=== PATIENT | male | born 1955 | race Two or more races ===

== ENCOUNTER 2020-10-24 18:27 | Inpatient (IN) | payer OTHER ==
[~2020-10-24] VITALS: Ht 162.6 cm; Wt 68.0 kg
--- NOTE | 2020-10-24 18:30 | Emergency Room Report ---
History of Present Illness General Source: Patient, EMS Present Illness HPI 64-year-old male with past medical history of diabetes, hypertension, "heart condition" BIBA c/o shortness of breath. Patient is a poor historian, however states that he was at "a hospital on [place]" 3 weeks ago where "they did an operation on my chest". He endorses shortness of breath, dyspnea on exertion, wheezing, dry cough, nausea, and itchy rash to his entire body. He states that he has been scratching them relentlessly. He denies fever, phlegm, diarrhea, dysuria, melena, hematochezia, hematuria, flank or back pain. He states when he was tested at the outside hospital 3 weeks ago he was negative for Covid Admits to orthopnea and dyspnea on exertion The patient's symptoms were gradual onset, severity was moderate, duration since 3 weeks. Quality: Progressive shortness of breath Past medical history: Cardiac history (CAD??), Hypertension, diabetes Past surgical history: Possible left chest pacemaker Smoking: Denies Alcohol use: Denies Drug use: Denies Review of systems: CONST: No fevers or chills, No night sweats PULMONARY: ++dry cough, ++shortness of breath CARDIAC: No chest pain, No palpitations GI: No vomiting, No diarrhea , No melena_or_BRBPR : No dysuria, No hematuria, No discharge NEURO: No new_focal_weakness_or_numbness, No confusion, No vision changes ++ generalized weakness 14 point Review of Systems is otherwise negative except per HPI Physical Exam: GENERAL: Awake_alert_ nontoxic, no acute distress Spo2 90% on 2L NC, abnormal EYES: Extraocular muscles are intact. Conjunctivae clear. Lids without swelling ENT: External nose and ear normal_in_appearance. Oropharynx clear. Head_atraumatic, Dry_oral_mucosa NECK: ++ JVD. No meningismus. No thyromegaly. Supple. Trachea midline RESP: Tachypneic. Coarse breath sounds bilaterally. Inspiratory and expiratory wheezing. Symmetric rise. No stridor. CARDIAC: Left chest incision is clean, dry, intact. Possible pacemaker underneath the skin. Regular rate and regular rhytm. No_significant pedal edema. ABDOMEN: Soft. Nondistended. Nontender_No_rebound_or_guarding. No palpable pulsatile mass MSK: Normal muscle tone, without rigidity. Extremities without asymmetric deformity or swelling. SKIN: Linear burrows to the anterior and posterior thigh and tib-fib intertriginous zone, and hands NEUROLOGIC: Alert, oriented x3. Motor_and_sensation_grossly_intact. No truncal ataxia. Gait_normal Psych: Normal mood and affect, normal judgment and insight - COORDINATION OF CARE Case was discussed with: Patient Any labs and imaging that were ordered were interpreted as part of the medical decision making: Medical Decision Making/Plan: Differential includes CHF, pulmonary edema, COPD, pulmonary embolism, pneumonia, pleural effusions, pneumothorax, among others. Patient appears dyspneic on initial evaluation. He is neurologically intact with no focal deficits. Exam is notable for JVD and coarse breath sounds bilaterally, likely cardiac wheezing. He is incidentally also found to have evidence of scabies infection. Contact precautions were ordered. ABG confirms hypoxemia. Labs show BNP 3346, negative troponin x1. Also shows incidental findings of acute kidney injury (Cr 1.8 with no previous for comparison), and normocytic anemia. No indication for blood transfusion at this time. EKG is normal sinus rhythm without any obvious signs of ischemia. CXR shows RLL effusion vs Pneumonia. ED intervention included broad-spectrum antibiotics, azithromycin for atypical coverage, Decadron, and then medications for congestive heart failure exacerbation. Symptoms are not likely to be due to pulmonary embolism, the patient has no significant PE risk factors and has a more likely alternate cause of their symptoms, given their chest xray findings, lung exam and presentation so workup was deferred and not pursued. The patient appears to be in decompensated CHF in exacerbation and not a suitable candidate for outpatient treatment so will be admitted for inpatient diuresis and further evaluation and treatment. I spoke with Dr. Aguillon, and reviewed the patients presentation, workup, results, and treatment. They will admit the patient for further care and evaluation, and assume care of the patient at this time. Allergies: Coded Allergies: No Known Allergies (Unverified , 10/24/20) Physical Exam Sp02 EP Interpretation: reviewed, abnormal Medical Decision Making Diagnostic Impression: Primary Impression: Shortness of breath Additional Impressions: Hypoxia Pneumonia Cough VIJAY (acute kidney injury) Normocytic anemia CAD (coronary artery disease) Pacemaker Scabies EKG Diagnostic Results Troponin ordered: Yes When was troponin ordered?: Oct 24, 2020 CHARLIE Curtis 12-lead EKG (interpreted by me) Time: 184 Indication: Rhythm analysis Tracing visualized and Interpreted by me. Rhythm: Normal sinus rhythm Rate: 78 bpm QTc: 424 Morphology: No_significant_ST_elevations_or_depressions, No STEMI Impression: Normal_sinus_rhythm_without_significant_abnormality Rhythm Strip Diag. Results Rhythm Strip Time: 19:01 EP Interpretation: yes Rate: 76 Rhythm: NSR, no PVC's, no ectopy Chest X-Ray Diagnostic Results Chest X-Ray Diagnostic Results : CHARLIE Curtis Chest X-Ray: Views: [ 1 ] view(s) Indication: Shortness of breath Findings: Normal heart size. Mediastinum normal. No infiltrate. Impression: [ ] The X-ray(s) were independently viewed and interpreted contemporaneously Electronically signed by Dana hunter DO Disposition: ADMITTED INPATIENT Admit Decision Time: 18:44 Condition: Stable Dana Vazquez D.O. Oct 24, 2020 18:30
[2020-10-24] MEDS ORDERED: DiphenhydrAMINE 50mg/ml Inj IVP ONE (18:45)
[2020-10-24] MEDS ORDERED: dexAMETHasone 10mg/ml Inj IV ONE (18:45)
[2020-10-24] MEDS ORDERED: cefTRIAXone 1 GM in NS 55 ML IVPB ONE (18:45)
[2020-10-24] MEDS ORDERED: Azithromycin 250mg tab ORAL ONE (18:45)
[2020-10-24 19:03] LABS: BASOPHILS % (AUTO) 0.6 % (0.0-2.0); EOSINOPHILS % (AUTO) 6.6 % (0.0-3.0); HEMATOCRIT 27.4 % (42.0-52.0); HEMOGLOBIN 8.4 G/DL (14.2-18.0); LYMPHOCYTES % (AUTO) 16.1 % (20.0-45.0); MEAN CORPUSCULAR VOLUME 85 FL (80-99); MONOCYTES % (AUTO) 9.1 % (1.0-10.0); NEUTROPHILS % (AUTO) 67.5 % (45.0-75.0); PLATELET COUNT 359 K/UL (150-450); RED BLOOD COUNT 3.23 M/UL (4.70-6.10); RED CELL DISTRIBUTION WIDTH 14.2 % (11.6-14.8); WHITE BLOOD COUNT 8.4 K/UL (4.8-10.8)
--- NOTE | 2020-10-24 19:04 | NUR ---
Patient presented to ER with c/o shortness of breath x 3 weeks. He d/c's from another ER 3 weeks ago. When EMS arrived at his home, his O2 was 90%. They gave him O2 @ 2L which increased O2 to 95%. He has a hx of HTN and pacemaker placement. NKA. His medication is unknown as his medications were found in a weekly pill box. Patient cannot remember the names of his medications. Afebrile. NSR on 12 lead. 18 LFA. Current Dx: CHF exacerbation, scabies, JVD+
--- NOTE | 2020-10-24 19:10 | NUR ---
ED Nurse Note: Received patient in bed, supine. SOB O2 at 2L via nasal cannula, O2 sat 95%, pt is AOX3, forgetful, moslty frisian speaking. Denies chest pain.
[2020-10-24 19:18] LABS: ANION GAP 7 mmol/L (5-15); BLOOD UREA NITROGEN 44 mg/dL (7-18); CALCIUM 8.7 MG/DL (8.5-10.1); CARBON DIOXIDE 28 MMOL/L (21-32); CHLORIDE 107 MMOL/L (98-107); CREATININE 1.8 MG/DL (0.55-1.30); SODIUM 142 MMOL/L (136-145)
--- NOTE | 2020-10-24 19:18 | Diagnostic Imaging Report ---
EXAM: XR Chest, 1 View CLINICAL HISTORY: COUGH TECHNIQUE: Frontal view of the chest. COMPARISON: No relevant prior studies available. FINDINGS: Lungs: Low lung volumes with bronchovascular crowding. Retrocardiac atelectasis without or with consolidation. Left midlung/base subsegmental atelectasis. Pleural space: Right small-moderate pleural effusion with passive atelectasis. No pneumothorax. Heart: Cardiomegaly. Mediastinum: Unremarkable. Bones/joints: No acute abnormality Tubes, lines and devices: Left chest pacer. IMPRESSION: 1. Low lung volumes with bronchovascular crowding. 2. Right small-moderate pleural effusion with passive atelectasis without or with consolidation. 3. Retrocardiac atelectasis without or with consolidation. 4. Cardiomegaly. 5. Left chest pacer. 6. Left midlung/base subsegmental atelectasis. 7. If there is continued concern, consider cross-sectional imaging.
[2020-10-24 19:35] LABS: ALANINE AMINOTRANSFERASE 37 U/L (12-78); ALBUMIN 2.3 G/DL (3.4-5.0); ALBUMIN/GLOBULIN RATIO 0.5 (1.0-2.7); ALKALINE PHOSPHATASE 195 U/L (46-116); ASPARTATE AMINO TRANSFERASE 28 U/L (15-37); BILIRUBIN,TOTAL 0.2 MG/DL (0.2-1.0); CREATINE KINASE 163 U/L (26-308); FERRITIN 36 NG/ML (8-388); LACTATE DEHYDROGENASE 259 U/L (81-234)
[2020-10-24] MEDS ORDERED: Enalaprilat 2.5mg/2ml Inj IV ONE (20:15)
[2020-10-24] MEDS: Nitroglycerin Patch 0.1mg/hr TDERMAL SCH (20:46)
[2020-10-24 21:34] LABS: APPEARANCE,URINE CLEAR; BILIRUBIN, URINE NEGATIVE (NEGATIVE); COLOR,URINE PALE YELLOW; GLUCOSE, URINE (UA) NEGATIVE (NEGATIVE); KETONES,URINE NEGATIVE (NEGATIVE); LEUKOCYTE ESTERASE ,URINE NEGATIVE (NEGATIVE); NITRITE,URINE NEGATIVE (NEGATIVE); PH,URINE 5 (4.5-8.0); PROTEIN,URINE 3+ (NEGATIVE); UROBILINOGEN,URINE NORMAL MG/DL (0.0-1.0)
[2020-10-24 21:50] VITALS: BP 160/83
[2020-10-25] VITALS (11 sets, daily range): BP systolic 118–168; BP diastolic 74–95
[2020-10-25] MEDS ORDERED: Acetaminophen 500mg (ES) tab ORAL PRN
--- NOTE | 2020-10-25 01:00 | NUR ---
Resting in bed with eyes close. 144/74, 90 O2 Sat 95% on 2 L nc. Respiration even unlabored.
--- NOTE | 2020-10-25 02:00 | NUR ---
Patient is resting in bed, no acute distress. Urinary output 400 mls, voids well. 157/79, 99, O2 Sat 96% NC at 2 L.
--- NOTE | 2020-10-25 03:00 | NUR ---
Patient is awake, AOX3, pleasant, forgetul. Denies any pain or discomfort. SOB at rest, HOB. 153/90, HR 89, 95 % on 2L NC.
--- NOTE | 2020-10-25 07:30 | NUR ---
taking over pt care. pt on continuous cardiac/O2 monitor. pt VSS. will continue to monitor. pt resting in bed. pt calm, cooperative.
--- NOTE | 2020-10-25 11:25 | NUR ---
NURSE NOTES: Received report from KURT Ball via telephone. Awaiting patient arrival to [facility]. Addendum: 10/25/20 at 1228 by Conrado Santoyo RN Wrong time stamp.
--- NOTE | 2020-10-25 12:23 | NUR ---
called report to KURT Juarez
--- NOTE | 2020-10-25 12:25 | NUR ---
NURSE NOTES: Received report from KURT Ball via telephone. Awaiting patient arrival to tele floor
--- NOTE | 2020-10-25 13:41 | NUR ---
NURSE NOTES: Patient brought up to the floor into room 217-2, alert and orientedx4, breathing even and unlabored vitals WNL, bed in lowest and locked position, bed alarm on, monitor car operator in place, side rails upx2. Contact precautions followed due to possible scabies infestation.
--- NOTE | 2020-10-25 14:37 | Cardiac Electrophysiology PN ---
Subjective Subjective [id number] Objective Last 24 Hour Vital Signs Date Time Temp Pulse Resp B/P (MAP) Pulse Ox O2 Delivery O2 Flow Rate FiO2 10/25/20 13:00 86 20 146/95 100 Room Air 10/25/20 12:03 82 20 168/89 100 Room Air 10/25/20 09:23 85 18 163/81 95 10/25/20 06:00 98.7 83 20 149/82 94 Room Air 10/25/20 05:00 87 160/83 10/25/20 03:00 89 18 153/90 95 Nasal Cannula 2.0 10/25/20 02:00 89 18 157/79 95 Nasal Cannula 2.0 10/25/20 01:00 90 18 144/74 95 Nasal Cannula 2.0 10/24/20 23:23 82 18 Nasal Cannula 2.0 10/24/20 21:50 98.4 18 160/83 95 Nasal Cannula 2.0 10/24/20 20:47 176/62 10/24/20 20:46 172/62 10/24/20 18:27 98.4 82 18 151/86 (107) 95 Nasal Cannula Intake and Output 10/24/20 10/25/20 19:00 07:00 Intake Total 440 ml Output Total 700 ml Balance -260 ml Intake Oral 440 ml Output Urine Total 700 ml Laboratory Tests Test 10/24/20 18:47 10/24/20 18:50 10/24/20 21:00 10/24/20 21:30 White Blood Count 8.4 K/UL (4.8-10.8) Red Blood Count 3.23 M/UL (4.70-6.10) L Hemoglobin 8.4 G/DL (14.2-18.0) L Hematocrit 27.4 % (42.0-52.0) L Mean Corpuscular Volume 85 FL (80-99) Mean Corpuscular Hemoglobin 26.0 PG (27.0-31.0) L Mean Corpuscular Hemoglobin Concent 30.6 G/DL (32.0-36.0) L Red Cell Distribution Width 14.2 % (11.6-14.8) Platelet Count 359 K/UL (150-450) Mean Platelet Volume 9.3 FL (6.5-10.1) Neutrophils (%) (Auto) 67.5 % (45.0-75.0) Lymphocytes (%) (Auto) 16.1 % (20.0-45.0) L Monocytes (%) (Auto) 9.1 % (1.0-10.0) Eosinophils (%) (Auto) 6.6 % (0.0-3.0) H Basophils (%) (Auto) 0.6 % (0.0-2.0) Prothrombin Time 11.3 SEC (9.30-11.50) Prothromb Time International Ratio 1.0 (0.9-1.1) Activated Partial Thromboplast Time 32 SEC (23-33) Sodium Level 142 MMOL/L (136-145) Potassium Level 5.0 MMOL/L (3.5-5.1) Chloride Level 107 MMOL/L (98-107) Carbon Dioxide Level 28 MMOL/L (21-32) Anion Gap 7 mmol/L (5-15) Blood Urea Nitrogen 44 mg/dL (7-18) H Creatinine 1.8 MG/DL (0.55-1.30) H Estimat Glomerular Filtration Rate 37.9 mL/min (>60) Glucose Level 127 MG/DL (74-106) H Lactic Acid Level 2.40 mmol/L (0.4-2.0) H 1.20 mmol/L (0.66-2.22) Calcium Level 8.7 MG/DL (8.5-10.1) Ferritin 36 NG/ML (8-388) Total Bilirubin 0.2 MG/DL (0.2-1.0) Aspartate Amino Transf (AST/SGOT) 28 U/L (15-37) Alanine Aminotransferase (ALT/SGPT) 37 U/L (12-78) Alkaline Phosphatase 195 U/L (46-116) H Lactate Dehydrogenase 259 U/L (81-234) H Total Creatine Kinase 163 U/L (26-308) Troponin I 0.015 ng/mL (0.000-0.056) C-Reactive Protein, Quantitative 0.8 mg/dL (0.00-0.90) Pro-B-Type Natriuretic Peptide 3346 pg/mL (0-125) H Total Protein 7.0 G/DL (6.4-8.2) Albumin 2.3 G/DL (3.4-5.0) L Globulin 4.7 g/dL Albumin/Globulin Ratio 0.5 (1.0-2.7) L Lipase 85 U/L (73-393) Arterial Blood pH 7.415 (7.350-7.450) Arterial Blood Partial Pressure CO2 44.6 mmHg (35.0-45.0) Arterial Blood Partial Pressure O2 65.3 mmHg (75.0-100.0) L Arterial Blood HCO3 28.0 mmol/L (22.0-26.0) H Arterial Blood Oxygen Saturation 92.3 % (95-100) L Arterial Blood Base Excess 3.0 (-2-2) H Alex Test Positive Urine Color Pale yellow Urine Appearance Clear Urine pH 5 (4.5-8.0) Urine Specific [place] 1.010 (1.005-1.035) Urine Protein 3+ (NEGATIVE) H Urine Glucose (UA) Negative (NEGATIVE) Urine Ketones Negative (NEGATIVE) Urine Blood 1+ (NEGATIVE) H Urine Nitrite Negative (NEGATIVE) Urine Bilirubin Negative (NEGATIVE) Urine Urobilinogen Normal MG/DL (0.0-1.0) Urine Leukocyte Esterase Negative (NEGATIVE) Urine RBC 0-2 /HPF (0 - 0) H Urine WBC 0 /HPF (0 - 0) Urine Squamous Epithelial Cells None /LPF (NONE/OCC) Urine Bacteria Few /HPF (NONE) Microbiology Date/Time Source Procedure Growth Status 10/24/20 18:47 Nasopharynx SARS-CoV-2 Antigen (Rapid)(ELISABET) - Final Complete Jamal Cisneros MD Oct 25, 2020 14:37
--- NOTE | 2020-10-25 15:02 | Consultation ---
Consult Note Consult Note DATE OF CONSULTATION: 10/25/2020 CONSULTING PHYSICIAN: Venkatesh Reyna MD. ATTENDING PHYSICIAN: Dr. Aguillon REASON FOR CONSULTATION: Wheezing, hypoxic respiratory distress HISTORY OF PRESENT ILLNESS: This is a 64-year-old male with past medical history of diabetes mellitus, hypertension, and an unspecified "heart condition", who presented to ED for evaluation of shortness of breath. Patient is a poor historian, however states that he was at "a hospital on [place]" 3 weeks ago where "they did an operation on my chest". Patient reports shortness of breath, dyspnea on exertion, wheezing, dry cough, nausea, and itchy rash on his entire body. He states that he had been scratching them r elentlessly. He denies fever, phlegm, diarrhea, dysuria, melena, hematochezia, hematuria, flank or back pain. Patient states that he tested negative for COVID-19 3 weeks ago from an outside source. Patient admits to orthopnea and dyspnea on exertion. PAST MEDICAL HISTORY: Cardiac history, hypertension, diabetes mellitus MEDICATIONS: Full list of home medication not available at this time ALLERGIES: No known allergies FAMILY HISTORY: Noncontributory PERSONAL/SOCIAL HISTORY: Patient denies smoking, alcohol use, drug use REVIEW OF SYSTEMS: Negative except mentioned in HPI PHYSICAL EXAMINATION: VITAL SIGNS: Blood pressure 146/95, heart rate 80, respiratory rate next 20, weight 68, height 162 cm. General: Patient laying in bed, NAD, normal work of breathing on 2 L NC HEENT: Head exam reveals that the head is normocephalic, atraumatic without deformity or unusual swelling. Pupils are PERRLA. + JVD CHEST AND LUNGS: Coarse breath sounds bilaterally, inspiratory and expiratory wheezing, no stridor CARDIOVASCULAR: Left chest incision is clean, dry, intact. Possible pacemaker underneath the skin. Regular rate and regular rhytm. No_significant pedal edema. ABDOMEN: Soft with no tenderness or organomegaly. SKIN: Linear burrows to the anterior and posterior thigh and tib-fib intertriginous zone, and hands RECTAL: Deferred. MUSCULOSKELETAL: There is no tenderness to palpation. Range of motion is normal. NEUROLOGICAL: Alert and oriented x3 , nonfocal LABORATORY DATA: Laboratory testing shows hemoglobin 8.4, hematocrit 27.4. Chemistries show BUN 44, creatinine 1.8, glucose 127, lactic acid 1.2, alk phos 195, LDH 259, BNP 3346, albumin 2.3 Urinalysis unremarkable Assessment/Plan 1. Scabies -Contact precaution - s/p permethrin 2. Hypoxemic respiratory failure on admission -Currently saturating well on 2 L nasal cannula -Wean as tolerated - s/p Decadron in ER 3. VIJAY -Monitor renal parameters -IV fluids 4. ? Pneumonia - Rapid COVID-19 negative (10/25) - CXR Right lower lobe effusion versus pneumonia - s/p broad-spectrum antibiotics in ER -On antibiotics per ID 5. Right pleural effusion -Monitor effusion; consider thoracentesis if effusion enlarges and becomes symptomatic 6. CHF exacerbation - Elevated BNP - on Lasix -Cardio following 7. Normocytic anemia 8. DVT ppx - on SCDs The care for this patient was discussed with my supervising physician. Time spent for this case was approximately 31 minutes. Best Brandon Oct 25, 2020 15:02
[2020-10-25] MEDS: cefTRIAXone 1 GM in D5W 55 ML IVPB SCH (18:02)
[2020-10-25] MEDS ORDERED: cloNIDine 0.2mg Tab ORAL PRN (18:45)
--- NOTE | 2020-10-25 19:25 | NUR ---
NURSE HAND-OFF REPORT: Important Events on Shift: permethrin applied Patient Status: stable condition, breathing even and unlabored, SOB noted on exertion Diet: NPO Pending Orders: [] Pending Results/Labs:[] Pending MD notification:[] Latest Vital Signs: Temperature 97.9 , Pulse 73 , B/P 118 /88 , Respiratory Rate 16 , O2 SAT 95 , Room Air, O2 Flow Rate 2.0 . Vital Sign Comment: [] EKG Rhythm: Sinus Rhythm Rhythm change?: N MD Notified?: Yomi Aguillon MD Response: Latest Barber Fall Score: 45 Fall Risk: High Risk Safety Measures: Call light Within Reach, Bed Alarm Zone 2, Side Rails Side Rails x2, Bed position Low and Locked. Fall Precautions: Yellow Socks Yellow Gown Door Sign Patient Fall Education Report given to KURT Woody.
--- NOTE | 2020-10-25 19:25 | NUR ---
NURSE HAND-OFF REPORT: Important Events on Shift: turned patient every 2 hours, a-paced, v/s wnl Patient Status: full code, stable condition, discussed with patient Dr. Manley intent to send patient to assisted soon to stablize lab levels prior to proceeding with colonoscopy Diet: CARDIAC DIET Pending Orders: [] Pending Results/Labs:[] Pending MD notification:[] Latest Vital Signs: Temperature 97.9 , Pulse 73 , B/P 118 /88 , Respiratory Rate 16 , O2 SAT 95 , Room Air, O2 Flow Rate 2.0 . Vital Sign Comment: [] EKG Rhythm: Sinus Rhythm Rhythm change?: N MD Notified?: Y -Dr. Henna TURCIOS Response: Latest Barber Fall Score: 45 Fall Risk: High Risk Safety Measures: Call light Within Reach, Bed Alarm Zone 2, Side Rails Side Rails x2, Bed position Low and Locked. Fall Precautions: Yellow Socks Yellow Gown Door Sign Patient Fall Education Report given to KURT Woody. Addendum: 10/25/20 at 1947 by Conrado Santoyo RN wrong patient documentation.
--- NOTE | 2020-10-25 19:30 | NUR ---
NURSE NOTES: Received report & pt from Conrado Verdugo RN. Pt in bed, a&ox4, Uzbek speaking only, in room air. No s/s of acute distress & no c/o pain at this time. IV site intact & S/L'd. Bed in lowest position. Call light within reach. Will continue to monitor.
[2020-10-25] MEDS: Nitroglycerin Patch 0.1mg/hr TDERMAL SCH (20:31)
[2020-10-25] MEDS: Carvedilol 6.25mg Tab ORAL SCH (20:31)
--- NOTE | 2020-10-25 21:00 | NUR ---
NURSE NOTES: Pt requesting to put oxygen on. Pt currently saturating 93% in room air but insists on putting on the oxygen. Nasal canula on at @ 2LPM, pt saturating 96%.
--- NOTE | 2020-10-25 22:59 | History and Physical Report ---
DATE OF ADMISSION: 10/24/2020 HISTORY OF PRESENT ILLNESS: Patient is being admitted for patient has scabies also for CHF as well as chest x-ray shows right lower lobe infiltrate as well as pneumonia. Patient also has elevated blood pressure. Patient was also initially hypoxic and short of breath, admitted for those reasons. Patient denies orthopnea. Denies nausea, vomiting, or diarrhea. Does have shortness of breath and occasional cough and scratching as well as has some rash. Patient is very disheveled. Poor hygiene and has been complaining of dry cough. According to the ER doctor, he is COVID negative. PAST MEDICAL HISTORY: CHF, CAD, arrhythmia, hypertension. PAST SURGICAL HISTORY: Pacemaker. FAMILY HISTORY: Noncontributory. SOCIAL HISTORY: Denies history of smoking. Denies history of drug abuse. No history of alcohol abuse. FAMILY HISTORY: Noncontributory. REVIEW OF SYSTEMS: HEENT: Denies headaches. RESPIRATORY: Does have shortness of breath. Does have cough. CARDIOVASCULAR: Denies chest pain. Does have orthopnea. GASTROINTESTINAL: Denies nausea, vomiting, or diarrhea. EXTREMITIES: Denies pain. CENTRAL NERVOUS SYSTEM: Denies change in speech pattern. DERMATOLOGICAL: Has rash and itching. MEDICATIONS: None. ALLERGIES: No known allergies. PHYSICAL EXAMINATION: VITAL SIGNS: Temperature is 97.9, pulse is 77, blood pressure is 160/82. GENERAL: Does have disheveled state. HEENT: PERRLA. CHEST: Clear to auscultation. CARDIOVASCULAR: Regular rate and rhythm. No murmurs or extra sounds. GASTROINTESTINAL: Soft, nontender, nondistended. No organomegaly. EXTREMITIES: Does have rashes throughout. He is able to move all extremities. Reflexes equal on both sides. Dorsal pedal pulses are present. LABORATORY DATA: WBC of 8.4, hemoglobin 8.4, platelets of 359. Sodium 148, potassium of 5, BUN of 44, creatinine 1.8, glucose of 127. Troponin 0.015. ASSESSMENT AND PLAN: 1. Acute renal failure. 2. CHF. 3. Pneumonia. 4. Hypertension. 5. Shortness of breath. 6. Hypoxia. I have consulted Dr. Ram, Dr. Cisneros, Dr. Rodolfo Mueller, Dr. Venkatesh Reyna to help with the management of the above-mentioned abnormal symptoms, abnormal diagnoses, abnormal imaging as well as abnormal laboratories. We will need to diurese and bring down the blood pressure. Antibiotics as per Dr. Rodolfo Mueller. He is COVID negative. Jose Aguillon M.D. DR: ALICIA JOB#: [id number] CC:
[2020-10-26] VITALS: BP 126/65
--- NOTE | 2020-10-26 | NUR ---
NURSE NOTES: New IV inserted LH#[id number], flushing well. RN came into room and IV was out & bleeding.
[2020-10-26 04:00] VITALS: BP_SYST 143; BP_SYST 144; BP_DIAS 76; BP_DIAS 79
--- NOTE | 2020-10-26 04:00 | NUR ---
NURSE NOTES: Pt asleep. Vitals taken. Saturating 98% on o2 via NC. In no acute distress.
--- NOTE | 2020-10-26 06:21 | NUR ---
NURSE HAND-OFF REPORT: Important Events on Shift:new iv site LH#22 Patient Status: stable Diet: NPO Pending Orders: 2D Echo 10/26 Pending Results/Labs:none Pending MD notification:none Latest Vital Signs: Temperature 96.8 , Pulse 69 , B/P 143 /79 , Respiratory Rate 18 , O2 SAT 97 , Room Air, O2 Flow Rate 2.0 . Vital Sign Comment: none EKG Rhythm: V-Paced Rhythm change?: N MD Notified?: N MD Response: Latest Barber Fall Score: 45 Fall Risk: High Risk Safety Measures: Call light Within Reach, Bed Alarm Zone 2, Side Rails Side Rails x2, Bed position Low and Locked. Fall Precautions: Patient Fall Education Report given to Petar Kendall RN.
--- NOTE | 2020-10-26 07:25 | NUR ---
NURSE NOTES: Received patient in bed. Awake, A/O x4, french speaking. On 2 L NC, respirations unlabored. Patient denies pain at this time. Bed low and locked, side rails up x2, call light within reach with return demonstration.
[2020-10-26 07:46] LABS: BASOPHILS % (AUTO) 0.8 % (0.0-2.0); EOSINOPHILS % (AUTO) 2.1 % (0.0-3.0); HEMATOCRIT 25.9 % (42.0-52.0); MEAN CORPUSCULAR VOLUME 84 FL (80-99); MONOCYTES % (AUTO) 10.2 % (1.0-10.0); PLATELET COUNT 334 K/UL (150-450); RED BLOOD COUNT 3.07 M/UL (4.70-6.10); RED CELL DISTRIBUTION WIDTH 14.7 % (11.6-14.8); WHITE BLOOD COUNT 5.6 K/UL (4.8-10.8)
[2020-10-26 08:00] VITALS: BP 161/88
[2020-10-26] MEDS ORDERED: guaiFENesin /DM 10ml syrup ORAL PRN (08:00)
[2020-10-26 08:03] LABS: GAMMA GLUTAMYL TRANSPEPTIDASE 42 U/L (5-85); PHOSPHORUS 6.5 MG/DL (2.5-4.9)
[2020-10-26 08:11] LABS: IRON 28 ug/dL (50-175); TOTAL IRON BINDING CAPACITY 295 ug/dL (250-450)
[2020-10-26 08:13] LABS: ALANINE AMINOTRANSFERASE 25 U/L (12-78); ALBUMIN 2.3 G/DL (3.4-5.0); ALBUMIN/GLOBULIN RATIO 0.5 (1.0-2.7); ALKALINE PHOSPHATASE 156 U/L (46-116); ANION GAP 6 mmol/L (5-15); ASPARTATE AMINO TRANSFERASE 18 U/L (15-37); BILIRUBIN,TOTAL 0.2 MG/DL (0.2-1.0); BLOOD UREA NITROGEN 61 mg/dL (7-18); CARBON DIOXIDE 28 MMOL/L (21-32); CHLORIDE 108 MMOL/L (98-107); CHOLESTEROL 157 MG/DL (< 200); CREATININE 1.8 MG/DL (0.55-1.30); FERRITIN 44 NG/ML (8-388); HDL CHOLESTEROL 33 MG/DL (40-60); POTASSIUM 4.6 MMOL/L (3.5-5.1); SODIUM 142 MMOL/L (136-145); TRIGLYCERIDES 122 MG/DL (30-150)
[2020-10-26 08:19] LABS: % IRON SATURATION 9 % (15-50)
[2020-10-26] MEDS: Carvedilol 6.25mg Tab ORAL SCH ×2 (08:31→20:45)
--- NOTE | 2020-10-26 10:18 | Pulmonology Progress Note ---
Subjective Interval Events: none major reported per nursing Constitutional: Reports: no symptoms HEENT: Repors: no symptoms Respiratory: Reports: no symptoms Cardiovascular: Reports: no symptoms Gastrointestinal/Abdominal: Reports: no symptoms Allergies: Coded Allergies: No Known Allergies (Unverified , 10/24/20) Objective Last 24 Hour Vital Signs Date Time Temp Pulse Resp B/P (MAP) Pulse Ox O2 Delivery O2 Flow Rate FiO2 10/26/20 08:31 72 164/88 10/26/20 08:00 97.9 72 18 161/88 (112) 99 10/26/20 04:00 96.8 98 18 143/79 (100) 97 10/26/20 04:00 69 10/26/20 00:00 73 10/26/20 00:00 97.9 78 18 126/65 (85) 98 10/25/20 21:00 Room Air 10/25/20 20:31 90 160/82 10/25/20 20:31 160/82 10/25/20 20:00 96.4 90 18 160/82 (108) 96 10/25/20 20:00 73 10/25/20 16:00 97.9 86 16 118/88 (98) 95 10/25/20 16:00 73 10/25/20 14:51 Nasal Cannula 2.0 10/25/20 13:50 97.9 77 20 130/92 (105) 98 10/25/20 13:00 86 20 146/95 100 Room Air 10/25/20 12:03 82 20 168/89 100 Room Air 10/25/20 12:00 98.7 85 18 163/81 95 Room Air 2.0 Intake and Output 10/25/20 10/26/20 19:00 07:00 Intake Total 55 ml Output Total 650 ml Balance 55 ml -650 ml IV Total 55 ml Other 650 ml General Appearance: no acute distress HEENT: atraumatic Respiratory: other - coase breath sounds Cardiovascular: normal rate Abdomen: soft, non tender Microbiology Date/Time Source Procedure Growth Status 10/24/20 18:59 Blood Blood Culture - Preliminary NO GROWTH AFTER 24 HOURS Resulted 10/24/20 18:47 Nasopharynx SARS-CoV-2 Antigen (Rapid)(ELISABET) - Final Complete 10/24/20 18:47 Blood Blood Culture - Preliminary Gram Positive Cocci Resulted Laboratory Tests 10/25/20 15:35: Troponin I 0.013 10/25/20 23:27: Troponin I 0.013 10/26/20 07:24: Troponin I 0.022, White Blood Count 5.6, Red Blood Count 3.07L, Hemoglobin 8.0L, Hematocrit 25.9L, Mean Corpuscular Volume 84, Mean Corpuscular Hemoglobin 26.1L, Mean Corpuscular Hemoglobin Concent 31.0L, Red Cell Distribution Width 14.7, Platelet Count 334, Mean Platelet Volume 8.8, Neutrophils (%) (Auto) 70.0, Lymphocytes (%) (Auto) 17.0L, Monocytes (%) (Auto) 10.2H, Eosinophils (%) (Auto) 2.1, Basophils (%) (Auto) 0.8, Sodium Level 142, Potassium Level 4.6, Chloride Level 108H, Carbon Dioxide Level 28, Anion Gap 6, Blood Urea Nitrogen 61H, Creatinine 1.8H, Estimat Glomerular Filtration Rate 37.9, Glucose Level 204H, Uric Acid 7.5H, Calcium Level 9.0, Phosphorus Level 6.5H, Magnesium Level 2.4, Iron Level 28L, Total Iron Binding Capacity 295, Percent Iron Saturation 9L, Unsaturated Iron Binding 267, Ferritin 44, Total Bilirubin 0.2, Gamma Glutamyl Transpeptidase 42, Aspartate Amino Transf (AST/SGOT) 18, Alanine Aminotransferase (ALT/SGPT) 25, Alkaline Phosphatase 156H, C-Reactive Protein, Quantitative < 0.4, Pro-B-Type Natriuretic Peptide 4893H, Total Protein 6.5, Albumin 2.3L, Globulin 4.2, Albumin/Globulin Ratio 0.5L, Triglycerides Level 122, Cholesterol Level 157, LDL Cholesterol 106H, HDL Cholesterol 33L, Cholesterol/HDL Ratio 4.8H, Vitamin B12 Level 646, Folate 7.7L, Thyroid Stimulating Hormone (TSH) 5.007H Current Medications Medications (Trade) Dose Ordered Sig/Jermaine Route PRN Reason Start Time Stop Time Status Last Admin Dose Admin Acetaminophen (Tylenol) 500 mg EVERY 4 HOURS PRN ORAL For Pain 10/25/20 00:00 11/24/20 00:00 Carvedilol (Coreg) 3.125 mg EVERY 12 HOURS ORAL 10/25/20 21:00 11/24/20 20:59 10/26/20 08:31 Ceftriaxone Sodium 1 gm/ Dextrose 55 ml @ 110 mls/hr Q24H IVPB 10/25/20 18:00 11/01/20 17:59 10/25/20 18:02 Clonidine HCl (Catapres tab) 0.2 mg Q4H PRN ORAL For High Blood Pressure 10/25/20 18:45 01/23/21 18:44 Furosemide (Lasix) 40 mg EVERY 12 HOURS IV 10/25/20 21:00 11/24/20 20:59 10/26/20 08:30 Guaifenesin/ Dextromethorphan (Robitussin DM Syrup) 10 ml Q4H PRN ORAL For Cough 10/26/20 08:00 01/24/21 07:59 10/26/20 08:30 Nitroglycerin (Ntg) 1 patch Q24H TDERMAL 10/24/20 20:15 11/23/20 20:14 10/25/20 20:31 Assessment/Plan Assessment/Plan 1. Scabies -Contact precaution - s/p permethrin 2. Hypoxemic respiratory failure on admission -Currently saturating well on 2 L nasal cannula; Wean as tolerated - s/p Decadron in ER 3. VIJAY -Monitor renal parameters -IV fluids 4. ? Pneumonia - Rapid COVID-19 negative (10/25) - CXR Right lower lobe effusion versus pneumonia - s/p broad-spectrum antibiotics in ER -On antibiotics per ID 5. Right pleural effusion -Monitor effusion; consider thoracentesis if effusion enlarges and becomes symptomatic 6. CHF exacerbation - Elevated BNP - on Lasix -Cardio following 7. Normocytic anemia 8. DVT ppx - on SCDs The care for this patient was discussed with my supervising physician. Time spent for this case was approximately 31 minutes. Best Brandon Oct 26, 2020 10:18
--- NOTE | 2020-10-26 11:21 | NUR ---
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 98.4 HR 82 RR 18 B/P 151/86 BUN 44 CR 1.5 ALK PHOS 185 BNP 3346 CXR=Right small-moderate pleural effusion with passive atelectasis without or with consolidation. Retrocardiac atelectasis without or with consolidation. Cardiomegaly. IS: ROCEPHIN IV ZITHROMAX IV LASIX IV DECADRON IV BENADRYL IV ADMITTED TO TELE @ 1230 TELE STATUS DCP RETURN HOME
--- NOTE | 2020-10-26 11:47 | Cardiac Electrophysiology PN ---
Assessment/Plan Assessment/Plan 1. S/P DDD Pacer implant. Still the brand is unknown. 2. CHF exacerbation EF 45% on Lasix 40 iv bid and Coreg 3.125 bid 3. Hypoxemic respiratory failure due to CHFand Pneumonia - Rapid COVID-19 negative (10/25) - CXR Right lower lobe effusion versus pneumonia -On antibiotics per ID -Currently saturating well on 2 L nasal cannula 4. VIJAY BUN/Cr 61/1.8 5. Right pleural effusion -Monitor effusion; consider thoracentesis if effusion enlarges and becomes symptomatic 6. Scabies -Contact precaution - s/p permethrin Subjective Subjective No CP or SOB. We contacted all pacer companies but not registered to any one?! Objective Last 24 Hour Vital Signs Date Time Temp Pulse Resp B/P (MAP) Pulse Ox O2 Delivery O2 Flow Rate FiO2 10/26/20 09:00 Nasal Cannula 2.0 10/26/20 08:31 72 164/88 10/26/20 08:00 71 10/26/20 08:00 97.9 72 18 161/88 (112) 99 10/26/20 04:00 96.8 98 18 143/79 (100) 97 10/26/20 04:00 69 10/26/20 00:00 73 10/26/20 00:00 97.9 78 18 126/65 (85) 98 10/25/20 21:00 Room Air 10/25/20 20:31 90 160/82 10/25/20 20:31 160/82 10/25/20 20:00 96.4 90 18 160/82 (108) 96 10/25/20 20:00 73 10/25/20 16:00 97.9 86 16 118/88 (98) 95 10/25/20 16:00 73 10/25/20 14:51 Nasal Cannula 2.0 10/25/20 13:50 97.9 77 20 130/92 (105) 98 10/25/20 13:00 86 20 146/95 100 Room Air 10/25/20 12:03 82 20 168/89 100 Room Air 10/25/20 12:00 98.7 85 18 163/81 95 Room Air 2.0 Intake and Output 10/25/20 10/26/20 19:00 07:00 Intake Total 55 ml Output Total 650 ml Balance 55 ml -650 ml IV Total 55 ml Other 650 ml Laboratory Tests Test 10/25/20 15:35 10/25/20 23:27 10/26/20 07:24 Troponin I 0.013 ng/mL (0.000-0.056) 0.013 ng/mL (0.000-0.056) 0.022 ng/mL (0.000-0.056) White Blood Count 5.6 K/UL (4.8-10.8) Red Blood Count 3.07 M/UL (4.70-6.10) L Hemoglobin 8.0 G/DL (14.2-18.0) L Hematocrit 25.9 % (42.0-52.0) L Mean Corpuscular Volume 84 FL (80-99) Mean Corpuscular Hemoglobin 26.1 PG (27.0-31.0) L Mean Corpuscular Hemoglobin Concent 31.0 G/DL (32.0-36.0) L Red Cell Distribution Width 14.7 % (11.6-14.8) Platelet Count 334 K/UL (150-450) Mean Platelet Volume 8.8 FL (6.5-10.1) Neutrophils (%) (Auto) 70.0 % (45.0-75.0) Lymphocytes (%) (Auto) 17.0 % (20.0-45.0) L Monocytes (%) (Auto) 10.2 % (1.0-10.0) H Eosinophils (%) (Auto) 2.1 % (0.0-3.0) Basophils (%) (Auto) 0.8 % (0.0-2.0) Sodium Level 142 MMOL/L (136-145) Potassium Level 4.6 MMOL/L (3.5-5.1) Chloride Level 108 MMOL/L (98-107) H Carbon Dioxide Level 28 MMOL/L (21-32) Anion Gap 6 mmol/L (5-15) Blood Urea Nitrogen 61 mg/dL (7-18) H Creatinine 1.8 MG/DL (0.55-1.30) H Estimat Glomerular Filtration Rate 37.9 mL/min (>60) Glucose Level 204 MG/DL (74-106) H Uric Acid 7.5 MG/DL (2.6-7.2) H Calcium Level 9.0 MG/DL (8.5-10.1) Phosphorus Level 6.5 MG/DL (2.5-4.9) H Magnesium Level 2.4 MG/DL (1.8-2.4) Iron Level 28 ug/dL (50-175) L Total Iron Binding Capacity 295 ug/dL (250-450) Percent Iron Saturation 9 % (15-50) L Unsaturated Iron Binding 267 ug/dL (112-346) Ferritin 44 NG/ML (8-388) Total Bilirubin 0.2 MG/DL (0.2-1.0) Gamma Glutamyl Transpeptidase 42 U/L (5-85) Aspartate Amino Transf (AST/SGOT) 18 U/L (15-37) Alanine Aminotransferase (ALT/SGPT) 25 U/L (12-78) Alkaline Phosphatase 156 U/L (46-116) H C-Reactive Protein, Quantitative < 0.4 mg/dL (0.00-0.90) Pro-B-Type Natriuretic Peptide 4893 pg/mL (0-125) H Total Protein 6.5 G/DL (6.4-8.2) Albumin 2.3 G/DL (3.4-5.0) L Globulin 4.2 g/dL Albumin/Globulin Ratio 0.5 (1.0-2.7) L Triglycerides Level 122 MG/DL (30-150) Cholesterol Level 157 MG/DL (< 200) LDL Cholesterol 106 mg/dL (<100) H HDL Cholesterol 33 MG/DL (40-60) L Cholesterol/HDL Ratio 4.8 (3.3-4.4) H Vitamin B12 Level 646 PG/ML (193-986) Folate 7.7 NG/ML (8.6-58.9) L Thyroid Stimulating Hormone (TSH) 5.007 uiU/mL (0.358-3.740) Microbiology Date/Time Source Procedure Growth Status 10/24/20 18:59 Blood Blood Culture - Preliminary NO GROWTH AFTER 24 HOURS Resulted 10/24/20 18:47 Nasopharynx SARS-CoV-2 Antigen (Rapid)(ELISABET) - Final Complete 10/24/20 18:47 Blood Blood Culture - Preliminary Gram Positive Cocci Resulted Objective General Appearance: no acute distress HEENT: atraumatic Respiratory: other - coase breath sounds Cardiovascular: RRR. Pacer left subclavian Abdomen: soft, non tender Toluie,Jamal MD Oct 26, 2020 11:47
[2020-10-26 12:00] VITALS: BP 155/87
--- NOTE | 2020-10-26 12:31 | Consultation ---
Consult Note Consult Note I am asked to evaluate the patient at the request of Dr. Stewart for renal failure and abnormal electrolytes IV fluid management. Patient seen. Labs reviewed. Other MDs notes reviewed. 64-year-old male with past medical history of diabetes, hypertension, "heart condition" BIBA c/o shortness of breath. Patient is a poor historian, however states that he was at "a hospital on [address] [place]" 3 weeks ago where "they did an operation on my chest". He endorses shortness of breath, dyspnea on exertion, wheezing, dry cough, nausea, and itchy rash to his entire body. He states that he has been scratching them relentlessly. He denies fever, phlegm, diarrhea, dysuria, melena, hematochezia, hematuria, flank or back pain. He states when he was tested at the outside hospital 3 weeks ago he was negative for Covid Admits to orthopnea and dyspnea on exertion The patient's symptoms were gradual onset, severity was moderate, duration since 3 weeks. Quality: Progressive shortness of breath Past medical history: Cardiac history (CAD??), Hypertension, diabetes Past surgical history: Possible left chest pacemaker PHYSICAL EXAMINATION: VITAL SIGNS: Temperature 97.9, pulse 72, blood pressure 164/88. GENERAL APPEARANCE: Seems to have normal weight. HEAD AND NECK: Have denture. HEART: Normal rate. LUNGS: Clear. Getting oxygen by nasal cannula. ABDOMEN: Soft. EXTREMITIES: No edema. NEUROLOGIC: Awake, alert, oriented x3. LABORATORY AND DIAGNOSTIC DATA: WBC 5.6, hemoglobin 8, hematocrit 25.9, and platelets 334. Sodium 142, potassium 4.6, BUN 61, creatinine 1.8, glucose 204. Hemoglobin A1c is 11.5. Had lactic acidosis at the time of admission. ABG showed hypoxemia with pO2 of 65.3 and O2 saturation of 92.3. COVID test negative. Blood culture x1 gram- positive cocci, other blood culture is negative. Chest x-ray showed low lung volumes, right small effusion, questionable atelectasis with or without consolidation. . Assessment/Plan Acute renal failure Possible underlying chronic kidney disease Anemia Pneumonia and hypoxia. Right lower lobe effusion versus pneumonia Congestive heart failure exacerbation with ejection fraction of 45% Pacemaker Coronary artery disease Scabies Optimize cardiac status Add folic acid Add Synthroid Add Protonix and stool softeners Change diet to cardiac diet, renal friendly Monitor renal parameters and electrolytes IV Venofer for low iron Monitor CBC and renal parameters Avoid nephrotoxic's Long Ram MD Oct 26, 2020 12:31
[2020-10-26] MEDS: Allopurinol 100mg Tab ORAL SCH (12:57)
[2020-10-26] MEDS: Docusate 100mg cap ORAL SCH ×2 (12:57→17:17)
[2020-10-26] MEDS ORDERED: Vancomycin 1.25gm Premix q24h IVPB SCH (15:00)
[2020-10-26 16:00] VITALS: BP 152/92
[2020-10-26] MEDS ORDERED: Iron Sucrose 200 MG in NS 110 ML IVPB ONE (16:00)
--- NOTE | 2020-10-26 16:34 | NUR ---
INSURANCE CLINICALS FAXED TO NOÉ DAVISON# [phone] FAX# [phone]
--- NOTE | 2020-10-26 17:14 | Cardiology Report ---
APPROVED REPORT EXAM: Two-dimensional and M-mode echocardiogram with Doppler and color Doppler. INDICATION Congestive Heart Failure M-Mode DIMENSIONS IVSd0.9 (0.7-1.1cm)Left Atrium (MM)4.4 (1.6-4.0cm) LVDd4.8 (3.5-5.6cm)Aortic Root3.3 (2.0-3.7cm) PWd1.0 (0.7-1.1cm)Aortic Cusp Exc.1.9 (1.5-2.0cm) IVSs1.2 cmEPSS0.6 (>1.0cm) LVDs3.6 (2.5-4.0cm) PWs1.4 cm <Conclusion> Normal left ventricular chamber size. There is hypokinesis of distal anteroseptal, otherwise normal lv fucntion Left ventricular ejection fraction estimated to be 50 %. No evidence of left ventricular hypertrophy. Small circumferential pericardial effusion. Possible large posterior pleural effusion. All other cardiac chamber sizes are within normal limits. Focal aortic valve sclerosis with adequate cusp excursion. Thickened mitral valve leaflets with normal excursion. Mitral annulus and aortic root calcification. Normal pulmonic valve structure. Normal tricuspid valve structure. IVC dilated at 2.3 cm with slight physiologic collapse suggestive of increased RA pressure. Pacemaker wire present in the right side chambers A color flow and spectral Doppler study was performed and revealed: Trace aortic regurgitation. Mild to moderate mitral regurgitation. Mitral inflow indicate normal left ventricular diastolic function. Mild tricuspid regurgitation. Tricuspid systolic velocities suggests peak right ventricular systolic pressure of 38 mmHg, consistent with mild pulmonary hypertension. Pulmonic regurgitation present. There is no respiratory variation more than 25% across MV. There is no respiratory variation more than 50% across TV.
[2020-10-26] MEDS: cefTRIAXone 1 GM in D5W 55 ML IVPB SCH (17:22)
--- NOTE | 2020-10-26 17:29 | Consultation ---
DATE OF CONSULTATION: 10/26/2020 INFECTIOUS DISEASES CONSULTATION CONSULTING PHYSICIAN: Rodolfo Mueller MD PRIMARY ATTENDING PHYSICIAN: Jose Aguillon MD REASON FOR CONSULTATION: Bacteremia, pneumonia, scabies. HISTORY OF PRESENT ILLNESS: This is a 64-year-old male admitted on 10/24/2020 complaining of shortness of breath, wheezing, dry cough, has shortness of breath on exertion, has itchy rash because of the scabies, got treatment for scabies with permethrin. The patient had positive blood culture with gram-positive cocci today. PAST MEDICAL HISTORY: Diabetes mellitus, hypertension, status post pacemaker, history of recent hospitalization. ALLERGIES: No known drug allergies. MEDICATIONS: Getting ceftriaxone, Protonix, levothyroxine, IV iron, allopurinol, Robitussin, dextromethorphan syrup, Lasix, Tylenol, nitroglycerin patch. SOCIAL HISTORY: Originally from [facility]. Single. Denies alcohol, drug abuse, or smoking. REVIEW OF SYSTEMS: The patient has no complaint today. PHYSICAL EXAMINATION: VITAL SIGNS: Temperature 97.9, pulse 72, blood pressure 164/88. GENERAL APPEARANCE: Seems to have normal weight. HEAD AND NECK: Have denture. HEART: Normal rate. LUNGS: Clear. Getting oxygen by nasal cannula. ABDOMEN: Soft. EXTREMITIES: No edema. NEUROLOGIC: Awake, alert, oriented x3. LABORATORY AND DIAGNOSTIC DATA: WBC 5.6, hemoglobin 8, hematocrit 25.9, and platelets 334. Sodium 142, potassium 4.6, BUN 61, creatinine 1.8, glucose 204. Hemoglobin A1c is 11.5. Had lactic acidosis at the time of admission. ABG showed hypoxemia with pO2 of 65.3 and O2 saturation of 92.3. COVID test negative. Blood culture x1 gram- positive cocci, other blood culture is negative. Chest x-ray showed low lung volumes, right small effusion, questionable atelectasis with or without consolidation. IMPRESSION: Possible pneumonia, hypoxemic respiratory failure, scabies, diabetes mellitus with hyperglycemia, hypertension, anemia, hypothyroidism, acute renal failure. RECOMMENDATION: Continue ceftriaxone. We will add IV vancomycin. We will follow up the cultures. At the end of my exam, I thank Dr. Aguillon, for involving me in the care of this patient. Rodolfo Mueller M.D. DR: Alicia JOB#: [id number] CC: SELENA
--- NOTE | 2020-10-26 19:19 | NUR ---
NURSE HAND-OFF REPORT: Important Events on Shift:[IV vanco] Patient Status: [FULL CODE] Diet: [cardiac/renal] Pending Orders: [] Pending Results/Labs:[] Pending MD notification:[] Latest Vital Signs: Temperature 96.7 , Pulse 98 , B/P 152 /92 , Respiratory Rate 20 , O2 SAT 99 , Room Air, O2 Flow Rate 2.0 . Vital Sign Comment: [] EKG Rhythm: V-Paced Rhythm change?: N MD Notified?: Yomi Aguillon MD Response: Latest Barber Fall Score: 45 Fall Risk: High Risk Safety Measures: Call light Within Reach, Bed Alarm Zone 2, Side Rails Side Rails x2, Bed position Low and Locked. Fall Precautions: Patient Fall Education Report given to [Glen RN].
--- NOTE | 2020-10-26 19:30 | NUR ---
NURSE NOTES: Received report & pt from Petar Kendall RN. Pt in bed, a&ox4, [place] speaking only, in room air. No s/s of acute distress & no c/o pain at this time. IV site intact & S/L'd. Bed in lowest position. Call light within reach. Will continue to monitor. Addendum: 10/26/20 at 1943 by Annalise Carroll RN Pt on O2via NC @ 2LPM.
[2020-10-26 20:00] VITALS: BP 181/100
--- NOTE | 2020-10-26 20:41 | General Progress Note ---
Subjective ROS Limited/Unobtainable: Yes Allergies: Coded Allergies: No Known Allergies (Unverified , 10/24/20) Objective Last 24 Hour Vital Signs Date Time Temp Pulse Resp B/P (MAP) Pulse Ox O2 Delivery O2 Flow Rate FiO2 10/26/20 16:00 96.7 73 20 152/92 (112) 99 10/26/20 16:00 98 10/26/20 12:00 72 10/26/20 12:00 96.9 69 20 155/87 (109) 100 10/26/20 09:00 Nasal Cannula 2.0 10/26/20 08:31 72 164/88 10/26/20 08:00 71 10/26/20 08:00 97.9 72 18 161/88 (112) 99 10/26/20 04:00 96.8 98 18 143/79 (100) 97 10/26/20 04:00 69 10/26/20 00:00 73 10/26/20 00:00 97.9 78 18 126/65 (85) 98 10/25/20 21:00 Room Air Intake and Output 10/25/20 10/26/20 19:00 07:00 Intake Total 55 ml Output Total 650 ml Balance 55 ml -650 ml IV Total 55 ml Other 650 ml Laboratory Tests 10/25/20 23:27: Troponin I 0.013 10/26/20 07:24: Troponin I 0.022, White Blood Count 5.6, Red Blood Count 3.07L, Hemoglobin 8.0L, Hematocrit 25.9L, Mean Corpuscular Volume 84, Mean Corpuscular Hemoglobin 26.1L, Mean Corpuscular Hemoglobin Concent 31.0L, Red Cell Distribution Width 14.7, Platelet Count 334, Mean Platelet Volume 8.8, Neutrophils (%) (Auto) 70.0, Lymph ocytes (%) (Auto) 17.0L, Monocytes (%) (Auto) 10.2H, Eosinophils (%) (Auto) 2.1, Basophils (%) (Auto) 0.8, Sodium Level 142, Potassium Level 4.6, Chloride Level 108H, Carbon Dioxide Level 28, Anion Gap 6, Blood Urea Nitrogen 61H, Creatinine 1.8H, Estimat Glomerular Filtration Rate 37.9, Glucose Level 204H, Hemoglobin A1c 11.5H, Uric Acid 7.5H, Calcium Level 9.0, Phosphorus Level 6.5H, Magnesium Level 2.4, Iron Level 28L, Total Iron Binding Capacity 295, Percent Iron Saturation 9L, Unsaturated Iron Binding 267, Ferritin 44, Total Bilirubin 0.2, Gamma Glutamyl Transpeptidase 42, Aspartate Amino Transf (AST/SGOT) 18, Alanine Aminotransferase (ALT/SGPT) 25, Alkaline Phosphatase 156H, C-Reactive Protein, Quantitative < 0.4, Pro-B-Type Natriuretic Peptide 4893H, Total Protein 6.5, Albumin 2.3L, Globulin 4.2, Albumin/Globulin Ratio 0.5L, Triglycerides Level 122, Cholesterol Level 157, LDL Cholesterol 106H, HDL Cholesterol 33L, Cholesterol/HDL Ratio 4.8H, Vitamin B12 Level 646, Folate 7.7L, Thyroid Sti mulating Hormone (TSH) 5.007H Height (Feet): 5 Height (Inches): 4.00 Weight (Pounds): 150 Assessment/Plan Problem List: (1) Scabies ICD Codes: B86 - Scabies SNOMED: 835688628, 42403732 (2) CAD (coronary artery disease) ICD Codes: I25.10 - Atherosclerotic heart disease of [place] coronary artery without angina pectoris SNOMED: 15389593, 20875217 (3) Pneumonia ICD Codes: J18.9 - Pneumonia, unspecified organism SNOMED: 399047872, 0152028 (4) Pacemaker ICD Codes: Z95.0 - Presence of cardiac pacemaker SNOMED: 791232789, 97604856 (5) VIJAY (acute kidney injury) ICD Codes: N17.9 - Acute kidney failure, unspecified SNOMED: 72897304, 3752148 (6) Shortness of breath ICD Codes: R06.02 - Shortness of breath SNOMED: 302105582 (7) CHF exacerbation ICD Codes: I50.9 - Heart failure, unspecified SNOMED: 071340991, 90643938908813 (8) Hypoxia ICD Codes: R09.02 - Hypoxemia SNOMED: 322878036 Status: progressing Assessment/Plan: afebrile pna scabies pacer azotemia no sob reviewed chart and labs Jose Aguillon MD Oct 26, 2020 20:40
[2020-10-26] MEDS: Nitroglycerin Patch 0.1mg/hr TDERMAL SCH (20:46)
[2020-10-27] VITALS (7 sets, daily range): BP systolic 146–191; BP diastolic 77–105
[2020-10-27] MEDS: Levothyroxine 25mcg tab ORAL SCH (05:45)
--- NOTE | 2020-10-27 07:13 | NUR ---
NURSE HAND-OFF REPORT: Important Events on Shift:none Patient Status: stable Diet: cardiac/renal Pending Orders: Pending Results/Labs: Pending MD notification: Latest Vital Signs: Temperature 97.9 , Pulse 75 , B/P 146 /77 , Respiratory Rate 20 , O2 SAT 94 , Room Air, O2 Flow Rate 2.0 . Vital Sign Comment: EKG Rhythm: Sinus Rhythm Rhythm change?: N Notified?: N MD Response: Latest Barber Fall Score: 45 Fall Risk: High Risk Safety Measures: Call light Within Reach, Bed Alarm Zone 2, Side Rails Side Rails x2, Bed position Low and Locked. Fall Precautions: Patient Fall Education Report given to Lissy Sawant RN. Addendum: 10/27/20 at 0728 by Annalise Carroll RN Correction: Report given to Petar Kendall RN.
--- NOTE | 2020-10-27 07:25 | NUR ---
NURSE NOTES: Received patient in bed. Awake, A/O x4, [place] islander speaking only. On 2 L NC. Patient denies pain. IV in the Left hand, site intact. Bed low and locked, side rails up x2, call light within reach with return demonstration.
[2020-10-27 07:32] LABS: HEMATOCRIT 25.2 % (42.0-52.0); HEMOGLOBIN 7.7 G/DL (14.2-18.0); MEAN CORPUSCULAR VOLUME 84 FL (80-99); PLATELET COUNT 282 K/UL (150-450); RED BLOOD COUNT 2.98 M/UL (4.70-6.10); RED CELL DISTRIBUTION WIDTH 13.7 % (11.6-14.8); WHITE BLOOD COUNT 5.1 K/UL (4.8-10.8)
[2020-10-27 07:51] LABS: ALANINE AMINOTRANSFERASE 33 U/L (12-78); ALBUMIN 2.2 G/DL (3.4-5.0); ALBUMIN/GLOBULIN RATIO 0.6 (1.0-2.7); ALKALINE PHOSPHATASE 158 U/L (46-116); ANION GAP 8 mmol/L (5-15); ASPARTATE AMINO TRANSFERASE 22 U/L (15-37); BILIRUBIN,TOTAL < 0.1 MG/DL (0.2-1.0); BLOOD UREA NITROGEN 60 mg/dL (7-18); CALCIUM 8.7 MG/DL (8.5-10.1); CARBON DIOXIDE 31 MMOL/L (21-32); CHLORIDE 102 MMOL/L (98-107); CREATININE 1.8 MG/DL (0.55-1.30); PHOSPHORUS 5.9 MG/DL (2.5-4.9); POTASSIUM 3.9 MMOL/L (3.5-5.1); SODIUM 141 MMOL/L (136-145)
[2020-10-27] MEDS: Allopurinol 100mg Tab ORAL SCH (08:21)
[2020-10-27] MEDS: Carvedilol 6.25mg Tab ORAL SCH ×2 (08:21→20:21)
[2020-10-27] MEDS: Docusate 100mg cap ORAL SCH ×3 (08:21→17:36)
--- NOTE | 2020-10-27 09:59 | Consultation ---
DATE OF CONSULTATION: 10/25/2020 CARDIOLOGY CONSULTATION CONSULTING PHYSICIAN: Jamal Cisneros MD. REFERRING PHYSICIAN: Jose Aguillon MD. REASON FOR CONSULTATION: Management of congestive heart failure in the patient with hypertension and pacemaker. HISTORY OF PRESENT ILLNESS: The patient is a 64-year-old gentleman with history of hypertension, diabetes, as well as history of a heart condition was brought in by ambulance from home for increasing shortness of breath. The patient states that he was at a hospital 00:32 two weeks ago 00:33 outpatient and has 00:35. It is not clear what kind of operation he is talking about. The patient also has history of left-sided dual-chamber pacemaker implantation. The patient states he has been scratching all through his body, however, was currently admitted in isolation for possible scabies. REVIEW OF SYSTEMS: Negative other than what is mentioned in the history of present illness. PAST MEDICAL HISTORY: As mentioned above. FAMILY HISTORY: Noncontributory. SOCIAL HISTORY: Denies smoking or drinking alcohol. PHYSICAL EXAMINATION: VITAL SIGNS: Blood pressure of 146/95, was as high as 168/90, pulse is 86, and respirations 18. HEAD AND NECK: Mild JVD. LUNGS: Decreased breath sounds. CARDIOVASCULAR: Regular S1 and S2 with no gallop. Pacemaker in the left subclavian. ABDOMEN: Soft. EXTREMITIES: A 1+ pitting edema. LABORATORY AND DIAGNOSTIC DATA: His EKG showed normal sinus rhythm and normal electrocardiogram; however, his telemetry showed episodes of ventricular paced rhythm. Labs showed white count of 8.4, hemoglobin of 8.4, hematocrit of 27.4, and platelet count of 359,000. Sodium 142, potassium is 5, BUN of 44, creatinine 1.8, and glucose of 127. First troponin is negative. BNP 3346. ASSESSMENT AND PLAN: 1. Exacerbation of congestive heart failure with BNP of more than 3300. We will completely rule out WI protocol. We will repeat the echocardiogram for further evaluation. 2. Status post left-sided dual-chamber pacemaker based on the chest x-ray. The patient does not remember the brand or when it was implanted. We will try to call different companies trying to find the brand of the pacemaker for further evaluation. 3. Hypertension. Start the patient on Lasix 40 mg IV b.i.d. There has been 02:35 heart failure as well, as well as Coreg 3.125 mg b.i.d. 4. Renal failure. Creatinine of 1.8. 5. Elevated alkaline phosphate and LDH. Thank you very much for allowing me to participate in the care of this patient. Please do not hesitate to contact me for any questions regarding my evaluation Jamal Cisneros M.D. DR: Kylah JOB#: [id number] CC:
--- NOTE | 2020-10-27 10:49 | Infectious Diseases Prog Note ---
Assessment/Plan Assessment/Plan IMPRESSION: Bacteremia Possible pneumonia, Hypoxemic respiratory failure, Scabies,treated Diabetes mellitus with hyperglycemia, Hypertension, Anemia, Hypothyroidism, Acute renal failure. CHF, likely ischemic cardiomyopathy RECOMMENDATION: Continue ceftriaxone & IV vancomycin. We will follow up the cultures. Subjective ROS Limited/Unobtainable: Yes Constitutional: Denies: fever Respiratory: Reports: no symptoms Allergies: Coded Allergies: No Known Allergies (Unverified , 10/24/20) Objective Last 24 Hour Vital Signs Date Time Temp Pulse Resp B/P (MAP) Pulse Ox O2 Delivery O2 Flow Rate FiO2 10/27/20 09:00 Nasal Cannula 2.0 10/27/20 08:21 110 165/102 10/27/20 08:00 96.4 110 18 165/102 (123) 98 10/27/20 04:00 74 10/27/20 04:00 97.9 75 20 146/77 (100) 94 10/27/20 00:00 70 10/27/20 00:00 98.0 71 20 166/82 (110) 99 10/26/20 21:00 Nasal Cannula 2.0 10/26/20 20:46 181/100 10/26/20 20:46 181/100 10/26/20 20:45 74 181/100 10/26/20 20:00 74 10/26/20 20:00 97.5 74 22 181/100 (127) 100 10/26/20 16:00 96.7 73 20 152/92 (112) 99 10/26/20 16:00 98 10/26/20 12:00 72 10/26/20 12:00 96.9 69 20 155/87 (109) 100 Height (Feet): 5 Height (Inches): 4.00 Weight (Pounds): 150 HEENT: mucous membranes moist Respiratory/Chest: lungs clear Cardiovascular: tachycardia, pacemaker/AICD Abdomen: soft, non tender Extremities: other - SCD of legs Microbiology Date/Time Source Procedure Growth Status 10/24/20 18:59 Blood Blood Culture - Preliminary NO GROWTH AFTER 24 HOURS Resulted 10/24/20 18:47 Nasopharynx SARS-CoV-2 Antigen (Rapid)(ELISABET) - Final Complete 10/24/20 18:47 Blood Blood Culture - Preliminary Gram Positive Cocci Resulted Laboratory Tests Test 10/27/20 06:59 White Blood Count 5.1 K/UL (4.8-10.8) Red Blood Count 2.98 M/UL (4.70-6.10) L Hemoglobin 7.7 G/DL (14.2-18.0) L Hematocrit 25.2 % (42.0-52.0) L Mean Corpuscular Volume 84 FL (80-99) Mean Corpuscular Hemoglobin 25.8 PG (27.0-31.0) L Mean Corpuscular Hemoglobin Concent 30.5 G/DL (32.0-36.0) L Red Cell Distribution Width 13.7 % (11.6-14.8) Platelet Count 282 K/UL (150-450) Mean Platelet Volume 9.1 FL (6.5-10.1) Neutrophils (%) (Auto) % (45.0-75.0) Lymphocytes (%) (Auto) % (20.0-45.0) Monocytes (%) (Auto) % (1.0-10.0) Eosinophils (%) (Auto) % (0.0-3.0) Basophils (%) (Auto) % (0.0-2.0) Differential Total Cells Counted 100 Neutrophils % (Manual) 70 % (45-75) Lymphocytes % (Manual) 15 % (20-45) L Monocytes % (Manual) 9 % (1-10) Eosinophils % (Manual) 6 % (0-3) H Basophils % (Manual) 0 % (0-2) Band Neutrophils 0 % (0-8) Platelet Estimate Adequate Platelet Morphology Normal Hypochromasia 1+ Sodium Level 141 MMOL/L (136-145) Potassium Level 3.9 MMOL/L (3.5-5.1) Chloride Level 102 MMOL/L (98-107) Carbon Dioxide Level 31 MMOL/L (21-32) Anion Gap 8 mmol/L (5-15) Blood Urea Nitrogen 60 mg/dL (7-18) H Creatinine 1.8 MG/DL (0.55-1.30) H Estimat Glomerular Filtration Rate 37.9 mL/min (>60) Glucose Level 254 MG/DL (74-106) H Uric Acid 6.6 MG/DL (2.6-7.2) Calcium Level 8.7 MG/DL (8.5-10.1) Phosphorus Level 5.9 MG/DL (2.5-4.9) H Magnesium Level 2.0 MG/DL (1.8-2.4) Total Bilirubin < 0.1 MG/DL (0.2-1.0) L Aspartate Amino Transf (AST/SGOT) 22 U/L (15-37) Alanine Aminotransferase (ALT/SGPT) 33 U/L (12-78) Alkaline Phosphatase 158 U/L (46-116) H Total Protein 6.2 G/DL (6.4-8.2) L Albumin 2.2 G/DL (3.4-5.0) L Globulin 4.0 g/dL Albumin/Globulin Ratio 0.6 (1.0-2.7) L Random Vancomycin Level 15.4 ug/mL Current Medications Medications (Trade) Dose Ordered Sig/Jermaine Route PRN Reason Start Time Stop Time Status Last Admin Dose Admin Acetaminophen (Tylenol) 500 mg EVERY 4 HOURS PRN ORAL For Pain 10/25/20 00:00 11/24/20 00:00 Allopurinol (Zyloprim) 200 mg DAILY ORAL 10/26/20 12:45 11/25/20 12:44 10/27/20 08:21 Carvedilol (Coreg) 3.125 mg EVERY 12 HOURS ORAL 10/25/20 21:00 11/24/20 20:59 10/27/20 08:21 Ceftriaxone Sodium 1 gm/ Dextrose 55 ml @ 110 mls/hr Q24H IVPB 10/25/20 18:00 11/01/20 17:59 10/26/20 17:22 Clonidine HCl (Catapres Tab) 0.1 mg Q4H PRN ORAL For High Blood Pressure 10/26/20 12:45 01/23/21 18:44 10/26/20 20:46 Docusate Sodium (Colace) 100 mg THREE TIMES A DAY ORAL 10/26/20 13:00 11/25/20 12:59 10/27/20 08:21 Folic Acid (Folate) 1 mg DAILY ORAL 10/27/20 09:00 11/26/20 08:59 10/27/20 08:21 Furosemide (Lasix) 40 mg EVERY 12 HOURS IV 10/25/20 21:00 11/24/20 20:59 10/27/20 08:21 Guaifenesin/ Dextromethorphan (Robitussin DM Syrup) 10 ml Q4H PRN ORAL For Cough 10/26/20 08:00 01/24/21 07:59 10/26/20 08:30 Levothyroxine Sodium (Synthroid) 25 mcg DAILY@0630 ORAL 10/27/20 06:30 11/26/20 06:29 10/27/20 05:45 Nitroglycerin (Ntg) 1 patch Q24H TDERMAL 10/24/20 20:15 11/23/20 20:14 10/26/20 20:46 Pantoprazole (Protonix) 40 mg DAILY ORAL 10/27/20 09:00 11/26/20 08:59 10/27/20 08:21 Vancomycin HCl (Vanco pharmacy to dose) 1 ea DAILY PRN MISC Per rx protocol 10/26/20 13:45 11/25/20 13:44 Vancomycin HCl 1 gm/Sodium Chloride 275 ml @ 183.708 mls/hr ONCE IVPB 10/27/20 14:00 10/27/20 16:00 Rodolfo Mueller MD Oct 27, 2020 10:49
--- NOTE | 2020-10-27 11:09 | Pulmonology Progress Note ---
Subjective ROS Limited/Unobtainable: No Interval Events: none major reported per nursing Constitutional: Denies: fever HEENT: Repors: no symptoms Respiratory: Reports: no symptoms Cardiovascular: Reports: no symptoms Gastrointestinal/Abdominal: Reports: no symptoms Allergies: Coded Allergies: No Known Allergies (Unverified , 10/24/20) Objective Last 24 Hour Vital Signs Date Time Temp Pulse Resp B/P (MAP) Pulse Ox O2 Delivery O2 Flow Rate FiO2 10/27/20 09:00 Nasal Cannula 2.0 10/27/20 08:21 110 165/102 10/27/20 08:00 96.4 110 18 165/102 (123) 98 10/27/20 08:00 70 10/27/20 04:00 74 10/27/20 04:00 97.9 75 20 146/77 (100) 94 10/27/20 00:00 70 10/27/20 00:00 98.0 71 20 166/82 (110) 99 10/26/20 21:00 Nasal Cannula 2.0 10/26/20 20:46 181/100 10/26/20 20:46 181/100 10/26/20 20:45 74 181/100 10/26/20 20:00 74 10/26/20 20:00 97.5 74 22 181/100 (127) 100 10/26/20 16:00 96.7 73 20 152/92 (112) 99 10/26/20 16:00 98 10/26/20 12:00 72 10/26/20 12:00 96.9 69 20 155/87 (109) 100 Intake and Output 10/26/20 10/27/20 19:00 07:00 Intake Total 800 ml 240 ml Output Total 600 ml 800 ml Balance 200 ml -560 ml Intake Oral 800 ml 240 ml Output Urine Total 600 ml 800 ml General Appearance: no acute distress HEENT: atraumatic Respiratory: other - coase breath sounds Cardiovascular: normal rate Abdomen: soft, non tender Microbiology Date/Time Source Procedure Growth Status 10/24/20 18:59 Blood Blood Culture - Preliminary NO GROWTH AFTER 24 HOURS Resulted 10/24/20 18:47 Nasopharynx SARS-CoV-2 Antigen (Rapid)(ELISABET) - Final Complete 10/24/20 18:47 Blood Blood Culture - Preliminary Gram Positive Cocci Resulted Laboratory Tests 10/27/20 06:59: White Blood Count 5.1, Red Blood Count 2.98L, Hemoglobin 7.7L, Hematocrit 25.2L, Mean Corpuscular Volume 84, Mean Corpuscular Hemoglobin 25.8L, Mean Corpuscular Hemoglobin Concent 30.5L, Red Cell Distribution Width 13.7, Platelet Count 282, Mean Platelet Volume 9.1, Neutrophils (%) (Auto) , Lymphocytes (%) (Auto) , Monocytes (%) (Auto) , Eosinophils (%) (Auto) , Basophils (%) (Auto) , Differential Total Cells Counted 100, Neutrophils % (Manual) 70, Lymphocytes % (Manual) 15L, Monocytes % (Manual) 9, Eosinophils % (Manual) 6H, Basophils % (Manual) 0, Band Neutrophils 0, Platelet Estimate Adequate, Platelet Morphology Normal, Hypochromasia 1+, Sodium Level 141, Potassium Level 3.9, Chloride Level 102, Carbon Dioxide Level 31, Anion Gap 8, Blood Urea Nitrogen 60H, Creatinine 1.8H, Estimat Glomerular Filtration Rate 37.9, Glucose Level 254H, Uric Acid 6.6, Calcium Level 8.7, Phosphorus Level 5.9H, Magnesium Level 2.0, Total Bilirubin < 0.1L, Aspartate Amino Transf (AST/SGOT) 22, Alanine Aminotransferase (ALT/SGPT) 33, Alkaline Phosphatase 158H, Total Protein 6.2L, Albumin 2.2L, Globulin 4.0, Albumin/Globulin Ratio 0.6L, Random Vancomycin Level 15.4 Current Medications Medications (Trade) Dose Ordered Sig/Jermaine Route PRN Reason Start Time Stop Time Status Last Admin Dose Admin Acetaminophen (Tylenol) 500 mg EVERY 4 HOURS PRN ORAL For Pain 10/25/20 00:00 11/24/20 00:00 Allopurinol (Zyloprim) 200 mg DAILY ORAL 10/26/20 12:45 11/25/20 12:44 10/27/20 08:21 Carvedilol (Coreg) 3.125 mg EVERY 12 HOURS ORAL 10/25/20 21:00 11/24/20 20:59 10/27/20 08:21 Ceftriaxone Sodium 1 gm/ Dextrose 55 ml @ 110 mls/hr Q24H IVPB 10/25/20 18:00 11/01/20 17:59 10/26/20 17:22 Clonidine HCl (Catapres Tab) 0.1 mg Q4H PRN ORAL For High Blood Pressure 10/26/20 12:45 01/23/21 18:44 10/26/20 20:46 Docusate Sodium (Colace) 100 mg THREE TIMES A DAY ORAL 10/26/20 13:00 11/25/20 12:59 10/27/20 08:21 Folic Acid (Folate) 1 mg DAILY ORAL 10/27/20 09:00 11/26/20 08:59 10/27/20 08:21 Furosemide (Lasix) 40 mg EVERY 12 HOURS IV 10/25/20 21:00 11/24/20 20:59 10/27/20 08:21 Guaifenesin/ Dextromethorphan (Robitussin DM Syrup) 10 ml Q4H PRN ORAL For Cough 10/26/20 08:00 01/24/21 07:59 10/26/20 08:30 Levothyroxine Sodium (Synthroid) 25 mcg DAILY@0630 ORAL 10/27/20 06:30 11/26/20 06:29 10/27/20 05:45 Nitroglycerin (Ntg) 1 patch Q24H TDERMAL 10/24/20 20:15 11/23/20 20:14 10/26/20 20:46 Pantoprazole (Protonix) 40 mg DAILY ORAL 10/27/20 09:00 11/26/20 08:59 10/27/20 08:21 Vancomycin HCl (Vanco pharmacy to dose) 1 ea DAILY PRN MISC Per rx protocol 10/26/20 13:45 11/25/20 13:44 Vancomycin HCl 1 gm/Sodium Chloride 275 ml @ 183.708 mls/hr ONCE IVPB 10/27/20 14:00 10/27/20 16:00 Assessment/Plan Assessment/Plan 1. Scabies, treated -Contact precaution - s/p permethrin 2. Hypoxemic respiratory failure on admission -Currently saturating well on 2 L nasal cannula; Wean as tolerated - s/p Decadron in ER 3. VIJAY -Monitor renal parameters -IV fluids 4. ? Pneumonia - Rapid COVID-19 negative (10/25) - CXR Right lower lobe effusion versus pneumonia - s/p broad-spectrum antibiotics in ER -On antibiotics per ID 5. Right pleural effusion -Monitor effusion; consider thoracentesis if effusion enlarges and becomes symptomatic 6. CHF exacerbation - Elevated BNP - on Lasix -Cardio following 7. Normocytic anemia 8. DVT ppx - on SCDs - will order D-dimer The care for this patient was discussed with my supervising physician. Time spent for this case was approximately 31 minutes. Best Brandon Oct 27, 2020 11:09
--- NOTE | 2020-10-27 12:01 | Cardiac Electrophysiology PN ---
Assessment/Plan Assessment/Plan 1. S/P DDD Pacer implant. The brand is unknown to interrogate but based on tele is functioning normally. 2. CHF exacerbation EF 45% on Lasix 40 iv bid and Coreg 3.125 bid 3. Hypoxemic respiratory failure due to CHFand Pneumonia - Rapid COVID-19 negative (10/25) - CXR Right lower lobe effusion versus pneumonia -On antibiotics per ID -Currently saturating well on 2 L nasal cannula 4. VIJAY BUN/Cr 61/1.8 5. Right pleural effusion, consider thoracentesis if effusion enlarges and becomes symptomatic 6. Scabies, s/p permethrin AMANDO RN Subjective Subjective No CP or SOB. BP running high. We contacted all pacer companies but not registered to any one! Patient and family also don't know what company it is Objective Last 24 Hour Vital Signs Date Time Temp Pulse Resp B/P (MAP) Pulse Ox O2 Delivery O2 Flow Rate FiO2 10/27/20 09:00 Nasal Cannula 2.0 10/27/20 08:21 110 165/102 10/27/20 08:00 96.4 110 18 165/102 (123) 98 10/27/20 08:00 70 10/27/20 04:00 74 10/27/20 04:00 97.9 75 20 146/77 (100) 94 10/27/20 00:00 70 10/27/20 00:00 98.0 71 20 166/82 (110) 99 10/26/20 21:00 Nasal Cannula 2.0 10/26/20 20:46 181/100 10/26/20 20:46 181/100 10/26/20 20:45 74 181/100 10/26/20 20:00 74 10/26/20 20:00 97.5 74 22 181/100 (127) 100 10/26/20 16:00 96.7 73 20 152/92 (112) 99 10/26/20 16:00 98 10/26/20 12:00 72 10/26/20 12:00 96.9 69 20 155/87 (109) 100 Intake and Output 10/26/20 10/27/20 19:00 07:00 Intake Total 800 ml 240 ml Output Total 600 ml 800 ml Balance 200 ml -560 ml Intake Oral 800 ml 240 ml Output Urine Total 600 ml 800 ml Laboratory Tests Test 10/27/20 06:59 White Blood Count 5.1 K/UL (4.8-10.8) Red Blood Count 2.98 M/UL (4.70-6.10) L Hemoglobin 7.7 G/DL (14.2-18.0) L Hematocrit 25.2 % (42.0-52.0) L Mean Corpuscular Volume 84 FL (80-99) Mean Corpuscular Hemoglobin 25.8 PG (27.0-31.0) L Mean Corpuscular Hemoglobin Concent 30.5 G/DL (32.0-36.0) L Red Cell Distribution Width 13.7 % (11.6-14.8) Platelet Count 282 K/UL (150-450) Mean Platelet Volume 9.1 FL (6.5-10.1) Neutrophils (%) (Auto) % (45.0-75.0) Lymphocytes (%) (Auto) % (20.0-45.0) Monocytes (%) (Auto) % (1.0-10.0) Eosinophils (%) (Auto) % (0.0-3.0) Basophils (%) (Auto) % (0.0-2.0) Differential Total Cells Counted 100 Neutrophils % (Manual) 70 % (45-75) Lymphocytes % (Manual) 15 % (20-45) L Monocytes % (Manual) 9 % (1-10) Eosinophils % (Manual) 6 % (0-3) H Basophils % (Manual) 0 % (0-2) Band Neutrophils 0 % (0-8) Platelet Estimate Adequate Platelet Morphology Normal Hypochromasia 1+ Sodium Level 141 MMOL/L (136-145) Potassium Level 3.9 MMOL/L (3.5-5.1) Chloride Level 102 MMOL/L (98-107) Carbon Dioxide Level 31 MMOL/L (21-32) Anion Gap 8 mmol/L (5-15) Blood Urea Nitrogen 60 mg/dL (7-18) H Creatinine 1.8 MG/DL (0.55-1.30) H Estimat Glomerular Filtration Rate 37.9 mL/min (>60) Glucose Level 254 MG/DL (74-106) H Uric Acid 6.6 MG/DL (2.6-7.2) Calcium Level 8.7 MG/DL (8.5-10.1) Phosphorus Level 5.9 MG/DL (2.5-4.9) H Magnesium Level 2.0 MG/DL (1.8-2.4) Total Bilirubin < 0.1 MG/DL (0.2-1.0) L Aspartate Amino Transf (AST/SGOT) 22 U/L (15-37) Alanine Aminotransferase (ALT/SGPT) 33 U/L (12-78) Alkaline Phosphatase 158 U/L (46-116) H Total Protein 6.2 G/DL (6.4-8.2) L Albumin 2.2 G/DL (3.4-5.0) L Globulin 4.0 g/dL Albumin/Globulin Ratio 0.6 (1.0-2.7) L Random Vancomycin Level 15.4 ug/mL Microbiology Date/Time Source Procedure Growth Status 10/24/20 18:59 Blood Blood Culture - Preliminary NO GROWTH AFTER 24 HOURS Resulted 10/24/20 18:47 Nasopharynx SARS-CoV-2 Antigen (Rapid)(ELISABET) - Final Complete 10/24/20 18:47 Blood Blood Culture - Preliminary Gram Positive Cocci Resulted Objective General Appearance: no acute distress HEENT: atraumatic Respiratory: other - coase breath sounds Cardiovascular: RRR. Pacer left subclavian Abdomen: soft, non tender Jamal Cisneros MD Oct 27, 2020 12:01
--- NOTE | 2020-10-27 12:03 | Cardiac Electrophysiology PN ---
Assessment/Plan Assessment/Plan 1. S/P DDD Pacer implant. The brand is unknown to interrogate but based on tele is functioning normally. 2. CHF exacerbation EF 45% on Lasix 40 iv bid and Coreg 3.125 bid Change Lasix to 40 po daily 3. Hypoxemic respiratory failure due to CHFand Pneumonia - Rapid COVID-19 negative (10/25) - CXR Right lower lobe effusion versus pneumonia -On antibiotics per ID -Currently saturating well on 2 L nasal cannula 4. VIJAY BUN/Cr 61/1.8 5. Right pleural effusion, consider thoracentesis if effusion enlarges and becomes symptomatic 6. Scabies, s/p permethrin 7. Severe Anemia Hb 7.7 DW RN Subjective Subjective No CP or SOB. BP running high. We contacted all pacer companies but not registered to any one! Patient and family also don't know what company it is Objective Last 24 Hour Vital Signs Date Time Temp Pulse Resp B/P (MAP) Pulse Ox O2 Delivery O2 Flow Rate FiO2 10/27/20 09:00 Nasal Cannula 2.0 10/27/20 08:21 110 165/102 10/27/20 08:00 96.4 110 18 165/102 (123) 98 10/27/20 08:00 70 10/27/20 04:00 74 10/27/20 04:00 97.9 75 20 146/77 (100) 94 10/27/20 00:00 70 10/27/20 00:00 98.0 71 20 166/82 (110) 99 10/26/20 21:00 Nasal Cannula 2.0 10/26/20 20:46 181/100 10/26/20 20:46 181/100 10/26/20 20:45 74 181/100 10/26/20 20:00 74 10/26/20 20:00 97.5 74 22 181/100 (127) 100 10/26/20 16:00 96.7 73 20 152/92 (112) 99 10/26/20 16:00 98 Intake and Output 10/26/20 10/27/20 19:00 07:00 Intake Total 800 ml 240 ml Output Total 600 ml 800 ml Balance 200 ml -560 ml Intake Oral 800 ml 240 ml Output Urine Total 600 ml 800 ml Laboratory Tests Test 10/27/20 06:59 White Blood Count 5.1 K/UL (4.8-10.8) Red Blood Count 2.98 M/UL (4.70-6.10) L Hemoglobin 7.7 G/DL (14.2-18.0) L Hematocrit 25.2 % (42.0-52.0) L Mean Corpuscular Volume 84 FL (80-99) Mean Corpuscular Hemoglobin 25.8 PG (27.0-31.0) L Mean Corpuscular Hemoglobin Concent 30.5 G/DL (32.0-36.0) L Red Cell Distribution Width 13.7 % (11.6-14.8) Platelet Count 282 K/UL (150-450) Mean Platelet Volume 9.1 FL (6.5-10.1) Neutrophils (%) (Auto) % (45.0-75.0) Lymphocytes (%) (Auto) % (20.0-45.0) Monocytes (%) (Auto) % (1.0-10.0) Eosinophils (%) (Auto) % (0.0-3.0) Basophils (%) (Auto) % (0.0-2.0) Differential Total Cells Counted 100 Neutrophils % (Manual) 70 % (45-75) Lymphocytes % (Manual) 15 % (20-45) L Monocytes % (Manual) 9 % (1-10) Eosinophils % (Manual) 6 % (0-3) H Basophils % (Manual) 0 % (0-2) Band Neutrophils 0 % (0-8) Platelet Estimate Adequate Platelet Morphology Normal Hypochromasia 1+ Sodium Level 141 MMOL/L (136-145) Potassium Level 3.9 MMOL/L (3.5-5.1) Chloride Level 102 MMOL/L (98-107) Carbon Dioxide Level 31 MMOL/L (21-32) Anion Gap 8 mmol/L (5-15) Blood Urea Nitrogen 60 mg/dL (7-18) H Creatinine 1.8 MG/DL (0.55-1.30) H Estimat Glomerular Filtration Rate 37.9 mL/min (>60) Glucose Level 254 MG/DL (74-106) H Uric Acid 6.6 MG/DL (2.6-7.2) Calcium Level 8.7 MG/DL (8.5-10.1) Phosphorus Level 5.9 MG/DL (2.5-4.9) H Magnesium Level 2.0 MG/DL (1.8-2.4) Total Bilirubin < 0.1 MG/DL (0.2-1.0) L Aspartate Amino Transf (AST/SGOT) 22 U/L (15-37) Alanine Aminotransferase (ALT/SGPT) 33 U/L (12-78) Alkaline Phosphatase 158 U/L (46-116) H Total Protein 6.2 G/DL (6.4-8.2) L Albumin 2.2 G/DL (3.4-5.0) L Globulin 4.0 g/dL Albumin/Globulin Ratio 0.6 (1.0-2.7) L Random Vancomycin Level 15.4 ug/mL Microbiology Date/Time Source Procedure Growth Status 10/24/20 18:59 Blood Blood Culture - Preliminary NO GROWTH AFTER 24 HOURS Resulted 10/24/20 18:47 Nasopharynx SARS-CoV-2 Antigen (Rapid)(ELISABET) - Final Complete 10/24/20 18:47 Blood Blood Culture - Preliminary Gram Positive Cocci Resulted Objective General Appearance: no acute distress HEENT: atraumatic Respiratory: other - coase breath sounds Cardiovascular: RRR. Pacer left subclavian Abdomen: soft, non tender Jamal Cisneros MD Oct 27, 2020 12:03
[2020-10-27] MEDS ORDERED: Tubing IV Secondary IV ONE (12:38)
[2020-10-27] MEDS ORDERED: Vancomycin 1 GM in NS 275 ML IVPB SCH (14:00)
--- NOTE | 2020-10-27 16:03 | NUR ---
CASE MANAGEMENT: REVIEW 10/27/2020 SI:Hypoxemic respiratory failure due to CHFand Pneumonia VS: T 96.9 HR 71 RR 18 B/P 155/101 SATS 99% ON 2L/NC LABS: HGB 7.7 HCT 25.2 BUN 60 CR 1.8 GLU 254 PHOS 5.9 ALP 158 IS: COREG PO Q12H PROTONIX PO QD ALLOPURINOL PO QD LASIX PO QD CEFTRIAXONE IV Q24H TELE PLAN OF CARE: Currently saturating well on 2 L nasal cannula; Wean as tolerated
--- NOTE | 2020-10-27 16:07 | Nephrology Progress Note ---
Assessment/Plan Problem List: (1) Renal failure (ARF), acute on chronic (2) Pacemaker (3) CHF exacerbation (4) Hypoxia (5) CAD (coronary artery disease) (6) Normocytic anemia Assessment Acute renal failure Possible underlying chronic kidney disease Anemia Pneumonia and hypoxia. Right lower lobe effusion versus pneumonia Congestive heart failure exacerbation with ejection fraction of 45% Pacemaker Coronary artery disease Scabies Plan October 27: Labs reviewed. Medication list reviewed. Continue IV iron. Continue to optimize cardiac status. Continue per consultants. Optimize cardiac status Add folic acid Add Synthroid Add Protonix and stool softeners Change diet to cardiac diet, renal friendly Monitor renal parameters and electrolytes IV Venofer for low iron Monitor CBC and renal parameters Avoid nephrotoxic's Subjective ROS Limited/Unobtainable: No Constitutional: Reports: malaise Objective Objective Last 24 Hour Vital Signs Date Time Temp Pulse Resp B/P (MAP) Pulse Ox O2 Delivery O2 Flow Rate FiO2 10/27/20 14:38 170/88 10/27/20 12:00 68 10/27/20 12:00 96.9 71 18 155/101 (119) 99 10/27/20 09:00 Nasal Cannula 2.0 10/27/20 08:21 110 165/102 10/27/20 08:00 96.4 110 18 165/102 (123) 98 10/27/20 08:00 70 10/27/20 04:00 74 10/27/20 04:00 97.9 75 20 146/77 (100) 94 10/27/20 00:00 70 10/27/20 00:00 98.0 71 20 166/82 (110) 99 10/26/20 21:00 Nasal Cannula 2.0 10/26/20 20:46 181/100 10/26/20 20:46 181/100 10/26/20 20:45 74 181/100 10/26/20 20:00 74 10/26/20 20:00 97.5 74 22 181/100 (127) 100 Intake and Output 10/26/20 10/27/20 19:00 07:00 Intake Total 800 ml 240 ml Output Total 600 ml 800 ml Balance 200 ml -560 ml Intake Oral 800 ml 240 ml Output Urine Total 600 ml 800 ml Current Medications Medications (Trade) Dose Ordered Sig/Jermaine Route PRN Reason Start Time Stop Time Status Last Admin Dose Admin Acetaminophen (Tylenol) 500 mg EVERY 4 HOURS PRN ORAL For Pain 10/25/20 00:00 11/24/20 00:00 Allopurinol (Zyloprim) 200 mg DAILY ORAL 10/26/20 12:45 11/25/20 12:44 10/27/20 08:21 Carvedilol (Coreg) 3.125 mg EVERY 12 HOURS ORAL 10/25/20 21:00 11/24/20 20:59 10/27/20 08:21 Ceftriaxone Sodium 1 gm/ Dextrose 55 ml @ 110 mls/hr Q24H IVPB 10/25/20 18:00 11/01/20 17:59 10/26/20 17:22 Clonidine HCl (Catapres Tab) 0.1 mg Q4H PRN ORAL For High Blood Pressure 10/26/20 12:45 01/23/21 18:44 10/27/20 14:38 Docusate Sodium (Colace) 100 mg THREE TIMES A DAY ORAL 10/26/20 13:00 11/25/20 12:59 10/27/20 13:13 Folic Acid (Folate) 1 mg DAILY ORAL 10/27/20 09:00 11/26/20 08:59 10/27/20 08:21 Furosemide (Lasix) 40 mg DAILY ORAL 10/28/20 09:00 11/27/20 08:59 Guaifenesin/ Dextromethorphan (Robitussin DM Syrup) 10 ml Q4H PRN ORAL For Cough 10/26/20 08:00 01/24/21 07:59 10/26/20 08:30 Levothyroxine Sodium (Synthroid) 25 mcg DAILY@0630 ORAL 10/27/20 06:30 11/26/20 06:29 10/27/20 05:45 Nitroglycerin (Ntg) 1 patch Q24H TDERMAL 10/24/20 20:15 11/23/20 20:14 10/26/20 20:46 Pantoprazole (Protonix) 40 mg DAILY ORAL 10/27/20 09:00 11/26/20 08:59 10/27/20 08:21 Vancomycin HCl (Vanco pharmacy to dose) 1 ea DAILY PRN MISC Per rx protocol 10/26/20 13:45 11/25/20 13:44 Laboratory Tests 10/27/20 06:59: White Blood Count 5.1, Red Blood Count 2.98L, Hemoglobin 7.7L, Hematocrit 25.2L, Mean Corpuscular Volume 84, Mean Corpuscular Hemoglobin 25.8L, Mean Corpuscular Hemoglobin Concent 30.5L, Red Cell Distribution Width 13.7, Platelet Count 282, Mean Platelet Volume 9.1, Neutrophils (%) (Auto) , Lymphocytes (%) (Auto) , Monocytes (%) (Auto) , Eosinophils (%) (Auto) , Basophils (%) (Auto) , Differential Total Cells Counted 100, Neutrophils % (Manual) 70, Lymphocytes % (Manual) 15L, Monocytes % (Manual) 9, Eosinophils % (Manual) 6H, Basophils % (Manual) 0, Band Neutrophils 0, Platelet Estimate Adequate, Platelet Morphology Normal, Hypochromasia 1+, Sodium Level 141, Potassium Level 3.9, Chloride Level 102, Carbon Dioxide Level 31, Anion Gap 8, Blood Urea Nitrogen 60H, Creatinine 1.8H, Estimat Glomerular Filtration Rate 37.9, Glucose Level 254H, Uric Acid 6.6, Calcium Level 8.7, Phosphorus Level 5.9H, Magnesium Level 2.0, Total Bilirubin < 0.1L, Aspartate Amino Transf (AST/SGOT) 22, Alanine Aminotransferase (ALT/SGPT) 33, Alkaline Phosphatase 158H, Total Protein 6.2L, Albumin 2.2L, Globulin 4.0, Albumin/Globulin Ratio 0.6L, Random Vancomycin Level 15.4 10/27/20 12:55: D-Dimer 2.01H Height (Feet): 5 Height (Inches): 4.00 Weight (Pounds): 150 General Appearance: no apparent distress, lethargic Cardiovascular: tachycardia Respiratory/Chest: decreased breath sounds Abdomen: distended Long Ram MD Oct 27, 2020 16:07
--- NOTE | 2020-10-27 16:56 | NUR ---
NURSE NOTES: RN contacted Dr. Cisneros regarding SBP >170 with new order for clonidine 0.2 mg PO PRN q5cywfh for SBP>170. Rn contacted DR Ness with new order to hold off on PRBC until SBP <150. Patient laying in bed, AA/O x4, watching TV, no complaints at this time.
[2020-10-27] MEDS: cefTRIAXone 1 GM in D5W 55 ML IVPB SCH (17:36)
[2020-10-27] MEDS: cloNIDine 0.2mg Tab ORAL PRN ×2 (17:38→20:22)
--- NOTE | 2020-10-27 18:56 | General Progress Note ---
Subjective ROS Limited/Unobtainable: Yes Allergies: Coded Allergies: No Known Allergies (Unverified , 10/24/20) Objective Last 24 Hour Vital Signs Date Time Temp Pulse Resp B/P (MAP) Pulse Ox O2 Delivery O2 Flow Rate FiO2 10/27/20 17:40 74 191/105 (133) 10/27/20 17:38 191/105 10/27/20 16:00 97.3 71 19 178/92 (120) 98 10/27/20 16:00 69 10/27/20 14:38 170/88 10/27/20 12:00 68 10/27/20 12:00 96.9 71 18 155/101 (119) 99 10/27/20 09:00 Nasal Cannula 2.0 10/27/20 08:21 110 165/102 10/27/20 08:00 96.4 110 18 165/102 (123) 98 10/27/20 08:00 70 10/27/20 04:00 74 10/27/20 04:00 97.9 75 20 146/77 (100) 94 10/27/20 00:00 70 10/27/20 00:00 98.0 71 20 166/82 (110) 99 10/26/20 21:00 Nasal Cannula 2.0 10/26/20 20:46 181/100 10/26/20 20:46 181/100 10/26/20 20:45 74 181/100 10/26/20 20:00 74 10/26/20 20:00 97.5 74 22 181/100 (127) 100 Intake and Output 10/26/20 10/27/20 19:00 07:00 Intake Total 800 ml 240 ml Output Total 600 ml 800 ml Balance 200 ml -560 ml Intake Oral 800 ml 240 ml Output Urine Total 600 ml 800 ml Laboratory Tests 10/27/20 06:59: White Blood Count 5.1, Red Blood Count 2.98L, Hemoglobin 7.7L, Hematocrit 25.2L, Mean Corpuscular Volume 84, Mean Corpuscular Hemoglobin 25.8L, Mean Corpuscular Hemoglobin Concent 30.5L, Red Cell Distribution Width 13.7, Platelet Count 282, Mean Platelet Volume 9.1, Neutrophils (%) (Auto) , Lymphocytes (%) (Auto) , Monocytes (%) (Auto) , Eosinophils (%) (Auto) , Basophils (%) (Auto) , Differential Total Cells Counted 100, Neutrophils % (Manual) 70, Lymphocytes % (Manual) 15L, Monocytes % (Manual) 9, Eosinophils % (Manual) 6H, Basophils % (Manual) 0, Band Neutrophils 0, Platelet Estimate Adequate, Platelet Morphology Normal, Hypochromasia 1+, Sodium Level 141, Potassium Level 3.9, Chloride Level 102, Carbon Dioxide Level 31, Anion Gap 8, Blood Urea Nitrogen 60H, Creatinine 1.8H, Estimat Glomerular Filtration Rate 37.9, Glucose Level 254H, Uric Acid 6.6, Calcium Level 8.7, Phosphorus Level 5.9H, Magnesium Level 2.0, Total Bilirubin < 0.1L, Aspartate Amino Transf (AST/SGOT) 22, Alanine Aminotransferase (ALT/SGPT) 33, Alkaline Phosphatase 158H, Total Protein 6.2L, Albumin 2.2L, Globulin 4.0, Albumin/Globulin Ratio 0.6L, Random Vancomycin Level 15.4 10/27/20 12:55: D-Dimer 2.01H Height (Feet): 5 Height (Inches): 4.00 Weight (Pounds): 150 Assessment/Plan Problem List: (1) Scabies ICD Codes: B86 - Scabies SNOMED: 312629310, 51954123 (2) CAD (coronary artery disease) ICD Codes: I25.10 - Atherosclerotic heart disease of [place] coronary artery without angina pectoris SNOMED: 50730339, 86762741 (3) Pneumonia ICD Codes: J18.9 - Pneumonia, unspecified organism SNOMED: 149367127, 8318607 (4) Pacemaker ICD Codes: Z95.0 - Presence of cardiac pacemaker SNOMED: 532584447, 98849419 (5) VIJAY (acute kidney injury) ICD Codes: N17.9 - Acute kidney failure, unspecified SNOMED: 36771203, 2924281 (6) Shortness of breath ICD Codes: R06.02 - Shortness of breath SNOMED: 619551907 (7) CHF exacerbation ICD Codes: I50.9 - Heart failure, unspecified SNOMED: 130101273, 87979436624033 (8) Hypoxia ICD Codes: R09.02 - Hypoxemia SNOMED: 361422973 Status: progressing Assessment/Plan: chf resp insuff arrythmia weak abx per id pna scabies pacer azotemia reviewed chart and labs Jose Aguillon MD Oct 27, 2020 18:56
--- NOTE | 2020-10-27 19:20 | NUR ---
NURSE NOTES: Received report from Petar HICKS. patient resting in bed awake alert comfortable with no signs of distress. assessment initiated. no pain. BP elevated, will administer bp meds as ordered. empty urinal -clear yellow. patient is on monitor and on room air. bed in low position. call dumont within reach.
--- NOTE | 2020-10-27 19:23 | NUR ---
NURSE HAND-OFF REPORT: Important Events on Shift:[1 unit PRBC, SBP high, clonidine PRN increased to 0.2 mg PO q 2 hours] Patient Status: [FULL CODE] Diet: [Cardiac/renal] Pending Orders: [1 unit PRBC] Pending Results/Labs:[] Pending MD notification:[] Latest Vital Signs: Temperature 97.3 , Pulse 74 , B/P 191 /105 , Respiratory Rate 19 , O2 SAT 98 , Room Air, O2 Flow Rate 2.0 . Vital Sign Comment: [] EKG Rhythm: Sinus Rhythm Rhythm change?: N MD Notified?: Yomi Aguillon MD Response: Latest Barber Fall Score: 45 Fall Risk: High Risk Safety Measures: Call light Within Reach, Bed Alarm Zone 2, Side Rails Side Rails x2, Bed position Low and Locked. Fall Precautions: Patient Fall Education Report given to [Michael HICKS].
--- NOTE | 2020-10-27 20:10 | NUR ---
NURSE NOTES: Patient's blood pressure is 176/95 denies any headache and no other complaints made. Will start the Venofer for now since per Dr. Ness, hold the transfusion until SBP <150. Will continue to monitor.
[2020-10-27] MEDS: Nitroglycerin Patch 0.1mg/hr TDERMAL SCH (20:20)
[2020-10-27] MEDS: Iron Sucrose 100 MG in NS 55 ML IVPB SCH (20:24)
[2020-10-28] VITALS (7 sets, daily range): BP systolic 163–181; BP diastolic 84–95
[2020-10-28] MEDS: cloNIDine 0.2mg Tab ORAL PRN ×2 (03:52→11:54)
[2020-10-28] MEDS: Levothyroxine 25mcg tab ORAL SCH (05:45)
--- NOTE | 2020-10-28 06:38 | NUR ---
NURSE NOTES: Dr. gaytan round and made aware regarding elevated BP, new order received to give Hydralazine 25mg for BP greater than 140. will initiate and continue to monitor.
--- NOTE | 2020-10-28 06:44 | Consultation ---
History of Present Illness General Chief Complaint: Dyspnea/Respdistress Present Illness Allergies: Coded Allergies: No Known Allergies (Unverified , 10/24/20) Patient History Healthcare decision maker Resuscitation status Advanced Directive on File Physical Exam Last 24 Hour Vital Signs Date Time Temp Pulse Resp B/P (MAP) Pulse Ox O2 Delivery O2 Flow Rate FiO2 10/28/20 05:50 167/90 (115) 10/28/20 04:00 69 10/28/20 04:00 96.3 69 18 170/84 (112) 92 10/28/20 03:52 170/90 10/28/20 00:00 66 10/28/20 00:00 96.4 67 18 163/84 (110) 96 10/27/20 21:00 Nasal Cannula 2.0 10/27/20 20:22 176/95 10/27/20 20:21 71 176/95 10/27/20 20:20 176/95 10/27/20 20:00 72 10/27/20 20:00 96.4 71 17 176/95 (122) 95 10/27/20 17:40 74 191/105 (133) 10/27/20 17:38 191/105 10/27/20 16:00 97.3 71 19 178/92 (120) 98 10/27/20 16:00 69 10/27/20 14:38 170/88 10/27/20 12:00 68 10/27/20 12:00 96.9 71 18 155/101 (119) 99 10/27/20 09:00 Nasal Cannula 2.0 10/27/20 08:21 110 165/102 10/27/20 08:00 96.4 110 18 165/102 (123) 98 10/27/20 08:00 70 Intake and Output 10/27/20 10/28/20 19:00 07:00 Intake Total 400 ml Output Total 600 ml Balance -200 ml Intake Oral 400 ml Output Urine Total 600 ml # Voids 3 3 Laboratory Tests Test 10/27/20 06:59 10/27/20 12:55 White Blood Count 5.1 K/UL (4.8-10.8) Red Blood Count 2.98 M/UL (4.70-6.10) L Hemoglobin 7.7 G/DL (14.2-18.0) L Hematocrit 25.2 % (42.0-52.0) L Mean Corpuscular Volume 84 FL (80-99) Mean Corpuscular Hemoglobin 25.8 PG (27.0-31.0) L Mean Corpuscular Hemoglobin Concent 30.5 G/DL (32.0-36.0) L Red Cell Distribution Width 13.7 % (11.6-14.8) Platelet Count 282 K/UL (150-450) Mean Platelet Volume 9.1 FL (6.5-10.1) Neutrophils (%) (Auto) % (45.0-75.0) Lymphocytes (%) (Auto) % (20.0-45.0) Monocytes (%) (Auto) % (1.0-10.0) Eosinophils (%) (Auto) % (0.0-3.0) Basophils (%) (Auto) % (0.0-2.0) Differential Total Cells Counted 100 Neutrophils % (Manual) 70 % (45-75) Lymphocytes % (Manual) 15 % (20-45) L Monocytes % (Manual) 9 % (1-10) Eosinophils % (Manual) 6 % (0-3) H Basophils % (Manual) 0 % (0-2) Band Neutrophils 0 % (0-8) Platelet Estimate Adequate Platelet Morphology Normal Hypochromasia 1+ Sodium Level 141 MMOL/L (136-145) Potassium Level 3.9 MMOL/L (3.5-5.1) Chloride Level 102 MMOL/L (98-107) Carbon Dioxide Level 31 MMOL/L (21-32) Anion Gap 8 mmol/L (5-15) Blood Urea Nitrogen 60 mg/dL (7-18) H Creatinine 1.8 MG/DL (0.55-1.30) H Estimat Glomerular Filtration Rate 37.9 mL/min (>60) Glucose Level 254 MG/DL (74-106) H Uric Acid 6.6 MG/DL (2.6-7.2) Calcium Level 8.7 MG/DL (8.5-10.1) Phosphorus Level 5.9 MG/DL (2.5-4.9) H Magnesium Level 2.0 MG/DL (1.8-2.4) Total Bilirubin < 0.1 MG/DL (0.2-1.0) L Aspartate Amino Transf (AST/SGOT) 22 U/L (15-37) Alanine Aminotransferase (ALT/SGPT) 33 U/L (12-78) Alkaline Phosphatase 158 U/L (46-116) H Total Protein 6.2 G/DL (6.4-8.2) L Albumin 2.2 G/DL (3.4-5.0) L Globulin 4.0 g/dL Albumin/Globulin Ratio 0.6 (1.0-2.7) L Random Vancomycin Level 15.4 ug/mL D-Dimer 2.01 mg/L FEU (0.00-0.49) H Height (Feet): 5 Height (Inches): 4.00 Weight (Pounds): 150 Medications Current Medications Medications (Trade) Dose Ordered Sig/Jermaine Route PRN Reason Start Time Stop Time Status Last Admin Dose Admin Acetaminophen (Tylenol) 500 mg EVERY 4 HOURS PRN ORAL For Pain 10/25/20 00:00 11/24/20 00:00 Allopurinol (Zyloprim) 200 mg DAILY ORAL 10/26/20 12:45 11/25/20 12:44 10/27/20 08:21 Carvedilol (Coreg) 3.125 mg EVERY 12 HOURS ORAL 10/25/20 21:00 11/24/20 20:59 10/27/20 20:21 Ceftriaxone Sodium 1 gm/ Dextrose 55 ml @ 110 mls/hr Q24H IVPB 10/25/20 18:00 11/01/20 17:59 10/27/20 17:36 Clonidine HCl (Catapres tab) 0.2 mg Q2H PRN ORAL SBP>170 10/27/20 16:45 01/25/21 16:44 10/28/20 03:52 Docusate Sodium (Colace) 100 mg THREE TIMES A DAY ORAL 10/26/20 13:00 11/25/20 12:59 10/27/20 17:36 Folic Acid (Folate) 1 mg DAILY ORAL 10/27/20 09:00 11/26/20 08:59 10/27/20 08:21 Furosemide (Lasix) 40 mg DAILY ORAL 10/28/20 09:00 11/27/20 08:59 Guaifenesin/ Dextromethorphan (Robitussin DM Syrup) 10 ml Q4H PRN ORAL For Cough 10/26/20 08:00 01/24/21 07:59 10/26/20 08:30 Hydralazine HCl (Apresoline) 25 mg Q6H PRN ORAL For High Blood Pressure 10/28/20 06:45 01/26/21 06:44 Iron Sucrose 100 mg/Sodium Chloride 60 ml @ 240 mls/hr BEDTIME IVPB 10/27/20 21:00 10/31/20 21:14 10/27/20 20:24 Levothyroxine Sodium (Synthroid) 25 mcg DAILY@0630 ORAL 10/27/20 06:30 11/26/20 06:29 10/28/20 05:45 Nitroglycerin (Ntg) 1 patch Q24H TDERMAL 10/24/20 20:15 11/23/20 20:14 10/27/20 20:20 Pantoprazole (Protonix) 40 mg DAILY ORAL 10/27/20 09:00 11/26/20 08:59 10/27/20 08:21 Vancomycin HCl (Vanco pharmacy to dose) 1 ea DAILY PRN MISC Per rx protocol 10/26/20 13:45 11/25/20 13:44 Assessment/Plan Assessment/Plan: Hematology consultation HANH TURCIOS: Terry RFC: Anemia, ongoing DOS: 10/28/2020 ID 64-year-old male with past medical history of diabetes, hypertension, "heart condition" BIBA c/o shortness of breath. Patient is a poor historian, however states that he was at "a hospital on [place]" 3 weeks ago where "they did an operation on my chest". He endorses shortness of breath, dyspnea on exertion, wheezing, dry cough, nausea, and itchy rash to his entire body. He states that he has been scratching them relentlessly. He denies fever, phlegm, diarrhea, dysuria, m rhoda, hematochezia, hematuria, flank or back pain. He states when he was tested at the outside hospital 3 weeks ago he was negative for Covid Admits to orthopnea and dyspnea on exertion The patient's symptoms were gradual onset, severity was moderate, duration since 3 weeks. Was anemic and heme consulted Past medical history: Cardiac history (CAD??), Hypertension, diabetes Past surgical history: Possible left chest pacemaker Smoking: Denies Alcohol use: Denies Drug use: Denies Review of systems: CONST: No fevers or chills, No night sweats PULMONARY: ++dry cough, ++shortness of breath CARDIAC: No chest pain, No palpitations GI: No vomiting, No diarrhea , No melena_or_BRBPR : No dysuria, No hematuria, No discharge NEURO: ++ generalized weakness 14 point Review of Systems is otherwise negative except per HPI Physical Exam: GENERAL: vitals are noted HEENT: ++ JVD. No meningismus. No thyromegal RESP: Tachypneic. Coarse breath sounds bilaterally. CARDIAC: Left chest incision is clean, dry, intact. ABDOMEN: Soft. Nondistended. Nontender_No_rebound_or_guarding. MSK: Normal muscle tone, without rigidity. SKIN: Linear burrows to the anterior NEUROLOGIC: Alert, oriented x3. Psych: Normal mood and affect Labs : noted Imaging: reviewed Assessment and Recs # Anemia due to iron deficiency, downtrending --> transfuse on prn basis -> cbc daily --> hgb 9-->7.7 --> anemia panel shows iron deficiency --> iv iron started # Elevated ddimer may be reactive -> order duplex of lower ext to r/o dvt --> labs reviewed, consider anticoag if uptrends # Shortness of breath may be due to pna --> on abx per id --> for pna abx vanc/ctx # Hypoxia likely due to Pneumonia --> abx # Cough # VIJAY (acute kidney injury) # CAD (coronary artery disease) # Pacemaker # Scabies # Chf diuresis as needed # Dvt ppx scds Appreciate consultation and dw Andre Rajan MD Oct 28, 2020 06:44
[2020-10-28] MEDS ORDERED: HydrALAZINE 25mg tab ORAL PRN ×2 (06:45→12:30)
--- NOTE | 2020-10-28 07:27 | NUR ---
NURSE HAND-OFF REPORT: Important Events on Shift:patient bp been elevated, Dr. gaytan is aware and new order received. started venofer. Patient Status: Diet: Pending Orders: Pending Results/Labs: Pending MD notification: Latest Vital Signs: Temperature 96.3 , Pulse 69 , B/P 170 /91 , Respiratory Rate 18 , O2 SAT 92 , Room Air, O2 Flow Rate 2.0 . Vital Sign Comment: EKG Rhythm: V-Paced Rhythm change?: N MD Notified?: Y -Dr. Henna TURCIOS Response: Latest Barber Fall Score: 45 Fall Risk: High Risk Safety Measures: Call light Within Reach, Bed Alarm Zone 2, Side Rails Side Rails x2, Bed position Low and Locked. Fall Precautions: Patient Fall Education Report given to .
--- NOTE | 2020-10-28 08:05 | NUR ---
NURSE NOTES: pt in bed having breakfast AOx3-4 and able to verbalize needs. Pt has no pain. pt on monitoring manager no signs of cardiac or respiratory distress. Bed is locked and in lowest position. Call light within reach.
--- NOTE | 2020-10-28 09:22 | Pulmonology Progress Note ---
Subjective ROS Limited/Unobtainable: Yes Interval Events: Hgb 7.7, HTN Constitutional: Denies: fever HEENT: Repors: no symptoms Respiratory: Reports: no symptoms Cardiovascular: Reports: no symptoms Gastrointestinal/Abdominal: Reports: no symptoms Allergies: Coded Allergies: No Known Allergies (Unverified , 10/24/20) Objective Last 24 Hour Vital Signs Date Time Temp Pulse Resp B/P (MAP) Pulse Ox O2 Delivery O2 Flow Rate FiO2 10/28/20 08:00 96.7 67 18 175/92 (119) 95 10/28/20 07:03 170/91 10/28/20 05:50 167/90 (115) 10/28/20 04:00 69 10/28/20 04:00 96.3 69 18 170/84 (112) 92 10/28/20 03:52 170/90 10/28/20 00:00 66 10/28/20 00:00 96.4 67 18 163/84 (110) 96 10/27/20 21:00 Nasal Cannula 2.0 10/27/20 20:22 176/95 10/27/20 20:21 71 176/95 10/27/20 20:20 176/95 10/27/20 20:00 72 10/27/20 20:00 96.4 71 17 176/95 (122) 95 10/27/20 17:40 74 191/105 (133) 10/27/20 17:38 191/105 10/27/20 16:00 97.3 71 19 178/92 (120) 98 10/27/20 16:00 69 10/27/20 14:38 170/88 10/27/20 12:00 68 10/27/20 12:00 96.9 71 18 155/101 (119) 99 Intake and Output 10/27/20 10/28/20 19:00 07:00 Intake Total 400 ml Output Total 600 ml Balance -200 ml Intake Oral 400 ml Output Urine Total 600 ml # Voids 3 3 General Appearance: no acute distress HEENT: atraumatic Respiratory: other - coase breath sounds Cardiovascular: normal rate Abdomen: soft, non tender Laboratory Tests 10/27/20 12:55: D-Dimer 2.01H Current Medications Medications (Trade) Dose Ordered Sig/Jermaine Route PRN Reason Start Time Stop Time Status Last Admin Dose Admin Acetaminophen (Tylenol) 500 mg EVERY 4 HOURS PRN ORAL For Pain 10/25/20 00:00 11/24/20 00:00 Allopurinol (Zyloprim) 200 mg DAILY ORAL 10/26/20 12:45 11/25/20 12:44 10/27/20 08:21 Carvedilol (Coreg) 3.125 mg EVERY 12 HOURS ORAL 10/25/20 21:00 11/24/20 20:59 10/27/20 20:21 Ceftriaxone Sodium 1 gm/ Dextrose 55 ml @ 110 mls/hr Q24H IVPB 10/25/20 18:00 11/01/20 17:59 10/27/20 17:36 Clonidine HCl (Catapres tab) 0.2 mg Q2H PRN ORAL SBP>170 10/27/20 16:45 01/25/21 16:44 10/28/20 03:52 Docusate Sodium (Colace) 100 mg THREE TIMES A DAY ORAL 10/26/20 13:00 11/25/20 12:59 10/27/20 17:36 Folic Acid (Folate) 1 mg DAILY ORAL 10/27/20 09:00 11/26/20 08:59 10/27/20 08:21 Furosemide (Lasix) 40 mg DAILY ORAL 10/28/20 09:00 11/27/20 08:59 Guaifenesin/ Dextromethorphan (Robitussin DM Syrup) 10 ml Q4H PRN ORAL For Cough 10/26/20 08:00 01/24/21 07:59 10/26/20 08:30 Hydralazine HCl (Apresoline) 25 mg Q6H PRN ORAL For High Blood Pressure 10/28/20 06:45 01/26/21 06:44 10/28/20 07:03 Iron Sucrose 100 mg/Sodium Chloride 60 ml @ 240 mls/hr BEDTIME IVPB 10/27/20 21:00 10/31/20 21:14 10/27/20 20:24 Levothyroxine Sodium (Synthroid) 25 mcg DAILY@0630 ORAL 10/27/20 06:30 11/26/20 06:29 10/28/20 05:45 Nitroglycerin (Ntg) 1 patch Q24H TDERMAL 10/24/20 20:15 11/23/20 20:14 10/27/20 20:20 Pantoprazole (Protonix) 40 mg DAILY ORAL 10/27/20 09:00 11/26/20 08:59 10/27/20 08:21 Vancomycin HCl (Vanco pharmacy to dose) 1 ea DAILY PRN MISC Per rx protocol 10/26/20 13:45 11/25/20 13:44 Assessment/Plan Assessment/Plan 1. Scabies, treated -Contact precaution - s/p permethrin 2. Hypoxemic respiratory failure on admission -Currently saturating well RA; provide supplemental oxygen as needed - s/p Decadron in ER 3. VIJAY -Monitor renal parameters -IV fluids 4. ? Pneumonia - Rapid COVID-19 negative (10/25) - CXR Right lower lobe effusion versus pneumonia -On antibiotics per ID 5. Right pleural effusion -Monitor effusion; consider thoracentesis if effusion enlarges and becomes symptomatic 6. CHF exacerbation - Elevated BNP - on Lasix -Cardio following 7. Normocytic anemia - on IV iron 8. DVT ppx - on SCDs - elevated D-dimer -> venous duplex US of legs pending The care for this patient was discussed with my supervising physician. Time spent for this case was approximately 31 minutes. Best Brandon Oct 28, 2020 09:22
[2020-10-28] MEDS: Carvedilol 6.25mg Tab ORAL SCH ×2 (09:27→20:18)
[2020-10-28] MEDS: Furosemide 40mg tab ORAL SCH (09:27)
[2020-10-28] MEDS: Allopurinol 100mg Tab ORAL SCH (09:28)
[2020-10-28] MEDS: Docusate 100mg cap ORAL SCH ×3 (09:28→17:17)
[2020-10-28 10:19] LABS: HEMATOCRIT 25.3 % (42.0-52.0); HEMOGLOBIN 7.8 G/DL (14.2-18.0); MEAN CORPUSCULAR VOLUME 85 FL (80-99); PLATELET COUNT 241 K/UL (150-450); RED BLOOD COUNT 2.99 M/UL (4.70-6.10); RED CELL DISTRIBUTION WIDTH 13.8 % (11.6-14.8); WHITE BLOOD COUNT 4.7 K/UL (4.8-10.8)
--- NOTE | 2020-10-28 10:33 | Cardiac Electrophysiology PN ---
Assessment/Plan Assessment/Plan 1. S/P DDD Pacer implant. The brand is unknown to interrogate pacer but based on tele is functioning normally. 2. CHF exacerbation EF 45% on Lasix 40 po daily and Coreg 3.125 bid 3. Hypoxemic respiratory failure due to CHFand Pneumonia - Rapid COVID-19 negative (10/25) - CXR Right lower lobe effusion versus pneumonia - On antibiotics per ID - Currently saturating well on 2 L nasal cannula 4. VIJAY BUN/Cr 61/1.8 5. Right pleural effusion, consider thoracentesis if effusion enlarges and becomes symptomatic 6. Scabies, s/p permethrin 7. Severe Anemia Hb 7.7 DW RN Subjective Subjective No CP or SOB. We contacted all pacer companies but not registered to any one! Patient and family also don't know what company it is Objective Last 24 Hour Vital Signs Date Time Temp Pulse Resp B/P (MAP) Pulse Ox O2 Delivery O2 Flow Rate FiO2 10/28/20 09:27 67 175/92 10/28/20 08:00 96.7 67 18 175/92 (119) 95 10/28/20 07:03 170/91 10/28/20 05:50 167/90 (115) 10/28/20 04:00 69 10/28/20 04:00 96.3 69 18 170/84 (112) 92 10/28/20 03:52 170/90 10/28/20 00:00 66 10/28/20 00:00 96.4 67 18 163/84 (110) 96 10/27/20 21:00 Nasal Cannula 2.0 10/27/20 20:22 176/95 10/27/20 20:21 71 176/95 10/27/20 20:20 176/95 10/27/20 20:00 72 10/27/20 20:00 96.4 71 17 176/95 (122) 95 10/27/20 17:40 74 191/105 (133) 10/27/20 17:38 191/105 10/27/20 16:00 97.3 71 19 178/92 (120) 98 10/27/20 16:00 69 10/27/20 14:38 170/88 10/27/20 12:00 68 10/27/20 12:00 96.9 71 18 155/101 (119) 99 Intake and Output 10/27/20 10/28/20 19:00 07:00 Intake Total 400 ml Output Total 600 ml Balance -200 ml Intake Oral 400 ml Output Urine Total 600 ml # Voids 3 3 Laboratory Tests Test 10/27/20 12:55 10/28/20 10:00 D-Dimer 2.01 mg/L FEU (0.00-0.49) H White Blood Count 4.7 K/UL (4.8-10.8) L Red Blood Count 2.99 M/UL (4.70-6.10) L Hemoglobin 7.8 G/DL (14.2-18.0) L Hematocrit 25.3 % (42.0-52.0) L Mean Corpuscular Volume 85 FL (80-99) Mean Corpuscular Hemoglobin 26.1 PG (27.0-31.0) L Mean Corpuscular Hemoglobin Concent 30.8 G/DL (32.0-36.0) L Red Cell Distribution Width 13.8 % (11.6-14.8) Platelet Count 241 K/UL (150-450) Mean Platelet Volume 9.7 FL (6.5-10.1) Neutrophils (%) (Auto) % (45.0-75.0) Lymphocytes (%) (Auto) % (20.0-45.0) Monocytes (%) (Auto) % (1.0-10.0) Eosinophils (%) (Auto) % (0.0-3.0) Basophils (%) (Auto) % (0.0-2.0) Neutrophils % (Manual) Pending Lymphocytes % (Manual) Pending Platelet Estimate Pending Platelet Morphology Pending Sodium Level Pending Potassium Level Pending Chloride Level Pending Carbon Dioxide Level Pending Blood Urea Nitrogen Pending Creatinine Pending Estimat Glomerular Filtration Rate Pending Glucose Level Pending Uric Acid Pending Calcium Level Pending Phosphorus Level Pending Magnesium Level Pending Total Bilirubin Pending Aspartate Amino Transf (AST/SGOT) Pending Alanine Aminotransferase (ALT/SGPT) Pending Alkaline Phosphatase Pending C-Reactive Protein, Quantitative Pending Pro-B-Type Natriuretic Peptide Pending Total Protein Pending Albumin Pending Globulin Pending Random Vancomycin Level Pending Objective General Appearance: no acute distress HEENT: atraumatic Respiratory: other - coase breath sounds Cardiovascular: RRR. Pacer left subclavian Abdomen: soft, non tender Jamal Cisneros MD Oct 28, 2020 10:33
[2020-10-28 10:37] LABS: ALANINE AMINOTRANSFERASE 23 U/L (12-78); ALBUMIN 2.2 G/DL (3.4-5.0); ALBUMIN/GLOBULIN RATIO 0.5 (1.0-2.7); ALKALINE PHOSPHATASE 146 U/L (46-116); ANION GAP 8 mmol/L (5-15); ASPARTATE AMINO TRANSFERASE 13 U/L (15-37); BILIRUBIN,TOTAL < 0.1 MG/DL (0.2-1.0); BLOOD UREA NITROGEN 50 mg/dL (7-18); CALCIUM 8.6 MG/DL (8.5-10.1); CARBON DIOXIDE 31 MMOL/L (21-32); CHLORIDE 102 MMOL/L (98-107); CREATININE 1.6 MG/DL (0.55-1.30); POTASSIUM 3.8 MMOL/L (3.5-5.1); SODIUM 141 MMOL/L (136-145)
[2020-10-28 11:29] LABS: PHOSPHORUS 5.2 MG/DL (2.5-4.9)
--- NOTE | 2020-10-28 12:19 | Nephrology Progress Note ---
Assessment/Plan Problem List: (1) Renal failure (ARF), acute on chronic (2) Pacemaker (3) CHF exacerbation (4) Hypoxia (5) CAD (coronary artery disease) (6) Normocytic anemia Assessment Acute renal failure Possible underlying chronic kidney disease Anemia Pneumonia and hypoxia. Right lower lobe effusion versus pneumonia Congestive heart failure exacerbation with ejection fraction of 45% Pacemaker Coronary artery disease Scabies Plan October 28: Labs reviewed. Serum creatinine lowering. Hemoglobin low at 7.8. Continue current management. Continue per consultants. Blood pressure medication adjusted. 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 October 27: Labs reviewed. Medication list reviewed. Continue IV iron. Continue to optimize cardiac status. Continue per consultants. Optimize cardiac status Add folic acid Add Synthroid Add Protonix and stool softeners Change diet to cardiac diet, renal friendly Monitor renal parameters and electrolytes IV Venofer for low iron Monitor CBC and renal parameters Avoid nephrotoxic's Subjective ROS Limited/Unobtainable: No Constitutional: Reports: malaise Objective Objective Last 24 Hour Vital Signs Date Time Temp Pulse Resp B/P (MAP) Pulse Ox O2 Delivery O2 Flow Rate FiO2 10/28/20 11:54 173/94 10/28/20 09:27 67 175/92 10/28/20 08:00 96.7 67 18 175/92 (119) 95 10/28/20 07:03 170/91 10/28/20 05:50 167/90 (115) 10/28/20 04:00 69 10/28/20 04:00 96.3 69 18 170/84 (112) 92 10/28/20 03:52 170/90 10/28/20 00:00 66 10/28/20 00:00 96.4 67 18 163/84 (110) 96 10/27/20 21:00 Nasal Cannula 2.0 10/27/20 20:22 176/95 10/27/20 20:21 71 176/95 10/27/20 20:20 176/95 10/27/20 20:00 72 10/27/20 20:00 96.4 71 17 176/95 (122) 95 10/27/20 17:40 74 191/105 (133) 10/27/20 17:38 191/105 10/27/20 16:00 97.3 71 19 178/92 (120) 98 10/27/20 16:00 69 10/27/20 14:38 170/88 Intake and Output 10/27/20 10/28/20 19:00 07:00 Intake Total 400 ml Output Total 600 ml Balance -200 ml Intake Oral 400 ml Output Urine Total 600 ml # Voids 3 3 Current Medications Medications (Trade) Dose Ordered Sig/Jermaine Route PRN Reason Start Time Stop Time Status Last Admin Dose Admin Acetaminophen (Tylenol) 500 mg EVERY 4 HOURS PRN ORAL For Pain 10/25/20 00:00 11/24/20 00:00 Allopurinol (Zyloprim) 200 mg DAILY ORAL 10/26/20 12:45 11/25/20 12:44 10/28/20 09:28 Carvedilol (Coreg) 3.125 mg EVERY 12 HOURS ORAL 10/25/20 21:00 11/24/20 20:59 10/28/20 09:27 Ceftriaxone Sodium 1 gm/ Dextrose 55 ml @ 110 mls/hr Q24H IVPB 10/25/20 18:00 11/01/20 17:59 10/27/20 17:36 Clonidine HCl (Catapres tab) 0.2 mg Q2H PRN ORAL SBP>170 10/27/20 16:45 01/25/21 16:44 10/28/20 11:54 Docusate Sodium (Colace) 100 mg THREE TIMES A DAY ORAL 10/26/20 13:00 11/25/20 12:59 10/28/20 09:28 Folic Acid (Folate) 1 mg DAILY ORAL 10/27/20 09:00 11/26/20 08:59 10/28/20 09:28 Furosemide (Lasix) 40 mg DAILY ORAL 10/28/20 09:00 11/27/20 08:59 10/28/20 09:27 Guaifenesin/ Dextromethorphan (Robitussin DM Syrup) 10 ml Q4H PRN ORAL For Cough 10/26/20 08:00 01/24/21 07:59 10/26/20 08:30 Hydralazine HCl (Apresoline) 25 mg Q6H PRN ORAL For High Blood Pressure 10/28/20 06:45 01/26/21 06:44 10/28/20 07:03 Iron Sucrose 100 mg/Sodium Chloride 60 ml @ 240 mls/hr BEDTIME IVPB 10/27/20 21:00 10/31/20 21:14 10/27/20 20:24 Levothyroxine Sodium (Synthroid) 25 mcg DAILY@0630 ORAL 10/27/20 06:30 11/26/20 06:29 10/28/20 05:45 Nitroglycerin (Ntg) 1 patch Q24H TDERMAL 10/24/20 20:15 11/23/20 20:14 10/27/20 20:20 Pantoprazole (Protonix) 40 mg DAILY ORAL 10/27/20 09:00 11/26/20 08:59 10/28/20 09:27 Vancomycin HCl (Vanco pharmacy to dose) 1 ea DAILY PRN MISC Per rx protocol 10/26/20 13:45 11/25/20 13:44 Vancomycin HCl 750 mg/Sodium Chloride 275 ml @ 183.333 mls/hr ONCE ONCE IVPB 10/28/20 13:00 10/28/20 14:29 Laboratory Tests 10/27/20 12:55: D-Dimer 2.01H 10/28/20 10:00: White Blood Count 4.7L, Red Blood Count 2.99L, Hemoglobin 7.8L, Hematocrit 25.3L , Mean Corpuscular Volume 85, Mean Corpuscular Hemoglobin 26.1L, Mean Corpuscular Hemoglobin Concent 30.8L, Red Cell Distribution Width 13.8, Platelet Count 241, Mean Platelet Volume 9.7, Neutrophils (%) (Auto) , Lymphocytes (%) (Auto) , Monocytes (%) (Auto) , Eosinophils (%) (Auto) , Basophils (%) (Auto) , Differential Total Cells Counted 100, Neutrophils % (Manual) 70, Lymphocytes % (Manual) 15L, Monocytes % (Manual) 10, Eosinophils % (Manual) 5H, Basophils % (Manual) 0, Band Neutrophils 0, Platelet Estimate Adequate, Platelet Morphology Normal, Hypochromasia 1+, Sodium Level 141, Potassium Level 3.8, Chloride Level 102, Carbon Dioxide Level 31, Anion Gap 8, Blood Urea Nitrogen 50H, Creatinine 1.6H, Estimat Glomerular Filtration Rate 43.5, Glucose Level 358#H, Uric Acid 5.3, Calcium Level 8.6, Phosphorus Level 5.2H, Magnesium Level 2.4, Total Bilirubin < 0.1L, Aspartate Amino Transf (AST/SGOT) 13L, Alanine Aminotransferase (ALT/SGPT) 23, Alkaline Phosphatase 146H, C-Reactive Protein, Quantitative < 0.4, Pro-B-Type Natriuretic Peptide 5325H, Total Protein 6.3L, Albumin 2.2L, Globulin 4.1, Albumin/Globulin Ratio 0.5L, Random Vancomycin Level 17.6 Height (Feet): 5 Height (Inches): 4.00 Weight (Pounds): 150 General Appearance: no apparent distress Cardiovascular: normal rate Respiratory/Chest: decreased breath sounds Abdomen: distended Long Ram MD Oct 28, 2020 12:19
--- NOTE | 2020-10-28 12:36 | Infectious Diseases Prog Note ---
Assessment/Plan Assessment/Plan IMPRESSION: Positive blood culture; likely contamination Possible pneumonia, COVID19 test: negative Hypoxemic respiratory failure, Scabies,treated Diabetes mellitus with hyperglycemia, Hypertension, Anemia, Hypothyroidism, Acute renal failure. CHF, likely ischemic cardiomyopathy RECOMMENDATION: Continue ceftriaxone Discontinue IV vancomycin. Subjective ROS Limited/Unobtainable: Yes Constitutional: Reports: other - weakness Respiratory: Reports: shortness of breath Gastrointestinal/Abdominal: Reports: no symptoms Allergies: Coded Allergies: No Known Allergies (Unverified , 10/24/20) Objective Last 24 Hour Vital Signs Date Time Temp Pulse Resp B/P (MAP) Pulse Ox O2 Delivery O2 Flow Rate FiO2 10/28/20 11:54 173/94 10/28/20 09:27 67 175/92 10/28/20 08:00 96.7 67 18 175/92 (119) 95 10/28/20 07:03 170/91 10/28/20 05:50 167/90 (115) 10/28/20 04:00 69 10/28/20 04:00 96.3 69 18 170/84 (112) 92 10/28/20 03:52 170/90 10/28/20 00:00 66 10/28/20 00:00 96.4 67 18 163/84 (110) 96 10/27/20 21:00 Nasal Cannula 2.0 10/27/20 20:22 176/95 10/27/20 20:21 71 176/95 10/27/20 20:20 176/95 10/27/20 20:00 72 10/27/20 20:00 96.4 71 17 176/95 (122) 95 10/27/20 17:40 74 191/105 (133) 10/27/20 17:38 191/105 10/27/20 16:00 97.3 71 19 178/92 (120) 98 10/27/20 16:00 69 10/27/20 14:38 170/88 Height (Feet): 5 Height (Inches): 4.00 Weight (Pounds): 150 HEENT: mucous membranes moist Respiratory/Chest: lungs clear Cardiovascular: normal rate Abdomen: soft, non tender Extremities: no edema Neurologic/Psychiatric: alert, responsive Laboratory Tests Test 10/27/20 12:55 10/28/20 10:00 D-Dimer 2.01 mg/L FEU (0.00-0.49) H White Blood Count 4.7 K/UL (4.8-10.8) L Red Blood Count 2.99 M/UL (4.70-6.10) L Hemoglobin 7.8 G/DL (14.2-18.0) L Hematocrit 25.3 % (42.0-52.0) L Mean Corpuscular Volume 85 FL (80-99) Mean Corpuscular Hemoglobin 26.1 PG (27.0-31.0) L Mean Corpuscular Hemoglobin Concent 30.8 G/DL (32.0-36.0) L Red Cell Distribution Width 13.8 % (11.6-14.8) Platelet Count 241 K/UL (150-450) Mean Platelet Volume 9.7 FL (6.5-10.1) Neutrophils (%) (Auto) % (45.0-75.0) Lymphocytes (%) (Auto) % (20.0-45.0) Monocytes (%) (Auto) % (1.0-10.0) Eosinophils (%) (Auto) % (0.0-3.0) Basophils (%) (Auto) % (0.0-2.0) Differential Total Cells Counted 100 Neutrophils % (Manual) 70 % (45-75) Lymphocytes % (Manual) 15 % (20-45) L Monocytes % (Manual) 10 % (1-10) Eosinophils % (Manual) 5 % (0-3) H Basophils % (Manual) 0 % (0-2) Band Neutrophils 0 % (0-8) Platelet Estimate Adequate Platelet Morphology Normal Hypochromasia 1+ Sodium Level 141 MMOL/L (136-145) Potassium Level 3.8 MMOL/L (3.5-5.1) Chloride Level 102 MMOL/L (98-107) Carbon Dioxide Level 31 MMOL/L (21-32) Anion Gap 8 mmol/L (5-15) Blood Urea Nitrogen 50 mg/dL (7-18) H Creatinine 1.6 MG/DL (0.55-1.30) H Estimat Glomerular Filtration Rate 43.5 mL/min (>60) Glucose Level 358 MG/DL (74-106) #H Uric Acid 5.3 MG/DL (2.6-7.2) Calcium Level 8.6 MG/DL (8.5-10.1) Phosphorus Level 5.2 MG/DL (2.5-4.9) H Magnesium Level 2.4 MG/DL (1.8-2.4) Total Bilirubin < 0.1 MG/DL (0.2-1.0) L Aspartate Amino Transf (AST/SGOT) 13 U/L (15-37) L Alanine Aminotransferase (ALT/SGPT) 23 U/L (12-78) Alkaline Phosphatase 146 U/L (46-116) H C-Reactive Protein, Quantitative < 0.4 mg/dL (0.00-0.90) Pro-B-Type Natriuretic Peptide 5325 pg/mL (0-125) H Total Protein 6.3 G/DL (6.4-8.2) L Albumin 2.2 G/DL (3.4-5.0) L Globulin 4.1 g/dL Albumin/Globulin Ratio 0.5 (1.0-2.7) L Random Vancomycin Level 17.6 ug/mL Current Medications Medications (Trade) Dose Ordered Sig/Jermaine Route PRN Reason Start Time Stop Time Status Last Admin Dose Admin Acetaminophen (Tylenol) 500 mg EVERY 4 HOURS PRN ORAL For Pain 10/25/20 00:00 11/24/20 00:00 Allopurinol (Zyloprim) 200 mg DAILY ORAL 10/26/20 12:45 11/25/20 12:44 10/28/20 09:28 Carvedilol (Coreg) 3.125 mg EVERY 12 HOURS ORAL 10/25/20 21:00 11/24/20 20:59 10/28/20 09:27 Ceftriaxone Sodium 1 gm/ Dextrose 55 ml @ 110 mls/hr Q24H IVPB 10/25/20 18:00 11/01/20 17:59 10/27/20 17:36 Clonidine HCl (Catapres Tab) 0.1 mg Q4H PRN ORAL BP over 160 systolic 10/28/20 12:30 01/26/21 12:29 Docusate Sodium (Colace) 100 mg THREE TIMES A DAY ORAL 10/26/20 13:00 11/25/20 12:59 10/28/20 12:21 Folic Acid (Folate) 1 mg DAILY ORAL 10/27/20 09:00 11/26/20 08:59 10/28/20 09:28 Furosemide (Lasix) 40 mg DAILY ORAL 10/28/20 09:00 11/27/20 08:59 10/28/20 09:27 Guaifenesin/ Dextromethorphan (Robitussin DM Syrup) 10 ml Q4H PRN ORAL For Cough 10/26/20 08:00 01/24/21 07:59 10/26/20 08:30 Hydralazine HCl (Apresoline) 50 mg Q8HR ORAL 10/28/20 14:00 01/26/21 13:59 Iron Sucrose 100 mg/Sodium Chloride 60 ml @ 240 mls/hr BEDTIME IVPB 10/27/20 21:00 10/31/20 21:14 10/27/20 20:24 Levothyroxine Sodium (Synthroid) 25 mcg DAILY@0630 ORAL 10/27/20 06:30 11/26/20 06:29 10/28/20 05:45 Nitroglycerin (Ntg) 1 patch Q24H TDERMAL 10/24/20 20:15 11/23/20 20:14 10/27/20 20:20 Pantoprazole (Protonix) 40 mg DAILY ORAL 10/27/20 09:00 11/26/20 08:59 10/28/20 09:27 Vancomycin HCl (Vanco pharmacy to dose) 1 ea DAILY PRN MISC Per rx protocol 10/26/20 13:45 11/25/20 13:44 Vancomycin HCl 750 mg/Sodium Chloride 275 ml @ 183.333 mls/hr ONCE ONCE IVPB 10/28/20 13:00 10/28/20 14:29 10/28/20 12:26 Rodolfo Mueller MD Oct 28, 2020 12:36
[2020-10-28] MEDS ORDERED: Vancomycin 750mg/NS 275ml IVPB ONE ×2 (13:00)
--- NOTE | 2020-10-28 13:10 | NUR ---
RD ASSESSMENT & RECOMMENDATIONS SEE CARE ACTIVITY FOR COMPLETE ASSESSMENT DAILY ESTIMATED NEEDS: Needs based on CHF, ARF, DM/ 68kg 25-30 kcals/kg 5281-8933 total kcals 1-1.3 g protein/kg 68-88 g total protein 20-22 mL/kg 3868-6148 total fluid mLs NUTRITION DIAGNOSIS: Altered nutrition related lab values R/T CHF, diabetes, ARF as evidenced by elev BNP (5325), elev BGs (358 254 204), elev creat (1.6), elev phos (5.2,5.9, 6.5). CURRENT DIET:RENAL, CARDIAC PO DIET RECOMMENDATIONS: LOW NA, LOW PHOS, CCHO MED/ texture as tolerated ADDITIONAL RECOMMENDATIONS: * Calibrated bedscale wt * Carb controlled diet and NISS * Monitor Phos levels, consider phos binders w/ continued elev phos levels * Monitor lytes closely w/ diuretics, replete as needed
--- NOTE | 2020-10-28 13:36 | Diagnostic Imaging Report ---
EXAM: ULTRASOUND Venous Duplex Scan Romain Leg CLINICAL HISTORY: Leg pain and edema. COMPARISON: None TECHNIQUE: Doppler examination include grayscale images obtained with and without compression, and color and spectral doppler analysis. FINDINGS: Doppler examination shows normal spontaneity, phasicity, compressibility in the bilateral lower extremities. There is no thrombus identified by grayscale. Normal color and spectral flow is identified. There is no evidence of valvular incompetency or insufficiency. IMPRESSION: UNREMARKABLE VENOUS DUPLEX.
--- NOTE | 2020-10-28 13:47 | NUR ---
INSURANCE CLINICALS FAXED TO [facility]É DAVISON# [phone] FAX# [phone]
[2020-10-28] MEDS: HydrALAZINE 50mg tab ORAL SCH ×2 (14:58→22:09)
[2020-10-28] MEDS: cefTRIAXone 1 GM in D5W 55 ML IVPB SCH (17:20)
[2020-10-28] MEDS ORDERED: Tubing IV Secondary IV ONE (17:21)
[2020-10-28] MEDS ORDERED: NS 275ml ONE (17:21)
--- NOTE | 2020-10-28 19:17 | General Progress Note ---
Subjective ROS Limited/Unobtainable: Yes Allergies: Coded Allergies: No Known Allergies (Unverified , 10/24/20) Objective Last 24 Hour Vital Signs Date Time Temp Pulse Resp B/P (MAP) Pulse Ox O2 Delivery O2 Flow Rate FiO2 10/28/20 17:17 180/95 10/28/20 14:58 185/100 10/28/20 11:54 173/94 10/28/20 09:27 67 175/92 10/28/20 09:00 Nasal Cannula 2.0 10/28/20 08:00 96.7 67 18 175/92 (119) 95 10/28/20 07:03 170/91 10/28/20 05:50 167/90 (115) 10/28/20 04:00 69 10/28/20 04:00 96.3 69 18 170/84 (112) 92 10/28/20 03:52 170/90 10/28/20 00:00 66 10/28/20 00:00 96.4 67 18 163/84 (110) 96 10/27/20 21:00 Nasal Cannula 2.0 10/27/20 20:22 176/95 10/27/20 20:21 71 176/95 10/27/20 20:20 176/95 10/27/20 20:00 72 10/27/20 20:00 96.4 71 17 176/95 (122) 95 Intake and Output0 10/27/20 10/28/20 19:00 07:00 Intake Total 400 ml Output Total 600 ml Balance -200 ml Intake Oral 400 ml Output Urine Total 600 ml # Voids 3 3 Laboratory Tests 10/28/20 10:00: White Blood Count 4.7L, Red Blood Count 2.99L, Hemoglobin 7.8L, Hematocrit 25.3L , Mean Corpuscular Volume 85, Mean Corpuscular Hemoglobin 26.1L, Mean Corpuscular Hemoglobin Concent 30.8L, Red Cell Distribution Width 13.8, Platelet Count 241, Mean Platelet Volume 9.7, Neutrophils (%) (Auto) , Lymphocytes (%) (Auto) , Monocytes (%) (Auto) , Eosinophils (%) (Auto) , Basophils (%) (Auto) , Differential Total Cells Counted 100, Neutrophils % (Manual) 70, Lymphocytes % (Manual) 15L, Monocytes % (Manual) 10, Eosinophils % (Manual) 5H, Basophils % (Manual) 0, Band Neutrophils 0, Platelet Estimate Adequate, Platelet Morphology Normal, Hypochromasia 1+, Sodium Level 141, Potassium Level 3.8, Chloride Level 102, Carbon Dioxide Level 31, Anion Gap 8, Blood Urea Nitrogen 50H, Creatinine 1.6H, Estimat Glomerular Filtration Rate 43.5, Glucose Level 358#H, Uric Acid 5.3, Calcium Level 8.6, Phosphorus Level 5.2H, Magnesium Level 2.4, Total Bilirubin < 0.1L, Aspartate Amino Transf (AST/SGOT) 13L, Alanine Aminotransferase (ALT/SGPT) 23, Alkaline Phosphatase 146H, C-Reactive Protein, Quantitative < 0.4, Pro-B-Type Natriuretic Peptide 5325H, Total Protein 6.3L, Albumin 2.2L, Globulin 4.1, Albumin/Globulin Ratio 0.5L, Random Vancomycin Level 17.6 Height (Feet): 5 Height (Inches): 4.00 Weight (Pounds): 150 Assessment/Plan Problem List: (1) Scabies ICD Codes: B86 - Scabies SNOMED: 429694161, 66032431 (2) CAD (coronary artery disease) ICD Codes: I25.10 - Atherosclerotic heart disease of [place] coronary artery without angina pectoris SNOMED: 29872114, 98088955 (3) Pneumonia ICD Codes: J18.9 - Pneumonia, unspecified organism SNOMED: 983665680, 1196993 (4) Pacemaker ICD Codes: Z95.0 - Presence of cardiac pacemaker SNOMED: 850563242, 70934002 (5) VIJAY (acute kidney injury) ICD Codes: N17.9 - Acute kidney failure, unspecified SNOMED: 96358424, 4583661 (6) Shortness of breath ICD Codes: R06.02 - Shortness of breath SNOMED: 137077283 (7) CHF exacerbation ICD Codes: I50.9 - Heart failure, unspecified SNOMED: 316664769, 22098439527936 (8) Hypoxia ICD Codes: R09.02 - Hypoxemia SNOMED: 016559435 Status: progressing Assessment/Plan: chf arf not hyoxic afebrile vitals stable pna scabies pacer azotemia Jose Aguillon MD Oct 28, 2020 19:17
--- NOTE | 2020-10-28 19:45 | NUR ---
NURSE NOTES: Received patient resting comfortable in bed with no signs of distress. call dumont within reach, bed in low position. no pain. urinal at reach. will continue to monitor.
[2020-10-28] MEDS: Nitroglycerin Patch 0.1mg/hr TDERMAL SCH (20:19)
--- NOTE | 2020-10-28 20:55 | NUR ---
NURSE HAND-OFF REPORT: Important Events on Shift:[]monitor pt's blood pressure it has been high. Patient Status: []full code Diet: []REnal Pending Orders: [] Pending Results/Labs:[] Pending MD notification:[] Latest Vital Signs: Temperature 97.7 , Pulse 67 , B/P 181 /91 , Respiratory Rate 20 , O2 SAT 94 , Room Air, O2 Flow Rate 2.0 . Vital Sign Comment: [] EKG Rhythm: V-Paced Rhythm change?: N Notified?: Y -Dr. Henna TURCIOS Response: Latest Barber Fall Score: 45 Fall Risk: High Risk Safety Measures: Call light Within Reach, Bed Alarm Zone 2, Side Rails Side Rails x2, Bed position Low and Locked. Fall Precautions: y Patient Fall Education y Report given to []. Maximino/ KURT
[2020-10-28] MEDS ORDERED: Iron Sucrose 100 MG in NS 55 ML IVPB SCH (21:00)
[2020-10-28] MEDS: Iron Sucrose 100 MG in NS 55 ML IVPB SCH (22:11)
[2020-10-29] VITALS (7 sets, daily range): BP systolic 150–173; BP diastolic 85–96
--- NOTE | 2020-10-29 00:10 | NUR ---
NURSE NOTES: patient blood pressure continue to stay high. bp given as ordered. patient stated that he is not having any pain, no ACEVEDO, no signs of distress, no discomfort. patient voided multiple times using the urinal. call dumont within reach, will continue to monitor frequently.
[2020-10-29] MEDS: Levothyroxine 25mcg tab ORAL SCH (06:00)
[2020-10-29] MEDS: HydrALAZINE 50mg tab ORAL SCH ×3 (06:00→21:36)
--- NOTE | 2020-10-29 07:11 | NUR ---
NURSE HAND-OFF REPORT: Important Events on Shift:[] Patient Status: [] Diet: [] Pending Orders: [] Pending Results/Labs:[] Pending MD notification:[] Latest Vital Signs: Temperature 97.9 , Pulse 70 , B/P 161 /89 , Respiratory Rate 24 , O2 SAT 94 , Room Air, O2 Flow Rate 2.0 . Vital Sign Comment: [] EKG Rhythm: SR with PVC Rhythm change?: N MD Notified?: Yomi Aguillon MD Response: Latest Barber Fall Score: 45 Fall Risk: High Risk Safety Measures: Call light Within Reach, Bed Alarm Zone 2, Side Rails Side Rails x2, Bed position Low and Locked. Fall Precautions: Patient Fall Education Report given to [].
--- NOTE | 2020-10-29 08:39 | NUR ---
NURSE NOTES: pt. in bed awake and having breakfast. Pt AOx4 able to express needs. pt on personnel monitor no signs of cardiac or respiratory at this time. Bed locked and in lowest, call light within reach.
--- NOTE | 2020-10-29 08:56 | Hematology/Onc Progress Note ---
Assessment/Plan Assessment/Plan Assessment and Recs # Anemia due to iron deficiency, downtrending --> transfuse on prn basis -> cbc daily --> hgb 9-->7.7-->7.8 --> anemia panel shows iron deficiency --> iv iron started --> no hemolysis is seen # Elevated ddimer may be reactive -> order duplex of lower ext to r/o dvt --> labs reviewed, consider anticoag if uptrends # Shortness of breath may be due to pna --> on abx per id --> for pna abx vanc/ctx # Hypoxia likely due to Pneumonia --> abx # Cough # VIJAY (acute kidney injury) # CAD (coronary artery disease) # Pacemaker # Scabies # Chf diuresis as needed # Dvt ppx scds Appreciate consultation and sol Rn Subjective HEENT: Denies: no symptoms, eye pain, blurred vision, tearing, double vision, ear pain, ear discharge, nose pain, nose congestion, throat pain, throat swelling, mouth pain, mouth swelling, other Cardiovascular: Denies: no symptoms, chest pain, edema, irregular heart rate, lightheadedness, palpitations, syncope, other Respiratory: Denies: no symptoms, cough, shortness of breath, SOB with excertion, SOB at rest, sputum, wheezing, other Gastrointestinal/Abdominal: Denies: no symptoms, abdomen distended, abdominal pain, black stools, tarry stools, blood in stool, constipated, diarrhea, difficulty swallowing, nausea, poor appetite, poor fluid intake, rectal bleeding, vomiting, other Genitourinary: Denies: no symptoms, burning, discharge, frequency, flank pain, hematuria, incontinence, pain, urgency, other Endocrine: Denies: no symptoms, excessive sweating, flushing, intolerance to cold, intolerance to heat, increased hunger, increased thirst, increased urine, unexplained weight gain, unexplained weight loss, other Hematologic/Lymphatic: Denies: no symptoms, anemia, easy bleeding, easy bruising, adenopathy, other Allergies: Coded Allergies: No Known Allergies (Unverified , 10/24/20) Subjective 10/29 meds noted, no bleeding, sol rn, no night sweats, cbc ordered Objective Objective Current Medications Medications (Trade) Dose Ordered Sig/Jermaine Route PRN Reason Start Time Stop Time Status Last Admin Dose Admin Acetaminophen (Tylenol) 500 mg EVERY 4 HOURS PRN ORAL For Pain 10/25/20 00:00 11/24/20 00:00 Allopurinol (Zyloprim) 200 mg DAILY ORAL 10/26/20 12:45 11/25/20 12:44 10/28/20 09:28 Carvedilol (Coreg) 3.125 mg EVERY 12 HOURS ORAL 10/25/20 21:00 11/24/20 20:59 10/28/20 20:18 Ceftriaxone Sodium 1 gm/ Dextrose 55 ml @ 110 mls/hr Q24H IVPB 10/25/20 18:00 11/01/20 17:59 10/28/20 17:20 Clonidine HCl (Catapres Tab) 0.1 mg Q4H PRN ORAL BP over 160 systolic 10/28/20 12:30 01/26/21 12:29 10/29/20 00:21 Docusate Sodium (Colace) 100 mg THREE TIMES A DAY ORAL 10/26/20 13:00 11/25/20 12:59 10/28/20 17:17 Folic Acid (Folate) 1 mg DAILY ORAL 10/27/20 09:00 11/26/20 08:59 10/28/20 09:28 Furosemide (Lasix) 40 mg DAILY ORAL 10/28/20 09:00 11/27/20 08:59 10/28/20 09:27 Guaifenesin/ Dextromethorphan (Robitussin DM Syrup) 10 ml Q4H PRN ORAL For Cough 10/26/20 08:00 01/24/21 07:59 10/26/20 08:30 Hydralazine HCl (Apresoline) 50 mg Q8HR ORAL 10/28/20 14:00 01/26/21 13:59 10/29/20 06:00 Iron Sucrose 100 mg/Sodium Chloride 60 ml @ 240 mls/hr BEDTIME IVPB 10/27/20 21:00 10/31/20 21:14 10/28/20 22:11 Levothyroxine Sodium (Synthroid) 25 mcg DAILY@0630 ORAL 10/27/20 06:30 11/26/20 06:29 10/29/20 06:00 Nitroglycerin (Ntg) 1 patch Q24H TDERMAL 10/24/20 20:15 11/23/20 20:14 10/28/20 20:19 Pantoprazole (Protonix) 40 mg DAILY ORAL 10/27/20 09:00 11/26/20 08:59 10/28/20 09:27 Last 24 Hour Vital Signs Date Time Temp Pulse Resp B/P (MAP) Pulse Ox O2 Delivery O2 Flow Rate FiO2 10/29/20 06:00 161/89 10/29/20 04:00 69 10/29/20 04:00 97.9 70 24 153/96 (115) 94 10/29/20 00:21 170/85 10/29/20 00:00 97.9 65 20 170/85 (113) 94 10/28/20 22:09 178/94 10/28/20 21:00 Nasal Cannula 2.0 10/28/20 20:19 181/91 10/28/20 20:18 67 181/91 10/28/20 20:00 97.7 66 20 181/85 (117) 94 10/28/20 20:00 66 10/28/20 17:17 180/95 10/28/20 16:00 66 10/28/20 16:00 97.6 67 20 180/95 (123) 94 10/28/20 14:58 185/100 10/28/20 12:00 97.8 65 20 173/94 (120) 98 10/28/20 12:00 66 10/28/20 11:54 173/94 10/28/20 09:27 67 175/92 10/28/20 09:00 Nasal Cannula 2.0 10/28/20 08:00 96.7 67 18 175/92 (119) 95 10/28/20 08:00 69 10/28/20 07:03 170/91 10/28/20 05:50 167/90 (115) 10/28/20 04:00 69 10/28/20 04:00 96.3 69 18 170/84 (112) 92 10/28/20 03:52 170/90 10/28/20 00:00 66 10/28/20 00:00 96.4 67 18 163/84 (110) 96 10/27/20 21:00 Nasal Cannula 2.0 10/27/20 20:22 176/95 10/27/20 20:21 71 176/95 10/27/20 20:20 176/95 10/27/20 20:00 72 10/27/20 20:00 96.4 71 17 176/95 (122) 95 10/27/20 17:40 74 191/105 (133) 10/27/20 17:38 191/105 10/27/20 16:00 97.3 71 19 178/92 (120) 98 10/27/20 16:00 69 10/27/20 14:38 170/88 10/27/20 12:00 68 10/27/20 12:00 96.9 71 18 155/101 (119) 99 10/27/20 09:00 Nasal Cannula 2.0 Intake and Output 10/28/20 10/29/20 19:00 07:00 Intake Total 600 ml 240 ml Output Total 1150 ml 2100 ml Balance -550 ml -1860 ml Intake Oral 600 ml 240 ml Output Urine Total 1150 ml 2100 ml # Voids 3 Labs Test 10/27/20 06:59 10/27/20 12:55 10/28/20 10:00 White Blood Count 5.1 K/UL (4.8-10.8) 4.7 K/UL (4.8-10.8) Red Blood Count 2.98 M/UL (4.70-6.10) 2.99 M/UL (4.70-6.10) Hemoglobin 7.7 G/DL (14.2-18.0) 7.8 G/DL (14.2-18.0) Hematocrit 25.2 % (42.0-52.0) 25.3 % (42.0-52.0) Mean Corpuscular Volume 84 FL (80-99) 85 FL (80-99) Mean Corpuscular Hemoglobin 25.8 PG (27.0-31.0) 26.1 PG (27.0-31.0) Mean Corpuscular Hemoglobin Concent 30.5 G/DL (32.0-36.0) 30.8 G/DL (32.0-36.0) Red Cell Distribution Width 13.7 % (11.6-14.8) 13.8 % (11.6-14.8) Platelet Count 282 K/UL (150-450) 241 K/UL (150-450) Mean Platelet Volume 9.1 FL (6.5-10.1) 9.7 FL (6.5-10.1) Neutrophils (%) (Auto) % (45.0-75.0) % (45.0-75.0) Lymphocytes (%) (Auto) % (20.0-45.0) % (20.0-45.0) Monocytes (%) (Auto) % (1.0-10.0) % (1.0-10.0) Eosinophils (%) (Auto) % (0.0-3.0) % (0.0-3.0) Basophils (%) (Auto) % (0.0-2.0) % (0.0-2.0) Differential Total Cells Counted 100 100 Neutrophils % (Manual) 70 % (45-75) 70 % (45-75) Lymphocytes % (Manual) 15 % (20-45) 15 % (20-45) Monocytes % (Manual) 9 % (1-10) 10 % (1-10) Eosinophils % (Manual) 6 % (0-3) 5 % (0-3) Basophils % (Manual) 0 % (0-2) 0 % (0-2) Band Neutrophils 0 % (0-8) 0 % (0-8) Platelet Estimate Adequate Adequate Platelet Morphology Normal Normal Hypochromasia 1+ 1+ Sodium Level 141 MMOL/L (136-145) 141 MMOL/L (136-145) Potassium Level 3.9 MMOL/L (3.5-5.1) 3.8 MMOL/L (3.5-5.1) Chloride Level 102 MMOL/L (98-107) 102 MMOL/L (98-107) Carbon Dioxide Level 31 MMOL/L (21-32) 31 MMOL/L (21-32) Anion Gap 8 mmol/L (5-15) 8 mmol/L (5-15) Blood Urea Nitrogen 60 mg/dL (7-18) 50 mg/dL (7-18) Creatinine 1.8 MG/DL (0.55-1.30) 1.6 MG/DL (0.55-1.30) Estimat Glomerular Filtration Rate 37.9 mL/min (>60) 43.5 mL/min (>60) Glucose Level 254 MG/DL (74-106) 358 MG/DL (74-106) Uric Acid 6.6 MG/DL (2.6-7.2) 5.3 MG/DL (2.6-7.2) Calcium Level 8.7 MG/DL (8.5-10.1) 8.6 MG/DL (8.5-10.1) Phosphorus Level 5.9 MG/DL (2.5-4.9) 5.2 MG/DL (2.5-4.9) Magnesium Level 2.0 MG/DL (1.8-2.4) 2.4 MG/DL (1.8-2.4) Total Bilirubin < 0.1 MG/DL (0.2-1.0) < 0.1 MG/DL (0.2-1.0) Aspartate Amino Transf (AST/SGOT) 22 U/L (15-37) 13 U/L (15-37) Alanine Aminotransferase (ALT/SGPT) 33 U/L (12-78) 23 U/L (12-78) Alkaline Phosphatase 158 U/L (46-116) 146 U/L (46-116) Total Protein 6.2 G/DL (6.4-8.2) 6.3 G/DL (6.4-8.2) Albumin 2.2 G/DL (3.4-5.0) 2.2 G/DL (3.4-5.0) Globulin 4.0 g/dL 4.1 g/dL Albumin/Globulin Ratio 0.6 (1.0-2.7) 0.5 (1.0-2.7) Random Vancomycin Level 15.4 ug/mL 17.6 ug/mL D-Dimer 2.01 mg/L FEU (0.00-0.49) C-Reactive Protein, Quantitative < 0.4 mg/dL (0.00-0.90) Pro-B-Type Natriuretic Peptide 5325 pg/mL (0-125) Height (Feet): 5 Height (Inches): 4.00 Weight (Pounds): 150 Objective Physical Exam: GENERAL: vitals are noted HEENT: ++ JVD. No meningismus. No thyromegal RESP: Tachypneic. Coarse breath sounds bilaterally. CARDIAC: Left chest incision is clean, dry, intact. ABDOMEN: Soft. Nondistended nt MSK: Normal muscle tone, without rigidity. SKIN: Linear burrows to the anterior NEUROLOGIC: Alert, oriented x3. Psych: Normal mood and affect Andre Ness MD Oct 29, 2020 08:56
[2020-10-29] MEDS: Allopurinol 100mg Tab ORAL SCH (09:21)
[2020-10-29] MEDS: Docusate 100mg cap ORAL SCH ×3 (09:21→18:13)
[2020-10-29] MEDS: Furosemide 40mg tab ORAL SCH (09:22)
[2020-10-29] MEDS: Carvedilol 6.25mg Tab ORAL SCH ×2 (09:22→21:36)
--- NOTE | 2020-10-29 09:57 | Pulmonology Progress Note ---
Subjective ROS Limited/Unobtainable: Yes Interval Events: anemic, hypertension Constitutional: Reports: other - weakness HEENT: Repors: no symptoms Respiratory: Reports: no symptoms Cardiovascular: Reports: no symptoms Gastrointestinal/Abdominal: Reports: no symptoms Allergies: Coded Allergies: No Known Allergies (Unverified , 10/24/20) Objective Last 24 Hour Vital Signs Date Time Temp Pulse Resp B/P (MAP) Pulse Ox O2 Delivery O2 Flow Rate FiO2 10/29/20 09:22 65 168/89 10/29/20 06:00 161/89 10/29/20 04:00 69 10/29/20 04:00 97.9 70 24 153/96 (115) 94 10/29/20 00:21 170/85 10/29/20 00:00 97.9 65 20 170/85 (113) 94 10/28/20 22:09 178/94 10/28/20 21:00 Nasal Cannula 2.0 10/28/20 20:19 181/91 10/28/20 20:18 67 181/91 10/28/20 20:00 97.7 66 20 181/85 (117) 94 10/28/20 20:00 66 10/28/20 17:17 180/95 10/28/20 16:00 66 10/28/20 16:00 97.6 67 20 180/95 (123) 94 10/28/20 14:58 185/100 10/28/20 12:00 97.8 65 20 173/94 (120) 98 10/28/20 12:00 66 10/28/20 11:54 173/94 Intake and Output 10/28/20 10/29/20 19:00 07:00 Intake Total 600 ml 240 ml Output Total 1150 ml 2100 ml Balance -550 ml -1860 ml Intake Oral 600 ml 240 ml Output Urine Total 1150 ml 2100 ml # Voids 3 General Appearance: no acute distress HEENT: atraumatic Respiratory: other - coase breath sounds Cardiovascular: normal rate Abdomen: soft, non tender Laboratory Tests 10/28/20 10:00: White Blood Count 4.7L, Red Blood Count 2.99L, Hemoglobin 7.8L, Hematocrit 25.3L , Mean Corpuscular Volume 85, Mean Corpuscular Hemoglobin 26.1L, Mean Corpuscular Hemoglobin Concent 30.8L, Red Cell Distribution Width 13.8, Platelet Count 241, Mean Platelet Volume 9.7, Neutrophils (%) (Auto) , Lymphocytes (%) (Auto) , Monocytes (%) (Auto) , Eosinophils (%) (Auto) , Basophils (%) (Auto) , Differential Total Cells Counted 100, Neutrophils % (Manual) 70, Lymphocytes % (Manual) 15L, Monocytes % (Manual) 10, Eosinophils % (Manual) 5H, Basophils % (Manual) 0, Band Neutrophils 0, Platelet Estimate Adequate, Platelet Morphology Normal, Hypochromasia 1+, Sodium Level 141, Potassium Level 3.8, Chloride Level 102, Carbon Dioxide Level 31, Anion Gap 8, Blood Urea Nitrogen 50H, Creatinine 1.6H, Estimat Glomerular Filtration Rate 43.5, Glucose Level 358#H, Uric Acid 5.3, Calcium Level 8.6, Phosphorus Level 5.2H, Magnesium Level 2.4, Total Bilirubin < 0.1L, Aspartate Amino Transf (AST/SGOT) 13L, Alanine Aminotransferase (ALT/SGPT) 23, Alkaline Phosphatase 146H, C-Reactive Protein, Quantitative < 0.4, Pro-B-Type Natriuretic Peptide 5325H, Total Protein 6.3L, Albumin 2.2L, Globulin 4.1, Albumin/Globulin Ratio 0.5L, Random Vancomycin Level 17.6 Current Medications Medications (Trade) Dose Ordered Sig/Jermaine Route PRN Reason Start Time Stop Time Status Last Admin Dose Admin Acetaminophen (Tylenol) 500 mg EVERY 4 HOURS PRN ORAL For Pain 10/25/20 00:00 11/24/20 00:00 Allopurinol (Zyloprim) 200 mg DAILY ORAL 10/26/20 12:45 11/25/20 12:44 10/29/20 09:21 Carvedilol (Coreg) 3.125 mg EVERY 12 HOURS ORAL 10/25/20 21:00 11/24/20 20:59 10/29/20 09:22 Ceftriaxone Sodium 1 gm/ Dextrose 55 ml @ 110 mls/hr Q24H IVPB 10/25/20 18:00 11/01/20 17:59 10/28/20 17:20 Clonidine HCl (Catapres Tab) 0.1 mg Q4H PRN ORAL BP over 160 systolic 10/28/20 12:30 01/26/21 12:29 10/29/20 00:21 Docusate Sodium (Colace) 100 mg THREE TIMES A DAY ORAL 10/26/20 13:00 11/25/20 12:59 10/29/20 09:21 Folic Acid (Folate) 1 mg DAILY ORAL 10/27/20 09:00 11/26/20 08:59 10/29/20 09:22 Furosemide (Lasix) 40 mg DAILY ORAL 10/28/20 09:00 11/27/20 08:59 10/29/20 09:22 Guaifenesin/ Dextromethorphan (Robitussin DM Syrup) 10 ml Q4H PRN ORAL For Cough 10/26/20 08:00 01/24/21 07:59 10/26/20 08:30 Hydralazine HCl (Apresoline) 50 mg Q8HR ORAL 10/28/20 14:00 01/26/21 13:59 10/29/20 06:00 Iron Sucrose 100 mg/Sodium Chloride 60 ml @ 240 mls/hr BEDTIME IVPB 10/27/20 21:00 10/31/20 21:14 10/28/20 22:11 Levothyroxine Sodium (Synthroid) 25 mcg DAILY@0630 ORAL 10/27/20 06:30 11/26/20 06:29 10/29/20 06:00 Nitroglycerin (Ntg) 1 patch Q24H TDERMAL 10/24/20 20:15 11/23/20 20:14 10/28/20 20:19 Pantoprazole (Protonix) 40 mg DAILY ORAL 10/27/20 09:00 11/26/20 08:59 10/29/20 09:21 Assessment/Plan Assessment/Plan 1. Scabies, treated -Contact precaution - s/p permethrin 2. Hypoxemic respiratory failure on admission -Currently saturating well RA; provide supplemental oxygen as needed - s/p Decadron in ER 3. VIJAY -Monitor renal parameters -IV fluids 4. ? Pneumonia - Rapid COVID-19 negative (10/25) - CXR Right lower lobe effusion versus pneumonia -On antibiotics per ID 5. Right pleural effusion -Monitor effusion; consider thoracentesis if effusion enlarges and becomes symptomatic 6. CHF exacerbation - Elevated BNP - on Lasix -Cardio following 7. Normocytic anemia - on IV iron - transfuse prn per heme 8. DVT ppx - on SCDs - elevated D-dimer -> venous duplex US of legs negative for DVT The care for this patient was discussed with my supervising physician. Time spent for this case was approximately 31 minutes. Best Brandon Oct 29, 2020 09:57
--- NOTE | 2020-10-29 10:00 | Infectious Diseases Prog Note ---
Assessment/Plan Assessment/Plan IMPRESSION: Positive blood culture; likely contamination Possible pneumonia, COVID19 test: negative Hypoxemic respiratory failure, Scabies,treated Diabetes mellitus with hyperglycemia, Hypertension, Anemia, Hypothyroidism, Acute renal failure. CHF, likely ischemic cardiomyopathy RECOMMENDATION: Continue ceftriaxone Subjective ROS Limited/Unobtainable: Yes Respiratory: Reports: dry cough Allergies: Coded Allergies: No Known Allergies (Unverified , 10/24/20) Objective Last 24 Hour Vital Signs Date Time Temp Pulse Resp B/P (MAP) Pulse Ox O2 Delivery O2 Flow Rate FiO2 10/29/20 09:22 65 168/89 10/29/20 06:00 161/89 10/29/20 04:00 69 10/29/20 04:00 97.9 70 24 153/96 (115) 94 10/29/20 00:21 170/85 10/29/20 00:00 97.9 65 20 170/85 (113) 94 10/28/20 22:09 178/94 10/28/20 21:00 Nasal Cannula 2.0 10/28/20 20:19 181/91 10/28/20 20:18 67 181/91 10/28/20 20:00 97.7 66 20 181/85 (117) 94 10/28/20 20:00 66 10/28/20 17:17 180/95 10/28/20 16:00 66 10/28/20 16:00 97.6 67 20 180/95 (123) 94 10/28/20 14:58 185/100 10/28/20 12:00 97.8 65 20 173/94 (120) 98 10/28/20 12:00 66 10/28/20 11:54 173/94 Height (Feet): 5 Height (Inches): 4.00 Weight (Pounds): 150 HEENT: mucous membranes moist Respiratory/Chest: lungs clear Cardiovascular: normal rate Abdomen: soft, non tender Extremities: no edema Neurologic/Psychiatric: alert, responsive Laboratory Tests Test 10/28/20 10:00 White Blood Count 4.7 K/UL (4.8-10.8) L Red Blood Count 2.99 M/UL (4.70-6.10) L Hemoglobin 7.8 G/DL (14.2-18.0) L Hematocrit 25.3 % (42.0-52.0) L Mean Corpuscular Volume 85 FL (80-99) Mean Corpuscular Hemoglobin 26.1 PG (27.0-31.0) L Mean Corpuscular Hemoglobin Concent 30.8 G/DL (32.0-36.0) L Red Cell Distribution Width 13.8 % (11.6-14.8) Platelet Count 241 K/UL (150-450) Mean Platelet Volume 9.7 FL (6.5-10.1) Neutrophils (%) (Auto) % (45.0-75.0) Lymphocytes (%) (Auto) % (20.0-45.0) Monocytes (%) (Auto) % (1.0-10.0) Eosinophils (%) (Auto) % (0.0-3.0) Basophils (%) (Auto) % (0.0-2.0) Differential Total Cells Counted 100 Neutrophils % (Manual) 70 % (45-75) Lymphocytes % (Manual) 15 % (20-45) L Monocytes % (Manual) 10 % (1-10) Eosinophils % (Manual) 5 % (0-3) H Basophils % (Manual) 0 % (0-2) Band Neutrophils 0 % (0-8) Platelet Estimate Adequate Platelet Morphology Normal Hypochromasia 1+ Sodium Level 141 MMOL/L (136-145) Potassium Level 3.8 MMOL/L (3.5-5.1) Chloride Level 102 MMOL/L (98-107) Carbon Dioxide Level 31 MMOL/L (21-32) Anion Gap 8 mmol/L (5-15) Blood Urea Nitrogen 50 mg/dL (7-18) H Creatinine 1.6 MG/DL (0.55-1.30) H Estimat Glomerular Filtration Rate 43.5 mL/min (>60) Glucose Level 358 MG/DL (74-106) #H Uric Acid 5.3 MG/DL (2.6-7.2) Calcium Level 8.6 MG/DL (8.5-10.1) Phosphorus Level 5.2 MG/DL (2.5-4.9) H Magnesium Level 2.4 MG/DL (1.8-2.4) Total Bilirubin < 0.1 MG/DL (0.2-1.0) L Aspartate Amino Transf (AST/SGOT) 13 U/L (15-37) L Alanine Aminotransferase (ALT/SGPT) 23 U/L (12-78) Alkaline Phosphatase 146 U/L (46-116) H C-Reactive Protein, Quantitative < 0.4 mg/dL (0.00-0.90) Pro-B-Type Natriuretic Peptide 5325 pg/mL (0-125) H Total Protein 6.3 G/DL (6.4-8.2) L Albumin 2.2 G/DL (3.4-5.0) L Globulin 4.1 g/dL Albumin/Globulin Ratio 0.5 (1.0-2.7) L Random Vancomycin Level 17.6 ug/mL Current Medications Medications (Trade) Dose Ordered Sig/Jermaine Route PRN Reason Start Time Stop Time Status Last Admin Dose Admin Acetaminophen (Tylenol) 500 mg EVERY 4 HOURS PRN ORAL For Pain 10/25/20 00:00 11/24/20 00:00 Allopurinol (Zyloprim) 200 mg DAILY ORAL 10/26/20 12:45 11/25/20 12:44 10/29/20 09:21 Carvedilol (Coreg) 3.125 mg EVERY 12 HOURS ORAL 10/25/20 21:00 11/24/20 20:59 10/29/20 09:22 Ceftriaxone Sodium 1 gm/ Dextrose 55 ml @ 110 mls/hr Q24H IVPB 10/25/20 18:00 11/01/20 17:59 10/28/20 17:20 Clonidine HCl (Catapres Tab) 0.1 mg Q4H PRN ORAL BP over 160 systolic 10/28/20 12:30 01/26/21 12:29 10/29/20 00:21 Docusate Sodium (Colace) 100 mg THREE TIMES A DAY ORAL 10/26/20 13:00 11/25/20 12:59 10/29/20 09:21 Folic Acid (Folate) 1 mg DAILY ORAL 10/27/20 09:00 11/26/20 08:59 10/29/20 09:22 Furosemide (Lasix) 40 mg DAILY ORAL 10/28/20 09:00 11/27/20 08:59 10/29/20 09:22 Guaifenesin/ Dextromethorphan (Robitussin DM Syrup) 10 ml Q4H PRN ORAL For Cough 10/26/20 08:00 01/24/21 07:59 10/26/20 08:30 Hydralazine HCl (Apresoline) 50 mg Q8HR ORAL 10/28/20 14:00 01/26/21 13:59 10/29/20 06:00 Iron Sucrose 100 mg/Sodium Chloride 60 ml @ 240 mls/hr BEDTIME IVPB 10/27/20 21:00 10/31/20 21:14 10/28/20 22:11 Levothyroxine Sodium (Synthroid) 25 mcg DAILY@0630 ORAL 10/27/20 06:30 11/26/20 06:29 10/29/20 06:00 Nitroglycerin (Ntg) 1 patch Q24H TDERMAL 10/24/20 20:15 11/23/20 20:14 10/28/20 20:19 Pantoprazole (Protonix) 40 mg DAILY ORAL 10/27/20 09:00 11/26/20 08:59 10/29/20 09:21 Rodolfo Mueller MD Oct 29, 2020 10:00
--- NOTE | 2020-10-29 10:33 | Nephrology Progress Note ---
Assessment/Plan Problem List: (1) Renal failure (ARF), acute on chronic (2) Pacemaker (3) CHF exacerbation (4) Hypoxia (5) CAD (coronary artery disease) (6) Normocytic anemia Assessment Acute renal failure Possible underlying chronic kidney disease Anemia Pneumonia and hypoxia. Right lower lobe effusion versus pneumonia Congestive heart failure exacerbation with ejection fraction of 45% Pacemaker Coronary artery disease Scabies Plan October 29: Labs reviewed. Serum creatinine 1.6 unchanged. Continue per consultants. October 28: Labs reviewed. Serum creatinine lowering. Hemoglobin low at 7.8. Continue current management. Continue per consultants. Blood pressure medication adjusted. Defer transfusion to window tinter. October 27: Labs reviewed. Medication list reviewed. Continue IV iron. Continue to optimize cardiac status. Continue per consultants. Optimize cardiac status Add folic acid Add Synthroid Add Protonix and stool softeners Change diet to cardiac diet, renal friendly Monitor renal parameters and electrolytes IV Venofer for low iron Monitor CBC and renal parameters Avoid nephrotoxic's Subjective ROS Limited/Unobtainable: No Objective Objective Last 24 Hour Vital Signs Date Time Temp Pulse Resp B/P (MAP) Pulse Ox O2 Delivery O2 Flow Rate FiO2 10/29/20 09:22 65 168/89 10/29/20 06:00 161/89 10/29/20 04:00 69 10/29/20 04:00 97.9 70 24 153/96 (115) 94 10/29/20 00:21 170/85 10/29/20 00:00 97.9 65 20 170/85 (113) 94 10/28/20 22:09 178/94 10/28/20 21:00 Nasal Cannula 2.0 10/28/20 20:19 181/91 10/28/20 20:18 67 181/91 10/28/20 20:00 97.7 66 20 181/85 (117) 94 10/28/20 20:00 66 10/28/20 17:17 180/95 10/28/20 16:00 66 10/28/20 16:00 97.6 67 20 180/95 (123) 94 10/28/20 14:58 185/100 10/28/20 12:00 97.8 65 20 173/94 (120) 98 10/28/20 12:00 66 10/28/20 11:54 173/94 Intake and Output 10/28/20 10/29/20 19:00 07:00 Intake Total 600 ml 240 ml Output Total 1150 ml 2100 ml Balance -550 ml -1860 ml Intake Oral 600 ml 240 ml Output Urine Total 1150 ml 2100 ml # Voids 3 Today's labs reviewed Height (Feet): 5 Height (Inches): 4.00 Weight (Pounds): 150 General Appearance: no apparent distress Cardiovascular: normal rate Respiratory/Chest: decreased breath sounds Abdomen: distended Long Ram MD Oct 29, 2020 10:33
[2020-10-29 11:00] LABS: BASOPHILS % (AUTO) 0.6 % (0.0-2.0); EOSINOPHILS % (AUTO) 6.8 % (0.0-3.0); HEMOGLOBIN 8.2 G/DL (14.2-18.0); LYMPHOCYTES % (AUTO) 11.3 % (20.0-45.0); MEAN CORPUSCULAR VOLUME 85 FL (80-99); MONOCYTES % (AUTO) 9.5 % (1.0-10.0); NEUTROPHILS % (AUTO) 71.8 % (45.0-75.0); PLATELET COUNT 226 K/UL (150-450); RED BLOOD COUNT 3.18 M/UL (4.70-6.10); RED CELL DISTRIBUTION WIDTH 13.9 % (11.6-14.8); WHITE BLOOD COUNT 5.4 K/UL (4.8-10.8)
[2020-10-29 11:23] LABS: CALCIUM 8.3 MG/DL (8.5-10.1); CREATININE 1.6 MG/DL (0.55-1.30); POTASSIUM 3.6 MMOL/L (3.5-5.1)
[2020-10-29 11:28] LABS: ALBUMIN 2.3 G/DL (3.4-5.0); ALBUMIN/GLOBULIN RATIO 0.6 (1.0-2.7); BILIRUBIN,TOTAL 0.2 MG/DL (0.2-1.0)
--- NOTE | 2020-10-29 12:30 | NUR ---
NURSE NOTES: pt is complaining of blurred vision and having difficulty swallowing. Reported this to neurologist. doctor ordered speech and swallow evaluation and head CT. Diet was changed to puree.
--- NOTE | 2020-10-29 12:37 | NUR ---
INSURANCE [employer]ICALS FAXED TO [facility] #[phone] fax# [phone]
--- NOTE | 2020-10-29 12:56 | Consultation ---
Consult Note Consult Note DATE OF CONSULTATION: 10/25/2020 NEUROLOGY CONSULTATION REFERRING PHYSICIAN: Jose Aguillon MD. REASON FOR CONSULTATION: Altered Speech and Weakness HISTORY OF PRESENT ILLNESS: This is a 64-year-old male patient with history of hypertension, diabetes, as well as cardiac history he was brought to [facility] ED by ambulance from home for increasing shortness of breath he stated he felt as though he was drowning. He is currently admitted in isolation for possible scabies. We were consulted for weakness and some altered speech. He states that he has difficulty saying the words in a sentence when he speaks, he stumbles. He admits to memory loss. He also admits to a prior stroke but is not sure. He is primarily [place]ian speaking he lives at home with his . Bedside RN translated visit in [place]ian. He denies headache, dizziness, falls. He admits to weakness generalized. PAST MEDICAL HISTORY: As mentioned above. FAMILY HISTORY: Noncontributory. SOCIAL HISTORY: Denies smoking or drinking alcohol. Works in [employer] . REVIEW OF SYSTEMS: Negative other than what is mentioned in the history of present illness. PHYSICAL EXAMINATION: VS reviewed BP elevated General Awake alert oriented eating lunch in bed NEURO:The patient is oriented to self he knows he is in the hospital has insight to situation. Language parameter is intact speaks [place]. Cranial nerves II-XII tested PERRLA, No nystagmus, No facial droop, tongue is midline. Hearing is intact. Motor: No involuntary movements, upper bialt extremities are strong 4/5 and bialat lower extremities strength is 4/5 Gait not tested. Sensation intact. Coordination intact. LABORATORY AND DIAGNOSTIC DATA: white count of 8.4, hemoglobin of 8.4, hematocrit of 27.4, and platelet count of 359,000. Sodium 142, potassium is 5, BUN of 44, creatinine 1.8, and glucose of 127. BNP 3346. ASSESSMENT AND PLAN: 1. Aphasia --> Will need to get MRI Brain for stroke evaluation but has Pacemaker implant --> we will order CT brain instead --> Order total cholesterol panel, consider ASA --> he stated he possibly had a stroke 5 years ago 2. Generalized Weakness --> order PT 3. Congestive heart failure with BNP of more than 3300. --> per cards 4. Status post dual-chamber pacemaker 5. Hypertension. 6. Elevated alkaline phosphate and LDH. Thank you for allowing us to participate in patient's care plan of care was discussed with Dr. Shen Pierce and he agrees. Marlena Edmonds NP Oct 29, 2020 12:56
[2020-10-29 13:52] LABS: CHOLESTEROL 155 MG/DL (< 200); HDL CHOLESTEROL 42 MG/DL (40-60)
--- NOTE | 2020-10-29 14:01 | Diagnostic Imaging Report ---
Indication: Altered mental status Technique: Continuous helical CT scanning of the head was performed utilizing automated exposure control without intravenous contrast material. Axial and coronal reconstructions were obtained. Comparison: None CT dose: Total DLP 992.1 mGycm; CTDI vol 53.4 mGy Findings: There is no acute intracranial hemorrhage, mass effect or cortical edema. There is no shift of midline structures. The ventricles, cisterns and sulci are mildly prominent consistent with atrophy. Periventricular hypoattenuation is seen, a nonspecific finding. There are atherosclerotic vascular calcifications. Visualized mastoid air cells and paranasal sinuses are unremarkable. No focal lesions of the bony calvarium or soft tissues of the scalp are seen. IMPRESSION: No evidence of acute intracranial hemorrhage, mass effect or cortical edema. MRI may be obtained for more sensitive evaluation as clinically indicated. Atrophy and nonspecific periventricular hypoattenuation suggestive of chronic ischemic microvascular changes. The CT scanner at [facility] is accredited by the [employer] and the scans are performed using protocols designed to limit radiation exposure to as low as reasonably achievable to attain images of sufficient resolution adequate for diagnostic evaluation.
--- NOTE | 2020-10-29 15:03 | Cardiac Electrophysiology PN ---
Assessment/Plan Assessment/Plan 1. S/P DDD Pacer implant. The brand is unknown to interrogate pacer but based on tele is functioning normally. 2. CHF exacerbation EF 45% on Lasix 40 po daily, Coreg 6.25 bid and Hydralazine 100 tid 3. HTN. Maximize CHF meds. Add prn Clonidine 4. Hypoxemic respiratory failure due to CHF and Pneumonia - Rapid COVID-19 negative (10/25) - CXR Right lower lobe effusion versus pneumonia - On antibiotics per ID - Currently saturating well on 2 L nasal cannula 5. VIJAY BUN/Cr 61/1.8 6. Right pleural effusion, consider thoracentesis if effusion enlarges and becomes symptomatic 7. Scabies, s/p permethrin 8. Severe Anemia Hb 7.7 DW RN Subjective Subjective No CP or SOB. Contacted all pacer companies but not registered to any one! Patient and family also don't know what company it is Occasonal AV pacing Objective Last 24 Hour Vital Signs Date Time Temp Pulse Resp B/P (MAP) Pulse Ox O2 Delivery O2 Flow Rate FiO2 10/29/20 14:23 158/89 10/29/20 12:42 173/93 10/29/20 12:00 97.5 64 20 173/93 (119) 96 10/29/20 09:22 65 168/89 10/29/20 09:00 Nasal Cannula 2.0 10/29/20 08:00 97.8 65 20 168/89 (115) 94 10/29/20 06:00 161/89 10/29/20 04:00 69 10/29/20 04:00 97.9 70 24 153/96 (115) 94 10/29/20 00:21 170/85 10/29/20 00:00 97.9 65 20 170/85 (113) 94 10/28/20 22:09 178/94 10/28/20 21:00 Nasal Cannula 2.0 10/28/20 20:19 181/91 10/28/20 20:18 67 181/91 10/28/20 20:00 97.7 66 20 181/85 (117) 94 10/28/20 20:00 66 10/28/20 17:17 180/95 10/28/20 16:00 66 10/28/20 16:00 97.6 67 20 180/95 (123) 94 Intake and Output 10/28/20 10/29/20 19:00 07:00 Intake Total 600 ml 240 ml Output Total 1150 ml 2100 ml Balance -550 ml -1860 ml Intake Oral 600 ml 240 ml Output Urine Total 1150 ml 2100 ml # Voids 3 Laboratory Tests Test 10/29/20 10:41 White Blood Count 5.4 K/UL (4.8-10.8) Red Blood Count 3.18 M/UL (4.70-6.10) L Hemoglobin 8.2 G/DL (14.2-18.0) L Hematocrit 27.0 % (42.0-52.0) L Mean Corpuscular Volume 85 FL (80-99) Mean Corpuscular Hemoglobin 25.9 PG (27.0-31.0) L Mean Corpuscular Hemoglobin Concent 30.5 G/DL (32.0-36.0) L Red Cell Distribution Width 13.9 % (11.6-14.8) Platelet Count 226 K/UL (150-450) Mean Platelet Volume 9.0 FL (6.5-10.1) Neutrophils (%) (Auto) 71.8 % (45.0-75.0) Lymphocytes (%) (Auto) 11.3 % (20.0-45.0) L Monocytes (%) (Auto) 9.5 % (1.0-10.0) Eosinophils (%) (Auto) 6.8 % (0.0-3.0) H Basophils (%) (Auto) 0.6 % (0.0-2.0) Sodium Level 143 MMOL/L (136-145) Potassium Level 3.6 MMOL/L (3.5-5.1) Chloride Level 105 MMOL/L (98-107) Carbon Dioxide Level 33 MMOL/L (21-32) H Anion Gap 5 mmol/L (5-15) Blood Urea Nitrogen 47 mg/dL (7-18) H Creatinine 1.6 MG/DL (0.55-1.30) H Estimat Glomerular Filtration Rate 43.3 mL/min (>60) Glucose Level 443 MG/DL (74-106) H Calcium Level 8.3 MG/DL (8.5-10.1) L Total Bilirubin 0.2 MG/DL (0.2-1.0) Aspartate Amino Transf (AST/SGOT) 13 U/L (15-37) L Alanine Aminotransferase (ALT/SGPT) 22 U/L (12-78) Alkaline Phosphatase 141 U/L (46-116) H Total Protein 6.4 G/DL (6.4-8.2) Albumin 2.3 G/DL (3.4-5.0) L Globulin 4.1 g/dL Albumin/Globulin Ratio 0.6 (1.0-2.7) L Cholesterol Level 155 MG/DL (< 200) LDL Cholesterol Direct Pending HDL Cholesterol 42 MG/DL (40-60) Objective General Appearance: no acute distress HEENT: atraumatic Respiratory: other - coase breath sounds Cardiovascular: RRR. Pacer left subclavian Abdomen: soft, non tender Jamal Cisneros MD Oct 29, 2020 15:03
[2020-10-29] MEDS: cefTRIAXone 1 GM in D5W 55 ML IVPB SCH (18:13)
[2020-10-29] MEDS ORDERED: Varibar Thin Liquid powder 148gm MC PRN (18:45)
[2020-10-29] MEDS ORDERED: Varibar Nectar 240ml MC PRN (18:45)
[2020-10-29] MEDS ORDERED: Varibar Pudding 230ml MC PRN (18:45)
[2020-10-29] MEDS ORDERED: Varibar Honey 250ml MC PRN (18:45)
--- NOTE | 2020-10-29 20:12 | NUR ---
NURSE HAND-OFF REPORT: Important Events on Shift:[]pt blood pressure has improved, he either gets venefor or blood transfusion. Heraclio/RN will contact doctor to check if pt is ok to have transfusion. RN will notify doctor about high B/S. Patient Status: []full Diet: []low cholesterol diet Puree, pt is having issues swallowing, Pending Orders: []ST and swallow eval. pending Pending Results/Labs:[] Pending MD notification:[] Latest Vital Signs: Temperature 97.8 , Pulse 64 , B/P 150 /93 , Respiratory Rate 20 , O2 SAT 94 , Room Air, O2 Flow Rate 2.0 . Vital Sign Comment: [] EKG Rhythm: V-Paced Rhythm change?: N MD Notified?: Y -Dr. Henna TURCIOS Response: Latest Barber Fall Score: 45 Fall Risk: High Risk Safety Measures: Call light Within Reach, Bed Alarm Zone 2, Side Rails Side Rails x2, Bed position Low and Locked. Fall Precautions: y Patient Fall Education y Report given to [].Heraclio/RN
--- NOTE | 2020-10-29 20:13 | General Progress Note ---
Subjective ROS Limited/Unobtainable: Yes Allergies: Coded Allergies: No Known Allergies (Unverified , 10/24/20) Objective Last 24 Hour Vital Signs Date Time Temp Pulse Resp B/P (MAP) Pulse Ox O2 Delivery O2 Flow Rate FiO2 10/29/20 18:26 64 150/93 (112) 10/29/20 16:00 97.8 63 20 158/89 (112) 94 10/29/20 16:00 62 10/29/20 14:23 158/89 10/29/20 12:42 173/93 10/29/20 12:00 97.5 64 20 173/93 (119) 96 10/29/20 12:00 64 10/29/20 09:22 65 168/89 10/29/20 09:00 Nasal Cannula 2.0 10/29/20 08:00 65 10/29/20 08:00 97.8 65 20 168/89 (115) 94 10/29/20 06:00 161/89 10/29/20 04:00 69 10/29/20 04:00 97.9 70 24 153/96 (115) 94 10/29/20 00:21 170/85 10/29/20 00:00 97.9 65 20 170/85 (113) 94 10/28/20 22:09 178/94 10/28/20 21:00 Nasal Cannula 2.0 10/28/20 20:19 181/91 10/28/20 20:18 67 181/91 Intake and Output 10/28/20 10/29/20 19:00 07:00 Intake Total 600 ml 240 ml Output Total 1150 ml 2100 ml Balance -550 ml -1860 ml Intake Oral 600 ml 240 ml Output Urine Total 1150 ml 2100 ml # Voids 3 Laboratory Tests 10/29/20 10:41: White Blood Count 5.4, Red Blood Count 3.18L, Hemoglobin 8.2L, Hematocrit 27.0L, Mean Corpuscular Volume 85, Mean Corpuscular Hemoglobin 25.9L, Mean Corpuscular Hemoglobin Concent 30.5L, Red Cell Distribution Width 13.9, Platelet Count 226, Mean Platelet Volume 9.0, Neutrophils (%) (Auto) 71.8, Lymphocytes (%) (Auto) 11.3L, Monocytes (%) (Auto) 9.5, Eosinophils (%) (Auto) 6.8H, Basophils (%) (Auto) 0.6, Sodium Level 143, Potassium Level 3.6, Chloride Level 105, Carbon Dioxide Level 33H, Anion Gap 5, Blood Urea Nitrogen 47H, Creatinine 1.6H, Estimat Glomerular Filtration Rate 43.3, Glucose Level 443H, Calcium Level 8.3L, Total Bilirubin 0.2, Aspartate Amino Transf (AST/SGOT) 13L, Alanine Aminotransferase (ALT/SGPT) 22, Alkaline Phosphatase 141H, Total Protein 6.4, Albumin 2.3L, Globulin 4.1, Albumin/Globulin Ratio 0.6L, Cholesterol Level 155, LDL Cholesterol Direct [Pending], HDL Cholesterol 42 Height (Feet): 5 Height (Inches): 4.00 Weight (Pounds): 150 Assessment/Plan Problem List: (1) Scabies ICD Codes: B86 - Scabies SNOMED: 605494781, 20784434 (2) CAD (coronary artery disease) ICD Codes: I25.10 - Atherosclerotic heart disease of [place] coronary artery without angina pectoris SNOMED: 22103927, 72127974 (3) Pneumonia ICD Codes: J18.9 - Pneumonia, unspecified organism SNOMED: 164347017, 5464843 (4) Pacemaker ICD Codes: Z95.0 - Presence of cardiac pacemaker SNOMED: 158333426, 58046762 (5) VIJAY (acute kidney injury) ICD Codes: N17.9 - Acute kidney failure, unspecified SNOMED: 12709943, 2005310 (6) Shortness of breath ICD Codes: R06.02 - Shortness of breath SNOMED: 832902465 (7) CHF exacerbation ICD Codes: I50.9 - Heart failure, unspecified SNOMED: 313910381, 63215159951338 (8) Hypoxia ICD Codes: R09.02 - Hypoxemia SNOMED: 189283269 Status: progressing Assessment/Plan: chf elevated sugar.consulted dr thornton s/p scabies rx azotemia improving pna resp insuff htn not hypoxic Jose Aguillon MD Oct 29, 2020 20:13
--- NOTE | 2020-10-29 21:30 | NUR ---
NURSE NOTES: Messaged Thi to notify of change in H/H, (8.5/27.0) asked if he would prefer to transfuse pt (rt order on 10/27/20) or give venofer (current order); no new orders received. Pt given venofer as ordered.
[2020-10-29] MEDS: Nitroglycerin Patch 0.1mg/hr TDERMAL SCH (21:36)
[2020-10-29] MEDS: Iron Sucrose 100 MG in NS 55 ML IVPB SCH (22:13)
[2020-10-30] VITALS: BP 154/93
[2020-10-30 04:00] VITALS: BP 172/92
[2020-10-30] MEDS: Levothyroxine 25mcg tab ORAL SCH (05:02)
[2020-10-30] MEDS: HydrALAZINE 50mg tab ORAL SCH ×3 (05:02→21:11)
--- NOTE | 2020-10-30 07:32 | NUR ---
NURSE HAND-OFF REPORT: Important Events on Shift: Messaged MD to notify of change in H/H, (8.5/27.0) asked if he would prefer to transfuse pt (rt order on 10/27/20) or give venofer (current order); no new orders received. Pt given venofer as ordered. Patient Status: full code Diet: low cholesterol pureed Pending Orders: none Pending Results/Labs: none Pending MD notification: none Latest Vital Signs: Temperature 98.4 , Pulse 76 , B/P 108 /70 , Respiratory Rate 20 , O2 SAT 97 , Nasal Cannula, O2 Flow Rate 2.0 . Vital Sign Comment: stable throughout shift EKG Rhythm: Sinus Rhythm Rhythm change?: N MD Notified?: N MD Response: - Latest Barber Fall Score: 30 Fall Risk: Medium Risk Safety Measures: Call light Within Reach, Bed Alarm Zone 2, Side Rails Side Rails x2, Bed position Low and Locked. Fall Precautions: Yellow Socks, yellow gown, door sign, pt education Report given to Pasquale Houston RN
--- NOTE | 2020-10-30 07:40 | NUR ---
NURSE NOTES: pt is in the bed eating breakfast, tolerating meals well. denies any chest pain and discomfort. on 02 @ 2l via NC. respiration is even and unlabored. call light within reach.
[2020-10-30 07:45] LABS: BASOPHILS % (AUTO) 0.5 % (0.0-2.0); EOSINOPHILS % (AUTO) 7.7 % (0.0-3.0); HEMATOCRIT 26.8 % (42.0-52.0); HEMOGLOBIN 8.4 G/DL (14.2-18.0); LYMPHOCYTES % (AUTO) 14.5 % (20.0-45.0); MEAN CORPUSCULAR VOLUME 83 FL (80-99); MONOCYTES % (AUTO) 8.8 % (1.0-10.0); NEUTROPHILS % (AUTO) 68.4 % (45.0-75.0); PLATELET COUNT 214 K/UL (150-450); RED BLOOD COUNT 3.22 M/UL (4.70-6.10); RED CELL DISTRIBUTION WIDTH 14.1 % (11.6-14.8); WHITE BLOOD COUNT 5.8 K/UL (4.8-10.8)
[2020-10-30 08:00] VITALS: BP 155/84
[2020-10-30] MEDS: Carvedilol 6.25mg Tab ORAL SCH ×2 (09:16→21:12)
[2020-10-30] MEDS: Docusate 100mg cap ORAL SCH ×3 (09:16→17:53)
[2020-10-30] MEDS: Allopurinol 100mg Tab ORAL SCH (09:16)
[2020-10-30] MEDS: Furosemide 40mg tab ORAL SCH (09:16)
[2020-10-30] MEDS: Levemir Flexpen SUBQ SCH (09:45)
--- NOTE | 2020-10-30 10:26 | Infectious Diseases Prog Note ---
Assessment/Plan Assessment/Plan IMPRESSION: Positive blood culture; likely contamination Possible pneumonia, COVID19 test: negative Hypoxemic respiratory failure, Scabies,treated Diabetes mellitus with hyperglycemia, Hypertension, Anemia, Hypothyroidism, Acute renal failure. CHF, likely ischemic cardiomyopathy RECOMMENDATION: Continue ceftriaxone X 1 day Subjective ROS Limited/Unobtainable: No Constitutional: Reports: no symptoms Respiratory: Reports: dry cough Psychiatric: Reports: other - hallucination, visual Skin: Reports: other - itching Allergies: Coded Allergies: No Known Allergies (Unverified , 10/24/20) Objective Last 24 Hour Vital Signs Date Time Temp Pulse Resp B/P (MAP) Pulse Ox O2 Delivery O2 Flow Rate FiO2 10/30/20 09:16 68 155/84 10/30/20 08:00 97.3 68 20 155/84 (107) 99 10/30/20 05:02 172/92 10/30/20 04:00 68 10/30/20 04:00 97.9 90 20 172/92 (118) 100 10/30/20 00:00 97.9 68 20 154/93 (113) 100 10/29/20 21:36 156/93 10/29/20 21:36 66 156/93 10/29/20 21:36 156/93 10/29/20 21:00 Nasal Cannula 2.0 10/29/20 20:00 96.4 65 20 156/93 (114) 100 10/29/20 20:00 66 10/29/20 18:26 64 150/93 (112) 10/29/20 16:00 97.8 63 20 158/89 (112) 94 10/29/20 16:00 62 10/29/20 14:23 158/89 10/29/20 12:42 173/93 10/29/20 12:00 97.5 64 20 173/93 (119) 96 10/29/20 12:00 64 Height (Feet): 5 Height (Inches): 4.00 Weight (Pounds): 150 HEENT: mucous membranes moist Respiratory/Chest: lungs clear Cardiovascular: normal rate Abdomen: soft, non tender Extremities: no edema Neurologic/Psychiatric: alert, responsive Laboratory Tests Test 10/29/20 10:41 10/30/20 07:35 White Blood Count 5.4 K/UL (4.8-10.8) 5.8 K/UL (4.8-10.8) Red Blood Count 3.18 M/UL (4.70-6.10) L 3.22 M/UL (4.70-6.10) L Hemoglobin 8.2 G/DL (14.2-18.0) L 8.4 G/DL (14.2-18.0) L Hematocrit 27.0 % (42.0-52.0) L 26.8 % (42.0-52.0) L Mean Corpuscular Volume 85 FL (80-99) 83 FL (80-99) Mean Corpuscular Hemoglobin 25.9 PG (27.0-31.0) L 26.1 PG (27.0-31.0) L Mean Corpuscular Hemoglobin Concent 30.5 G/DL (32.0-36.0) L 31.3 G/DL (32.0-36.0) L Red Cell Distribution Width 13.9 % (11.6-14.8) 14.1 % (11.6-14.8) Platelet Count 226 K/UL (150-450) 214 K/UL (150-450) Mean Platelet Volume 9.0 FL (6.5-10.1) 9.2 FL (6.5-10.1) Neutrophils (%) (Auto) 71.8 % (45.0-75.0) 68.4 % (45.0-75.0) Lymphocytes (%) (Auto) 11.3 % (20.0-45.0) L 14.5 % (20.0-45.0) L Monocytes (%) (Auto) 9.5 % (1.0-10.0) 8.8 % (1.0-10.0) Eosinophils (%) (Auto) 6.8 % (0.0-3.0) H 7.7 % (0.0-3.0) H Basophils (%) (Auto) 0.6 % (0.0-2.0) 0.5 % (0.0-2.0) Sodium Level 143 MMOL/L (136-145) Potassium Level 3.6 MMOL/L (3.5-5.1) Chloride Level 105 MMOL/L (98-107) Carbon Dioxide Level 33 MMOL/L (21-32) H Anion Gap 5 mmol/L (5-15) Blood Urea Nitrogen 47 mg/dL (7-18) H Creatinine 1.6 MG/DL (0.55-1.30) H Estimat Glomerular Filtration Rate 43.3 mL/min (>60) Glucose Level 443 MG/DL (74-106) H Calcium Level 8.3 MG/DL (8.5-10.1) L Total Bilirubin 0.2 MG/DL (0.2-1.0) Aspartate Amino Transf (AST/SGOT) 13 U/L (15-37) L Alanine Aminotransferase (ALT/SGPT) 22 U/L (12-78) Alkaline Phosphatase 141 U/L (46-116) H Total Protein 6.4 G/DL (6.4-8.2) Albumin 2.3 G/DL (3.4-5.0) L Globulin 4.1 g/dL Albumin/Globulin Ratio 0.6 (1.0-2.7) L Cholesterol Level 155 MG/DL (< 200) LDL Cholesterol Direct Pending HDL Cholesterol 42 MG/DL (40-60) Current Medications Medications (Trade) Dose Ordered Sig/Jermaine Route PRN Reason Start Time Stop Time Status Last Admin Dose Admin Acetaminophen (Tylenol) 500 mg EVERY 4 HOURS PRN ORAL For Pain 10/25/20 00:00 11/24/20 00:00 Allopurinol (Zyloprim) 200 mg DAILY ORAL 10/26/20 12:45 11/25/20 12:44 10/30/20 09:16 Barium Sulfate (Varibar [place]) 240 ml NOW PRN MC RAD 10/29/20 18:45 11/01/20 18:34 Barium Sulfate (Varibar Pudding) 230 ml NOW PRN MC RAD 10/29/20 18:45 11/01/20 18:34 Barium Sulfate (Varibar Thin Liquid powder) 148 gm NOW PRN MC RAD 10/29/20 18:45 11/01/20 18:34 Carvedilol (Coreg) 6.25 mg EVERY 12 HOURS ORAL 10/29/20 21:00 11/28/20 20:59 10/30/20 09:16 Ceftriaxone Sodium 1 gm/ Dextrose 55 ml @ 110 mls/hr Q24H IVPB 10/25/20 18:00 11/01/20 17:59 10/29/20 18:13 Clonidine HCl (Catapres Tab) 0.1 mg Q4H PRN ORAL BP over 160 systolic 10/28/20 12:30 01/26/21 12:29 10/29/20 12:42 Dextrose (Dextrose 50%) 25 ml Q30M PRN IV Hypoglycemia 10/30/20 09:30 01/28/21 09:29 Dextrose (Dextrose 50%) 50 ml Q30M PRN IV Hypoglycemia 10/30/20 09:30 01/28/21 09:29 Docusate Sodium (Colace) 100 mg THREE TIMES A DAY ORAL 10/26/20 13:00 11/25/20 12:59 10/30/20 09:16 Folic Acid (Folate) 1 mg DAILY ORAL 10/27/20 09:00 11/26/20 08:59 10/30/20 09:16 Furosemide (Lasix) 40 mg DAILY ORAL 10/28/20 09:00 11/27/20 08:59 10/30/20 09:16 Guaifenesin/ Dextromethorphan (Robitussin DM Syrup) 10 ml Q4H PRN ORAL For Cough 10/26/20 08:00 01/24/21 07:59 10/26/20 08:30 Hydralazine HCl (Apresoline) 100 mg Q8HR ORAL 10/29/20 14:00 01/27/21 13:59 10/30/20 05:02 Insulin Aspart (NovoLOG) 6 units NOVOTIAC SUBQ 10/30/20 11:50 01/28/21 11:49 Insulin Detemir (Levemir) 15 units DAILY SUBQ 10/30/20 09:45 01/28/21 09:44 Iron Sucrose 100 mg/Sodium Chloride 60 ml @ 240 mls/hr BEDTIME IVPB 10/27/20 21:00 10/31/20 21:14 10/29/20 22:13 Levothyroxine Sodium (Synthroid) 25 mcg DAILY@0630 ORAL 10/27/20 06:30 11/26/20 06:29 10/30/20 05:02 Nitroglycerin (Ntg) 1 patch Q24H TDERMAL 10/24/20 20:15 11/23/20 20:14 10/29/20 21:36 Pantoprazole (Protonix) 40 mg DAILY ORAL 10/27/20 09:00 11/26/20 08:59 10/30/20 09:16 Rodolfo Mueller MD Oct 30, 2020 10:26
--- NOTE | 2020-10-30 10:27 | NUR ---
CASE MANAGEMENT:REVIEW 10/30/20 SI: PNEUMONIA. CHF. RT PLEURAL EFFUSION 97.3 68 20 155/84 99% ON 2L/NC H/H-8.4/26.8 CO2+33 BUN+47 CR+1.6 GLUCOSE+443 IS: IV ROCEPHIN Q24 NOVOLOG SQ TID LEVEMIR SQ QD COREG PO Q12 HYDRALAZINE PO Q8HRS LASIX PO QD IV VENOFER QHS PROTONIX PO QD SYNTHROID PO QD : TELEMETRY STATUS DCP: FROM HOME PLAN: CONTINUE ANTIBIOTICS CONTROL GLUCOSE LEVELS
--- NOTE | 2020-10-30 10:29 | Consultation ---
DATE OF CONSULTATION: 10/30/2020 ENDOCRINOLOGY CONSULTATION CONSULTING PHYSICIAN: Dewayne Francis MD. REFERRING PHYSICIAN: Jose Aguillon MD. REASON FOR CONSULTATION: Diabetes management. HISTORY OF PRESENT ILLNESS: The patient is a 65-year-old male with history of diabetes, hypertension, and heart condition, presenting with problem with shortness of breath. He is a poor historian and in fact was noncompliant with his medication. Glucose during the stay is over 400. Therefore, Endocrinology was consulted for the management of diabetes. The patient was noted to have developed scabies and was treated for scabies. TSH was elevated and started on levothyroxine 25 mcg. PAST MEDICAL HISTORY: 1. Diabetes. 2. Hypertension. 3. Pacemaker placement. ALLERGIES TO MEDICATIONS: None. MEDICATIONS: Reviewed and reconciled. SOCIAL HISTORY: From [facility], single. No smoking, alcohol, or drug use. REVIEW OF SYSTEMS: As per HPI. LABORATORY VALUES: Sodium 142, potassium 3.6, chloride 105, bicarb 22, BUN 47, creatinine 1.6, glucose level 442, calcium 8.3. TSH of 5. PHYSICAL EXAMINATION: VITAL SIGNS: Blood pressure 156/92, heart rate of 66 temperature 97.9, respiratory rate 20. HEENT: Pupils are equal and reactive to light. Sclerae nonicteric. NECK: No JVD. HEART: Regular. LUNGS: Decreased breath sounds. ABDOMEN: Positive bowel sounds. EXTREMITIES: Positive for edema. DIAGNOSES: 1. Diabetes, out of control. 2. Mild hypothyroidism. 3. Respiratory insufficiency. PLAN: 1. Start Levemir 15 units daily. 2. NovoLog 5 units before each meal. 3. NovoLog sliding scale before meals and at bedtime. 4. Hypoglycemia protocol is in order, continue levothyroxine 25 mcg daily. 5. We will follow the patient during hospital stay. Thank you, Dr. Aguillon, for the courtesy of this consultation. Dewayne Francis M.D. DR: KURT/KEKE JOB#: [id number] CC: SELENA
--- NOTE | 2020-10-30 11:12 | Pulmonology Progress Note ---
Subjective ROS Limited/Unobtainable: No Interval Events: anemic, hypertension Constitutional: Reports: no symptoms HEENT: Repors: no symptoms Respiratory: Reports: no symptoms Cardiovascular: Reports: no symptoms Gastrointestinal/Abdominal: Reports: no symptoms Psychiatric: Reports: other - hallucination, visual Skin: Reports: other - itching Allergies: Coded Allergies: No Known Allergies (Unverified , 10/24/20) Objective Last 24 Hour Vital Signs Date Time Temp Pulse Resp B/P (MAP) Pulse Ox O2 Delivery O2 Flow Rate FiO2 10/30/20 09:16 68 155/84 10/30/20 09:00 Nasal Cannula 2.0 10/30/20 08:00 97.3 68 20 155/84 (107) 99 10/30/20 08:00 68 10/30/20 05:02 172/92 10/30/20 04:00 68 10/30/20 04:00 97.9 90 20 172/92 (118) 100 10/30/20 00:00 97.9 68 20 154/93 (113) 100 10/29/20 21:36 156/93 10/29/20 21:36 66 156/93 10/29/20 21:36 156/93 10/29/20 21:00 Nasal Cannula 2.0 10/29/20 20:00 96.4 65 20 156/93 (114) 100 10/29/20 20:00 66 10/29/20 18:26 64 150/93 (112) 10/29/20 16:00 97.8 63 20 158/89 (112) 94 10/29/20 16:00 62 10/29/20 14:23 158/89 10/29/20 12:42 173/93 10/29/20 12:00 97.5 64 20 173/93 (119) 96 10/29/20 12:00 64 Intake and Output 10/29/20 10/30/20 19:00 07:00 Intake Total 750 ml 500 ml Output Total 1150 ml 1200 ml Balance -400 ml -700 ml Intake Oral 750 ml 500 ml Output Urine Total 1150 ml 1200 ml General Appearance: no acute distress HEENT: atraumatic Respiratory: other - coase breath sounds Cardiovascular: normal rate Abdomen: soft, non tender Laboratory Tests 10/30/20 07:35: White Blood Count 5.8, Red Blood Count 3.22L, Hemoglobin 8.4L, Hematocrit 26.8L, Mean Corpuscular Volume 83, Mean Corpuscular Hemoglobin 26.1L, Mean Corpuscular Hemoglobin Concent 31.3L, Red Cell Distribution Width 14.1, Platelet Count 214, Mean Platelet Volume 9.2, Neutrophils (%) (Auto) 68.4, Lymphocytes (%) (Auto) 14.5L, Monocytes (%) (Auto) 8.8, Eosinophils (%) (Auto) 7.7H, Basophils (%) (Auto) 0.5 Current Medications Medications (Trade) Dose Ordered Sig/Jermaine Route PRN Reason Start Time Stop Time Status Last Admin Dose Admin Acetaminophen (Tylenol) 500 mg EVERY 4 HOURS PRN ORAL For Pain 10/25/20 00:00 11/24/20 00:00 Allopurinol (Zyloprim) 200 mg DAILY ORAL 10/26/20 12:45 11/25/20 12:44 10/30/20 09:16 Barium Sulfate (Varibar [place]) 240 ml NOW PRN MC RAD 10/29/20 18:45 11/01/20 18:34 Barium Sulfate (Varibar Pudding) 230 ml NOW PRN MC RAD 10/29/20 18:45 11/01/20 18:34 Barium Sulfate (Varibar Thin Liquid powder) 148 gm NOW PRN MC RAD 10/29/20 18:45 11/01/20 18:34 Carvedilol (Coreg) 6.25 mg EVERY 12 HOURS ORAL 10/29/20 21:00 11/28/20 20:59 10/30/20 09:16 Ceftriaxone Sodium 1 gm/ Dextrose 55 ml @ 110 mls/hr Q24H IVPB 10/25/20 18:00 11/01/20 17:59 10/29/20 18:13 Clonidine HCl (Catapres Tab) 0.1 mg Q4H PRN ORAL BP over 160 systolic 10/28/20 12:30 01/26/21 12:29 10/29/20 12:42 Dextrose (Dextrose 50%) 25 ml Q30M PRN IV Hypoglycemia 10/30/20 09:30 01/28/21 09:29 Dextrose (Dextrose 50%) 50 ml Q30M PRN IV Hypoglycemia 10/30/20 09:30 01/28/21 09:29 Docusate Sodium (Colace) 100 mg THREE TIMES A DAY ORAL 10/26/20 13:00 11/25/20 12:59 10/30/20 09:16 Folic Acid (Folate) 1 mg DAILY ORAL 10/27/20 09:00 11/26/20 08:59 10/30/20 09:16 Furosemide (Lasix) 40 mg DAILY ORAL 10/28/20 09:00 11/27/20 08:59 10/30/20 09:16 Guaifenesin/ Dextromethorphan (Robitussin DM Syrup) 10 ml Q4H PRN ORAL For Cough 10/26/20 08:00 01/24/21 07:59 10/26/20 08:30 Hydralazine HCl (Apresoline) 100 mg Q8HR ORAL 10/29/20 14:00 01/27/21 13:59 10/30/20 05:02 Insulin Aspart (NovoLOG) 6 units NOVOTIAC SUBQ 10/30/20 11:50 01/28/21 11:49 Insulin Detemir (Levemir) 15 units DAILY SUBQ 10/30/20 09:45 01/28/21 09:44 Iron Sucrose 100 mg/Sodium Chloride 60 ml @ 240 mls/hr BEDTIME IVPB 10/27/20 21:00 10/31/20 21:14 10/29/20 22:13 Levothyroxine Sodium (Synthroid) 25 mcg DAILY@0630 ORAL 10/27/20 06:30 11/26/20 06:29 10/30/20 05:02 Nitroglycerin (Ntg) 1 patch Q24H TDERMAL 10/24/20 20:15 11/23/20 20:14 10/29/20 21:36 Pantoprazole (Protonix) 40 mg DAILY ORAL 10/27/20 09:00 11/26/20 08:59 10/30/20 09:16 Assessment/Plan Assessment/Plan 1. Scabies, treated -Contact precaution - s/p permethrin 2. Hypoxemic respiratory failure on admission -Currently saturating well on 2L NC; wean as tolerated - s/p Decadron in ER 3. VIJAY -Monitor renal parameters -IV fluids 4. ? Pneumonia - Rapid COVID-19 negative (10/25) - CXR Right lower lobe effusion versus pneumonia -On antibiotics per ID 5. Right pleural effusion -Monitor effusion; consider thoracentesis if effusion enlarges and becomes symptomatic 6. CHF exacerbation - Elevated BNP - on Lasix -Cardio following 7. Normocytic anemia - on IV iron - transfuse prn per heme 8. DVT ppx - on SCDs - elevated D-dimer -> venous duplex US of legs negative for DVT 9. Aphasia - neuro following - CT brain noted The care for this patient was discussed with my supervising physician. Time spent for this case was approximately 31 minutes. Best Brandon Oct 30, 2020 11:12
[2020-10-30] MEDS: NovoLOG Insulin Flexpen SUBQ SCH ×4 (11:50→21:00)
[2020-10-30 12:00] VITALS: BP 167/90
--- NOTE | 2020-10-30 14:01 | Nephrology Progress Note ---
Assessment/Plan Problem List: (1) Renal failure (ARF), acute on chronic (2) Pacemaker (3) CHF exacerbation (4) Hypoxia (5) CAD (coronary artery disease) (6) Normocytic anemia Assessment Acute renal failure Possible underlying chronic kidney disease Anemia Pneumonia and hypoxia. Right lower lobe effusion versus pneumonia Congestive heart failure exacerbation with ejection fraction of 45% Pacemaker Coronary artery disease Scabies Plan October 30: Labs reviewed. Serum creatinine stable. Blood sugar remains elevated. Blood pressure is also elevated. Norvasc added. Blood sugar medication and insulin adjustment Per Endo. Continue per orders. October 29: Labs reviewed. Serum creatinine 1.6 unchanged. Continue per consultants. October 28: Labs reviewed. Serum creatinine lowering. Hemoglobin low at 7.8. Continue current management. Continue per consultants. Blood pressure medication adjusted. Defer transfusion to spiral tube winder helper. October 27: Labs reviewed. Medication list reviewed. Continue IV iron. Continue to optimize cardiac status. Continue per consultants. Optimize cardiac status Add folic acid Add Synthroid Add Protonix and stool softeners Change diet to cardiac diet, renal friendly Monitor renal parameters and electrolytes IV Venofer for low iron Monitor CBC and renal parameters Avoid nephrotoxic's Subjective ROS Limited/Unobtainable: No Constitutional: Reports: malaise Objective Objective Last 24 Hour Vital Signs Date Time Temp Pulse Resp B/P (MAP) Pulse Ox O2 Delivery O2 Flow Rate FiO2 10/30/20 13:49 167/90 10/30/20 12:00 63 10/30/20 12:00 97.2 66 20 167/90 (115) 98 10/30/20 09:16 68 155/84 10/30/20 09:00 Nasal Cannula 2.0 10/30/20 08:00 97.3 68 20 155/84 (107) 99 10/30/20 08:00 68 10/30/20 05:02 172/92 10/30/20 04:00 68 10/30/20 04:00 97.9 90 20 172/92 (118) 100 10/30/20 00:00 97.9 68 20 154/93 (113) 100 10/29/20 21:36 156/93 10/29/20 21:36 66 156/93 10/29/20 21:36 156/93 10/29/20 21:00 Nasal Cannula 2.0 10/29/20 20:00 96.4 65 20 156/93 (114) 100 10/29/20 20:00 66 10/29/20 18:26 64 150/93 (112) 10/29/20 16:00 97.8 63 20 158/89 (112) 94 10/29/20 16:00 62 10/29/20 14:23 158/89 Intake and Output 10/29/20 10/30/20 19:00 07:00 Intake Total 750 ml 500 ml Output Total 1150 ml 1200 ml Balance -400 ml -700 ml Intake Oral 750 ml 500 ml Output Urine Total 1150 ml 1200 ml Current Medications Medications (Trade) Dose Ordered Sig/Jermaine Route PRN Reason Start Time Stop Time Status Last Admin Dose Admin Acetaminophen (Tylenol) 500 mg EVERY 4 HOURS PRN ORAL For Pain 10/25/20 00:00 11/24/20 00:00 Allopurinol (Zyloprim) 200 mg DAILY ORAL 10/26/20 12:45 11/25/20 12:44 10/30/20 09:16 Barium Sulfate (Varibar [place]) 240 ml NOW PRN MC RAD 10/29/20 18:45 11/01/20 18:34 Barium Sulfate (Varibar Pudding) 230 ml NOW PRN MC RAD 10/29/20 18:45 11/01/20 18:34 Barium Sulfate (Varibar Thin Liquid powder) 148 gm NOW PRN MC RAD 10/29/20 18:45 11/01/20 18:34 Carvedilol (Coreg) 6.25 mg EVERY 12 HOURS ORAL 10/29/20 21:00 11/28/20 20:59 10/30/20 09:16 Ceftriaxone Sodium 1 gm/ Dextrose 55 ml @ 110 mls/hr Q24H IVPB 10/25/20 18:00 11/01/20 17:59 10/29/20 18:13 Clonidine HCl (Catapres Tab) 0.1 mg Q4H PRN ORAL BP over 160 systolic 10/28/20 12:30 01/26/21 12:29 10/29/20 12:42 Dextrose (Dextrose 50%) 25 ml Q30M PRN IV Hypoglycemia 10/30/20 09:30 01/28/21 09:29 Dextrose (Dextrose 50%) 25 ml Q30M PRN IV Hypoglycemia 10/30/20 12:30 01/28/21 12:29 Dextrose (Dextrose 50%) 50 ml Q30M PRN IV Hypoglycemia 10/30/20 09:30 01/28/21 09:29 Dextrose (Dextrose 50%) 50 ml Q30M PRN IV Hypoglycemia 10/30/20 12:30 01/28/21 12:29 Docusate Sodium (Colace) 100 mg THREE TIMES A DAY ORAL 10/26/20 13:00 11/25/20 12:59 10/30/20 13:48 Folic Acid (Folate) 1 mg DAILY ORAL 10/27/20 09:00 11/26/20 08:59 10/30/20 09:16 Furosemide (Lasix) 40 mg DAILY ORAL 10/28/20 09:00 11/27/20 08:59 10/30/20 09:16 Guaifenesin/ Dextromethorphan (Robitussin DM Syrup) 10 ml Q4H PRN ORAL For Cough 10/26/20 08:00 01/24/21 07:59 10/26/20 08:30 Hydralazine HCl (Apresoline) 100 mg Q8HR ORAL 10/29/20 14:00 01/27/21 13:59 10/30/20 13:49 Insulin Aspart (NovoLOG) BEFORE MEALS AND HS SUBQ 10/30/20 16:30 01/28/21 16:29 Insulin Aspart (NovoLOG) 6 units NOVOTIAC SUBQ 10/30/20 11:50 01/28/21 11:49 Insulin Detemir (Levemir) 15 units DAILY SUBQ 10/30/20 09:45 01/28/21 09:44 Iron Sucrose 100 mg/Sodium Chloride 60 ml @ 240 mls/hr BEDTIME IVPB 10/27/20 21:00 10/31/20 21:14 10/29/20 22:13 Levothyroxine Sodium (Synthroid) 25 mcg DAILY@0630 ORAL 10/27/20 06:30 11/26/20 06:29 10/30/20 05:02 Nitroglycerin (Ntg) 1 patch Q24H TDERMAL 10/24/20 20:15 11/23/20 20:14 10/29/20 21:36 Pantoprazole (Protonix) 40 mg DAILY ORAL 10/27/20 09:00 11/26/20 08:59 10/30/20 09:16 Laboratory Tests 10/30/20 07:35: White Blood Count 5.8, Red Blood Count 3.22L, Hemoglobin 8.4L, Hematocrit 26.8L, Mean Corpuscular Volume 83, Mean Corpuscular Hemoglobin 26.1L, Mean Corpuscular Hemoglobin Concent 31.3L, Red Cell Distribution Width 14.1, Platelet Count 214, Mean Platelet Volume 9.2, Neutrophils (%) (Auto) 68.4, Lymphocytes (%) (Auto) 14.5L, Monocytes (%) (Auto) 8.8, Eosinophils (%) (Auto) 7.7H, Basophils (%) (Auto) 0.5 Height (Feet): 5 Height (Inches): 4.00 Weight (Pounds): 150 General Appearance: no apparent distress Cardiovascular: normal rate Respiratory/Chest: decreased breath sounds Abdomen: distended Long Ram MD Oct 30, 2020 14:01
--- NOTE | 2020-10-30 15:41 | Cardiac Electrophysiology PN ---
Assessment/Plan Assessment/Plan 1. S/P DDD Pacer implant. The brand is unknown to interrogate pacer but based on tele is functioning normally. 2. CHF exacerbation EF 45% on Lasix 40 po daily, Coreg 6.25 bid and Hydralazine 100 tid 3. HTN. Maximize CHF meds. On prn Clonidine 4. Hypoxemic respiratory failure due to CHF and Pneumonia - Rapid COVID-19 negative (10/25) - CXR Right lower lobe effusion versus pneumonia - On antibiotics per ID - Currently saturating well on 2 L nasal cannula 5. VIJAY BUN/Cr Cr now 1.6 6. Right pleural effusion, consider thoracentesis if effusion enlarges and becomes symptomatic 7. Scabies, s/p permethrin 8. Severe Anemia Hb 7.7 DW RN Subjective Subjective No CP or SOB. Contacted all pacer companies but not registered to any one! Patient and family also don't know what company it is Occasonal AV pacing Objective Last 24 Hour Vital Signs Date Time Temp Pulse Resp B/P (MAP) Pulse Ox O2 Delivery O2 Flow Rate FiO2 10/30/20 15:17 63 167/90 10/30/20 13:49 167/90 10/30/20 12:00 63 10/30/20 12:00 97.2 66 20 167/90 (115) 98 10/30/20 09:16 68 155/84 10/30/20 09:00 Nasal Cannula 2.0 10/30/20 08:00 97.3 68 20 155/84 (107) 99 10/30/20 08:00 68 10/30/20 05:02 172/92 10/30/20 04:00 68 10/30/20 04:00 97.9 90 20 172/92 (118) 100 10/30/20 00:00 97.9 68 20 154/93 (113) 100 10/29/20 21:36 156/93 10/29/20 21:36 66 156/93 10/29/20 21:36 156/93 10/29/20 21:00 Nasal Cannula 2.0 10/29/20 20:00 96.4 65 20 156/93 (114) 100 10/29/20 20:00 66 10/29/20 18:26 64 150/93 (112) 10/29/20 16:00 97.8 63 20 158/89 (112) 94 10/29/20 16:00 62 Intake and Output 10/29/20 10/30/20 19:00 07:00 Intake Total 750 ml 500 ml Output Total 1150 ml 1200 ml Balance -400 ml -700 ml Intake Oral 750 ml 500 ml Output Urine Total 1150 ml 1200 ml Laboratory Tests Test 10/30/20 07:35 White Blood Count 5.8 K/UL (4.8-10.8) Red Blood Count 3.22 M/UL (4.70-6.10) L Hemoglobin 8.4 G/DL (14.2-18.0) L Hematocrit 26.8 % (42.0-52.0) L Mean Corpuscular Volume 83 FL (80-99) Mean Corpuscular Hemoglobin 26.1 PG (27.0-31.0) L Mean Corpuscular Hemoglobin Concent 31.3 G/DL (32.0-36.0) L Red Cell Distribution Width 14.1 % (11.6-14.8) Platelet Count 214 K/UL (150-450) Mean Platelet Volume 9.2 FL (6.5-10.1) Neutrophils (%) (Auto) 68.4 % (45.0-75.0) Lymphocytes (%) (Auto) 14.5 % (20.0-45.0) L Monocytes (%) (Auto) 8.8 % (1.0-10.0) Eosinophils (%) (Auto) 7.7 % (0.0-3.0) H Basophils (%) (Auto) 0.5 % (0.0-2.0) Objective General Appearance: no acute distress HEENT: atraumatic Respiratory: other - coase breath sounds Cardiovascular: RRR. Pacer left subclavian Abdomen: soft, non tender Jamal Cisneros MD Oct 30, 2020 15:41
[2020-10-30 16:00] VITALS: BP 148/81
[2020-10-30] MEDS: cefTRIAXone 1 GM in D5W 55 ML IVPB SCH (17:53)
--- NOTE | 2020-10-30 18:49 | NUR ---
NURSE HAND-OFF REPORT: Important Events on Shift:n/a Patient Status: stable Diet: low cholesterol Pending Orders: n/a Pending Results/Labs:n/a Pending MD notification:n/a Latest Vital Signs: Temperature 97.3 , Pulse 68 , B/P 148 /81 , Respiratory Rate 20 , O2 SAT 98 , Room Air, O2 Flow Rate 2.0 . Vital Sign Comment: stable EKG Rhythm: Sinus Rhythm Rhythm change?: N MD Notified?: Yomi Aguillon MD Response: Latest Barber Fall Score: 45 Fall Risk: High Risk Safety Measures: Call light Within Reach, Bed Alarm Zone 2, Side Rails Side Rails x2, Bed position Low and Locked. Fall Precautions: Patient Fall Education Report given to .
--- NOTE | 2020-10-30 19:00 | NUR ---
NURSE NOTES: The patient is alert and oriented x4, Syriac speaker and doesn't seem to be in any active distress at this time. He is on 2 liters of oxygen via NC wist Sp02 @ 97% .The patient is essentially bed bound but is able to turned and reposition himself.The skin has patches of discoloration which could be related to his history of scabies.The patient has a left wrist 22g that is patent and asymptomatic. The bed in lowest level and call light within easy reach. will continue to monitor as indicated.
[2020-10-30 20:00] VITALS: BP 116/67
[2020-10-30] MEDS: Nitroglycerin Patch 0.1mg/hr TDERMAL SCH (21:11)
[2020-10-30] MEDS: Iron Sucrose 100 MG in NS 55 ML IVPB SCH (21:12)
--- NOTE | 2020-10-30 21:38 | General Progress Note ---
Subjective ROS Limited/Unobtainable: Yes Allergies: Coded Allergies: No Known Allergies (Unverified , 10/24/20) Objective Last 24 Hour Vital Signs Date Time Temp Pulse Resp B/P (MAP) Pulse Ox O2 Delivery O2 Flow Rate FiO2 10/30/20 21:12 73 116/67 10/30/20 21:11 116/67 10/30/20 21:11 116/67 10/30/20 20:00 97.9 73 20 116/67 (83) 100 10/30/20 16:00 68 10/30/20 16:00 97.3 66 20 148/81 (103) 98 10/30/20 15:17 63 167/90 10/30/20 13:49 167/90 10/30/20 12:00 63 10/30/20 12:00 97.2 66 20 167/90 (115) 98 10/30/20 09:16 68 155/84 10/30/20 09:00 Nasal Cannula 2.0 10/30/20 08:00 97.3 68 20 155/84 (107) 99 10/30/20 08:00 68 10/30/20 05:02 172/92 10/30/20 04:00 68 10/30/20 04:00 97.9 90 20 172/92 (118) 100 10/30/20 00:00 97.9 68 20 154/93 (113) 100 Intake and Output 10/29/20 10/30/20 19:00 07:00 Intake Total 750 ml 500 ml Output Total 1150 ml 1200 ml Balance -400 ml -700 ml Intake Oral 750 ml 500 ml Output Urine Total 1150 ml 1200 ml Laboratory Tests 10/30/20 07:35: White Blood Count 5.8, Red Blood Count 3.22L, Hemoglobin 8.4L, Hematocrit 26.8L, Mean Corpuscular Volume 83, Mean Corpuscular Hemoglobin 26.1L, Mean Corpuscular Hemoglobin Concent 31.3L, Red Cell Distribution Width 14.1, Platelet Count 214, Mean Platelet Volume 9.2, Neutrophils (%) (Auto) 68.4, Lymphocytes (%) (Auto) 14.5L, Monocytes (%) (Auto) 8.8, Eosinophils (%) (Auto) 7.7H, Basophils (%) (Auto) 0.5 Height (Feet): 5 Height (Inches): 4.00 Weight (Pounds): 150 Assessment/Plan Problem List: (1) Scabies ICD Codes: B86 - Scabies SNOMED: 045543183, 53588178 (2) CAD (coronary artery disease) ICD Codes: I25.10 - Atherosclerotic heart disease of [place] coronary artery without angina pectoris SNOMED: 03739297, 91020622 (3) Pneumonia ICD Codes: J18.9 - Pneumonia, unspecified organism SNOMED: 027239843, 9753434 (4) Pacemaker ICD Codes: Z95.0 - Presence of cardiac pacemaker SNOMED: 736293350, 72519068 (5) VIJAY (acute kidney injury) ICD Codes: N17.9 - Acute kidney failure, unspecified SNOMED: 63215851, 4087904 (6) Shortness of breath ICD Codes: R06.02 - Shortness of breath SNOMED: 907292846 (7) CHF exacerbation ICD Codes: I50.9 - Heart failure, unspecified SNOMED: 191187112, 88709542971058 (8) Hypoxia ICD Codes: R09.02 - Hypoxemia SNOMED: 485556786 Status: progressing Assessment/Plan: chf weak labile diabetes no fever rash improving not hypoxic pna resp insuff htn Jose Aguillon MD Oct 30, 2020 21:38
--- NOTE | 2020-10-30 23:00 | NUR ---
NURSE HAND-OFF REPORT: received report from LAKSHMI The patient is alert and oriented x4, Romanian speaker and doesn't seem to be in any active distress at this time. He is on 2 liters of oxygen via NC wist Sp02 @ 97% .The patient is essentially bed bound but is able to turned and reposition himself.The skin has patches of discoloration which could be related to his history of scabies.The patient has a left wrist 22g that is patent and asymptomatic. The bed in lowest level and call light within easy reach. will continue to monitor as indicated.
--- NOTE | 2020-10-30 23:00 | NUR ---
NURSE HAND-OFF REPORT: Important Events on Shift:The paatient is alert and cooperative with his care and has a pacemaker on the left upper chest Patient Status: Diet: Pending Orders: Pending Results/Labs: Pending MD notification: Latest Vital Signs: Temperature 97.9 , Pulse 73 , B/P 116 /67 , Respiratory Rate 20 , O2 SAT 100 , Room Air, O2 Flow Rate 2.0 . Vital Sign Comment: EKG Rhythm: Sinus Rhythm Rhythm change?: N Notified?: Yomi Aguillon MD Response: Latest Barber Fall Score: 45 Fall Risk: High Risk Safety Measures: Call light Within Reach, Bed Alarm Zone 2, Side Rails Side Rails x2, Bed position Low and Locked. Fall Precautions: Patient Fall Education Report given to .
[2020-10-31] VITALS: BP 120/70
--- NOTE | 2020-10-31 01:00 | NUR ---
NURSE NOTES: i took patient to the bathroom, patiend had a BM, no complain for plain
[2020-10-31 04:00] VITALS: BP 131/77
[2020-10-31] MEDS: NovoLOG Insulin Flexpen SUBQ SCH ×7 (06:30→21:52)
[2020-10-31] MEDS: Levothyroxine 25mcg tab ORAL SCH (07:22)
[2020-10-31 07:34] LABS: BASOPHILS % (AUTO) 0.8 % (0.0-2.0); EOSINOPHILS % (AUTO) 8.5 % (0.0-3.0); HEMATOCRIT 25.7 % (42.0-52.0); HEMOGLOBIN 8.1 G/DL (14.2-18.0); LYMPHOCYTES % (AUTO) 18.5 % (20.0-45.0); MEAN CORPUSCULAR VOLUME 84 FL (80-99); MONOCYTES % (AUTO) 8.9 % (1.0-10.0); NEUTROPHILS % (AUTO) 63.3 % (45.0-75.0); PLATELET COUNT 231 K/UL (150-450); RED BLOOD COUNT 3.07 M/UL (4.70-6.10); RED CELL DISTRIBUTION WIDTH 14.4 % (11.6-14.8)
--- NOTE | 2020-10-31 07:51 | NUR ---
NURSE HAND-OFF REPORT: patient in bed sleeping, not complain for pain MD NotifieReport given to Devante
--- NOTE | 2020-10-31 07:55 | NUR ---
NURSE NOTES: Received AM report. pt is in the bed eating breakfast, tolerates meals well. denies any chest pain at this time. respiration is even and unlabored on O2 @2L/min via NC. HOB in semi-oreilly. no acute distress noted at this time. call light within reach.
[2020-10-31 08:00] VITALS: BP 161/76
[2020-10-31 08:00] LABS: ALANINE AMINOTRANSFERASE 19 U/L (12-78); ALBUMIN 2.5 G/DL (3.4-5.0); ALBUMIN/GLOBULIN RATIO 0.7 (1.0-2.7); ALKALINE PHOSPHATASE 137 U/L (46-116); ANION GAP 10 mmol/L (5-15); ASPARTATE AMINO TRANSFERASE 17 U/L (15-37); BILIRUBIN,TOTAL 0.1 MG/DL (0.2-1.0); BLOOD UREA NITROGEN 51 mg/dL (7-18); CALCIUM 8.8 MG/DL (8.5-10.1); CARBON DIOXIDE 28 MMOL/L (21-32); CHLORIDE 103 MMOL/L (98-107); CREATININE 1.9 MG/DL (0.55-1.30); POTASSIUM 3.2 MMOL/L (3.5-5.1); SODIUM 141 MMOL/L (136-145)
[2020-10-31] MEDS: Furosemide 40mg tab ORAL SCH (08:41)
[2020-10-31] MEDS: Carvedilol 6.25mg Tab ORAL SCH ×2 (08:41→21:36)
[2020-10-31] MEDS: Docusate 100mg cap ORAL SCH ×3 (08:42→18:00)
[2020-10-31] MEDS: Allopurinol 100mg Tab ORAL SCH (08:42)
[2020-10-31] MEDS: Levemir Flexpen SUBQ SCH ×2 (09:24→21:50)
--- NOTE | 2020-10-31 10:11 | Pulmonology Progress Note ---
Subjective ROS Limited/Unobtainable: Yes Interval Events: anemic, hypertension Constitutional: Reports: no symptoms HEENT: Repors: no symptoms Respiratory: Reports: no symptoms Cardiovascular: Reports: no symptoms Gastrointestinal/Abdominal: Reports: no symptoms Psychiatric: Reports: other - hallucination, visual Skin: Reports: other - itching Allergies: Coded Allergies: No Known Allergies (Unverified , 10/24/20) Objective Last 24 Hour Vital Signs Date Time Temp Pulse Resp B/P (MAP) Pulse Ox O2 Delivery O2 Flow Rate FiO2 10/31/20 08:42 71 161/76 10/31/20 08:41 71 161/76 10/31/20 08:00 97.9 71 20 161/76 (104) 98 10/31/20 04:00 66 10/31/20 04:00 97.5 71 20 131/77 (95) 96 10/31/20 00:00 67 10/31/20 00:00 97.5 65 20 120/70 (87) 99 10/30/20 21:12 73 116/67 10/30/20 21:11 116/67 10/30/20 21:11 116/67 10/30/20 21:00 68 10/30/20 21:00 Nasal Cannula 2.0 10/30/20 20:00 97.9 73 20 116/67 (83) 100 10/30/20 16:00 68 10/30/20 16:00 97.3 66 20 148/81 (103) 98 10/30/20 15:17 63 167/90 10/30/20 13:49 167/90 10/30/20 12:00 63 10/30/20 12:00 97.2 66 20 167/90 (115) 98 Intake and Output 10/30/20 10/31/20 19:00 07:00 Intake Total 750 ml 250 ml Output Total 400 ml Balance 350 ml 250 ml Intake Oral 750 ml 250 ml Output Urine Total 400 ml General Appearance: no acute distress HEENT: atraumatic Respiratory: other - coase breath sounds Cardiovascular: normal rate Abdomen: soft, non tender Laboratory Tests 10/30/20 16:22: POC Whole Blood Glucose 356H 10/31/20 06:50: White Blood Count 6.0, Red Blood Count 3.07L, Hemoglobin 8.1L, Hematocrit 25.7L, Mean Corpuscular Volume 84, Mean Corpuscular Hemoglobin 26.5L, Mean Corpuscular Hemoglobin Concent 31.7L, Red Cell Distribution Width 14.4, Platelet Count 231, Mean Platelet Volume 9.1, Neutrophils (%) (Auto) 63.3, Lymphocytes (%) (Auto) 18.5L, Monocytes (%) (Auto) 8.9, Eosinophils (%) (Auto) 8.5H, Basophils (%) (Auto) 0.8, Sodium Level 141, Potassium Level 3.2L, Chloride Level 103, Carbon Dioxide Level 28, Anion Gap 10, Blood Urea Nitrogen 51H, Creatinine 1.9H, Estimat Glomerular Filtration Rate 35.5, Glucose Level 107H, Uric Acid 4.4, Calcium Level 8.8, Phosphorus Level 5.0H, Magnesium Level 2.5H, Total Bilirubin 0.1L, Aspartate Amino Transf (AST/SGOT) 17, Alanine Aminotransferase (ALT/SGPT) 19, Alkaline Phosphatase 137H, C-Reactive Protein, Quantitative < 0.4, Pro-B-Type Natriuretic Peptide 5604H, Total Protein 6.3L, Albumin 2.5L, Globulin 3.8, Albumin/Globulin Ratio 0.7L 10/31/20 07:29: POC Whole Blood Glucose 117H Current Medications Medications (Trade) Dose Ordered Sig/Jermaine Route PRN Reason Start Time Stop Time Status Last Admin Dose Admin Acetaminophen (Tylenol) 500 mg EVERY 4 HOURS PRN ORAL For Pain 10/25/20 00:00 11/24/20 00:00 Allopurinol (Zyloprim) 200 mg DAILY ORAL 10/26/20 12:45 11/25/20 12:44 10/31/20 08:42 Amlodipine Besylate (Norvasc) 10 mg DAILY ORAL 10/30/20 14:00 11/29/20 13:59 10/31/20 08:42 Barium Sulfate (Varibar [place]) 240 ml NOW PRN MC RAD 10/29/20 18:45 11/01/20 18:34 Barium Sulfate (Varibar Pudding) 230 ml NOW PRN MC RAD 10/29/20 18:45 11/01/20 18:34 Barium Sulfate (Varibar Thin Liquid powder) 148 gm NOW PRN MC RAD 10/29/20 18:45 11/01/20 18:34 Carvedilol (Coreg) 6.25 mg EVERY 12 HOURS ORAL 10/29/20 21:00 11/28/20 20:59 10/31/20 08:41 Ceftriaxone Sodium 1 gm/ Dextrose 55 ml @ 110 mls/hr Q24H IVPB 10/25/20 18:00 11/01/20 17:59 10/30/20 17:53 Clonidine HCl (Catapres Tab) 0.1 mg Q4H PRN ORAL BP over 160 systolic 10/28/20 12:30 01/26/21 12:29 10/29/20 12:42 Dextrose (Dextrose 50%) 25 ml Q30M PRN IV Hypoglycemia 10/30/20 09:30 01/28/21 09:29 Dextrose (Dextrose 50%) 25 ml Q30M PRN IV Hypoglycemia 10/30/20 12:30 01/28/21 12:29 Dextrose (Dextrose 50%) 50 ml Q30M PRN IV Hypoglycemia 10/30/20 09:30 01/28/21 09:29 Dextrose (Dextrose 50%) 50 ml Q30M PRN IV Hypoglycemia 10/30/20 12:30 01/28/21 12:29 Docusate Sodium (Colace) 100 mg THREE TIMES A DAY ORAL 10/26/20 13:00 11/25/20 12:59 10/31/20 08:42 Folic Acid (Folate) 1 mg DAILY ORAL 10/27/20 09:00 11/26/20 08:59 10/31/20 08:41 Furosemide (Lasix) 40 mg DAILY ORAL 10/28/20 09:00 11/27/20 08:59 10/31/20 08:41 Guaifenesin/ Dextromethorphan (Robitussin DM Syrup) 10 ml Q4H PRN ORAL For Cough 10/26/20 08:00 01/24/21 07:59 10/26/20 08:30 Hydralazine HCl (Apresoline) 100 mg Q8HR ORAL 10/29/20 14:00 01/27/21 13:59 10/30/20 21:11 Insulin Aspart (NovoLOG) BEFORE MEALS AND HS SUBQ 10/30/20 16:30 01/28/21 16:29 10/30/20 16:47 Insulin Aspart (NovoLOG) 6 units NOVOTIAC SUBQ 10/30/20 11:50 01/28/21 11:49 10/31/20 07:32 Insulin Detemir (Levemir) 15 units DAILY SUBQ 10/30/20 09:45 01/28/21 09:44 10/31/20 09:24 Iron Sucrose 100 mg/Sodium Chloride 60 ml @ 240 mls/hr BEDTIME IVPB 10/27/20 21:00 10/31/20 21:14 10/30/20 21:12 Levothyroxine Sodium (Synthroid) 25 mcg DAILY@0630 ORAL 10/27/20 06:30 11/26/20 06:29 10/31/20 07:22 Nitroglycerin (Ntg) 1 patch Q24H TDERMAL 10/24/20 20:15 11/23/20 20:14 10/30/20 21:11 Pantoprazole (Protonix) 40 mg DAILY ORAL 10/27/20 09:00 11/26/20 08:59 10/31/20 08:42 Assessment/Plan Assessment/Plan 1. Scabies, treated -Contact precaution - s/p permethrin 2. Hypoxemic respiratory failure on admission -Currently saturating well on 2L NC; wean as tolerated - s/p Decadron in ER 3. VIJAY -Monitor renal parameters -IV fluids 4. ? Pneumonia - Rapid COVID-19 negative (10/25) - CXR Right lower lobe effusion versus pneumonia -On antibiotics per ID 5. Right pleural effusion -Monitor effusion; consider thoracentesis if effusion enlarges and becomes symptomatic 6. CHF exacerbation - Elevated BNP - on Lasix -Cardio following 7. Normocytic anemia - on IV iron - transfuse prn per heme 8. DVT ppx - on SCDs - elevated D-dimer -> venous duplex US of legs negative for DVT - f/u D-dimer (11/01) 9. Aphasia - neuro following - CT brain noted The care for this patient was discussed with my supervising physician. Time spent for this case was approximately 31 minutes. Best Brandon Oct 31, 2020 10:11
--- NOTE | 2020-10-31 11:42 | Hematology/Onc Progress Note ---
Assessment/Plan Assessment/Plan Assessment and Recs # Anemia due to iron deficiency, downtrending --> transfuse on prn basis -> cbc daily --> hgb 9-->7.7-->7.8-->8.1 --> no hemolysis --> anemia panel shows iron deficiency --> iv iron started # Elevated ddimer may be reactive -> order duplex of lower ext to r/o dvt --> labs reviewed, consider anticoag if uptrends # Shortness of breath may be due to pna --> on abx per id --> for pna abx vanc/ctx # Hypoxia likely due to Pneumonia --> abx # Cough # VIJAY (acute kidney injury) # CAD (coronary artery disease) # Pacemaker # Scabies # Chf diuresis as needed # Dvt ppx scds Appreciate consultation and sol [place] Subjective Constitutional: Denies: no symptoms, chills, fever, malaise, weakness, other HEENT: Denies: no symptoms, eye pain, blurred vision, tearing, double vision, ear pain, ear discharge, nose pain, nose congestion, throat pain, throat swelling, mouth pain, mouth swelling, other Cardiovascular: Denies: no symptoms, chest pain, edema, irregular heart rate, lightheadedness, palpitations, syncope, other Gastrointestinal/Abdominal: Denies: no symptoms, abdomen distended, abdominal pain, black stools, tarry stools, blood in stool, constipated, diarrhea, difficulty swallowing, nausea, poor appetite, poor fluid intake, rectal bleeding, vomiting, other Genitourinary: Denies: no symptoms, burning, discharge, frequency, flank pain, hematuria, incontinence, pain, urgency, other Neurologic/Psychiatric: Denies: no symptoms, anxiety, depressed, emotional problems, headache, numbness, paresthesia, pre-existing deficit, seizure, tingling, tremors, weakness, other Endocrine: Denies: no symptoms, excessive sweating, flushing, intolerance to c old, intolerance to heat, increased hunger, increased thirst, increased urine, unexplained weight gain, unexplained weight loss, other Hematologic/Lymphatic: Denies: no symptoms, anemia, easy bleeding, easy bruising, adenopathy, other Allergies: Coded Allergies: No Known Allergies (Unverified , 10/24/20) Subjective 10/29 meds noted, no bleeding, dw rn, no night sweats, cbc ordered 10/31 labs reviewed, meds noted, no bleeding, dw rn Objective Objective Current Medications Medications (Trade) Dose Ordered Sig/Jermaine Route PRN Reason Start Time Stop Time Status Last Admin Dose Admin Acetaminophen (Tylenol) 500 mg EVERY 4 HOURS PRN ORAL For Pain 10/25/20 00:00 11/24/20 00:00 Allopurinol (Zyloprim) 200 mg DAILY ORAL 10/26/20 12:45 11/25/20 12:44 10/31/20 08:42 Amlodipine Besylate (Norvasc) 10 mg DAILY ORAL 10/30/20 14:00 11/29/20 13:59 10/31/20 08:42 Barium Sulfate (Varibar [place]) 240 ml NOW PRN MC RAD 10/29/20 18:45 11/01/20 18:34 Barium Sulfate (Varibar Pudding) 230 ml NOW PRN MC RAD 10/29/20 18:45 11/01/20 18:34 Barium Sulfate (Varibar Thin Liquid powder) 148 gm NOW PRN MC RAD 10/29/20 18:45 11/01/20 18:34 Carvedilol (Coreg) 6.25 mg EVERY 12 HOURS ORAL 10/29/20 21:00 11/28/20 20:59 10/31/20 08:41 Ceftriaxone Sodium 1 gm/ Dextrose 55 ml @ 110 mls/hr Q24H IVPB 10/25/20 18:00 11/01/20 17:59 10/30/20 17:53 Clonidine HCl (Catapres Tab) 0.1 mg Q4H PRN ORAL BP over 160 systolic 10/28/20 12:30 01/26/21 12:29 10/29/20 12:42 Dextrose (Dextrose 50%) 25 ml Q30M PRN IV Hypoglycemia 10/30/20 09:30 01/28/21 09:29 Dextrose (Dextrose 50%) 25 ml Q30M PRN IV Hypoglycemia 10/30/20 12:30 01/28/21 12:29 Dextrose (Dextrose 50%) 50 ml Q30M PRN IV Hypoglycemia 10/30/20 09:30 01/28/21 09:29 Dextrose (Dextrose 50%) 50 ml Q30M PRN IV Hypoglycemia 10/30/20 12:30 01/28/21 12:29 Docusate Sodium (Colace) 100 mg THREE TIMES A DAY ORAL 10/26/20 13:00 11/25/20 12:59 10/31/20 08:42 Folic Acid (Folate) 1 mg DAILY ORAL 10/27/20 09:00 11/26/20 08:59 10/31/20 08:41 Furosemide (Lasix) 40 mg DAILY ORAL 10/28/20 09:00 11/27/20 08:59 10/31/20 08:41 Guaifenesin/ Dextromethorphan (Robitussin DM Syrup) 10 ml Q4H PRN ORAL For Cough 10/26/20 08:00 01/24/21 07:59 10/26/20 08:30 Hydralazine HCl (Apresoline) 100 mg Q8HR ORAL 10/29/20 14:00 01/27/21 13:59 10/30/20 21:11 Insulin Aspart (NovoLOG) BEFORE MEALS AND HS SUBQ 10/30/20 16:30 01/28/21 16:29 10/30/20 16:47 Insulin Aspart (NovoLOG) 6 units NOVOTIAC SUBQ 10/30/20 11:50 01/28/21 11:49 10/31/20 07:32 Insulin Detemir (Levemir) 15 units DAILY SUBQ 10/30/20 09:45 01/28/21 09:44 10/31/20 09:24 Iron Sucrose 100 mg/Sodium Chloride 60 ml @ 240 mls/hr BEDTIME IVPB 10/27/20 21:00 10/31/20 21:14 10/30/20 21:12 Levothyroxine Sodium (Synthroid) 25 mcg DAILY@0630 ORAL 10/27/20 06:30 11/26/20 06:29 10/31/20 07:22 Nitroglycerin (Ntg) 1 patch Q24H TDERMAL 10/24/20 20:15 11/23/20 20:14 10/30/20 21:11 Pantoprazole (Protonix) 40 mg DAILY ORAL 10/27/20 09:00 11/26/20 08:59 10/31/20 08:42 Potassium Chloride (K-Dur) 40 meq ONCE ORAL 10/31/20 11:15 10/31/20 13:15 Last 24 Hour Vital Signs Date Time Temp Pulse Resp B/P (MAP) Pulse Ox O2 Delivery O2 Flow Rate FiO2 10/31/20 09:00 Nasal Cannula 2.0 10/31/20 08:42 71 161/76 10/31/20 08:41 71 161/76 10/31/20 08:00 69 10/31/20 08:00 97.9 71 20 161/76 (104) 98 10/31/20 04:00 66 10/31/20 04:00 97.5 71 20 131/77 (95) 96 10/31/20 00:00 67 10/31/20 00:00 97.5 65 20 120/70 (87) 99 10/30/20 21:12 73 116/67 10/30/20 21:11 116/67 10/30/20 21:11 116/67 10/30/20 21:00 68 10/30/20 21:00 Nasal Cannula 2.0 10/30/20 20:00 97.9 73 20 116/67 (83) 100 10/30/20 16:00 68 10/30/20 16:00 97.3 66 20 148/81 (103) 98 10/30/20 15:17 63 167/90 10/30/20 13:49 167/90 10/30/20 12:00 63 10/30/20 12:00 97.2 66 20 167/90 (115) 98 10/30/20 09:16 68 155/84 10/30/20 09:00 Nasal Cannula 2.0 10/30/20 08:00 97.3 68 20 155/84 (107) 99 10/30/20 08:00 68 10/30/20 05:02 172/92 10/30/20 04:00 68 10/30/20 04:00 97.9 90 20 172/92 (118) 100 10/30/20 00:00 97.9 68 20 154/93 (113) 100 10/29/20 21:36 156/93 10/29/20 21:36 66 156/93 10/29/20 21:36 156/93 10/29/20 21:00 Nasal Cannula 2.0 10/29/20 20:00 96.4 65 20 156/93 (114) 100 10/29/20 20:00 66 2/26/21 18:26 64 150/93 (112) 10/29/20 16:00 97.8 63 20 158/89 (112) 94 10/29/20 16:00 62 10/29/20 14:23 158/89 10/29/20 12:42 173/93 10/29/20 12:00 97.5 64 20 173/93 (119) 96 10/29/20 12:00 64 Intake and Output 10/30/20 10/31/20 19:00 07:00 Intake Total 750 ml 250 ml Output Total 400 ml Balance 350 ml 250 ml Intake Oral 750 ml 250 ml Output Urine Total 400 ml Labs Test 10/29/20 10:41 10/30/20 07:35 10/30/20 16:22 10/31/20 06:50 White Blood Count 5.4 K/UL (4.8-10.8) 5.8 K/UL (4.8-10.8) 6.0 K/UL (4.8-10.8) Red Blood Count 3.18 M/UL (4.70-6.10) 3.22 M/UL (4.70-6.10) 3.07 M/UL (4.70-6.10) Hemoglobin 8.2 G/DL (14.2-18.0) 8.4 G/DL (14.2-18.0) 8.1 G/DL (14.2-18.0) Hematocrit 27.0 % (42.0-52.0) 26.8 % (42.0-52.0) 25.7 % (42.0-52.0) Mean Corpuscular Volume 85 FL (80-99) 83 FL (80-99) 84 FL (80-99) Mean Corpuscular Hemoglobin 25.9 PG (27.0-31.0) 26.1 PG (27.0-31.0) 26.5 PG (27.0-31.0) Mean Corpuscular Hemoglobin Concent 30.5 G/DL (32.0-36.0) 31.3 G/DL (32.0-36.0) 31.7 G/DL (32.0-36.0) Red Cell Distribution Width 13.9 % (11.6-14.8) 14.1 % (11.6-14.8) 14.4 % (11.6-14.8) Platelet Count 226 K/UL (150-450) 214 K/UL (150-450) 231 K/UL (150-450) Mean Platelet Volume 9.0 FL (6.5-10.1) 9.2 FL (6.5-10.1) 9.1 FL (6.5-10.1) Neutrophils (%) (Auto) 71.8 % (45.0-75.0) 68.4 % (45.0-75.0) 63.3 % (45.0-75.0) Lymphocytes (%) (Auto) 11.3 % (20.0-45.0) 14.5 % (20.0-45.0) 18.5 % (20.0-45.0) Monocytes (%) (Auto) 9.5 % (1.0-10.0) 8.8 % (1.0-10.0) 8.9 % (1.0-10.0) Eosinophils (%) (Auto) 6.8 % (0.0-3.0) 7.7 % (0.0-3.0) 8.5 % (0.0-3.0) Basophils (%) (Auto) 0.6 % (0.0-2.0) 0.5 % (0.0-2.0) 0.8 % (0.0-2.0) Sodium Level 143 MMOL/L (136-145) 141 MMOL/L (136-145) Potassium Level 3.6 MMOL/L (3.5-5.1) 3.2 MMOL/L (3.5-5.1) Chloride Level 105 MMOL/L (98-107) 103 MMOL/L (98-107) Carbon Dioxide Level 33 MMOL/L (21-32) 28 MMOL/L (21-32) Anion Gap 5 mmol/L (5-15) 10 mmol/L (5-15) Blood Urea Nitrogen 47 mg/dL (7-18) 51 mg/dL (7-18) Creatinine 1.6 MG/DL (0.55-1.30) 1.9 MG/DL (0.55-1.30) Estimat Glomerular Filtration Rate 43.3 mL/min (>60) 35.5 mL/min (>60) Glucose Level 443 MG/DL (74-106) 107 MG/DL (74-106) Calcium Level 8.3 MG/DL (8.5-10.1) 8.8 MG/DL (8.5-10.1) Total Bilirubin 0.2 MG/DL (0.2-1.0) 0.1 MG/DL (0.2-1.0) Aspartate Amino Transf (AST/SGOT) 13 U/L (15-37) 17 U/L (15-37) Alanine Aminotransferase (ALT/SGPT) 22 U/L (12-78) 19 U/L (12-78) Alkaline Phosphatase 141 U/L (46-116) 137 U/L (46-116) Total Protein 6.4 G/DL (6.4-8.2) 6.3 G/DL (6.4-8.2) Albumin 2.3 G/DL (3.4-5.0) 2.5 G/DL (3.4-5.0) Globulin 4.1 g/dL 3.8 g/dL Albumin/Globulin Ratio 0.6 (1.0-2.7) 0.7 (1.0-2.7) Cholesterol Level 155 MG/DL (< 200) HDL Cholesterol 42 MG/DL (40-60) POC Whole Blood Glucose 356 MG/DL (74-106) Uric Acid 4.4 MG/DL (2.6-7.2) Phosphorus Level 5.0 MG/DL (2.5-4.9) Magnesium Level 2.5 MG/DL (1.8-2.4) C-Reactive Protein, Quantitative < 0.4 mg/dL (0.00-0.90) Pro-B-Type Natriuretic Peptide 5604 pg/mL (0-125) Test 10/31/20 07:29 POC Whole Blood Glucose 117 MG/DL (74-106) Height (Feet): 5 Height (Inches): 4.00 Weight (Pounds): 150 Objective Physical Exam: GENERAL: vitals are noted HEENT: ++ JVD. No meningismus. No thyromegal RESP: Tachypneic. Coarse breath sounds bilaterally. CARDIAC: Left chest incision is clean, dry, intact. ABDOMEN: Soft. Nondistended nt MSK: Normal muscle tone, without rigidity. SKIN: Linear burrows to the anterior NEUROLOGIC: Alert, oriented x3. Psych: Normal mood and affect Andre Ness MD Oct 31, 2020 11:42
[2020-10-31 12:00] VITALS: BP 147/79
--- NOTE | 2020-10-31 12:49 | General Progress Note ---
Subjective Allergies: Coded Allergies: No Known Allergies (Unverified , 10/24/20) All Systems: reviewed and negative except above Subjective events noted interval notes reviewed glucose values improved Item Value Date Time Bedside Blood Glucose 287 mg/dl H 10/31/20 1201 Bedside Blood Glucose 117 mg/dl 10/31/20 0924 Bedside Blood Glucose 117 mg/dl 10/31/20 0630 Bedside Blood Glucose 119 mg/dl 10/30/20 2100 Bedside Blood Glucose 356 mg/dl H 10/30/20 1647 Objective Last 24 Hour Vital Signs Date Time Temp Pulse Resp B/P (MAP) Pulse Ox O2 Delivery O2 Flow Rate FiO2 10/31/20 09:00 Nasal Cannula 2.0 10/31/20 08:42 71 161/76 10/31/20 08:41 71 161/76 10/31/20 08:00 69 10/31/20 08:00 97.9 71 20 161/76 (104) 98 10/31/20 04:00 66 10/31/20 04:00 97.5 71 20 131/77 (95) 96 10/31/20 00:00 67 10/31/20 00:00 97.5 65 20 120/70 (87) 99 10/30/20 21:12 73 116/67 10/30/20 21:11 116/67 10/30/20 21:11 116/67 10/30/20 21:00 68 10/30/20 21:00 Nasal Cannula 2.0 10/30/20 20:00 97.9 73 20 116/67 (83) 100 10/30/20 16:00 68 10/30/20 16:00 97.3 66 20 148/81 (103) 98 10/30/20 15:17 63 167/90 10/30/20 13:49 167/90 Intake and Output 10/30/20 10/31/20 19:00 07:00 Intake Total 750 ml 250 ml Output Total 400 ml Balance 350 ml 250 ml Intake Oral 750 ml 250 ml Output Urine Total 400 ml Laboratory Tests 10/30/20 16:22: POC Whole Blood Glucose 356H 10/31/20 06:50: White Blood Count 6.0, Red Blood Count 3.07L, Hemoglobin 8.1L, Hematocrit 25.7L, Mean Corpuscular Volume 84, Mean Corpuscular Hemoglobin 26.5L, Mean Corpuscular Hemoglobin Concent 31.7L, Red Cell Distribution Width 14.4, Platelet Count 231, Mean Platelet Volume 9.1, Neutrophils (%) (Auto) 63.3, Lymphocytes (%) (Auto) 18.5L, Monocytes (%) (Auto) 8.9, Eosinophils (%) (Auto) 8.5H, Basophils (%) (Auto) 0.8, Sodium Level 141, Potassium Level 3.2L, Chloride Level 103, Carbon Dioxide Level 28, Anion Gap 10, Blood Urea Nitrogen 51H, Creatinine 1.9H, Estimat Glomerular Filtration Rate 35.5, Glucose Level 107H, Uric Acid 4.4, Calcium Level 8.8, Phosphorus Level 5.0H, Magnesium Level 2.5H, Total Bilirubin 0.1L, Aspartate Amino Transf (AST/SGOT) 17, Alanine Aminotransferase (ALT/SGPT) 19, Alkaline Phosphatase 137H, C-Reactive Protein, Quantitative < 0.4, Pro-B-Type Natriuretic Peptide 5604H, Total Protein 6.3L, Albumin 2.5L, Globulin 3.8, Albumin/Globulin Ratio 0.7L 10/31/20 07:29: POC Whole Blood Glucose 117H Height (Feet): 5 Height (Inches): 4.00 Weight (Pounds): 150 Neck: normal alignment Cardiovascular: normal rate Objective Current Medications Medications (Trade) Dose Ordered Sig/Jermaine Route PRN Reason Start Time Stop Time Status Last Admin Dose Admin Acetaminophen (Tylenol) 500 mg EVERY 4 HOURS PRN ORAL For Pain 10/25/20 00:00 11/24/20 00:00 Allopurinol (Zyloprim) 200 mg DAILY ORAL 10/26/20 12:45 11/25/20 12:44 10/31/20 08:42 Amlodipine Besylate (Norvasc) 10 mg DAILY ORAL 10/30/20 14:00 11/29/20 13:59 10/31/20 08:42 Barium Sulfate (Varibar [place]) 240 ml NOW PRN MC RAD 10/29/20 18:45 11/01/20 18:34 Barium Sulfate (Varibar Pud[place]) 230 ml NOW PRN MC RAD 10/29/20 18:45 11/01/20 18:34 Barium Sulfate (Varibar Thin Liquid powder) 148 gm NOW PRN MC RAD 10/29/20 18:45 11/01/20 18:34 Carvedilol (Coreg) 6.25 mg EVERY 12 HOURS ORAL 10/29/20 21:00 11/28/20 20:59 10/31/20 08:41 Ceftriaxone Sodium 1 gm/ Dextrose 55 ml @ 110 mls/hr Q24H IVPB 10/25/20 18:00 11/01/20 17:59 10/30/20 17:53 Clonidine HCl (Catapres Tab) 0.1 mg Q4H PRN ORAL BP over 160 systolic 10/28/20 12:30 01/26/21 12:29 10/29/20 12:42 Dextrose (Dextrose 50%) 25 ml Q30M PRN IV Hypoglycemia 10/30/20 09:30 01/28/21 09:29 Dextrose (Dextrose 50%) 25 ml Q30M PRN IV Hypoglycemia 10/30/20 12:30 01/28/21 12:29 Dextrose (Dextrose 50%) 50 ml Q30M PRN IV Hypoglycemia 10/30/20 09:30 01/28/21 09:29 Dextrose (Dextrose 50%) 50 ml Q30M PRN IV Hypoglycemia 10/30/20 12:30 01/28/21 12:29 Docusate Sodium (Colace) 100 mg THREE TIMES A DAY ORAL 10/26/20 13:00 11/25/20 12:59 10/31/20 08:42 Folic Acid (Folate) 1 mg DAILY ORAL 10/27/20 09:00 11/26/20 08:59 10/31/20 08:41 Furosemide (Lasix) 40 mg DAILY ORAL 10/28/20 09:00 11/27/20 08:59 10/31/20 08:41 Guaifenesin/ Dextromethorphan (Robitussin DM Syrup) 10 ml Q4H PRN ORAL For Cough 10/26/20 08:00 01/24/21 07:59 10/26/20 08:30 Hydralazine HCl (Apresoline) 100 mg Q8HR ORAL 10/29/20 14:00 01/27/21 13:59 10/30/20 21:11 Insulin Aspart (NovoLOG) BEFORE MEALS AND HS SUBQ 10/30/20 16:30 01/28/21 16:29 10/31/20 11:30 Insulin Aspart (NovoLOG) 6 units NOVOTIAC SUBQ 10/30/20 11:50 01/28/21 11:49 10/31/20 12:01 Insulin Detemir (Levemir) 15 units DAILY SUBQ 10/30/20 09:45 01/28/21 09:44 10/31/20 09:24 Iron Sucrose 100 mg/Sodium Chloride 60 ml @ 240 mls/hr BEDTIME IVPB 10/27/20 21:00 10/31/20 21:14 10/30/20 21:12 Levothyroxine Sodium (Synthroid) 25 mcg DAILY@0630 ORAL 10/27/20 06:30 11/26/20 06:29 10/31/20 07:22 Nitroglycerin (Ntg) 1 patch Q24H TDERMAL 10/24/20 20:15 11/23/20 20:14 10/30/20 21:11 Pantoprazole (Protonix) 40 mg DAILY ORAL 10/27/20 09:00 11/26/20 08:59 10/31/20 08:42 Potassium Chloride (K-Dur) 40 meq ONCE ORAL 10/31/20 11:15 10/31/20 13:15 Assessment/Plan Problem List: (1) Diabetes mellitus ICD Codes: E11.9 - Type 2 diabetes mellitus without complications SNOMED: 64000165 (2) Pneumonia ICD Codes: J18.9 - Pneumonia, unspecified organism SNOMED: 070898525, 7623069 (3) Pacemaker ICD Codes: Z95.0 - Presence of cardiac pacemaker SNOMED: 990439888, 45509474 (4) Scabies ICD Codes: B86 - Scabies SNOMED: 895094830, 32962505 (5) CHF exacerbation ICD Codes: I50.9 - Heart failure, unspecified SNOMED: 637680199, 22164773496134 Status: progressing Assessment/Plan: continue Levemir 15 units daily continue Novolog 6 units ac tid continue Novolog sliding scale ac continue LT4 25 mcg daily Dewayne Francis MD Oct 31, 2020 12:49
--- NOTE | 2020-10-31 13:11 | Nephrology Progress Note ---
Assessment/Plan Problem List: (1) Renal failure (ARF), acute on chronic (2) Pacemaker (3) CHF exacerbation (4) Hypoxia (5) CAD (coronary artery disease) (6) Normocytic anemia Assessment Acute renal failure Possible underlying chronic kidney disease Anemia Pneumonia and hypoxia. Right lower lobe effusion versus pneumonia Congestive heart failure exacerbation with ejection fraction of 45% Pacemaker Coronary artery disease Scabies Plan October 31: Labs reviewed. Serum creatinine up to 1.9. Abnormal electrolytes addressed. Blood sugar is improving. October 30: Labs reviewed. Serum creatinine stable. Blood sugar remains elevated. Blood pressure is also elevated. Norvasc added. Blood sugar medication and insulin adjustment Per Endo. Continue per orders. October 29: Labs reviewed. Serum creatinine 1.6 unchanged. Continue per consultants. October 28: Labs reviewed. Serum creatinine lowering. Hemoglobin low at 7.8. Continue current management. Continue per consultants. Blood pressure medication adjusted. Defer transfusion to [facility]. October 27: Labs reviewed. Medication list reviewed. Continue IV iron. Continue to optimize cardiac status. Continue per consultants. Optimize cardiac status Add folic acid Add Synthroid Add Protonix and stool softeners Change diet to cardiac diet, renal friendly Monitor renal parameters and electrolytes IV Venofer for low iron Monitor CBC and renal parameters Avoid nephrotoxic's Subjective ROS Limited/Unobtainable: No Constitutional: Reports: malaise Objective Objective Last 24 Hour Vital Signs Date Time Temp Pulse Resp B/P (MAP) Pulse Ox O2 Delivery O2 Flow Rate FiO2 10/31/20 09:00 Nasal Cannula 2.0 10/31/20 08:42 71 161/76 10/31/20 08:41 71 161/76 10/31/20 08:00 69 10/31/20 08:00 97.9 71 20 161/76 (104) 98 10/31/20 04:00 66 10/31/20 04:00 97.5 71 20 131/77 (95) 96 10/31/20 00:00 67 10/31/20 00:00 97.5 65 20 120/70 (87) 99 10/30/20 21:12 73 116/67 10/30/20 21:11 116/67 10/30/20 21:11 116/67 10/30/20 21:00 68 10/30/20 21:00 Nasal Cannula 2.0 10/30/20 20:00 97.9 73 20 116/67 (83) 100 10/30/20 16:00 68 10/30/20 16:00 97.3 66 20 148/81 (103) 98 10/30/20 15:17 63 167/90 10/30/20 13:49 167/90 Intake and Output 10/30/20 10/31/20 19:00 07:00 Intake Total 750 ml 250 ml Output Total 400 ml Balance 350 ml 250 ml Intake Oral 750 ml 250 ml Output Urine Total 400 ml Current Medications Medications (Trade) Dose Ordered Sig/Jermaine Route PRN Reason Start Time Stop Time Status Last Admin Dose Admin Acetaminophen (Tylenol) 500 mg EVERY 4 HOURS PRN ORAL For Pain 10/25/20 00:00 11/24/20 00:00 Allopurinol (Zyloprim) 200 mg DAILY ORAL 10/26/20 12:45 11/25/20 12:44 10/31/20 08:42 Amlodipine Besylate (Norvasc) 10 mg DAILY ORAL 10/30/20 14:00 11/29/20 13:59 10/31/20 08:42 Barium Sulfate (Varibar [place]) 240 ml NOW PRN MC RAD 10/29/20 18:45 11/01/20 18:34 Barium Sulfate (Varibar Pud[place]) 230 ml NOW PRN MC RAD 10/29/20 18:45 11/01/20 18:34 Barium Sulfate (Varibar Thin Liquid powder) 148 gm NOW PRN MC RAD 10/29/20 18:45 11/01/20 18:34 Carvedilol (Coreg) 6.25 mg EVERY 12 HOURS ORAL 10/29/20 21:00 11/28/20 20:59 10/31/20 08:41 Ceftriaxone Sodium 1 gm/ Dextrose 55 ml @ 110 mls/hr Q24H IVPB 10/25/20 18:00 11/01/20 17:59 10/30/20 17:53 Clonidine HCl (Catapres Tab) 0.1 mg Q4H PRN ORAL BP over 160 systolic 10/28/20 12:30 01/26/21 12:29 10/29/20 12:42 Dextrose (Dextrose 50%) 25 ml Q30M PRN IV Hypoglycemia 10/30/20 09:30 01/28/21 09:29 Dextrose (Dextrose 50%) 25 ml Q30M PRN IV Hypoglycemia 10/30/20 12:30 01/28/21 12:29 Dextrose (Dextrose 50%) 50 ml Q30M PRN IV Hypoglycemia 10/30/20 09:30 01/28/21 09:29 Dextrose (Dextrose 50%) 50 ml Q30M PRN IV Hypoglycemia 10/30/20 12:30 01/28/21 12:29 Docusate Sodium (Colace) 100 mg THREE TIMES A DAY ORAL 10/26/20 13:00 11/25/20 12:59 10/31/20 08:42 Folic Acid (Folate) 1 mg DAILY ORAL 10/27/20 09:00 11/26/20 08:59 10/31/20 08:41 Furosemide (Lasix) 40 mg DAILY ORAL 10/28/20 09:00 11/27/20 08:59 10/31/20 08:41 Guaifenesin/ Dextromethorphan (Robitussin DM Syrup) 10 ml Q4H PRN ORAL For Cough 10/26/20 08:00 01/24/21 07:59 10/26/20 08:30 Hydralazine HCl (Apresoline) 100 mg Q8HR ORAL 10/29/20 14:00 01/27/21 13:59 10/30/20 21:11 Insulin Aspart (NovoLOG) BEFORE MEALS AND HS SUBQ 10/30/20 16:30 01/28/21 16:29 10/31/20 11:30 Insulin Aspart (NovoLOG) 6 units NOVOTIAC SUBQ 10/30/20 11:50 01/28/21 11:49 10/31/20 12:01 Insulin Detemir (Levemir) 15 units DAILY SUBQ 10/30/20 09:45 01/28/21 09:44 10/31/20 09:24 Iron Sucrose 100 mg/Sodium Chloride 60 ml @ 240 mls/hr BEDTIME IVPB 10/27/20 21:00 10/31/20 21:14 10/30/20 21:12 Levothyroxine Sodium (Synthroid) 25 mcg DAILY@0630 ORAL 10/27/20 06:30 11/26/20 06:29 10/31/20 07:22 Nitroglycerin (Ntg) 1 patch Q24H TDERMAL 10/24/20 20:15 11/23/20 20:14 10/30/20 21:11 Pantoprazole (Protonix) 40 mg DAILY ORAL 10/27/20 09:00 11/26/20 08:59 10/31/20 08:42 Potassium Chloride (K-Dur) 40 meq ONCE ORAL 10/31/20 11:15 10/31/20 13:15 Laboratory Tests 10/30/20 16:22: POC Whole Blood Glucose 356H 10/31/20 06:50: White Blood Count 6.0, Red Blood Count 3.07L, Hemoglobin 8.1L, Hematocrit 25.7L, Mean Corpuscular Volume 84, Mean Corpuscular Hemoglobin 26.5L, Mean Corpuscular Hemoglobin Concent 31.7L, Red Cell Distribution Width 14.4, Platelet Count 231, Mean Platelet Volume 9.1, Neutrophils (%) (Auto) 63.3, Lymphocytes (%) (Auto) 18.5L, Monocytes (%) (Auto) 8.9, Eosinophils (%) (Auto) 8.5H, Basophils (%) (Auto) 0.8, Sodium Level 141, Potassium Level 3.2L, Chloride Level 103, Carbon Dioxide Level 28, Anion Gap 10, Blood Urea Nitrogen 51H, Creatinine 1.9H, Estimat Glomerular Filtration Rate 35.5, Glucose Level 107H, Uric Acid 4.4, Calcium Level 8.8, Phosphorus Level 5.0H, Magnesium Level 2.5H, Total Bilirubin 0.1L, Aspartate Amino Transf (AST/SGOT) 17, Alanine Aminotransferase (ALT/SGPT) 19, Alkaline Phosphatase 137H, C-Reactive Protein, Quantitative < 0.4, Pro-B-Type Natriuretic Peptide 5604H, Total Protein 6.3L, Albumin 2.5L, Globulin 3.8, Albumin/Globulin Ratio 0.7L 10/31/20 07:29: POC Whole Blood Glucose 117H Height (Feet): 5 Height (Inches): 4.00 Weight (Pounds): 150 General Appearance: no apparent distress Cardiovascular: normal rate Respiratory/Chest: decreased breath sounds Abdomen: distended Long Ram MD Oct 31, 2020 13:11
[2020-10-31] MEDS: HydrALAZINE 50mg tab ORAL SCH ×2 (14:00→21:37)
--- NOTE | 2020-10-31 14:13 | Cardiac Electrophysiology PN ---
Assessment/Plan Assessment/Plan 1. S/P DDD St Ace Pacer implant. Interrogated and showed Nl Fx 2. CHF exacerbation EF 45% on Lasix 40 po daily, Coreg 6.25 bid and Hydralazine 100 tid 3. HTN. Maximize CHF meds. On prn Clonidine 4. Hypoxemic respiratory failure due to CHF and Pneumonia - Rapid COVID-19 negative (10/25) - CXR Right lower lobe effusion versus pneumonia - On antibiotics per ID - Currently saturating well on 2 L nasal cannula 5. VIJAY BUN/Cr Cr now 1.6 6. Right pleural effusion, consider thoracentesis if effusion enlarges and becomes symptomatic 7. Scabies, s/p permethrin 8. Severe Anemia Hb 7.7 DW RN Subjective Subjective No CP or SOB. Pacer was St Ace and interrogated and showed Nl Fx. Objective Last 24 Hour Vital Signs Date Time Temp Pulse Resp B/P (MAP) Pulse Ox O2 Delivery O2 Flow Rate FiO2 10/31/20 09:00 Nasal Cannula 2.0 10/31/20 08:42 71 161/76 10/31/20 08:41 71 161/76 10/31/20 08:00 69 10/31/20 08:00 97.9 71 20 161/76 (104) 98 10/31/20 04:00 66 10/31/20 04:00 97.5 71 20 131/77 (95) 96 10/31/20 00:00 67 10/31/20 00:00 97.5 65 20 120/70 (87) 99 10/30/20 21:12 73 116/67 10/30/20 21:11 116/67 10/30/20 21:11 116/67 10/30/20 21:00 68 10/30/20 21:00 Nasal Cannula 2.0 10/30/20 20:00 97.9 73 20 116/67 (83) 100 10/30/20 16:00 68 10/30/20 16:00 97.3 66 20 148/81 (103) 98 10/30/20 15:17 63 167/90 Intake and Output 0 10/30/20 10/31/20 19:00 07:00 Intake Total 750 ml 250 ml Output Total 400 ml Balance 350 ml 250 ml Intake Oral 750 ml 250 ml Output Urine Total 400 ml Laboratory Tests Test 10/30/20 16:22 10/31/20 06:50 10/31/20 07:29 POC Whole Blood Glucose 356 MG/DL (74-106) H 117 MG/DL (74-106) H White Blood Count 6.0 K/UL (4.8-10.8) Red Blood Count 3.07 M/UL (4.70-6.10) L Hemoglobin 8.1 G/DL (14.2-18.0) L Hematocrit 25.7 % (42.0-52.0) L Mean Corpuscular Volume 84 FL (80-99) Mean Corpuscular Hemoglobin 26.5 PG (27.0-31.0) L Mean Corpuscular Hemoglobin Concent 31.7 G/DL (32.0-36.0) L Red Cell Distribution Width 14.4 % (11.6-14.8) Platelet Count 231 K/UL (150-450) Mean Platelet Volume 9.1 FL (6.5-10.1) Neutrophils (%) (Auto) 63.3 % (45.0-75.0) Lymphocytes (%) (Auto) 18.5 % (20.0-45.0) L Monocytes (%) (Auto) 8.9 % (1.0-10.0) Eosinophils (%) (Auto) 8.5 % (0.0-3.0) H Basophils (%) (Auto) 0.8 % (0.0-2.0) Sodium Level 141 MMOL/L (136-145) Potassium Level 3.2 MMOL/L (3.5-5.1) L Chloride Level 103 MMOL/L (98-107) Carbon Dioxide Level 28 MMOL/L (21-32) Anion Gap 10 mmol/L (5-15) Blood Urea Nitrogen 51 mg/dL (7-18) H Creatinine 1.9 MG/DL (0.55-1.30) H Estimat Glomerular Filtration Rate 35.5 mL/min (>60) Glucose Level 107 MG/DL (74-106) H Uric Acid 4.4 MG/DL (2.6-7.2) Calcium Level 8.8 MG/DL (8.5-10.1) Phosphorus Level 5.0 MG/DL (2.5-4.9) H Magnesium Level 2.5 MG/DL (1.8-2.4) H Total Bilirubin 0.1 MG/DL (0.2-1.0) L Aspartate Amino Transf (AST/SGOT) 17 U/L (15-37) Alanine Aminotransferase (ALT/SGPT) 19 U/L (12-78) Alkaline Phosphatase 137 U/L (46-116) H C-Reactive Protein, Quantitative < 0.4 mg/dL (0.00-0.90) Pro-B-Type Natriuretic Peptide 5604 pg/mL (0-125) H Total Protein 6.3 G/DL (6.4-8.2) L Albumin 2.5 G/DL (3.4-5.0) L Globulin 3.8 g/dL Albumin/Globulin Ratio 0.7 (1.0-2.7) L Objective General Appearance: no acute distress HEENT: atraumatic Respiratory: other - coase breath sounds Cardiovascular: RRR. Pacer left subclavian Abdomen: soft, non tender Jamal Cisneros MD Oct 31, 2020 14:13
[2020-10-31 16:00] VITALS: BP 122/72
[2020-10-31] MEDS: cefTRIAXone 1 GM in D5W 55 ML IVPB SCH (17:34)
--- NOTE | 2020-10-31 19:03 | NUR ---
NURSE HAND-OFF REPORT: Important Events on Shift:N/A Patient Status: STABLE Diet: LOW CHOLESTEROL Pending Orders: N/A Pending Results/Labs:N/A Pending MD notification:N/A Latest Vital Signs: Temperature 97.6 , Pulse 65 , B/P 122 /72 , Respiratory Rate 20 , O2 SAT 97 , Room Air, O2 Flow Rate 2.0 . Vital Sign Comment: STABLE EKG Rhythm: Sinus Rhythm Rhythm change?: N MD Notified?: Yomi Aguillon MD Response: Latest Barber Fall Score: 45 Fall Risk: High Risk Safety Measures: Call light Within Reach, Bed Alarm Zone 2, Side Rails Side Rails x2, Bed position Low and Locked. Fall Precautions: Patient Fall Education Report given to lyle maher.
[2020-10-31 20:00] VITALS: BP 141/67
[2020-10-31] MEDS: Nitroglycerin Patch 0.1mg/hr TDERMAL SCH (20:15)
--- NOTE | 2020-10-31 20:53 | General Progress Note ---
Subjective ROS Limited/Unobtainable: Yes Allergies: Coded Allergies: No Known Allergies (Unverified , 10/24/20) Objective Last 24 Hour Vital Signs Date Time Temp Pulse Resp B/P (MAP) Pulse Ox O2 Delivery O2 Flow Rate FiO2 10/31/20 16:00 97.6 67 20 122/72 (89) 97 10/31/20 16:00 65 10/31/20 14:00 122/72 10/31/20 14:00 122/72 10/31/20 12:00 70 10/31/20 12:00 97.2 68 20 147/79 (101) 97 10/31/20 09:00 Nasal Cannula 2.0 10/31/20 08:42 71 161/76 10/31/20 08:41 71 161/76 10/31/20 08:00 69 10/31/20 08:00 97.9 71 20 161/76 (104) 98 10/31/20 04:00 66 10/31/20 04:00 97.5 71 20 131/77 (95) 96 10/31/20 00:00 67 10/31/20 00:00 97.5 65 20 120/70 (87) 99 10/30/20 21:12 73 116/67 10/30/20 21:11 116/67 10/30/20 21:11 116/67 10/30/20 21:00 68 10/30/20 21:00 Nasal Cannula 2.0 Intake and Output 10/30/20 10/31/20 19:00 07:00 Intake Total 750 ml 250 ml Output Total 400 ml Balance 350 ml 250 ml Intake Oral 750 ml 250 ml Output Urine Total 400 ml Laboratory Tests 10/31/20 06:50: White Blood Count 6.0, Red Blood Count 3.07L, Hemoglobin 8.1L, Hematocrit 25.7L, Mean Corpuscular Volume 84, Mean Corpuscular Hemoglobin 26.5L, Mean Corpuscular Hemoglobin Concent 31.7L, Red Cell Distribution Width 14.4, Platelet Count 231, Mean Platelet Volume 9.1, Neutrophils (%) (Auto) 63.3, Lymphocytes (%) (Auto) 18.5L, Monocytes (%) (Auto) 8.9, Eosinophils (%) (Auto) 8.5H, Basophils (%) (Auto) 0.8, Sodium Level 141, Potassium Level 3.2L, Chloride Level 103, Carbon Dioxide Level 28, Anion Gap 10, Blood Urea Nitrogen 51H, Creatinine 1.9H, Estimat Glomerular Filtration Rate 35.5, Glucose Level 107H, Uric Acid 4.4, Calcium Level 8.8, Phosphorus Level 5.0H, Magnesium Level 2.5H, Total Bilirubin 0.1L, Aspartate Amino Transf (AST/SGOT) 17, Alanine Aminotransferase (ALT/SGPT) 19, Alkaline Phosphatase 137H, C-Reactive Protein, Quantitative < 0.4, Pro-B-Type Natriuretic Peptide 5604H, Total Protein 6.3L, Albumin 2.5L, Globulin 3.8, Albumin/Globulin Ratio 0.7L 10/31/20 07:29: POC Whole Blood Glucose 117H 10/31/20 16:22: POC Whole Blood Glucose 294H Height (Feet): 5 Height (Inches): 4.00 Weight (Pounds): 150 Assessment/Plan Problem List: (1) Scabies ICD Codes: B86 - Scabies SNOMED: 076035488, 49383086 (2) CAD (coronary artery disease) ICD Codes: I25.10 - Atherosclerotic heart disease of [place] coronary artery without angina pectoris SNOMED: 08070586, 49794809 (3) Pneumonia ICD Codes: J18.9 - Pneumonia, unspecified organism SNOMED: 750874006, 4930088 (4) Pacemaker ICD Codes: Z95.0 - Presence of cardiac pacemaker SNOMED: 132450686, 72108891 (5) VIJAY (acute kidney injury) ICD Codes: N17.9 - Acute kidney failure, unspecified SNOMED: 56178049, 3731658 (6) Shortness of breath ICD Codes: R06.02 - Shortness of breath SNOMED: 984512616 (7) CHF exacerbation ICD Codes: I50.9 - Heart failure, unspecified SNOMED: 478914285, 66277603007046 (8) Hypoxia ICD Codes: R09.02 - Hypoxemia SNOMED: 733370379 Status: progressing Assessment/Plan: dm chf no wheezing no change no sob weak pna resp insuff htn Jose Aguillon MD Oct 31, 2020 20:53
[2020-10-31] MEDS: Iron Sucrose 100 MG in NS 55 ML IVPB SCH (21:43)
[2020-11-01] VITALS: BP 98/51
[2020-11-01 04:00] VITALS: BP 142/75
--- NOTE | 2020-11-01 05:04 | NUR ---
NURSE NOTES: patient was not responsive blood sugar checked, drop to 21 i gave the patient a destrose 50% patient responsive blood sugar recheck, 270.
--- NOTE | 2020-11-01 05:13 | NUR ---
NURSE NOTES: in 15 minut patient blood sugar recheck is 106, patient responsive, alert oriented time 2, in bed sleeping.
--- NOTE | 2020-11-01 05:18 | NUR ---
NURSE NOTES: i notified DR. ELLISON just waiting for him to respond
--- NOTE | 2020-11-01 06:23 | Hematology/Onc Progress Note ---
Assessment/Plan Assessment/Plan Assessment and Recs # Anemia due to iron deficiency, downtrending --> transfuse on prn basis -> cbc daily --> hgb 9-->7.7-->7.8-->8.1 --> no hemolysis --> anemia panel shows iron deficiency --> iv iron started # Elevated ddimer may be reactive -> order duplex of lower ext to r/o dvt --> labs reviewed, consider anticoag if uptrends # Shortness of breath may be due to pna --> on abx per id --> for pna abx vanc/ctx # Hypoxia likely due to Pneumonia --> abx # Cough # VIJAY (acute kidney injury) # CAD (coronary artery disease) # Pacemaker # Scabies # Chf diuresis as needed # Dvt ppx scds Appreciate consultation and dw Rn Subjective HEENT: Denies: no symptoms, eye pain, blurred vision, tearing, double vision, ear pain, ear discharge, nose pain, nose congestion, throat pain, throat swelling, mouth pain, mouth swelling, other Cardiovascular: Denies: no symptoms, chest pain, edema, irregular heart rate, lightheadedness, palpitations, syncope, other Respiratory: Denies: no symptoms, cough, shortness of breath, SOB with excertion, SOB at rest, sputum, wheezing, other Gastrointestinal/Abdominal: Denies: no symptoms, abdomen distended, abdominal pain, black stools, tarry stools, blood in stool, constipated, diarrhea, difficulty swallowing, nausea, poor appetite, poor fluid intake, rectal bleeding, vomiting, other Genitourinary: Denies: no symptoms, burning, discharge, frequency, flank pain, hematuria, incontinence, pain, urgency, other Neurologic/Psychiatric: Denies: no symptoms, anxiety, depressed, emotional problems, headache, numbness, paresthesia, pre-existing deficit, seizure, tingling, tremors, weakness, other Endocrine: Denies: no symptoms, excessive sweating, flushing, intolerance to cold, intolerance to heat, increased hunger, increased thirst, increased urine, unexplained weight gain, unexplained weight loss, other Hematologic/Lymphatic: Denies: no symptoms, anemia, easy bleeding, easy bruising, adenopathy, other Allergies: Coded Allergies: No Known Allergies (Unverified , 10/24/20) Subjective 10/29 meds noted, no bleeding, dw rn, no night sweats, cbc ordered 10/31 labs reviewed, meds noted, no bleeding, dw rn 10/31 labs noted, no bleeding, meds reviewed, no new changes Objective Objective Current Medications Medications (Trade) Dose Ordered Sig/Jermaine Route PRN Reason Start Time Stop Time Status Last Admin Dose Admin Acetaminophen (Tylenol) 500 mg EVERY 4 HOURS PRN ORAL For Pain 10/25/20 00:00 11/24/20 00:00 Allopurinol (Zyloprim) 200 mg DAILY ORAL 10/26/20 12:45 11/25/20 12:44 10/31/20 08:42 Amlodipine Besylate (Norvasc) 10 mg DAILY ORAL 10/30/20 14:00 11/29/20 13:59 10/31/20 08:42 Barium Sulfate (Varibar [place]) 240 ml NOW PRN MC RAD 10/29/20 18:45 11/01/20 18:34 Barium Sulfate (Varibar Pudding) 230 ml NOW PRN MC RAD 10/29/20 18:45 11/01/20 18:34 Barium Sulfate (Varibar Thin Liquid powder) 148 gm NOW PRN MC RAD 10/29/20 18:45 11/01/20 18:34 Carvedilol (Coreg) 6.25 mg EVERY 12 HOURS ORAL 10/29/20 21:00 11/28/20 20:59 10/31/20 21:36 Ceftriaxone Sodium 1 gm/ Dextrose 55 ml @ 110 mls/hr Q24H IVPB 10/25/20 18:00 11/01/20 17:59 10/31/20 17:34 Clonidine HCl (Catapres Tab) 0.1 mg Q4H PRN ORAL BP over 160 systolic 10/28/20 12:30 01/26/21 12:29 10/29/20 12:42 Dextrose (Dextrose 50%) 25 ml Q30M PRN IV Hypoglycemia 10/30/20 09:30 01/28/21 09:29 Dextrose (Dextrose 50%) 25 ml Q30M PRN IV Hypoglycemia 10/30/20 12:30 01/28/21 12:29 Dextrose (Dextrose 50%) 50 ml Q30M PRN IV Hypoglycemia 10/30/20 09:30 01/28/21 09:29 11/01/20 04:42 Dextrose (Dextrose 50%) 50 ml Q30M PRN IV Hypoglycemia 10/30/20 12:30 01/28/21 12:29 Docusate Sodium (Colace) 100 mg THREE TIMES A DAY ORAL 10/26/20 13:00 11/25/20 12:59 10/31/20 16:39 Folic Acid (Folate) 1 mg DAILY ORAL 10/27/20 09:00 11/26/20 08:59 10/31/20 08:41 Furosemide (Lasix) 40 mg DAILY ORAL 10/28/20 09:00 11/27/20 08:59 10/31/20 08:41 Guaifenesin/ Dextromethorphan (Robitussin DM Syrup) 10 ml Q4H PRN ORAL For Cough 10/26/20 08:00 01/24/21 07:59 10/26/20 08:30 Hydralazine HCl (Apresoline) 100 mg Q8HR ORAL 10/29/20 14:00 01/27/21 13:59 10/31/20 21:37 Insulin Aspart (NovoLOG) BEFORE MEALS AND HS SUBQ 10/30/20 16:30 01/28/21 16:29 10/31/20 21:52 Insulin Aspart (NovoLOG) 6 units NOVOTIAC SUBQ 10/30/20 11:50 01/28/21 11:49 10/31/20 16:52 Insulin Detemir (Levemir) 15 units DAILY SUBQ 10/30/20 09:45 01/28/21 09:44 10/31/20 21:50 Levothyroxine Sodium (Synthroid) 25 mcg DAILY@0630 ORAL 10/27/20 06:30 11/26/20 06:29 10/31/20 07:22 Nitroglycerin (Ntg) 1 patch Q24H TDERMAL 10/24/20 20:15 11/23/20 20:14 10/30/20 21:11 Pantoprazole (Protonix) 40 mg DAILY ORAL 10/27/20 09:00 11/26/20 08:59 10/31/20 08:42 Last 24 Hour Vital Signs Date Time Temp Pulse Resp B/P (MAP) Pulse Ox O2 Delivery O2 Flow Rate FiO2 11/01/20 04:00 60 11/01/20 04:00 97.1 67 18 142/75 (97) 99 11/01/20 00:00 63 11/01/20 00:00 97.5 69 16 98/51 (67) 99 10/31/20 21:37 141/67 10/31/20 21:36 70 141/67 10/31/20 21:00 Nasal Cannula 2.0 10/31/20 20:00 68 10/31/20 20:00 97.5 70 18 141/67 (91) 100 10/31/20 16:00 97.6 67 20 122/72 (89) 97 10/31/20 16:00 65 10/31/20 14:00 122/72 10/31/20 14:00 122/72 10/31/20 12:00 70 10/31/20 12:00 97.2 68 20 147/79 (101) 97 10/31/20 09:00 Nasal Cannula 2.0 10/31/20 08:42 71 161/76 10/31/20 08:41 71 161/76 10/31/20 08:00 69 10/31/20 08:00 97.9 71 20 161/76 (104) 98 10/31/20 04:00 66 10/31/20 04:00 97.5 71 20 131/77 (95) 96 10/31/20 00:00 67 10/31/20 00:00 97.5 65 20 120/70 (87) 99 10/30/20 21:12 73 116/67 10/30/20 21:11 116/67 10/30/20 21:11 116/67 10/30/20 21:00 68 10/30/20 21:00 Nasal Cannula 2.0 10/30/20 20:00 97.9 73 20 116/67 (83) 100 10/30/20 16:00 68 10/30/20 16:00 97.3 66 20 148/81 (103) 98 10/30/20 15:17 63 167/90 10/30/20 13:49 167/90 10/30/20 12:00 63 10/30/20 12:00 97.2 66 20 167/90 (115) 98 10/30/20 09:16 68 155/84 10/30/20 09:00 Nasal Cannula 2.0 10/30/20 08:00 97.3 68 20 155/84 (107) 99 10/30/20 08:00 68 Intake and Output 10/31/20 11/01/20 19:00 07:00 Intake Total 500 ml Output Total 500 ml Balance 0 ml Intake Oral 500 ml Output Urine Total 500 ml # Voids 1 2 # Bowel Movements 1 Labs Test 10/29/20 10:41 10/30/20 07:35 10/30/20 16:22 10/31/20 06:50 White Blood Count 5.4 K/UL (4.8-10.8) 5.8 K/UL (4.8-10.8) 6.0 K/UL (4.8-10.8) Red Blood Count 3.18 M/UL (4.70-6.10) 3.22 M/UL (4.70-6.10) 3.07 M/UL (4.70-6.10) Hemoglobin 8.2 G/DL (14.2-18.0) 8.4 G/DL (14.2-18.0) 8.1 G/DL (14.2-18.0) Hematocrit 27.0 % (42.0-52.0) 26.8 % (42.0-52.0) 25.7 % (42.0-52.0) Mean Corpuscular Volume 85 FL (80-99) 83 FL (80-99) 84 FL (80-99) Mean Corpuscular Hemoglobin 25.9 PG (27.0-31.0) 26.1 PG (27.0-31.0) 26.5 PG (27.0-31.0) Mean Corpuscular Hemoglobin Concent 30.5 G/DL (32.0-36.0) 31.3 G/DL (32.0-36.0) 31.7 G/DL (32.0-36.0) Red Cell Distribution Width 13.9 % (11.6-14.8) 14.1 % (11.6-14.8) 14.4 % (11.6-14.8) Platelet Count 226 K/UL (150-450) 214 K/UL (150-450) 231 K/UL (150-450) Mean Platelet Volume 9.0 FL (6.5-10.1) 9.2 FL (6.5-10.1) 9.1 FL (6.5-10.1) Neutrophils (%) (Auto) 71.8 % (45.0-75.0) 68.4 % (45.0-75.0) 63.3 % (45.0-75.0) Lymphocytes (%) (Auto) 11.3 % (20.0-45.0) 14.5 % (20.0-45.0) 18.5 % (20.0-45.0) Monocytes (%) (Auto) 9.5 % (1.0-10.0) 8.8 % (1.0-10.0) 8.9 % (1.0-10.0) Eosinophils (%) (Auto) 6.8 % (0.0-3.0) 7.7 % (0.0-3.0) 8.5 % (0.0-3.0) Basophils (%) (Auto) 0.6 % (0.0-2.0) 0.5 % (0.0-2.0) 0.8 % (0.0-2.0) Sodium Level 143 MMOL/L (136-145) 141 MMOL/L (136-145) Potassium Level 3.6 MMOL/L (3.5-5.1) 3.2 MMOL/L (3.5-5.1) Chloride Level 105 MMOL/L (98-107) 103 MMOL/L (98-107) Carbon Dioxide Level 33 MMOL/L (21-32) 28 MMOL/L (21-32) Anion Gap 5 mmol/L (5-15) 10 mmol/L (5-15) Blood Urea Nitrogen 47 mg/dL (7-18) 51 mg/dL (7-18) Creatinine 1.6 MG/DL (0.55-1.30) 1.9 MG/DL (0.55-1.30) Estimat Glomerular Filtration Rate 43.3 mL/min (>60) 35.5 mL/min (>60) Glucose Level 443 MG/DL (74-106) 107 MG/DL (74-106) Calcium Level 8.3 MG/DL (8.5-10.1) 8.8 MG/DL (8.5-10.1) Total Bilirubin 0.2 MG/DL (0.2-1.0) 0.1 MG/DL (0.2-1.0) Aspartate Amino Transf (AST/SGOT) 13 U/L (15-37) 17 U/L (15-37) Alanine Aminotransferase (ALT/SGPT) 22 U/L (12-78) 19 U/L (12-78) Alkaline Phosphatase 141 U/L (46-116) 137 U/L (46-116) Total Protein 6.4 G/DL (6.4-8.2) 6.3 G/DL (6.4-8.2) Albumin 2.3 G/DL (3.4-5.0) 2.5 G/DL (3.4-5.0) Globulin 4.1 g/dL 3.8 g/dL Albumin/Globulin Ratio 0.6 (1.0-2.7) 0.7 (1.0-2.7) Cholesterol Level 155 MG/DL (< 200) HDL Cholesterol 42 MG/DL (40-60) POC Whole Blood Glucose 356 MG/DL (74-106) Uric Acid 4.4 MG/DL (2.6-7.2) Phosphorus Level 5.0 MG/DL (2.5-4.9) Magnesium Level 2.5 MG/DL (1.8-2.4) C-Reactive Protein, Quantitative < 0.4 mg/dL (0.00-0.90) Pro-B-Type Natriuretic Peptide 5604 pg/mL (0-125) Test 10/31/20 07:29 10/31/20 16:22 10/31/20 21:46 11/01/20 04:40 POC Whole Blood Glucose 117 MG/DL (74-106) 294 MG/DL (74-106) 201 MG/DL (74-106) 21 MG/DL (74-106) Test 11/01/20 04:46 11/01/20 05:12 POC Whole Blood Glucose 270 MG/DL (74-106) 106 MG/DL (74-106) Height (Feet): 5 Height (Inches): 4.00 Weight (Pounds): 150 Objective Physical Exam: GENERAL: vitals are noted HEENT: ++ JVD. No meningismus. No thyromegal RESP: Tachypneic. Coarse breath sounds bilaterally. CARDIAC: Left chest incision is clean, dry, intact. ABDOMEN: Soft. Nondistended nt MSK: Normal muscle tone, without rigidity. SKIN: Linear burrows to the anterior NEUROLOGIC: Alert, oriented x3. Psych: Normal mood and affect Andre Ness MD Nov 01, 2020 06:23
--- NOTE | 2020-11-01 06:24 | General Progress Note ---
Subjective Allergies: Coded Allergies: No Known Allergies (Unverified , 10/24/20) All Systems: reviewed and negative except above Subjective events noted interval notes reviewed glucose of 21 is an error Item Value Date Time Bedside Blood Glucose 21 mg/dl L 11/01/20 0442 Bedside Blood Glucose 201 mg/dl H 10/31/20 2152 Bedside Blood Glucose 294 mg/dl H 10/31/20 1652 Bedside Blood Glucose 287 mg/dl H 10/31/20 1201 Bedside Blood Glucose 117 mg/dl 10/31/20 0924 Objective Last 24 Hour Vital Signs Date Time Temp Pulse Resp B/P (MAP) Pulse Ox O2 Delivery O2 Flow Rate FiO2 11/01/20 04:00 60 11/01/20 04:00 97.1 67 18 142/75 (97) 99 11/01/20 00:00 63 11/01/20 00:00 97.5 69 16 98/51 (67) 99 10/31/20 21:37 141/67 10/31/20 21:36 70 141/67 10/31/20 21:00 Nasal Cannula 2.0 10/31/20 20:00 68 10/31/20 20:00 97.5 70 18 141/67 (91) 100 10/31/20 16:00 97.6 67 20 122/72 (89) 97 10/31/20 16:00 65 10/31/20 14:00 122/72 10/31/20 14:00 122/72 10/31/20 12:00 70 10/31/20 12:00 97.2 68 20 147/79 (101) 97 10/31/20 09:00 Nasal Cannula 2.0 10/31/20 08:42 71 161/76 10/31/20 08:41 71 161/76 10/31/20 08:00 69 10/31/20 08:00 97.9 71 20 161/76 (104) 98 Intake and Output 10/31/20 11/01/20 19:00 07:00 Intake Total 500 ml Output Total 500 ml Balance 0 ml Intake Oral 500 ml Output Urine Total 500 ml # Voids 1 2 # Bowel Movements 1 Laboratory Tests 10/31/20 06:50: White Blood Count 6.0, Red Blood Count 3.07L, Hemoglobin 8.1L, Hematocrit 25.7L, Mean Corpuscular Volume 84, Mean Corpuscular Hemoglobin 26.5L, Mean Corpuscular Hemoglobin Concent 31.7L, Red Cell Distribution Width 14.4, Platelet Count 231, Mean Platelet Volume 9.1, Neutrophils (%) (Auto) 63.3, Lymphocytes (%) (Auto) 18.5L, Monocytes (%) (Auto) 8.9, Eosinophils (%) (Auto) 8.5H, Basophils (%) (Auto) 0.8, Sodium Level 141, Potassium Level 3.2L, Chloride Level 103, Carbon Dioxide Level 28, Anion Gap 10, Blood Urea Nitrogen 51H, Creatinine 1.9H, Estimat Glomerular Filtration Rate 35.5, Glucose Level 107H, Uric Acid 4.4, C alcium Level 8.8, Phosphorus Level 5.0H, Magnesium Level 2.5H, Total Bilirubin 0.1L, Aspartate Amino Transf (AST/SGOT) 17, Alanine Aminotransferase (ALT/SGPT) 19, Alkaline Phosphatase 137H, C-Reactive Protein, Quantitative < 0.4, Pro-B-Type Natriuretic Peptide 5604H, Total Protein 6.3L, Albumin 2.5L, Globulin 3.8, Albumin/Globulin Ratio 0.7L 10/31/20 07:29: POC Whole Blood Glucose 117H 10/31/20 16:22: POC Whole Blood Glucose 294H 10/31/20 21:46: POC Whole Blood Glucose 201H 11/01/20 04:40: POC Whole Blood Glucose 21*L 11/01/20 04:46: POC Whole Blood Glucose 270H 11/01/20 05:12: POC Whole Blood Glucose 106 Height (Feet): 5 Height (Inches): 4.00 Weight (Pounds): 150 General Appearance: no apparent distress Neck: normal alignment Cardiovascular: normal rate Respiratory/Chest: lungs clear Abdomen: normal bowel sounds Pelvis: normal external exam Objective Current Medications Medications (Trade) Dose Ordered Sig/Jermaine Route PRN Reason Start Time Stop Time Status Last Admin Dose Admin Acetaminophen (Tylenol) 500 mg EVERY 4 HOURS PRN ORAL For Pain 10/25/20 00:00 11/24/20 00:00 Allopurinol (Zyloprim) 200 mg DAILY ORAL 10/26/20 12:45 11/25/20 12:44 10/31/20 08:42 Amlodipine Besylate (Norvasc) 10 mg DAILY ORAL 10/30/20 14:00 11/29/20 13:59 10/31/20 08:42 Barium Sulfate (Varibar [place]) 240 ml NOW PRN MC RAD 10/29/20 18:45 11/01/20 18:34 Barium Sulfate (Varibar Pudding) 230 ml NOW PRN MC RAD 10/29/20 18:45 11/01/20 18:34 Barium Sulfate (Varibar Thin Liquid powder) 148 gm NOW PRN MC RAD 10/29/20 18:45 11/01/20 18:34 Carvedilol (Coreg) 6.25 mg EVERY 12 HOURS ORAL 10/29/20 21:00 11/28/20 20:59 10/31/20 21:36 Ceftriaxone Sodium 1 gm/ Dextrose 55 ml @ 110 mls/hr Q24H IVPB 10/25/20 18:00 11/01/20 17:59 10/31/20 17:34 Clonidine HCl (Catapres Tab) 0.1 mg Q4H PRN ORAL BP over 160 systolic 10/28/20 12:30 01/26/21 12:29 10/29/20 12:42 Dextrose (Dextrose 50%) 25 ml Q30M PRN IV Hypoglycemia 10/30/20 09:30 01/28/21 09:29 Dextrose (Dextrose 50%) 25 ml Q30M PRN IV Hypoglycemia 10/30/20 12:30 01/28/21 12:29 Dextrose (Dextrose 50%) 50 ml Q30M PRN IV Hypoglycemia 10/30/20 09:30 01/28/21 09:29 11/01/20 04:42 Dextrose (Dextrose 50%) 50 ml Q30M PRN IV Hypoglycemia 10/30/20 12:30 01/28/21 12:29 Docusate Sodium (Colace) 100 mg THREE TIMES A DAY ORAL 10/26/20 13:00 11/25/20 12:59 10/31/20 16:39 Folic Acid (Folate) 1 mg DAILY ORAL 10/27/20 09:00 11/26/20 08:59 10/31/20 08:41 Furosemide (Lasix) 40 mg DAILY ORAL 10/28/20 09:00 11/27/20 08:59 10/31/20 08:41 Guaifenesin/ Dextromethorphan (Robitussin DM Syrup) 10 ml Q4H PRN ORAL For Cough 10/26/20 08:00 01/24/21 07:59 10/26/20 08:30 Hydralazine HCl (Apresoline) 100 mg Q8HR ORAL 10/29/20 14:00 01/27/21 13:59 10/31/20 21:37 Insulin Aspart (NovoLOG) BEFORE MEALS AND HS SUBQ 10/30/20 16:30 01/28/21 16:29 10/31/20 21:52 Insulin Aspart (NovoLOG) 6 units NOVOTIAC SUBQ 10/30/20 11:50 01/28/21 11:49 10/31/20 16:52 Insulin Detemir (Levemir) 15 units DAILY SUBQ 10/30/20 09:45 01/28/21 09:44 10/31/20 21:50 Levothyroxine Sodium (Synthroid) 25 mcg DAILY@0630 ORAL 10/27/20 06:30 11/26/20 06:29 10/31/20 07:22 Nitroglycerin (Ntg) 1 patch Q24H TDERMAL 10/24/20 20:15 11/23/20 20:14 10/30/20 21:11 Pantoprazole (Protonix) 40 mg DAILY ORAL 10/27/20 09:00 11/26/20 08:59 10/31/20 08:42 Assessment/Plan Problem List: (1) Diabetes mellitus ICD Codes: E11.9 - Type 2 diabetes mellitus without complications SNOMED: 04684727 (2) Pneumonia ICD Codes: J18.9 - Pneumonia, unspecified organism SNOMED: 357156243, 3108160 (3) Pacemaker ICD Codes: Z95.0 - Presence of cardiac pacemaker SNOMED: 400960489, 49896136 (4) Scabies ICD Codes: B86 - Scabies SNOMED: 211606099, 24019183 (5) CHF exacerbation ICD Codes: I50.9 - Heart failure, unspecified SNOMED: 994384835, [id number] Status: progressing Assessment/Plan: continue Levemir 15 units daily continue Novolog 6 units ac tid continue Novolog sliding scale ac continue LT4 25 mcg daily Dewayne Francis MD Nov 01, 2020 06:24
[2020-11-01] MEDS: NovoLOG Insulin Flexpen SUBQ SCH ×7 (06:30→21:48)
[2020-11-01] MEDS: HydrALAZINE 50mg tab ORAL SCH ×3 (06:56→21:37)
[2020-11-01] MEDS: Levothyroxine 25mcg tab ORAL SCH (06:56)
--- NOTE | 2020-11-01 07:18 | NUR ---
DR. KENNEDY TEXT back said to let know. called he said to discountinue the LEVENIR
--- NOTE | 2020-11-01 07:21 | NUR ---
NURSE HAND-OFF REPORT: Important Events on Shift: I WENT BACK AT 6:30 AM RECHECKED THE PATIENT BLOOD SUGAR IT DROPED AGAIN TO 33 I GAVE THE PATIENT THE DEXTROSE 50% AGAIN BLOOD SUGAR WENT BACK TO 230 AFTER 15 MINUTES WHEN I RECHECKED THE PATIENT GLUCOSE IT CAME DOWN TO 106. THE PATIENT IS ON THE BED SITTING ALERT ORIENTED TIME 2 AND EATING BREAKFASTI WENT BACK AT 6:30 AM RECHECKED THE PATIENT BLOOD SUGAR IT DROPED AGAIN TO 33 I GAVE THE PATIENT THE DEXTROSE 50% AGAIN BLOOD SUGAR WENT BACK TO 230 AFTER 15 MINUTES WHEN I RECHECKED THE PATIENT GLUCOSE IT CAME DOWN TO 106. THE PATIENT IS ON THE BED SITTING ALERT ORIENTED TIME 2 AND EATING BREAKFAST
--- NOTE | 2020-11-01 07:50 | NUR ---
NURSE NOTES: Received patient report from KURT Ramirez. Patient is AOx2, speaks welsh. Current blood sugar is 140. Patient is in bed eating breakfast. No pain or discomfort noted at this time. Patient on 2L nasal Cannula, breathing is even and unlabored with no signs of respiratory distress. Call light within reach.
[2020-11-01 08:00] VITALS: BP 123/60
[2020-11-01] MEDS: Furosemide 40mg tab ORAL SCH (08:53)
[2020-11-01] MEDS: Docusate 100mg cap ORAL SCH ×3 (08:53→17:36)
[2020-11-01] MEDS: Allopurinol 100mg Tab ORAL SCH (08:53)
[2020-11-01] MEDS: Carvedilol 6.25mg Tab ORAL SCH ×2 (08:54→21:36)
[2020-11-01 09:02] LABS: BASOPHILS % (AUTO) 0.8 % (0.0-2.0); EOSINOPHILS % (AUTO) 3.8 % (0.0-3.0); HEMATOCRIT 29.4 % (42.0-52.0); MEAN CORPUSCULAR VOLUME 85 FL (80-99); MONOCYTES % (AUTO) 7.6 % (1.0-10.0); PLATELET COUNT 220 K/UL (150-450); RED BLOOD COUNT 3.45 M/UL (4.70-6.10); WHITE BLOOD COUNT 6.9 K/UL (4.8-10.8)
--- NOTE | 2020-11-01 09:03 | Pulmonology Progress Note ---
Subjective ROS Limited/Unobtainable: Yes Interval Events: hypoglycemia yesterday-> an error per Endo Constitutional: Reports: no symptoms HEENT: Repors: no symptoms Respiratory: Reports: no symptoms Cardiovascular: Reports: no symptoms Gastrointestinal/Abdominal: Reports: no symptoms Psychiatric: Reports: other - hallucination, visual Skin: Reports: other - itching Allergies: Coded Allergies: No Known Allergies (Unverified , 10/24/20) All Systems: reviewed and negative except above Objective Last 24 Hour Vital Signs Date Time Temp Pulse Resp B/P (MAP) Pulse Ox O2 Delivery O2 Flow Rate FiO2 11/01/20 08:54 70 105/60 11/01/20 08:54 70 105/60 11/01/20 06:56 98/51 11/01/20 04:00 60 11/01/20 04:00 97.1 67 18 142/75 (97) 99 11/01/20 00:00 63 11/01/20 00:00 97.5 69 16 98/51 (67) 99 10/31/20 21:37 141/67 10/31/20 21:36 70 141/67 10/31/20 21:00 Nasal Cannula 2.0 10/31/20 20:15 141/67 10/31/20 20:00 68 10/31/20 20:00 97.5 70 18 141/67 (91) 100 10/31/20 16:00 97.6 67 20 122/72 (89) 97 10/31/20 16:00 65 10/31/20 14:00 122/72 10/31/20 14:00 122/72 10/31/20 12:00 70 10/31/20 12:00 97.2 68 20 147/79 (101) 97 Intake and Output 10/31/20 11/01/20 19:00 07:00 Intake Total 500 ml Output Total 500 ml Balance 0 ml Intake Oral 500 ml Output Urine Total 500 ml # Voids 1 2 # Bowel Movements 1 General Appearance: no acute distress HEENT: atraumatic Respiratory: other - coase breath sounds Cardiovascular: normal rate Abdomen: soft, non tender Laboratory Tests 10/31/20 16:22: POC Whole Blood Glucose 294H 10/31/20 21:46: POC Whole Blood Glucose 201H 11/01/20 04:40: POC Whole Blood Glucose 21*L 11/01/20 04:46: POC Whole Blood Glucose 270H 11/01/20 05:12: POC Whole Blood Glucose 106 11/01/20 08:40: White Blood Count [Pending], Red Blood Count [Pending], Hemoglobin [Pending], Hematocrit [Pending], Mean Corpuscular Volume [Pending], Mean Corpuscular Hemoglobin [Pending], Mean Corpuscular Hemoglobin Concent [Pending], Red Cell Distribution Width [Pending], Platelet Count [Pending], Mean Platelet Volume [Pending], Neutrophils (%) (Auto) [Pending], Lymphocytes (%) (Auto) [Pending], Monocytes (%) (Auto) [Pending], Eosinophils (%) (Auto) [Pending], Basophils (%) (Auto) [Pending], D-Dimer [Pending] Current Medications Medications (Trade) Dose Ordered Sig/Jermaine Route PRN Reason Start Time Stop Time Status Last Admin Dose Admin Acetaminophen (Tylenol) 500 mg EVERY 4 HOURS PRN ORAL For Pain 10/25/20 00:00 11/24/20 00:00 Allopurinol (Zyloprim) 200 mg DAILY ORAL 10/26/20 12:45 11/25/20 12:44 11/01/20 08:53 Amlodipine Besylate (Norvasc) 10 mg DAILY ORAL 10/30/20 14:00 11/29/20 13:59 11/01/20 08:54 Barium Sulfate (Varibar [place]) 240 ml NOW PRN MC RAD 10/29/20 18:45 11/01/20 18:34 Barium Sulfate (Varibar Pudding) 230 ml NOW PRN MC RAD 10/29/20 18:45 11/01/20 18:34 Barium Sulfate (Varibar Thin Liquid powder) 148 gm NOW PRN MC RAD 10/29/20 18:45 11/01/20 18:34 Carvedilol (Coreg) 6.25 mg EVERY 12 HOURS ORAL 10/29/20 21:00 11/28/20 20:59 11/01/20 08:54 Ceftriaxone Sodium 1 gm/ Dextrose 55 ml @ 110 mls/hr Q24H IVPB 10/25/20 18:00 11/01/20 17:59 10/31/20 17:34 Clonidine HCl (Catapres Tab) 0.1 mg Q4H PRN ORAL BP over 160 systolic 10/28/20 12:30 01/26/21 12:29 10/29/20 12:42 Dextrose (Dextrose 50%) 25 ml Q30M PRN IV Hypoglycemia 10/30/20 09:30 01/28/21 09:29 Dextrose (Dextrose 50%) 25 ml Q30M PRN IV Hypoglycemia 10/30/20 12:30 01/28/21 12:29 Dextrose (Dextrose 50%) 50 ml Q30M PRN IV Hypoglycemia 10/30/20 09:30 01/28/21 09:29 11/01/20 06:59 Dextrose (Dextrose 50%) 50 ml Q30M PRN IV Hypoglycemia 10/30/20 12:30 01/28/21 12:29 Docusate Sodium (Colace) 100 mg THREE TIMES A DAY ORAL 10/26/20 13:00 11/25/20 12:59 11/01/20 08:53 Folic Acid (Folate) 1 mg DAILY ORAL 10/27/20 09:00 11/26/20 08:59 11/01/20 08:52 Furosemide (Lasix) 40 mg DAILY ORAL 10/28/20 09:00 11/27/20 08:59 11/01/20 08:53 Guaifenesin/ Dextromethorphan (Robitussin DM Syrup) 10 ml Q4H PRN ORAL For Cough 10/26/20 08:00 01/24/21 07:59 10/26/20 08:30 Hydralazine HCl (Apresoline) 100 mg Q8HR ORAL 10/29/20 14:00 01/27/21 13:59 11/01/20 06:56 Insulin Aspart (NovoLOG) BEFORE MEALS AND HS SUBQ 10/30/20 16:30 01/28/21 16:29 10/31/20 21:52 Insulin Aspart (NovoLOG) 6 units NOVOTIAC SUBQ 10/30/20 11:50 01/28/21 11:49 10/31/20 16:52 Insulin Detemir (Levemir) 15 units DAILY SUBQ 10/30/20 09:45 01/28/21 09:44 10/31/20 21:50 Levothyroxine Sodium (Synthroid) 25 mcg DAILY@0630 ORAL 10/27/20 06:30 11/26/20 06:29 11/01/20 06:56 Nitroglycerin (Ntg) 1 patch Q24H TDERMAL 10/24/20 20:15 11/23/20 20:14 10/31/20 20:15 Pantoprazole (Protonix) 40 mg DAILY ORAL 10/27/20 09:00 11/26/20 08:59 11/01/20 08:54 Assessment/Plan Assessment/Plan 1. Scabies, treated -Contact precaution - s/p permethrin 2. Hypoxemic respiratory failure on admission -Currently saturating well on 2L NC; wean as tolerated - s/p Decadron in ER 3. VIJAY -Monitor renal parameters -IV fluids 4. ? Pneumonia - Rapid COVID-19 negative (10/25) - CXR Right lower lobe effusion versus pneumonia -On antibiotics per ID 5. Right pleural effusion -Monitor effusion; consider thoracentesis if effusion enlarges and becomes symptomatic 6. CHF exacerbation - Elevated BNP - on Lasix -Cardio following 7. Normocytic anemia - on IV iron - transfuse prn per heme 8. DVT ppx - on SCDs - elevated D-dimer -> venous duplex US of legs negative for DVT - f/u D-dimer (11/01) pending 9. Aphasia - neuro following - CT brain noted The care for this patient was discussed with my supervising physician. Time spent for this case was approximately 31 minutes. Best Brandon Nov 01, 2020 09:03
--- NOTE | 2020-11-01 11:55 | Cardiac Electrophysiology PN ---
Assessment/Plan Assessment/Plan 1. S/P DDD St Ace Pacer implant. Interrogated and showed Nl Fx 2. CHF exacerbation EF 45% on Lasix 40 po daily, Coreg 6.25 bid and Hydralazine 100 tid 3. HTN. Continue current CHF meds. On prn Clonidine 4. Hypoxemic respiratory failure due to CHF and Pneumonia - Rapid COVID-19 negative (10/25) - CXR Right lower lobe effusion versus pneumonia - On antibiotics per ID - Currently saturating well on 2 L nasal cannula 5. VIJAY BUN/Cr Cr now 1.6 6. Right pleural effusion, consider thoracentesis if effusion enlarges and becomes symptomatic 7. Scabies, s/p permethrin 8. Severe Anemia Hb 7.7 DW RN Subjective Subjective No CP or SOB. Pacer was St Ace and interrogated and showed Nl Fx. Objective Last 24 Hour Vital Signs Date Time Temp Pulse Resp B/P (MAP) Pulse Ox O2 Delivery O2 Flow Rate FiO2 11/01/20 09:00 Nasal Cannula 2.0 11/01/20 08:54 70 105/60 11/01/20 08:54 70 105/60 11/01/20 08:00 97.7 61 20 123/60 (81) 98 11/01/20 08:00 60 11/01/20 06:56 98/51 11/01/20 04:00 60 11/01/20 04:00 97.1 67 18 142/75 (97) 99 11/01/20 00:00 63 11/01/20 00:00 97.5 69 16 98/51 (67) 99 10/31/20 21:37 141/67 10/31/20 21:36 70 141/67 10/31/20 21:00 Nasal Cannula 2.0 10/31/20 20:15 141/67 10/31/20 20:00 68 10/31/20 20:00 97.5 70 18 141/67 (91) 100 10/31/20 16:00 97.6 67 20 122/72 (89) 97 10/31/20 16:00 65 10/31/20 14:00 122/72 10/31/20 14:00 122/72 10/31/20 12:00 70 10/31/20 12:00 97.2 68 20 147/79 (101) 97 Intake and Output 10/31/20 11/01/20 19:00 07:00 Intake Total 500 ml Output Total 500 ml Balance 0 ml Intake Oral 500 ml Output Urine Total 500 ml # Voids 1 2 # Bowel Movements 1 Laboratory Tests Test 10/31/20 16:22 10/31/20 21:46 11/01/20 04:40 11/01/20 04:46 POC Whole Blood Glucose 294 MG/DL (74-106) H 201 MG/DL (74-106) H 21 MG/DL (74-106) *L 270 MG/DL (74-106) H Test 11/01/20 05:12 11/01/20 08:40 POC Whole Blood Glucose 106 MG/DL (74-106) White Blood Count 6.9 K/UL (4.8-10.8) Red Blood Count 3.45 M/UL (4.70-6.10) L Hemoglobin 9.0 G/DL (14.2-18.0) L Hematocrit 29.4 % (42.0-52.0) L Mean Corpuscular Volume 85 FL (80-99) Mean Corpuscular Hemoglobin 26.2 PG (27.0-31.0) L Mean Corpuscular Hemoglobin Concent 30.7 G/DL (32.0-36.0) L Red Cell Distribution Width 16.0 % (11.6-14.8) H Platelet Count 220 K/UL (150-450) Mean Platelet Volume 9.0 FL (6.5-10.1) Neutrophils (%) (Auto) 76.0 % (45.0-75.0) H Lymphocytes (%) (Auto) 12.0 % (20.0-45.0) L Monocytes (%) (Auto) 7.6 % (1.0-10.0) Eosinophils (%) (Auto) 3.8 % (0.0-3.0) H Basophils (%) (Auto) 0.8 % (0.0-2.0) D-Dimer 1.83 mg/L FEU (0.00-0.49) H Objective General Appearance: no acute distress HEENT: atraumatic Respiratory: other - coarse breath sounds Cardiovascular: RRR. Pacer left subclavian Abdomen: soft, non tender Jaaml Cisneros MD Nov 01, 2020 11:55
[2020-11-01 12:00] VITALS: BP 146/80
--- NOTE | 2020-11-01 12:00 | Infectious Diseases Prog Note ---
Assessment/Plan Assessment/Plan IMPRESSION: Positive blood culture; likely contamination Possible pneumonia, COVID19 test: negative Hypoxemic respiratory failure, Scabies,treated Diabetes mellitus with hyperglycemia, Hypertension, Anemia, Hypothyroidism, Acute renal failure. CHF, likely ischemic cardiomyopathy RECOMMENDATION: Discontinue ceftriaxone Observe off antibiotic Subjective ROS Limited/Unobtainable: Yes Constitutional: Denies: fever Allergies: Coded Allergies: No Known Allergies (Unverified , 10/24/20) Objective Last 24 Hour Vital Signs Date Time Temp Pulse Resp B/P (MAP) Pulse Ox O2 Delivery O2 Flow Rate FiO2 11/01/20 09:00 Nasal Cannula 2.0 11/01/20 08:54 70 105/60 11/01/20 08:54 70 105/60 11/01/20 08:00 97.7 61 20 123/60 (81) 98 11/01/20 08:00 60 11/01/20 06:56 98/51 11/01/20 04:00 60 11/01/20 04:00 97.1 67 18 142/75 (97) 99 11/01/20 00:00 63 11/01/20 00:00 97.5 69 16 98/51 (67) 99 10/31/20 21:37 141/67 10/31/20 21:36 70 141/67 10/31/20 21:00 Nasal Cannula 2.0 10/31/20 20:15 141/67 10/31/20 20:00 68 10/31/20 20:00 97.5 70 18 141/67 (91) 100 10/31/20 16:00 97.6 67 20 122/72 (89) 97 10/31/20 16:00 65 10/31/20 14:00 122/72 10/31/20 14:00 122/72 10/31/20 12:00 70 10/31/20 12:00 97.2 68 20 147/79 (101) 97 Height (Feet): 5 Height (Inches): 4.00 Weight (Pounds): 150 General Appearance: no acute distress HEENT: mucous membranes moist Respiratory/Chest: lungs clear Cardiovascular: normal rate Abdomen: soft, non tender Neurologic/Psychiatric: alert, responsive Laboratory Tests Test 10/31/20 16:22 10/31/20 21:46 11/01/20 04:40 11/01/20 04:46 POC Whole Blood Glucose 294 MG/DL (74-106) H 201 MG/DL (74-106) H 21 MG/DL (74-106) *L 270 MG/DL (74-106) H Test 11/01/20 05:12 11/01/20 08:40 POC Whole Blood Glucose 106 MG/DL (74-106) White Blood Count 6.9 K/UL (4.8-10.8) Red Blood Count 3.45 M/UL (4.70-6.10) L Hemoglobin 9.0 G/DL (14.2-18.0) L Hematocrit 29.4 % (42.0-52.0) L Mean Corpuscular Volume 85 FL (80-99) Mean Corpuscular Hemoglobin 26.2 PG (27.0-31.0) L Mean Corpuscular Hemoglobin Concent 30.7 G/DL (32.0-36.0) L Red Cell Distribution Width 16.0 % (11.6-14.8) H Platelet Count 220 K/UL (150-450) Mean Platelet Volume 9.0 FL (6.5-10.1) Neutrophils (%) (Auto) 76.0 % (45.0-75.0) H Lymphocytes (%) (Auto) 12.0 % (20.0-45.0) L Monocytes (%) (Auto) 7.6 % (1.0-10.0) Eosinophils (%) (Auto) 3.8 % (0.0-3.0) H Basophils (%) (Auto) 0.8 % (0.0-2.0) D-Dimer 1.83 mg/L FEU (0.00-0.49) H Current Medications Medications (Trade) Dose Ordered Sig/Jermaine Route PRN Reason Start Time Stop Time Status Last Admin Dose Admin Acetaminophen (Tylenol) 500 mg EVERY 4 HOURS PRN ORAL For Pain 10/25/20 00:00 11/24/20 00:00 Allopurinol (Zyloprim) 200 mg DAILY ORAL 10/26/20 12:45 11/25/20 12:44 11/01/20 08:53 Amlodipine Besylate (Norvasc) 10 mg DAILY ORAL 10/30/20 14:00 11/29/20 13:59 11/01/20 08:54 Barium Sulfate (Varibar [place]) 240 ml NOW PRN MC RAD 10/29/20 18:45 11/01/20 18:34 Barium Sulfate (Varibar [place]ud[place]) 230 ml NOW PRN RAD 10/29/20 18:45 11/01/20 18:34 Barium Sulfate (Varibar Thin Liquid powder) 148 gm NOW PRN RAD 10/29/20 18:45 11/01/20 18:34 Carvedilol (Coreg) 6.25 mg EVERY 12 HOURS ORAL 10/29/20 21:00 11/28/20 20:59 11/01/20 08:54 Ceftriaxone Sodium 1 gm/ Dextrose 55 ml @ 110 mls/hr Q24H IVPB 10/25/20 18:00 11/01/20 17:59 10/31/20 17:34 Clonidine HCl (Catapres Tab) 0.1 mg Q4H PRN ORAL BP over 160 systolic 10/28/20 12:30 01/26/21 12:29 10/29/20 12:42 Dextrose (Dextrose 50%) 25 ml Q30M PRN IV Hypoglycemia 10/30/20 12:30 01/28/21 12:29 Dextrose (Dextrose 50%) 50 ml Q30M PRN IV Hypoglycemia 10/30/20 12:30 01/28/21 12:29 Docusate Sodium (Colace) 100 mg THREE TIMES A DAY ORAL 10/26/20 13:00 11/25/20 12:59 11/01/20 08:53 Folic Acid (Folate) 1 mg DAILY ORAL 10/27/20 09:00 11/26/20 08:59 11/01/20 08:52 Furosemide (Lasix) 40 mg DAILY ORAL 10/28/20 09:00 11/27/20 08:59 11/01/20 08:53 Guaifenesin/ Dextromethorphan (Robitussin DM Syrup) 10 ml Q4H PRN ORAL For Cough 10/26/20 08:00 01/24/21 07:59 10/26/20 08:30 Hydralazine HCl (Apresoline) 100 mg Q8HR ORAL 10/29/20 14:00 01/27/21 13:59 11/01/20 06:56 Insulin Aspart (NovoLOG) BEFORE MEALS AND HS SUBQ 10/30/20 16:30 01/28/21 16:29 10/31/20 21:52 Insulin Aspart (NovoLOG) 6 units NOVOTIAC SUBQ 10/30/20 11:50 01/28/21 11:49 10/31/20 16:52 Insulin Detemir (Levemir) 15 units DAILY SUBQ 10/30/20 09:45 01/28/21 09:44 10/31/20 21:50 Levothyroxine Sodium (Synthroid) 25 mcg DAILY@0630 ORAL 10/27/20 06:30 11/26/20 06:29 11/01/20 06:56 Nitroglycerin (Ntg) 1 patch Q24H TDERMAL 10/24/20 20:15 11/23/20 20:14 10/31/20 20:15 Pantoprazole (Protonix) 40 mg DAILY ORAL 10/27/20 09:00 11/26/20 08:59 11/01/20 08:54 Rodolfo Mueller MD Nov 01, 2020 12:00
--- NOTE | 2020-11-01 12:04 | Neurology Progress Note ---
Interim History Interim History ROS Limited/Unobtainable: Yes Events: no acute events Objective Physical Exam Last Vital Signs Date Time Temp Pulse Resp B/P (MAP) Pulse Ox O2 Delivery O2 Flow Rate FiO2 11/01/20 09:00 Nasal Cannula 2.0 11/01/20 08:54 70 105/60 11/01/20 08:00 97.7 20 98 Laboratory Tests Test 10/31/20 16:22 10/31/20 21:46 11/01/20 04:40 11/01/20 04:46 POC Whole Blood Glucose 294 MG/DL (74-106) H 201 MG/DL (74-106) H 21 MG/DL (74-106) *L 270 MG/DL (74-106) H Test 11/01/20 05:12 11/01/20 08:40 POC Whole Blood Glucose 106 MG/DL (74-106) White Blood Count 6.9 K/UL (4.8-10.8) Red Blood Count 3.45 M/UL (4.70-6.10) L Hemoglobin 9.0 G/DL (14.2-18.0) L Hematocrit 29.4 % (42.0-52.0) L Mean Corpuscular Volume 85 FL (80-99) Mean Corpuscular Hemoglobin 26.2 PG (27.0-31.0) L Mean Corpuscular Hemoglobin Concent 30.7 G/DL (32.0-36.0) L Red Cell Distribution Width 16.0 % (11.6-14.8) H Platelet Count 220 K/UL (150-450) Mean Platelet Volume 9.0 FL (6.5-10.1) Neutrophils (%) (Auto) 76.0 % (45.0-75.0) H Lymphocytes (%) (Auto) 12.0 % (20.0-45.0) L Monocytes (%) (Auto) 7.6 % (1.0-10.0) Eosinophils (%) (Auto) 3.8 % (0.0-3.0) H Basophils (%) (Auto) 0.8 % (0.0-2.0) D-Dimer 1.83 mg/L FEU (0.00-0.49) H Neurologic Exam Objective PHYSICAL EXAMINATION: VS reviewed BP elevated General Awake alert oriented eating lunch in bed NEURO:The patient is oriented to self he knows he is in the hospital has insight to situation. Language parameter is intact speaks [place]. Cranial nerves II-XII tested PERRLA, No nystagmus, No facial droop, tongue is midline. Hearing is intact. Motor: No involuntary movements, upper bialt extremities are strong 4/5 and bialat lower extremities strength is 4/5 Gait not tested. Sensation intact. Coordination intact. Impression/Recommendations Status: progressing Diagnostic Impression LABORATORY AND DIAGNOSTIC DATA: white count of 8.4, hemoglobin of 8.4, hematocrit of 27.4, and platelet count of 359,000. Sodium 142, potassium is 5, BUN of 44, creatinine 1.8, and glucose of 127. BNP 3346. ASSESSMENT AND PLAN: 1. Aphasia --> Will need to get MRI Brain for stroke evaluation but has Pacemaker implant --> we will order CT brain instead revealed: No evidence of acute intracranial hemorrhage, mass effect or cortical edema. MRI may be obtained for more sensitive evaluation as clinically indicated. Atrophy and nonspecific periventricular hypoattenuation suggestive of chronic ischemic microvascular changes. --> total cholesterol 155, order ASA based on no acute findings on CT head --> he stated he possibly had a stroke 5 years ago,no complete records. 2. Generalized Weakness --> order PT 3. Congestive heart failure with BNP of more than 3300. --> per cards 4. Status post dual-chamber pacemaker 5. Hypertension. 6. Elevated alkaline phosphate and LDH. Thank you for allowing us to participate in patient's care plan of care was discussed with Dr. Shen Pierce and he agrees. Marlena Edmonds NP Nov 01, 2020 12:04
--- NOTE | 2020-11-01 13:15 | Nephrology Progress Note ---
Assessment/Plan Problem List: (1) Renal failure (ARF), acute on chronic (2) Pacemaker (3) CHF exacerbation (4) Hypoxia (5) CAD (coronary artery disease) (6) Normocytic anemia Assessment Acute renal failure Possible underlying chronic kidney disease Anemia Pneumonia and hypoxia. Right lower lobe effusion versus pneumonia Congestive heart failure exacerbation with ejection fraction of 45% Pacemaker Coronary artery disease Scabies Plan November 01: No CHEM panel drawn today. Will check lab tomorrow. Continue to monitor renal parameters. Per consultants. October 31: Labs reviewed. Serum creatinine up to 1.9. Abnormal electrolytes addressed. Blood sugar is improving. October 30: Labs reviewed. Serum creatinine stable. Blood sugar remains elevated. Blood pressure is also elevated. Norvasc added. Blood sugar medication and insulin adjustment Per Endo. Continue per orders. October 29: Labs reviewed. Serum creatinine 1.6 unchanged. Continue per consultants. October 28: Labs reviewed. Serum creatinine lowering. Hemoglobin low at 7.8. Continue current management. Continue per consultants. Blood pressure medication adjusted. 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 October 27: Labs reviewed. Medication list reviewed. Continue IV iron. Continue to optimize cardiac status. Continue per consultants. Optimize cardiac status Add folic acid Add Synthroid Add Protonix and stool softeners Change diet to cardiac diet, renal friendly Monitor renal parameters and electrolytes IV Venofer for low iron Monitor CBC and renal parameters Avoid nephrotoxic's Subjective ROS Limited/Unobtainable: No Constitutional: Reports: malaise Objective Objective Last 24 Hour Vital Signs Date Time Temp Pulse Resp B/P (MAP) Pulse Ox O2 Delivery O2 Flow Rate FiO2 11/01/20 12:00 97.8 72 20 146/80 (102) 98 11/01/20 09:00 Nasal Cannula 2.0 11/01/20 08:54 70 105/60 11/01/20 08:54 70 105/60 11/01/20 08:00 97.7 61 20 123/60 (81) 98 11/01/20 08:00 60 11/01/20 06:56 98/51 11/01/20 04:00 60 11/01/20 04:00 97.1 67 18 142/75 (97) 99 11/01/20 00:00 63 11/01/20 00:00 97.5 69 16 98/51 (67) 99 10/31/20 21:37 141/67 2/28/21 21:36 70 141/67 10/31/20 21:00 Nasal Cannula 2.0 10/31/20 20:15 141/67 10/31/20 20:00 68 10/31/20 20:00 97.5 70 18 141/67 (91) 100 10/31/20 16:00 97.6 67 20 122/72 (89) 97 10/31/20 16:00 65 10/31/20 14:00 122/72 10/31/20 14:00 12272 Intake and Output 10/31/20 11/01/20 19:00 07:00 Intake Total 500 ml Output Total 500 ml Balance 0 ml Intake Oral 500 ml Output Urine Total 500 ml # Voids 1 2 # Bowel Movements 1 Current Medications Medications (Trade) Dose Ordered Sig/Jermaine Route PRN Reason Start Time Stop Time Status Last Admin Dose Admin Acetaminophen (Tylenol) 500 mg EVERY 4 HOURS PRN ORAL For Pain 10/25/20 00:00 11/24/20 00:00 Allopurinol (Zyloprim) 200 mg DAILY ORAL 10/26/20 12:45 11/25/20 12:44 11/01/20 08:53 Amlodipine Besylate (Norvasc) 10 mg DAILY ORAL 10/30/20 14:00 11/29/20 13:59 11/01/20 08:54 Aspirin (Ecotrin) 81 mg DAILY ORAL 11/02/20 09:00 12/17/20 08:59 Barium Sulfate (Varibar [place]) 240 ml NOW PRN MC RAD 10/29/20 18:45 11/01/20 18:34 Barium Sulfate (Varibar [place]) 230 ml NOW PRN MC RAD 10/29/20 18:45 11/01/20 18:34 Barium Sulfate (Varibar Thin Liquid powder) 148 gm NOW PRN MC RAD 10/29/20 18:45 11/01/20 18:34 Carvedilol (Coreg) 6.25 mg EVERY 12 HOURS ORAL 10/29/20 21:00 11/28/20 20:59 11/01/20 08:54 Clonidine HCl (Catapres Tab) 0.1 mg Q4H PRN ORAL BP over 160 systolic 10/28/20 12:30 01/26/21 12:29 10/29/20 12:42 Dextrose (Dextrose 50%) 25 ml Q30M PRN IV Hypoglycemia 10/30/20 12:30 01/28/21 12:29 Dextrose (Dextrose 50%) 50 ml Q30M PRN IV Hypoglycemia 10/30/20 12:30 01/28/21 12:29 Docusate Sodium (Colace) 100 mg THREE TIMES A DAY ORAL 10/26/20 13:00 11/25/20 12:59 11/01/20 08:53 Folic Acid (Folate) 1 mg DAILY ORAL 10/27/20 09:00 11/26/20 08:59 11/01/20 08:52 Furosemide (Lasix) 40 mg DAILY ORAL 10/28/20 09:00 11/27/20 08:59 11/01/20 08:53 Guaifenesin/ Dextromethorphan (Robitussin DM Syrup) 10 ml Q4H PRN ORAL For Cough 10/26/20 08:00 01/24/21 07:59 10/26/20 08:30 Hydralazine HCl (Apresoline) 100 mg Q8HR ORAL 10/29/20 14:00 01/27/21 13:59 11/01/20 06:56 Insulin Aspart (NovoLOG) BEFORE MEALS AND HS SUBQ 10/30/20 16:30 01/28/21 16:29 10/31/20 21:52 Insulin Aspart (NovoLOG) 6 units NOVOTIAC SUBQ 10/30/20 11:50 01/28/21 11:49 11/01/20 12:01 Insulin Detemir (Levemir) 15 units DAILY SUBQ 10/30/20 09:45 01/28/21 09:44 10/31/20 21:50 Levothyroxine Sodium (Synthroid) 25 mcg DAILY@0630 ORAL 10/27/20 06:30 11/26/20 06:29 11/01/20 06:56 Nitroglycerin (Ntg) 1 patch Q24H TDERMAL 10/24/20 20:15 11/23/20 20:14 10/31/20 20:15 Pantoprazole (Protonix) 40 mg DAILY ORAL 10/27/20 09:00 11/26/20 08:59 11/01/20 08:54 Laboratory Tests 10/31/20 16:22: POC Whole Blood Glucose 294H 10/31/20 21:46: POC Whole Blood Glucose 201H 11/01/20 04:40: POC Whole Blood Glucose 21*L 11/01/20 04:46: POC Whole Blood Glucose 270H 11/01/20 05:12: POC Whole Blood Glucose 106 11/01/20 08:40: White Blood Count 6.9, Red Blood Count 3.45L, Hemoglobin 9.0L, Hematocrit 29.4L, Mean Corpuscular Volume 85, Mean Corpuscular Hemoglobin 26.2L, Mean Corpuscular Hemoglobin Concent 30.7L, Red Cell Distribution Width 16.0H, Platelet Count 220, Mean Platelet Volume 9.0, Neutrophils (%) (Auto) 76.0H, Lymphocytes (%) (Auto) 12.0L, Monocytes (%) (Auto) 7.6, Eosinophils (%) (Auto) 3.8H, Basophils (%) (Auto) 0.8, D-Dimer 1.83H Height (Feet): 5 Height (Inches): 4.00 Weight (Pounds): 150 General Appearance: no apparent distress Cardiovascular: normal rate Respiratory/Chest: decreased breath sounds Abdomen: distended Long Ram MD Nov 01, 2020 13:15
[2020-11-01 16:00] VITALS: BP 147/85
--- NOTE | 2020-11-01 18:27 | NUR ---
Speech Pathology Note (Bedside Dysphagia Evaluation) Brief Note: Mr. Brooks is a 64 year old male admitted OM for CHF exacerbation with possible pneumonia on 10/24/2020 insetting of recent DDD pacemaker implantation. Labs (10/24/2020): CBC: 8.4/8.4/27.4/359 Coa.3/32/1.0 Electrolytes: 142/5.0/107/28/44/1.8/27 LFT:Albumin 2.3, BNP: 3.346, troponin 0.015 TTE: 1. Hypokinesis of distal aneroseptal and inferoseptal segments and apex 2. LVEF 45~50% 3. Large pleural effusion 4. Moderate MR 5. Mild pulmonary artery pressure elevated CXR: bilateral pulmonary effusion right greater, possible infiltrate Current lab 11/01/2020 CBC: 6.9/9.0/29.4/220, Electrolytes: 141/3.2/103/28/51/1.9/107 Last Vital Signs: Temp: 97.7~97.8, Pulse 61~72, RR: 20, BP: 123/60~146/80, Spo2: 98% on 2 liter Findings of Bedside: Mr. Brooks is alert and oriented x3. His speech is clear. length of utterance is somewhat short. He denied shortness of breathe. His voice is intact. His oral mucosa is clear. He denies dysphagia, nausea or loss of appetite. He ate 100% of dinner without problems. I observed him swallowing liquid. His swallow is functional. Interpretation: 1. Functional swallow Plan: 1. Resume PO diet with regular diet and thin liquid Akin Robert
--- NOTE | 2020-11-01 19:30 | NUR ---
NURSE NOTES: received patient resting comfortable in bed with no signs of distress. assessment initiated. bed in low position. urinal at reach. call dumont within reach, will continue to monitor.
--- NOTE | 2020-11-01 19:35 | NUR ---
NURSE HAND-OFF REPORT: Important Events on Shift:NA Patient Status: Stable Diet: low cholesterol diet Pending Orders: NA Pending Results/Labs:NA Pending notification:NA Latest Vital Signs: Temperature 97.8 , Pulse 71 , B/P 147 /85 , Respiratory Rate 20 , O2 SAT 98 , Room Air, O2 Flow Rate 2.0 . Vital Sign Comment: stable EKG Rhythm: SR w/ AV Pacing Rhythm change?: N MD Notified?: Yomi Aguillno MD Response: Latest Barber Fall Score: 45 Fall Risk: High Risk Safety Measures: Call light Within Reach, Bed Alarm Zone 2, Side Rails Side Rails x2, Bed position Low and Locked. Fall Precautions: Patient Fall Education Report given to KURT Allen.
[2020-11-01 20:00] VITALS: BP 156/76
--- NOTE | 2020-11-01 20:15 | General Progress Note ---
Subjective ROS Limited/Unobtainable: Yes Allergies: Coded Allergies: No Known Allergies (Unverified , 10/24/20) Objective Last 24 Hour Vital Signs Date Time Temp Pulse Resp B/P (MAP) Pulse Ox O2 Delivery O2 Flow Rate FiO2 11/01/20 16:00 97.8 71 20 147/85 (105) 98 11/01/20 16:00 65 11/01/20 13:40 135/70 11/01/20 12:00 97.8 72 20 146/80 (102) 98 11/01/20 12:00 71 11/01/20 09:00 Nasal Cannula 2.0 11/01/20 08:54 70 105/60 11/01/20 08:54 70 105/60 11/01/20 08:00 97.7 61 20 123/60 (81) 98 11/01/20 08:00 60 11/01/20 06:56 98/51 11/01/20 04:00 60 11/01/20 04:00 97.1 67 18 142/75 (97) 99 11/01/20 00:00 63 11/01/20 00:00 97.5 69 16 98/51 (67) 99 10/31/20 21:37 141/67 10/31/20 21:36 70 141/67 10/31/20 21:00 Nasal Cannula 2.0 10/31/20 20:15 141/67 Intake and Output 10/31/20 11/01/20 19:00 07:00 Intake Total 500 ml Output Total 500 ml Balance 0 ml Intake Oral 500 ml Output Urine Total 500 ml # Voids 1 2 # Bowel Movements 1 Laboratory Tests 10/31/20 21:46: POC Whole Blood Glucose 201H 11/01/20 04:40: POC Whole Blood Glucose 21*L 11/01/20 04:46: POC Whole Blood Glucose 270H 11/01/20 05:12: POC Whole Blood Glucose 106 11/01/20 08:40: White Blood Count 6.9, Red Blood Count 3.45L, Hemoglobin 9.0L, Hematocrit 29.4L, Mean Corpuscular Volume 85, Mean Corpuscular Hemoglobin 26.2L, Mean Corpuscular Hemoglobin Concent 30.7L, Red Cell Distribution Width 16.0H, Platelet Count 220, Mean Platelet Volume 9.0, Neutrophils (%) (Auto) 76.0H, Lymphocytes (%) (Auto) 12.0L, Monocytes (%) (Auto) 7.6, Eosinophils (%) (Auto) 3.8H, Basophils (%) (Aut o) 0.8, D-Dimer 1.83H Height (Feet): 5 Height (Inches): 4.00 Weight (Pounds): 150 Assessment/Plan Problem List: (1) Scabies ICD Codes: B86 - Scabies SNOMED: 275352824, 81969193 (2) CAD (coronary artery disease) ICD Codes: I25.10 - Atherosclerotic heart disease of [place] coronary artery without angina pectoris SNOMED: 10580692, 84775933 (3) Pneumonia ICD Codes: J18.9 - Pneumonia, unspecified organism SNOMED: 626806292, 5878978 (4) Pacemaker ICD Codes: Z95.0 - Presence of cardiac pacemaker SNOMED: 424626073, 65162371 (5) VIJAY (acute kidney injury) ICD Codes: N17.9 - Acute kidney failure, unspecified SNOMED: 60362731, 5626231 (6) Shortness of breath ICD Codes: R06.02 - Shortness of breath SNOMED: 716908149 (7) CHF exacerbation ICD Codes: I50.9 - Heart failure, unspecified SNOMED: 538048958, 81023124708060 (8) Hypoxia ICD Codes: R09.02 - Hypoxemia SNOMED: 647831158 Status: progressing Assessment/Plan: chf improving arrythmia no sob vitals stable vitals stable Jose Aguillon MD Nov 01, 2020 20:15
[2020-11-01] MEDS: Nitroglycerin Patch 0.1mg/hr TDERMAL SCH (21:37)
[2020-11-02] VITALS (7 sets, daily range): BP systolic 101–150; BP diastolic 49–74
--- NOTE | 2020-11-02 04:00 | NUR ---
NURSE NOTES: patient resting in bed comfortable with no signs of distress. call dumont within reach, will continue to monitor.
[2020-11-02] MEDS: HydrALAZINE 50mg tab ORAL SCH (05:46)
[2020-11-02] MEDS: Levothyroxine 25mcg tab ORAL SCH (05:47)
[2020-11-02] MEDS: NovoLOG Insulin Flexpen SUBQ SCH ×7 (05:48→20:53)
--- NOTE | 2020-11-02 06:30 | General Progress Note ---
Subjective Allergies: Coded Allergies: No Known Allergies (Unverified , 10/24/20) All Systems: reviewed and negative except above Subjective events noted interval notes reviewed glucose is labile Item Value Date Time Bedside Blood Glucose 93 mg/dl 11/02/20 0620 Bedside Blood Glucose 313 mg/dl H 11/01/20 2149 Bedside Blood Glucose 331 mg/dl H 11/01/20 1650 Bedside Blood Glucose 138 mg/dl H 11/01/20 1201 Bedside Blood Glucose 33 mg/dl L 11/01/20 0659 Objective Last 24 Hour Vital Signs Date Time Temp Pulse Resp B/P (MAP) Pulse Ox O2 Delivery O2 Flow Rate FiO2 11/02/20 05:46 124/68 11/02/20 04:00 97.3 64 20 124/68 (86) 97 11/02/20 04:00 64 11/02/20 00:00 69 11/02/20 00:00 98.0 74 20 117/64 (81) 100 11/01/20 21:37 156/76 11/01/20 21:37 156/76 11/01/20 21:36 62 156/76 11/01/20 21:00 Nasal Cannula 2.0 11/01/20 20:00 73 11/01/20 20:00 97.7 62 20 156/76 (102) 100 11/01/20 16:00 97.8 71 20 147/85 (105) 98 11/01/20 16:00 65 11/01/20 13:40 135/70 11/01/20 12:00 97.8 72 20 146/80 (102) 98 11/01/20 12:00 71 11/01/20 09:00 Nasal Cannula 2.0 11/01/20 08:54 70 105/60 11/01/20 08:54 70 105/60 11/01/20 08:00 97.7 61 20 123/60 (81) 98 11/01/20 08:00 60 11/01/20 06:56 98/51 Intake and Output 11/01/20 11/02/20 19:00 07:00 Intake Total 800 ml Output Total 1950 ml Balance -1150 ml Intake Oral 800 ml Output Urine Total 1950 ml # Voids 3 3 Laboratory Tests 11/01/20 08:40: White Blood Count 6.9, Red Blood Count 3.45L, Hemoglobin 9.0L, Hematocrit 29.4L, Mean Corpuscular Volume 85, Mean Corpuscular Hemoglobin 26.2L, Mean Corpuscular Hemoglobin Concent 30.7L, Red Cell Distribution Width 16.0H, Platelet Count 220, Mean Platelet Volume 9.0, Neutrophils (%) (Auto) 76.0H, Lymphocytes (%) (Auto) 12.0L, Monocytes (%) (Auto) 7.6, Eosinophils (%) (Auto) 3.8H, Basophils (%) ( Auto) 0.8, D-Dimer 1.83H Height (Feet): 5 Height (Inches): 4.00 Weight (Pounds): 150 General Appearance: no apparent distress Cardiovascular: normal rate Respiratory/Chest: lungs clear Abdomen: normal bowel sounds Objective Current Medications Medications (Trade) Dose Ordered Sig/Jermaine Route PRN Reason Start Time Stop Time Status Last Admin Dose Admin Acetaminophen (Tylenol) 500 mg EVERY 4 HOURS PRN ORAL For Pain 10/25/20 00:00 11/24/20 00:00 Allopurinol (Zyloprim) 200 mg DAILY ORAL 10/26/20 12:45 11/25/20 12:44 11/01/20 08:53 Amlodipine Besylate (Norvasc) 10 mg DAILY ORAL 10/30/20 14:00 11/29/20 13:59 11/01/20 08:54 Aspirin (Ecotrin) 81 mg DAILY ORAL 11/02/20 09:00 12/17/20 08:59 Carvedilol (Coreg) 6.25 mg EVERY 12 HOURS ORAL 10/29/20 21:00 11/28/20 20:59 11/01/20 21:36 Clonidine HCl (Catapres Tab) 0.1 mg Q4H PRN ORAL BP over 160 systolic 10/28/20 12:30 01/26/21 12:29 10/29/20 12:42 Dextrose (Dextrose 50%) 25 ml Q30M PRN IV Hypoglycemia 10/30/20 12:30 01/28/21 12:29 Dextrose (Dextrose 50%) 50 ml Q30M PRN IV Hypoglycemia 10/30/20 12:30 01/28/21 12:29 Docusate Sodium (Colace) 100 mg THREE TIMES A DAY ORAL 10/26/20 13:00 11/25/20 12:59 11/01/20 17:36 Folic Acid (Folate) 1 mg DAILY ORAL 10/27/20 09:00 11/26/20 08:59 11/01/20 08:52 Furosemide (Lasix) 40 mg DAILY ORAL 10/28/20 09:00 11/27/20 08:59 11/01/20 08:53 Guaifenesin/ Dextromethorphan (Robitussin DM Syrup) 10 ml Q4H PRN ORAL For Cough 10/26/20 08:00 01/24/21 07:59 10/26/20 08:30 Hydralazine HCl (Apresoline) 100 mg Q8HR ORAL 10/29/20 14:00 01/27/21 13:59 11/02/20 05:46 Insulin Aspart (NovoLOG) BEFORE MEALS AND HS SUBQ 10/30/20 16:30 01/28/21 16:29 11/01/20 21:48 Insulin Aspart (NovoLOG) 6 units NOVOTIAC SUBQ 10/30/20 11:50 01/28/21 11:49 11/01/20 16:50 Insulin Detemir (Levemir) 15 units DAILY SUBQ 10/30/20 09:45 01/28/21 09:44 10/31/20 21:50 Levothyroxine Sodium (Synthroid) 25 mcg DAILY@0630 ORAL 10/27/20 06:30 11/26/20 06:29 11/02/20 05:47 Nitroglycerin (Ntg) 1 patch Q24H TDERMAL 10/24/20 20:15 11/23/20 20:14 11/01/20 21:37 Pantoprazole (Protonix) 40 mg DAILY ORAL 10/27/20 09:00 11/26/20 08:59 11/01/20 08:54 Assessment/Plan Problem List: (1) Diabetes mellitus ICD Codes: E11.9 - Type 2 diabetes mellitus without complications SNOMED: 61869824 (2) Pneumonia ICD Codes: J18.9 - Pneumonia, unspecified organism SNOMED: 515941213, 8888370 (3) Pacemaker ICD Codes: Z95.0 - Presence of cardiac pacemaker SNOMED: 094009614, 94846528 (4) Scabies ICD Codes: B86 - Scabies SNOMED: 464226364, 37977623 (5) CHF exacerbation ICD Codes: I50.9 - Heart failure, unspecified SNOMED: 996034373, 30482416515171 Status: progressing Assessment/Plan: reduce Levemir to 12 units daily reduce Novolog to 4 units ac tid continue Novolog sliding scale ac continue LT4 25 mcg daily Dewayne Francis MD Nov 02, 2020 06:30
--- NOTE | 2020-11-02 06:34 | Hematology/Onc Progress Note ---
Assessment/Plan Assessment/Plan Assessment and Recs # Anemia due to iron deficiency, downtrending --> transfuse on prn basis -> cbc daily --> hgb 9-->7.7-->7.8-->8.1-->9 --> no hemolysis --> anemia panel shows iron deficiency --> iv iron started # Elevated ddimer may be reactive -> order duplex of lower ext to r/o dvt --> labs reviewed, consider anticoag if uptrends # Shortness of breath may be due to pna --> on abx per id --> for pna abx vanc/ctx # Hypoxia likely due to Pneumonia --> abx # Cough # VIJAY (acute kidney injury) # CAD (coronary artery disease) # Pacemaker # Scabies # Chf diuresis as needed # Dvt ppx scds Appreciate consultation and sol Abarca Subjective Constitutional: Denies: no symptoms, chills, fever, malaise, weakness, other HEENT: Denies: no symptoms, eye pain, blurred vision, tearing, double vision, ear pain, ear discharge, nose pain, nose congestion, throat pain, throat swelling, mouth pain, mouth swelling, other Cardiovascular: Denies: no symptoms, chest pain, edema, irregular heart rate, lightheadedness, palpitations, syncope, other Respiratory: Denies: no symptoms, cough, shortness of breath, SOB with excertion, SOB at rest, sputum, wheezing, other Genitourinary: Denies: no symptoms, burning, discharge, frequency, flank pain, hematuria, incontinence, pain, urgency, other Neurologic/Psychiatric: Denies: no symptoms, anxiety, depressed, emotional problems, headache, numbness, paresthesia, pre-existing deficit, seizure, tingl ing, tremors, weakness, other Endocrine: Denies: no symptoms, excessive sweating, flushing, intolerance to cold, intolerance to heat, increased hunger, increased thirst, increased urine, unexplained weight gain, unexplained weight loss, other Hematologic/Lymphatic: Denies: no symptoms, anemia, easy bleeding, easy bruising, adenopathy, other Allergies: Coded Allergies: No Known Allergies (Unverified , 10/24/20) Subjective 10/29 meds noted, no bleeding, sol rn, no night sweats, cbc ordered 2/28 labs reviewed, meds noted, no bleeding, sol abarca 11/01 labs noted, no bleeding, meds reviewed, no new changes 11/02 labs reviewed, hgb is improved, sol rn Objective Objective Current Medications Medications (Trade) Dose Ordered Sig/Jermaine Route PRN Reason Start Time Stop Time Status Last Admin Dose Admin Acetaminophen (Tylenol) 500 mg EVERY 4 HOURS PRN ORAL For Pain 10/25/20 00:00 11/24/20 00:00 Allopurinol (Zyloprim) 200 mg DAILY ORAL 10/26/20 12:45 11/25/20 12:44 11/01/20 08:53 Amlodipine Besylate (Norvasc) 10 mg DAILY ORAL 10/30/20 14:00 11/29/20 13:59 11/01/20 08:54 Aspirin (Ecotrin) 81 mg DAILY ORAL 11/02/20 09:00 12/17/20 08:59 Carvedilol (Coreg) 6.25 mg EVERY 12 HOURS ORAL 10/29/20 21:00 11/28/20 20:59 11/01/20 21:36 Clonidine HCl (Catapres Tab) 0.1 mg Q4H PRN ORAL BP over 160 systolic 10/28/20 12:30 01/26/21 12:29 10/29/20 12:42 Dextrose (Dextrose 50%) 25 ml Q30M PRN IV Hypoglycemia 10/30/20 12:30 01/28/21 12:29 Dextrose (Dextrose 50%) 50 ml Q30M PRN IV Hypoglycemia 10/30/20 12:30 01/28/21 12:29 Docusate Sodium (Colace) 100 mg THREE TIMES A DAY ORAL 10/26/20 13:00 11/25/20 12:59 11/01/20 17:36 Folic Acid (Folate) 1 mg DAILY ORAL 10/27/20 09:00 11/26/20 08:59 11/01/20 08:52 Furosemide (Lasix) 40 mg DAILY ORAL 10/28/20 09:00 11/27/20 08:59 11/01/20 08:53 Guaifenesin/ Dextromethorphan (Robitussin DM Syrup) 10 ml Q4H PRN ORAL For Cough 10/26/20 08:00 01/24/21 07:59 10/26/20 08:30 Hydralazine HCl (Apresoline) 100 mg Q8HR ORAL 10/29/20 14:00 01/27/21 13:59 11/02/20 05:46 Insulin Aspart (NovoLOG) BEFORE MEALS AND HS SUBQ 10/30/20 16:30 01/28/21 16:29 11/01/20 21:48 Insulin Aspart (NovoLOG) 4 units NOVOTIAC SUBQ 11/02/20 11:50 01/28/21 11:49 UNV Insulin Detemir (Levemir) 12 units DAILY SUBQ 11/02/20 09:00 01/28/21 09:44 UNV Levothyroxine Sodium (Synthroid) 25 mcg DAILY@0630 ORAL 10/27/20 06:30 11/26/20 06:29 11/02/20 05:47 Nitroglycerin (Ntg) 1 patch Q24H TDERMAL 10/24/20 20:15 11/23/20 20:14 11/01/20 21:37 Pantoprazole (Protonix) 40 mg DAILY ORAL 10/27/20 09:00 11/26/20 08:59 11/01/20 08:54 Last 24 Hour Vital Signs Date Time Temp Pulse Resp B/P (MAP) Pulse Ox O2 Delivery O2 Flow Rate FiO2 11/02/20 05:46 124/68 11/02/20 04:00 97.3 64 20 124/68 (86) 97 11/02/20 04:00 64 11/02/20 00:00 69 11/02/20 00:00 98.0 74 20 117/64 (81) 100 11/01/20 21:37 156/76 11/01/20 21:37 156/76 11/01/20 21:36 62 156/76 11/01/20 21:00 Nasal Cannula 2.0 11/01/20 20:00 73 11/01/20 20:00 97.7 62 20 156/76 (102) 100 11/01/20 16:00 97.8 71 20 147/85 (105) 98 11/01/20 16:00 65 11/01/20 13:40 135/70 11/01/20 12:00 97.8 72 20 146/80 (102) 98 11/01/20 12:00 71 11/01/20 09:00 Nasal Cannula 2.0 11/01/20 08:54 70 105/60 11/01/20 08:54 70 105/60 11/01/20 08:00 97.7 61 20 123/60 (81) 98 11/01/20 08:00 60 11/01/20 06:56 98/51 11/01/20 04:00 60 11/01/20 04:00 97.1 67 18 142/75 (97) 99 11/01/20 00:00 63 11/01/20 00:00 97.5 69 16 98/51 (67) 99 10/31/20 21:37 141/67 10/31/20 21:36 70 141/67 10/31/20 21:00 Nasal Cannula 2.0 10/31/20 20:15 141/67 10/31/20 20:00 68 10/31/20 20:00 97.5 70 18 141/67 (91) 100 10/31/20 16:00 97.6 67 20 122/72 (89) 97 10/31/20 16:00 65 10/31/20 14:00 122/72 10/31/20 14:00 122/72 10/31/20 12:00 70 10/31/20 12:00 97.2 68 20 147/79 (101) 97 10/31/20 09:00 Nasal Cannula 2.0 10/31/20 08:42 71 161/76 10/31/20 08:41 71 161/76 10/31/20 08:00 69 10/31/20 08:00 97.9 71 20 161/76 (104) 98 Intake and Output 11/01/20 11/02/20 19:00 07:00 Intake Total 800 ml Output Total 1950 ml Balance -1150 ml Intake Oral 800 ml Output Urine Total 1950 ml # Voids 3 3 Labs Test 10/30/20 07:35 10/30/20 16:22 10/31/20 06:50 10/31/20 07:29 White Blood Count 5.8 K/UL (4.8-10.8) 6.0 K/UL (4.8-10.8) Red Blood Count 3.22 M/UL (4.70-6.10) 3.07 M/UL (4.70-6.10) Hemoglobin 8.4 G/DL (14.2-18.0) 8.1 G/DL (14.2-18.0) Hematocrit 26.8 % (42.0-52.0) 25.7 % (42.0-52.0) Mean Corpuscular Volume 83 FL (80-99) 84 FL (80-99) Mean Corpuscular Hemoglobin 26.1 PG (27.0-31.0) 26.5 PG (27.0-31.0) Mean Corpuscular Hemoglobin Concent 31.3 G/DL (32.0-36.0) 31.7 G/DL (32.0-36.0) Red Cell Distribution Width 14.1 % (11.6-14.8) 14.4 % (11.6-14.8) Platelet Count 214 K/UL (150-450) 231 K/UL (150-450) Mean Platelet Volume 9.2 FL (6.5-10.1) 9.1 FL (6.5-10.1) Neutrophils (%) (Auto) 68.4 % (45.0-75.0) 63.3 % (45.0-75.0) Lymphocytes (%) (Auto) 14.5 % (20.0-45.0) 18.5 % (20.0-45.0) Monocytes (%) (Auto) 8.8 % (1.0-10.0) 8.9 % (1.0-10.0) Eosinophils (%) (Auto) 7.7 % (0.0-3.0) 8.5 % (0.0-3.0) Basophils (%) (Auto) 0.5 % (0.0-2.0) 0.8 % (0.0-2.0) POC Whole Blood Glucose 356 MG/DL (74-106) 117 MG/DL (74-106) Sodium Level 141 MMOL/L (136-145) Potassium Level 3.2 MMOL/L (3.5-5.1) Chloride Level 103 MMOL/L (98-107) Carbon Dioxide Level 28 MMOL/L (21-32) Anion Gap 10 mmol/L (5-15) Blood Urea Nitrogen 51 mg/dL (7-18) Creatinine 1.9 MG/DL (0.55-1.30) Estimat Glomerular Filtration Rate 35.5 mL/min (>60) Glucose Level 107 MG/DL (74-106) Uric Acid 4.4 MG/DL (2.6-7.2) Calcium Level 8.8 MG/DL (8.5-10.1) Phosphorus Level 5.0 MG/DL (2.5-4.9) Magnesium Level 2.5 MG/DL (1.8-2.4) Total Bilirubin 0.1 MG/DL (0.2-1.0) Aspartate Amino Transf (AST/SGOT) 17 U/L (15-37) Alanine Aminotransferase (ALT/SGPT) 19 U/L (12-78) Alkaline Phosphatase 137 U/L (46-116) C-Reactive Protein, Quantitative < 0.4 mg/dL (0.00-0.90) Pro-B-Type Natriuretic Peptide 5604 pg/mL (0-125) Total Protein 6.3 G/DL (6.4-8.2) Albumin 2.5 G/DL (3.4-5.0) Globulin 3.8 g/dL Albumin/Globulin Ratio 0.7 (1.0-2.7) Test 10/31/20 16:22 10/31/20 21:46 11/01/20 04:40 11/01/20 04:46 POC Whole Blood Glucose 294 MG/DL (74-106) 201 MG/DL (74-106) 21 MG/DL (74-106) 270 MG/DL (74-106) Test 11/01/20 05:12 11/01/20 08:40 POC Whole Blood Glucose 106 MG/DL (74-106) White Blood Count 6.9 K/UL (4.8-10.8) Red Blood Count 3.45 M/UL (4.70-6.10) Hemoglobin 9.0 G/DL (14.2-18.0) Hematocrit 29.4 % (42.0-52.0) Mean Corpuscular Volume 85 FL (80-99) Mean Corpuscular Hemoglobin 26.2 PG (27.0-31.0) Mean Corpuscular Hemoglobin Concent 30.7 G/DL (32.0-36.0) Red Cell Distribution Width 16.0 % (11.6-14.8) Platelet Count 220 K/UL (150-450) Mean Platelet Volume 9.0 FL (6.5-10.1) Neutrophils (%) (Auto) 76.0 % (45.0-75.0) Lymphocytes (%) (Auto) 12.0 % (20.0-45.0) Monocytes (%) (Auto) 7.6 % (1.0-10.0) Eosinophils (%) (Auto) 3.8 % (0.0-3.0) Basophils (%) (Auto) 0.8 % (0.0-2.0) D-Dimer 1.83 mg/L FEU (0.00-0.49) Height (Feet): 5 Height (Inches): 4.00 Weight (Pounds): 150 Objective Physical Exam: GENERAL: vitals are noted HEENT: ++ JVD. No meningismus. No thyromegal RESP: Tachypneic. Coarse breath sounds bilaterally. CARDIAC: Left chest incision is clean, dry, intact. ABDOMEN: Soft. Nondistended nt MSK: Normal muscle tone, without rigidity. SKIN: Linear burrows to the anterior NEUROLOGIC: Alert, oriented x3. Psych: Normal mood and affect Andre Ness MD Nov 02, 2020 06:34
--- NOTE | 2020-11-02 07:00 | NUR ---
NURSE HAND-OFF REPORT: Important Events on Shift:[] Patient Status: [] Diet: [] Pending Orders: [] Pending Results/Labs:[] Pending MD notification:[] Latest Vital Signs: Temperature 97.3 , Pulse 64 , B/P 124 /68 , Respiratory Rate 20 , O2 SAT 97 , Room Air, O2 Flow Rate 2.0 . Vital Sign Comment: [] EKG Rhythm: Sinus Rhythm Rhythm change?: N MD Notified?: Yomi Aguillon MD Response: Latest Barber Fall Score: 45 Fall Risk: High Risk Safety Measures: Call light Within Reach, Bed Alarm Zone 2, Side Rails Side Rails x2, Bed position Low and Locked. Fall Precautions: Patient Fall Education Report given to [].
[2020-11-02 07:45] LABS: HEMATOCRIT 25.3 % (42.0-52.0); HEMOGLOBIN 7.9 G/DL (14.2-18.0); MEAN CORPUSCULAR VOLUME 84 FL (80-99); PLATELET COUNT 199 K/UL (150-450); RED CELL DISTRIBUTION WIDTH 15.8 % (11.6-14.8); WHITE BLOOD COUNT 5.5 K/UL (4.8-10.8)
--- NOTE | 2020-11-02 08:08 | NUR ---
NURSE NOTES: Patient seen in bed in semi fowlers position with no acute signs of distress and no complaints of pain 0/10. The patient is has a nasal cannula 2L with oxygen saturation within normal limits. The patient has a 20G Iv that is clean, patent intact and saline locked. The patients bed is in lowest position, locked, side rails x2 and call light within reach.
[2020-11-02 08:12] LABS: ALBUMIN 2.3 G/DL (3.4-5.0); ALBUMIN/GLOBULIN RATIO 0.6 (1.0-2.7); BILIRUBIN,TOTAL 0.2 MG/DL (0.2-1.0); CALCIUM 8.5 MG/DL (8.5-10.1); CREATININE 1.9 MG/DL (0.55-1.30); PHOSPHORUS 5.7 MG/DL (2.5-4.9); POTASSIUM 3.6 MMOL/L (3.5-5.1)
--- NOTE | 2020-11-02 08:12 | Cardiac Electrophysiology PN ---
Assessment/Plan Assessment/Plan 1. S/P DDD St Ace Pacer implant. Interrogated and showed Nl Fx 2. CHF exacerbation EF 45% on Lasix 40 po daily, Coreg 6.25 bid and Hydralazine 100 tid Increase Coreg to 25 bid and decrease hydralazine to 50 bid and add Isordil 10 bid 3. HTN. Continue current CHF meds. On prn Clonidine 4. Hypoxemic respiratory failure due to CHF and Pneumonia - Rapid COVID-19 negative (10/25) - CXR Right lower lobe effusion versus pneumonia - On antibiotics per ID - Currently saturating well on 2 L nasal cannula 5. VIJAY BUN/Cr Cr now 1.9 6. Right pleural effusion, consider thoracentesis if effusion enlarges and becomes symptomatic 7. Scabies, s/p permethrin 8. Severe Anemia Hb 7.7 DW RN Subjective Subjective No CP or SOB. On NAsal cannula St Ace pacer interrogated and showed Nl Fx. Objective Last 24 Hour Vital Signs Date Time Temp Pulse Resp B/P (MAP) Pulse Ox O2 Delivery O2 Flow Rate FiO2 11/02/20 05:46 124/68 11/02/20 04:00 97.3 64 20 124/68 (86) 97 11/02/20 04:00 64 11/02/20 00:00 69 11/02/20 00:00 98.0 74 20 117/64 (81) 100 11/01/20 21:37 156/76 11/01/20 21:37 156/76 11/01/20 21:36 62 156/76 11/01/20 21:00 Nasal Cannula 2.0 11/01/20 20:00 73 11/01/20 20:00 97.7 62 20 156/76 (102) 100 11/01/20 16:00 97.8 71 20 147/85 (105) 98 11/01/20 16:00 65 11/01/20 13:40 135/70 11/01/20 12:00 97.8 72 20 146/80 (102) 98 11/01/20 12:00 71 11/01/20 09:00 Nasal Cannula 2.0 11/01/20 08:54 70 105/60 11/01/20 08:54 70 105/60 Intake and Output 11/01/20 11/02/20 19:00 07:00 Intake Total 800 ml Output Total 1950 ml Balance -1150 ml Intake Oral 800 ml Output Urine Total 1950 ml # Voids 3 3 Laboratory Tests Test 11/01/20 08:40 11/02/20 06:55 White Blood Count 6.9 K/UL (4.8-10.8) 5.5 K/UL (4.8-10.8) Red Blood Count 3.45 M/UL (4.70-6.10) L 3.00 M/UL (4.70-6.10) L Hemoglobin 9.0 G/DL (14.2-18.0) L 7.9 G/DL (14.2-18.0) L Hematocrit 29.4 % (42.0-52.0) L 25.3 % (42.0-52.0) L Mean Corpuscular Volume 85 FL (80-99) 84 FL (80-99) Mean Corpuscular Hemoglobin 26.2 PG (27.0-31.0) L 26.4 PG (27.0-31.0) L Mean Corpuscular Hemoglobin Concent 30.7 G/DL (32.0-36.0) L 31.3 G/DL (32.0-36.0) L Red Cell Distribution Width 16.0 % (11.6-14.8) H 15.8 % (11.6-14.8) H Platelet Count 220 K/UL (150-450) 199 K/UL (150-450) Mean Platelet Volume 9.0 FL (6.5-10.1) 9.8 FL (6.5-10.1) Neutrophils (%) (Auto) 76.0 % (45.0-75.0) H % (45.0-75.0) Lymphocytes (%) (Auto) 12.0 % (20.0-45.0) L % (20.0-45.0) Monocytes (%) (Auto) 7.6 % (1.0-10.0) % (1.0-10.0) Eosinophils (%) (Auto) 3.8 % (0.0-3.0) H % (0.0-3.0) Basophils (%) (Auto) 0.8 % (0.0-2.0) % (0.0-2.0) D-Dimer 1.83 mg/L FEU (0.00-0.49) H Neutrophils % (Manual) Pending Lymphocytes % (Manual) Pending Platelet Estimate Pending Platelet Morphology Pending Sodium Level Pending Potassium Level Pending Chloride Level Pending Carbon Dioxide Level Pending Blood Urea Nitrogen Pending Creatinine Pending Estimat Glomerular Filtration Rate Pending Glucose Level Pending Calcium Level Pending Phosphorus Level Pending Magnesium Level Pending Total Bilirubin Pending Aspartate Amino Transf (AST/SGOT) Pending Alanine Aminotransferase (ALT/SGPT) Pending Alkaline Phosphatase Pending Total Protein Pending Albumin Pending Globulin Pending Objective General Appearance: no acute distress HEENT: atraumatic Respiratory: other - coarse breath sounds Cardiovascular: RRR. Pacer left subclavian Abdomen: soft, non tender Jamal Cisneros MD Nov 02, 2020 08:12
[2020-11-02] MEDS ORDERED: Aspirin EC 81mg tab ORAL SCH (09:00)
[2020-11-02] MEDS ORDERED: Levemir Flexpen SUBQ SCH (09:00)
[2020-11-02] MEDS: Docusate 100mg cap ORAL SCH ×3 (09:12→17:17)
[2020-11-02] MEDS: Furosemide 40mg tab ORAL SCH (09:13)
[2020-11-02] MEDS: Carvedilol 25mg Tab ORAL SCH ×2 (09:13→20:35)
[2020-11-02] MEDS: Allopurinol 100mg Tab ORAL SCH (09:14)
--- NOTE | 2020-11-02 09:16 | Pulmonology Progress Note ---
Subjective ROS Limited/Unobtainable: Yes Interval Events: Hgb 7.9 this AM -> awaiting transfusion Constitutional: Denies: fever HEENT: Repors: no symptoms Respiratory: Reports: no symptoms Cardiovascular: Reports: no symptoms Gastrointestinal/Abdominal: Reports: no symptoms Psychiatric: Reports: other - hallucination, visual Skin: Reports: other - itching Allergies: Coded Allergies: No Known Allergies (Unverified , 10/24/20) All Systems: reviewed and negative except above Objective Last 24 Hour Vital Signs Date Time Temp Pulse Resp B/P (MAP) Pulse Ox O2 Delivery O2 Flow Rate FiO2 11/02/20 05:46 124/68 11/02/20 04:00 97.3 64 20 124/68 (86) 97 11/02/20 04:00 64 11/02/20 00:00 69 11/02/20 00:00 98.0 74 20 117/64 (81) 100 11/01/20 21:37 156/76 11/01/20 21:37 156/76 11/01/20 21:36 62 156/76 11/01/20 21:00 Nasal Cannula 2.0 11/01/20 20:00 73 11/01/20 20:00 97.7 62 20 156/76 (102) 100 11/01/20 16:00 97.8 71 20 147/85 (105) 98 11/01/20 16:00 65 11/01/20 13:40 135/70 11/01/20 12:00 97.8 72 20 146/80 (102) 98 11/01/20 12:00 71 Intake and Output 11/01/20 11/02/20 19:00 07:00 Intake Total 800 ml Output Total 1950 ml Balance -1150 ml Intake Oral 800 ml Output Urine Total 1950 ml # Voids 3 3 General Appearance: no acute distress HEENT: atraumatic Respiratory: other - coase breath sounds Cardiovascular: normal rate Abdomen: soft, non tender Laboratory Tests 11/02/20 06:55: White Blood Count 5.5, Red Blood Count 3.00L, Hemoglobin 7.9L, Hematocrit 25.3L, Mean Corpuscular Volume 84, Mean Corpuscular Hemoglobin 26.4L, Mean Corpuscular Hemoglobin Concent 31.3L, Red Cell Distribution Width 15.8H, Platelet Count 199, Mean Platelet Volume 9.8, Neutrophils (%) (Auto) , Lymphocytes (%) (Auto) , Monocytes (%) (Auto) , Eosinophils (%) (Auto) , Basophils (%) (Auto) , Neutrophils % (Manual) [Pending], Lymphocytes % (Manual) [Pending], Platelet Estimate [Pending], Platelet Morphology [Pending], Sodium Level 142, Potassium Level 3.6, Chloride Level 106, Carbon Dioxide Level 29, Anion Gap 7, Blood Urea Nitrogen 54H, Creatinine 1.9H, Estimat Glomerular Filtration Rate 35.5, Glucose Level 103, Calcium Level 8.5, Phosphorus Level 5.7H, Magnesium Level 2.8H, Total Bilirubin 0.2, Aspartate Amino Transf (AST/SGOT) 19, Alanine Aminotransferase (ALT/SGPT) 23, Alkaline Phosphatase 120H, Total Protein 5.9L, Albumin 2.3L, Globulin 3.6, Albumin/Globulin Ratio 0.6L Current Medications Medications (Trade) Dose Ordered Sig/Jermaine Route PRN Reason Start Time Stop Time Status Last Admin Dose Admin Acetaminophen (Tylenol) 500 mg EVERY 4 HOURS PRN ORAL For Pain 10/25/20 00:00 11/24/20 00:00 Allopurinol (Zyloprim) 200 mg DAILY ORAL 10/26/20 12:45 11/25/20 12:44 11/01/20 08:53 Aspirin (Ecotrin) 81 mg DAILY ORAL 11/02/20 09:00 12/17/20 08:59 Carvedilol (Coreg) 25 mg EVERY 12 HOURS ORAL 11/02/20 09:00 12/02/20 08:59 Clonidine HCl (Catapres Tab) 0.1 mg Q4H PRN ORAL BP over 160 systolic 10/28/20 12:30 01/26/21 12:29 10/29/20 12:42 Dextrose (Dextrose 50%) 25 ml Q30M PRN IV Hypoglycemia 10/30/20 12:30 01/28/21 12:29 Dextrose (Dextrose 50%) 50 ml Q30M PRN IV Hypoglycemia 10/30/20 12:30 01/28/21 12:29 Docusate Sodium (Colace) 100 mg THREE TIMES A DAY ORAL 10/26/20 13:00 11/25/20 12:59 11/01/20 17:36 Folic Acid (Folate) 1 mg DAILY ORAL 10/27/20 09:00 11/26/20 08:59 11/01/20 08:52 Furosemide (Lasix) 40 mg DAILY ORAL 10/28/20 09:00 11/27/20 08:59 11/01/20 08:53 Guaifenesin/ Dextromethorphan (Robitussin DM Syrup) 10 ml Q4H PRN ORAL For Cough 10/26/20 08:00 01/24/21 07:59 10/26/20 08:30 Hydralazine HCl (Apresoline) 50 mg Q12HR ORAL 11/02/20 21:00 01/31/21 20:59 Insulin Aspart (NovoLOG) BEFORE MEALS AND HS SUBQ 10/30/20 16:30 01/28/21 16:29 11/01/20 21:48 Insulin Aspart (NovoLOG) 4 units NOVOTIAC SUBQ 11/02/20 11:50 01/28/21 11:49 Insulin Detemir (Levemir) 12 units DAILY SUBQ 11/02/20 09:00 01/28/21 09:44 Isosorbide Dinitrate (Isordil) 10 mg BID ORAL 11/02/20 09:00 12/02/20 08:59 Levothyroxine Sodium (Synthroid) 25 mcg DAILY@0630 ORAL 10/27/20 06:30 11/26/20 06:29 11/02/20 05:47 Nitroglycerin (Ntg) 1 patch Q24H TDERMAL 10/24/20 20:15 11/23/20 20:14 11/01/20 21:37 Pantoprazole (Protonix) 40 mg DAILY ORAL 10/27/20 09:00 11/26/20 08:59 11/01/20 08:54 Assessment/Plan Assessment/Plan 1. Scabies, treated -Contact precaution - s/p permethrin 2. Hypoxemic respiratory failure on admission -Currently saturating well on 2L NC; wean as tolerated - s/p Decadron in ER 3. VIJAY -Monitor renal parameters -IV fluids 4. ? Pneumonia - Rapid COVID-19 negative (10/25) - CXR Right lower lobe effusion versus pneumonia -On antibiotics per ID 5. Right pleural effusion -Monitor effusion; consider thoracentesis if effusion enlarges and becomes symptomatic 6. CHF exacerbation - Elevated BNP - on Lasix -Cardio following 7. Normocytic anemia - on IV iron - transfuse prn per heme 8. DVT ppx - on SCDs - elevated D-dimer -> venous duplex US of legs negative for DVT - f/u D-dimer (11/01) pending 9. Aphasia - neuro following - CT brain noted 10. Anemia - Hgb 7.9 -> awaiting transfusion (11/02) The care for this patient was discussed with my supervising physician. Time spent for this case was approximately 31 minutes. Best Brandon Nov 02, 2020 09:16
--- NOTE | 2020-11-02 10:16 | Neurology Progress Note ---
Interim History Interim History ROS Limited/Unobtainable: Yes Events: pt resting in bed Objective Physical Exam Last Vital Signs Date Time Temp Pulse Resp B/P (MAP) Pulse Ox O2 Delivery O2 Flow Rate FiO2 11/02/20 09:13 71 138/66 11/02/20 09:00 Nasal Cannula 1.0 11/02/20 08:00 96.8 20 95 Laboratory Tests Test 11/02/20 06:55 White Blood Count 5.5 K/UL (4.8-10.8) Red Blood Count 3.00 M/UL (4.70-6.10) L Hemoglobin 7.9 G/DL (14.2-18.0) L Hematocrit 25.3 % (42.0-52.0) L Mean Corpuscular Volume 84 FL (80-99) Mean Corpuscular Hemoglobin 26.4 PG (27.0-31.0) L Mean Corpuscular Hemoglobin Concent 31.3 G/DL (32.0-36.0) L Red Cell Distribution Width 15.8 % (11.6-14.8) H Platelet Count 199 K/UL (150-450) Mean Platelet Volume 9.8 FL (6.5-10.1) Neutrophils (%) (Auto) % (45.0-75.0) Lymphocytes (%) (Auto) % (20.0-45.0) Monocytes (%) (Auto) % (1.0-10.0) Eosinophils (%) (Auto) % (0.0-3.0) Basophils (%) (Auto) % (0.0-2.0) Differential Total Cells Counted 100 Neutrophils % (Manual) 64 % (45-75) Lymphocytes % (Manual) 20 % (20-45) Monocytes % (Manual) 8 % (1-10) Eosinophils % (Manual) 6 % (0-3) H Basophils % (Manual) 0 % (0-2) Band Neutrophils 2 % (0-8) Platelet Estimate Adequate Platelet Morphology Normal Hypochromasia 1+ Anisocytosis 1+ Sodium Level 142 MMOL/L (136-145) Potassium Level 3.6 MMOL/L (3.5-5.1) Chloride Level 106 MMOL/L (98-107) Carbon Dioxide Level 29 MMOL/L (21-32) Anion Gap 7 mmol/L (5-15) Blood Urea Nitrogen 54 mg/dL (7-18) H Creatinine 1.9 MG/DL (0.55-1.30) H Estimat Glomerular Filtration Rate 35.5 mL/min (>60) Glucose Level 103 MG/DL (74-106) Calcium Level 8.5 MG/DL (8.5-10.1) Phosphorus Level 5.7 MG/DL (2.5-4.9) H Magnesium Level 2.8 MG/DL (1.8-2.4) H Total Bilirubin 0.2 MG/DL (0.2-1.0) Aspartate Amino Transf (AST/SGOT) 19 U/L (15-37) Alanine Aminotransferase (ALT/SGPT) 23 U/L (12-78) Alkaline Phosphatase 120 U/L (46-116) H Total Protein 5.9 G/DL (6.4-8.2) L Albumin 2.3 G/DL (3.4-5.0) L Globulin 3.6 g/dL Albumin/Globulin Ratio 0.6 (1.0-2.7) L Neurologic Exam Objective PHYSICAL EXAMINATION: VS reviewed BP elevated General Awake alert oriented eating lunch in bed NEURO:The patient is oriented to self he knows he is in the hospital has insight to situation. Language parameter is intact speaks [place]. Cranial nerves II-XII tested PERRLA, No nystagmus, No facial droop, tongue is midline. Hearing is intact. Motor: No involuntary movements, upper bialt extremities are strong 4/5 and bialat lower extremities strength is 4/5 Gait not tested. Sensation intact. Coordination intact. Impression/Recommendations Status: progressing Diagnostic Impression LABORATORY AND DIAGNOSTIC DATA: white count of 8.4, hemoglobin of 8.4, hematocrit of 27.4, and platelet count of 359,000. Sodium 142, potassium is 5, BUN of 44, creatinine 1.8, and glucose of 127. BNP 3346. IMAGING: CT Head: No evidence of acute intracranial hemorrhage, mass effect or cortical edema. MRI may be obtained for more sensitive evaluation as clinically indicated. Atrophy and nonspecific periventricular hypoattenuation suggestive of chronic ischemic microvascular changes. ASSESSMENT AND PLAN: 1. Aphasia --> Will need to get MRI Brain for stroke evaluation but has Pacemaker implant --> we will order CT brain instead revealed: No evidence of acute intracranial hemorrhage, mass effect or cortical edema. MRI may be obtained for more sensitive evaluation as clinically indicated. Atrophy and nonspecific periventricular hypoattenuation suggestive of chronic ischemic microvascular changes. --> total cholesterol 155, ordered ASA based on no acute findings on CT head --> he stated he possibly had a stroke 5 years ago, no complete records. 2. Generalized Weakness --> order PT 3. Congestive heart failure with BNP of more than 3300. --> per cards 4. Status post dual-chamber pacemaker 5. Hypertension. 6. Elevated alkaline phosphate and LDH. Thank you for allowing us to participate in patient's care plan of care was discussed with Dr. Shen Pierce and he agrees. Marlena Edmonds NP Nov 02, 2020 10:16
--- NOTE | 2020-11-02 10:58 | NUR ---
RD ASSESSMENT & RECOMMENDATIONS SEE CARE ACTIVITY FOR COMPLETE ASSESSMENT DAILY ESTIMATED NEEDS: Needs based on CHF, ARF, DM/56.5kg 25-30 kcals/kg [id number] total kcals 1-1.5 g protein/kg 57-85 g total protein Fluid per MD, on lasix NUTRITION DIAGNOSIS: Altered nutrition related lab values R/T CHF, diabetes, ARF as evidenced by elev BNP (5325), elev BGs (358 254 204), elev creat (1.6), elev phos (5.2,5.9, 6.5). CURRENT DIET:now Low Chol / puree PO DIET RECOMMENDATIONS: LOW NA, LOW PHOS, CCHO Low/ texture as tolerated ADDITIONAL RECOMMENDATIONS: * Calibrated bedscale wt * Carb controlled diet and NISS * Monitor Phos levels, consider phos binders w/ continued elev phos levels * Monitor lytes closely w/ diuretics, replete as needed * Obtain a standing weight to verify HT and obtain accurate HT
--- NOTE | 2020-11-02 11:25 | General Progress Note ---
Subjective ROS Limited/Unobtainable: Yes Allergies: Coded Allergies: No Known Allergies (Unverified , 10/24/20) Objective Last 24 Hour Vital Signs Date Time Temp Pulse Resp B/P (MAP) Pulse Ox O2 Delivery O2 Flow Rate FiO2 11/02/20 09:13 71 138/66 11/02/20 09:12 138/61 11/02/20 09:00 Nasal Cannula 1.0 11/02/20 08:00 72 11/02/20 08:00 96.8 71 20 138/66 (90) 95 11/02/20 05:46 124/68 11/02/20 04:00 97.3 64 20 124/68 (86) 97 11/02/20 04:00 64 11/02/20 00:00 69 11/02/20 00:00 98.0 74 20 117/64 (81) 100 11/01/20 21:37 156/76 11/01/20 21:37 156/76 11/01/20 21:36 62 156/76 11/01/20 21:00 Nasal Cannula 2.0 11/01/20 20:00 73 11/01/20 20:00 97.7 62 20 156/76 (102) 100 11/01/20 16:00 97.8 71 20 147/85 (105) 98 11/01/20 16:00 65 11/01/20 13:40 135/70 11/01/20 12:00 97.8 72 20 146/80 (102) 98 11/01/20 12:00 71 Intake and Output 11/01/20 11/02/20 19:00 07:00 Intake Total 800 ml Output Total 1950 ml Balance -1150 ml Intake Oral 800 ml Output Urine Total 1950 ml # Voids 3 3 Laboratory Tests 11/02/20 06:55: White Blood Count 5.5, Red Blood Count 3.00L, Hemoglobin 7.9L, Hematocrit 25.3L, Mean Corpuscular Volume 84, Mean Corpuscular Hemoglobin 26.4L, Mean Corpuscular Hemoglobin Concent 31.3L, Red Cell Distribution Width 15.8H, Platelet Count 199, Mean Platelet Volume 9.8, Neutrophils (%) (Auto) , Lymphocytes (%) (Auto) , Monocytes (%) (Auto) , Eosinophils (%) (Auto) , Basophils (%) (Auto) , Differential Total Cells Counted 100, Neutrophils % (Manual) 64, Lymphocytes % (Manual) 20, Monocytes % (Manual) 8, Eosinophils % (Manual) 6H, Basophils % (Manual) 0, Band Neutrophils 2, Platelet Estimate Adequate, Platelet Morphology Normal, Hypochromasia 1+, Anisocytosis 1+, Sodium Level 142, Potassium Level 3.6, Chloride Level 106, Carbon Dioxide Level 29, Anion Gap 7, Blood Urea Nitrogen 54H, Creatinine 1.9H, Estimat Glomerular Filtration Rate 35.5, Glucose Level 103, Calcium Level 8.5, Phosphorus Level 5.7H, Magnesium Level 2.8H, Total Bilirubin 0.2, Aspartate Amino Transf (AST/SGOT) 19, Alanine Aminotransferase (ALT/SGPT) 23, Alkaline Phosphatase 120H, Total Protein 5.9L, Albumin 2.3L, Globulin 3.6, Albumin/Globulin Ratio 0.6L Height (Feet): 5 Height (Inches): 4.00 Weight (Pounds): 150 Assessment/Plan Problem List: (1) Scabies ICD Codes: B86 - Scabies SNOMED: 570509992, 12554726 (2) CAD (coronary artery disease) ICD Codes: I25.10 - Atherosclerotic heart disease of [place] coronary artery without angina pectoris SNOMED: 29450512, 13086305 (3) Pneumonia ICD Codes: J18.9 - Pneumonia, unspecified organism SNOMED: 603095407, 4430173 (4) Pacemaker ICD Codes: Z95.0 - Presence of cardiac pacemaker SNOMED: 091839692, 61255903 (5) VIJAY (acute kidney injury) ICD Codes: N17.9 - Acute kidney failure, unspecified SNOMED: 36558596, 3458528 (6) Shortness of breath ICD Codes: R06.02 - Shortness of breath SNOMED: 354971330 (7) CHF exacerbation ICD Codes: I50.9 - Heart failure, unspecified SNOMED: 065687589, 21622864195376 (8) Hypoxia ICD Codes: R09.02 - Hypoxemia SNOMED: 624571510 Status: progressing Assessment/Plan: chf improving anemia azotemia arrythmia no sob reviewed chart and labs Jose Aguillon MD Nov 02, 2020 11:25
--- NOTE | 2020-11-02 12:01 | Infectious Diseases Prog Note ---
Assessment/Plan Assessment/Plan IMPRESSION: Positive blood culture; likely contamination Possible pneumonia, COVID19 test: negative Hypoxemic respiratory failure, Scabies,treated Diabetes mellitus, periods of hypoglycemia Hypertension, Anemia, Hypothyroidism, Acute renal failure. CHF, likely ischemic cardiomyopathy RECOMMENDATION: Observe off antibiotic Subjective ROS Limited/Unobtainable: Yes Constitutional: Reports: no symptoms Respiratory: Reports: no symptoms Cardiovascular: Reports: no symptoms Allergies: Coded Allergies: No Known Allergies (Unverified , 10/24/20) Objective Last 24 Hour Vital Signs Date Time Temp Pulse Resp B/P (MAP) Pulse Ox O2 Delivery O2 Flow Rate FiO2 11/02/20 09:13 71 138/66 11/02/20 09:12 138/61 11/02/20 09:00 Nasal Cannula 1.0 11/02/20 08:00 72 11/02/20 08:00 96.8 71 20 138/66 (90) 95 11/02/20 05:46 124/68 11/02/20 04:00 97.3 64 20 124/68 (86) 97 11/02/20 04:00 64 11/02/20 00:00 69 11/02/20 00:00 98.0 74 20 117/64 (81) 100 11/01/20 21:37 156/76 11/01/20 21:37 156/76 11/01/20 21:36 62 156/76 11/01/20 21:00 Nasal Cannula 2.0 11/01/20 20:00 73 11/01/20 20:00 97.7 62 20 156/76 (102) 100 11/01/20 16:00 97.8 71 20 147/85 (105) 98 11/01/20 16:00 65 11/01/20 13:40 135/70 Height (Feet): 5 Height (Inches): 4.00 Weight (Pounds): 150 HEENT: mucous membranes moist Respiratory/Chest: lungs clear Cardiovascular: normal rate Abdomen: soft, non tender Extremities: no edema Neurologic/Psychiatric: alert, responsive Laboratory Tests Test 11/02/20 06:55 White Blood Count 5.5 K/UL (4.8-10.8) Red Blood Count 3.00 M/UL (4.70-6.10) L Hemoglobin 7.9 G/DL (14.2-18.0) L Hematocrit 25.3 % (42.0-52.0) L Mean Corpuscular Volume 84 FL (80-99) Mean Corpuscular Hemoglobin 26.4 PG (27.0-31.0) L Mean Corpuscular Hemoglobin Concent 31.3 G/DL (32.0-36.0) L Red Cell Distribution Width 15.8 % (11.6-14.8) H Platelet Count 199 K/UL (150-450) Mean Platelet Volume 9.8 FL (6.5-10.1) Neutrophils (%) (Auto) % (45.0-75.0) Lymphocytes (%) (Auto) % (20.0-45.0) Monocytes (%) (Auto) % (1.0-10.0) Eosinophils (%) (Auto) % (0.0-3.0) Basophils (%) (Auto) % (0.0-2.0) Differential Total Cells Counted 100 Neutrophils % (Manual) 64 % (45-75) Lymphocytes % (Manual) 20 % (20-45) Monocytes % (Manual) 8 % (1-10) Eosinophils % (Manual) 6 % (0-3) H Basophils % (Manual) 0 % (0-2) Band Neutrophils 2 % (0-8) Platelet Estimate Adequate Platelet Morphology Normal Hypochromasia 1+ Anisocytosis 1+ Sodium Level 142 MMOL/L (136-145) Potassium Level 3.6 MMOL/L (3.5-5.1) Chloride Level 106 MMOL/L (98-107) Carbon Dioxide Level 29 MMOL/L (21-32) Anion Gap 7 mmol/L (5-15) Blood Urea Nitrogen 54 mg/dL (7-18) H Creatinine 1.9 MG/DL (0.55-1.30) H Estimat Glomerular Filtration Rate 35.5 mL/min (>60) Glucose Level 103 MG/DL (74-106) Calcium Level 8.5 MG/DL (8.5-10.1) Phosphorus Level 5.7 MG/DL (2.5-4.9) H Magnesium Level 2.8 MG/DL (1.8-2.4) H Total Bilirubin 0.2 MG/DL (0.2-1.0) Aspartate Amino Transf (AST/SGOT) 19 U/L (15-37) Alanine Aminotransferase (ALT/SGPT) 23 U/L (12-78) Alkaline Phosphatase 120 U/L (46-116) H Total Protein 5.9 G/DL (6.4-8.2) L Albumin 2.3 G/DL (3.4-5.0) L Globulin 3.6 g/dL Albumin/Globulin Ratio 0.6 (1.0-2.7) L Current Medications Medications (Trade) Dose Ordered Sig/Jermaine Route PRN Reason Start Time Stop Time Status Last Admin Dose Admin Acetaminophen (Tylenol) 500 mg EVERY 4 HOURS PRN ORAL For Pain 10/25/20 00:00 11/24/20 00:00 Allopurinol (Zyloprim) 200 mg DAILY ORAL 10/26/20 12:45 11/25/20 12:44 11/02/20 09:14 Aspirin (Ecotrin) 81 mg DAILY ORAL 11/02/20 09:00 12/17/20 08:59 11/02/20 09:13 Carvedilol (Coreg) 25 mg EVERY 12 HOURS ORAL 11/02/20 09:00 12/02/20 08:59 11/02/20 09:13 Clonidine HCl (Catapres Tab) 0.1 mg Q4H PRN ORAL BP over 160 systolic 10/28/20 12:30 01/26/21 12:29 10/29/20 12:42 Dextrose (Dextrose 50%) 25 ml Q30M PRN IV Hypoglycemia 10/30/20 12:30 01/28/21 12:29 Dextrose (Dextrose 50%) 50 ml Q30M PRN IV Hypoglycemia 10/30/20 12:30 01/28/21 12:29 Docusate Sodium (Colace) 100 mg THREE TIMES A DAY ORAL 10/26/20 13:00 11/25/20 12:59 11/02/20 09:12 Folic Acid (Folate) 1 mg DAILY ORAL 10/27/20 09:00 11/26/20 08:59 11/02/20 09:14 Furosemide (Lasix) 40 mg DAILY ORAL 10/28/20 09:00 11/27/20 08:59 11/02/20 09:13 Guaifenesin/ Dextromethorphan (Robitussin DM Syrup) 10 ml Q4H PRN ORAL For Cough 10/26/20 08:00 01/24/21 07:59 10/26/20 08:30 Hydralazine HCl (Apresoline) 50 mg Q12HR ORAL 11/02/20 21:00 01/31/21 20:59 Insulin Aspart (NovoLOG) BEFORE MEALS AND HS SUBQ 10/30/20 16:30 01/28/21 16:29 11/02/20 11:55 Insulin Aspart (NovoLOG) 4 units NOVOTIAC SUBQ 11/02/20 11:50 01/28/21 11:49 11/02/20 11:56 Insulin Detemir (Levemir) 12 units DAILY SUBQ 11/02/20 09:00 01/28/21 09:44 11/02/20 09:16 Isosorbide Dinitrate (Isordil) 10 mg BID ORAL 11/02/20 09:00 12/02/20 08:59 11/02/20 09:12 Levothyroxine Sodium (Synthroid) 25 mcg DAILY@0630 ORAL 10/27/20 06:30 11/26/20 06:29 11/02/20 05:47 Nitroglycerin (Ntg) 1 patch Q24H TDERMAL 10/24/20 20:15 11/23/20 20:14 11/01/20 21:37 Pantoprazole (Protonix) 40 mg DAILY ORAL 10/27/20 09:00 11/26/20 08:59 11/02/20 09:11 Rodolfo Mueller MD Nov 02, 2020 12:01
--- NOTE | 2020-11-02 14:35 | Nephrology Progress Note ---
Assessment/Plan Problem List: (1) Renal failure (ARF), acute on chronic (2) Pacemaker (3) CHF exacerbation (4) Hypoxia (5) CAD (coronary artery disease) (6) Normocytic anemia Assessment Acute renal failure Possible underlying chronic kidney disease Anemia Pneumonia and hypoxia. Right lower lobe effusion versus pneumonia Congestive heart failure exacerbation with ejection fraction of 45% Pacemaker Coronary artery disease Scabies Plan November 02: Labs reviewed. Serum creatinine 1.9. Medication list was reviewed. Continue per consultants. November 01: No CHEM panel drawn today. Will check lab tomorrow. Continue to monitor renal parameters. Per consultants. October 31: Labs reviewed. Serum creatinine up to 1.9. Abnormal electrolytes addressed. Blood sugar is improving. October 30: Labs reviewed. Serum creatinine stable. Blood sugar remains elevated. Blood pressure is also elevated. Norvasc added. Blood sugar medication and insulin adjustment Per Endo. Continue per orders. October 29: Labs reviewed. Serum creatinine 1.6 unchanged. Continue per consultants. October 28: Labs reviewed. Serum creatinine lowering. Hemoglobin low at 7.8. Continue current management. Continue per consultants. Blood pressure medication adjusted. Defer transfusion to invoicing specialist. October 27: Labs reviewed. Medication list reviewed. Continue IV iron. Continue to optimize cardiac status. Continue per consultants. Optimize cardiac status Add folic acid Add Synthroid Add Protonix and stool softeners Change diet to cardiac diet, renal friendly Monitor renal parameters and electrolytes IV Venofer for low iron Monitor CBC and renal parameters Avoid nephrotoxic's Subjective ROS Limited/Unobtainable: No Constitutional: Reports: malaise Objective Objective Last 24 Hour Vital Signs Date Time Temp Pulse Resp B/P (MAP) Pulse Ox O2 Delivery O2 Flow Rate FiO2 11/02/20 12:00 64 11/02/20 12:00 97.5 64 18 103/51 (68) 99 11/02/20 09:13 71 138/66 11/02/20 09:12 138/61 11/02/20 09:00 Nasal Cannula 1.0 11/02/20 08:00 72 11/02/20 08:00 96.8 71 20 138/66 (90) 95 11/02/20 05:46 124/68 11/02/20 04:00 97.3 64 20 124/68 (86) 97 11/02/20 04:00 64 11/02/20 00:00 69 11/02/20 00:00 98.0 74 20 117/64 (81) 100 11/01/20 21:37 156/76 11/01/20 21:37 156/76 11/01/20 21:36 62 156/76 11/01/20 21:00 Nasal Cannula 2.0 11/01/20 20:00 73 11/01/20 20:00 97.7 62 20 156/76 (102) 100 11/01/20 16:00 97.8 71 20 147/85 (105) 98 11/01/20 16:00 65 Intake and Output 11/01/20 11/02/20 19:00 07:00 Intake Total 800 ml Output Total 1950 ml Balance -1150 ml Intake Oral 800 ml Output Urine Total 1950 ml # Voids 3 3 Current Medications Medications (Trade) Dose Ordered Sig/Jermaine Route PRN Reason Start Time Stop Time Status Last Admin Dose Admin Acetaminophen (Tylenol) 500 mg EVERY 4 HOURS PRN ORAL For Pain 10/25/20 00:00 11/24/20 00:00 Allopurinol (Zyloprim) 200 mg DAILY ORAL 10/26/20 12:45 11/25/20 12:44 11/02/20 09:14 Aspirin (Ecotrin) 81 mg DAILY ORAL 11/02/20 09:00 12/17/20 08:59 11/02/20 09:13 Carvedilol (Coreg) 25 mg EVERY 12 HOURS ORAL 11/02/20 09:00 12/02/20 08:59 11/02/20 09:13 Clonidine HCl (Catapres Tab) 0.1 mg Q4H PRN ORAL BP over 160 systolic 10/28/20 12:30 01/26/21 12:29 10/29/20 12:42 Dextrose (Dextrose 50%) 25 ml Q30M PRN IV Hypoglycemia 10/30/20 12:30 01/28/21 12:29 Dextrose (Dextrose 50%) 50 ml Q30M PRN IV Hypoglycemia 10/30/20 12:30 01/28/21 12:29 Docusate Sodium (Colace) 100 mg THREE TIMES A DAY ORAL 10/26/20 13:00 11/25/20 12:59 11/02/20 12:14 Folic Acid (Folate) 1 mg DAILY ORAL 10/27/20 09:00 11/26/20 08:59 11/02/20 09:14 Furosemide (Lasix) 40 mg DAILY ORAL 10/28/20 09:00 11/27/20 08:59 11/02/20 09:13 Guaifenesin/ Dextromethorphan (Robitussin DM Syrup) 10 ml Q4H PRN ORAL For Cough 10/26/20 08:00 01/24/21 07:59 10/26/20 08:30 Hydralazine HCl (Apresoline) 50 mg Q12HR ORAL 11/02/20 21:00 01/31/21 20:59 Insulin Aspart (NovoLOG) BEFORE MEALS AND HS SUBQ 10/30/20 16:30 01/28/21 16:29 11/02/20 11:55 Insulin Aspart (NovoLOG) 4 units NOVOTIAC SUBQ 11/02/20 11:50 01/28/21 11:49 11/02/20 11:56 Insulin Detemir (Levemir) 12 units DAILY SUBQ 11/02/20 09:00 01/28/21 09:44 11/02/20 09:16 Isosorbide Dinitrate (Isordil) 10 mg BID ORAL 11/02/20 09:00 12/02/20 08:59 11/02/20 09:12 Levothyroxine Sodium (Synthroid) 25 mcg DAILY@0630 ORAL 10/27/20 06:30 11/26/20 06:29 11/02/20 05:47 Nitroglycerin (Ntg) 1 patch Q24H TDERMAL 10/24/20 20:15 11/23/20 20:14 11/01/20 21:37 Pantoprazole (Protonix) 40 mg DAILY ORAL 10/27/20 09:00 11/26/20 08:59 11/02/20 09:11 Laboratory Tests 11/02/20 06:55: White Blood Count 5.5, Red Blood Count 3.00L, Hemoglobin 7.9L, Hematocrit 25.3L, Mean Corpuscular Volume 84, Mean Corpuscular Hemoglobin 26.4L, Mean Corpuscular Hemoglobin Concent 31.3L, Red Cell Distribution Width 15.8H, Platelet Count 199, Mean Platelet Volume 9.8, Neutrophils (%) (Auto) , Lymphocytes (%) (Auto) , Monocytes (%) (Auto) , Eosinophils (%) (Auto) , Basophils (%) (Auto) , Differential Total Cells Counted 100, Neutrophils % (Manual) 64, Lymphocytes % ( Manual) 20, Monocytes % (Manual) 8, Eosinophils % (Manual) 6H, Basophils % (Manual) 0, Band Neutrophils 2, Platelet Estimate Adequate, Platelet Morphology Normal, Hypochromasia 1+, Anisocytosis 1+, Sodium Level 142, Potassium Level 3.6 , Chloride Level 106, Carbon Dioxide Level 29, Anion Gap 7, Blood Urea Nitrogen 54H, Creatinine 1.9H, Estimat Glomerular Filtration Rate 35.5, Glucose Level 103, Calcium Level 8.5, Phosphorus Level 5.7H, Magnesium Level 2.8H, Total Bilirubin 0.2, Aspartate Amino Transf (AST/SGOT) 19, Alanine Aminotransferase (ALT/SGPT) 23, Alkaline Phosphatase 120H, Total Protein 5.9L, Albumin 2.3L, Globulin 3.6, Albumin/Globulin Ratio 0.6L Height (Feet): 5 Height (Inches): 4.00 Weight (Pounds): 150 General Appearance: no apparent distress Cardiovascular: normal rate Respiratory/Chest: decreased breath sounds Abdomen: soft, distended Long Ram MD Nov 02, 2020 14:35
--- NOTE | 2020-11-02 19:14 | NUR ---
NURSE HAND-OFF REPORT: Important Events on Shift:[1 Unit PRBCs] Patient Status: [Full code] Diet: [Low cholesterol diet] Pending Orders: [N/A] Pending Results/Labs:[N/A] Pending MD notification:[N/A] Latest Vital Signs: Temperature 97.0 , Pulse 60 , B/P 101 /49 , Respiratory Rate 20 , O2 SAT 97 , Room Air, O2 Flow Rate 1.0 . Vital Sign Comment: [] EKG Rhythm: V-Paced Rhythm change?: N MD Notified?: Yomi Aguillon MD Response: Latest Barber Fall Score: 45 Fall Risk: High Risk Safety Measures: Call light Within Reach, Bed Alarm Zone 2, Side Rails Side Rails x2, Bed position Low and Locked. Fall Precautions: Patient Fall Education Report given to [KURT Bond].
--- NOTE | 2020-11-02 19:50 | NUR ---
NURSE NOTES: received patient alert resting comfortable in bed receiving 1 unit of PRBC. assessment initiated. patient show no signs of distress. no signs of reaction. discussed plan of care. patient understand he will be discharge after the infusion, family already call and will pick patient up. call dumont within reach, will continue to monitor.
[2020-11-02] MEDS: Nitroglycerin Patch 0.1mg/hr TDERMAL SCH (20:36)
--- NOTE | 2020-11-02 20:53 | NUR ---
NURSE NOTES: BS level 69. snacks given and will recheck in 30min and continue to monitor. patient is asymptomatic and receiving PRBC.
[2020-11-02] MEDS ORDERED: HydrALAZINE 50mg tab ORAL SCH (21:00)
--- NOTE | 2020-11-02 21:19 | NUR ---
NURSE NOTES: blood glucose level 153.
--- NOTE | 2020-11-02 21:50 | NUR ---
NURSE NOTES: patient discharge. patient was transfer down via wheelchair accompanied by his and DOCUMENT EXAMINER assisted patient. patient received 1 unit PRBC completed with no signs of reaction. recheck BG level 153. VS before discharge BP 109/56, 97%, HR 64, RR 22, temp 96.2. no signs of distress. heart monitor removed and cleaned. no patient belonging left in the room. had the discharge papers.
--- NOTE | 2020-11-03 13:40 | Discharge Summary ---
Discharge Summary Discharge Summary _ Date of admission: 10/24/2020 Date of discharge: 11/02/[address] Aguillon History of Present Illness and Brief Hospital Course Mr. Brooks is a 65-year-old male with past medical history of diabetes mellitus, hypertension, and CAD s/p pacemaker, who presented to the ED for evaluation of shortness of breath. Patient was a poor historian. Patient also reported orthopnea and dyspnea on exertion. Patient was admitted to the hospital for further management of respiratory distress. Patient also presented with itchy rash to his entire body. Given clinical presentation consistent with scabies, patient was treated with permethrin. Given the hypoxic respiratory failure on admission, patient was started on low- flow oxygen via nasal cannula. Patient also received steroid in the ER. Chest x-ray revealed right [id number] pleural effusion with passive atelectasis. Patient was started on broad-spectrum antibiotics for possible pneumonia coverage. Patient's blood culture came back positive with staph hominis, which was likely due to a contamination. Given the lab finding of normocytic anemia, patient was started on IV iron. Patient was also transfused to keep H&H at a stable level. Given the presentation with aphasia, patient was evaluated by a neurologist. Patient did not qualify for MRI of brain for stroke evaluation due to his pacemaker implant. CT of the brain showed no evidence of acute intracranial hemorrhage, mass-effect or cortical edema. Patient was started on aspirin due to elevated cholesterol. Patient reported that he possibly had a stroke 5 years ago but no record was able to be obtained. Given the elevated BNP, patient was evaluated with a 2D echocardiogram which revealed ejection fraction of 45%. Patient was started on Lasix and Coreg. Patient was found to have St Ace pacemaker implant which was interrogated and showed normal function. Patient was treated for bacteremia, pneumonia, and CHF. Patient was eventually able to be weaned off of oxygen and remained stable on room air. Patient was medically stable for discharge on 11/02/2020 and was discharged home. Consultants: Endocrinology Dr. Francis Neurology Marlena Edmonds, GABRIELA Hematology oncology Dr. Ness Cardiology Dr. Cisneros Infectious disease Dr. Mueller Nephrology Dr. Thompson Pulmonology Dr. Reyna Discharge Condition Improved and stable Final diagnoses CHF exacerbation, EF 45% Hypertension Hypoxemic respiratory failure VIJAY Right pleural effusion Scabies Iron deficiency anemia CAD, s/p pacemaker Bacteremia Hypothyroidism Aphasia Hypercholesterolemia Pneumonia I have been assigned to dictate discharge summary for this account. Best Brandon Nov 03, 2020 13:40
--- NOTE | 2020-11-04 20:53 | Coder Physician Query ---
Clarification is required for compliance, coding accuracy, and to reflect severity of illness for this patient Dear Dr. ELLISON Date: 11/04/2020 Home Decorator/CDS Name: ODESSANAA Heart Failure Query -- History of Present Illness and Brief Hospital Course Mr. Brooks is a 65-year-old male with past medical history of diabetes mellitus, hypertension, and CAD s/p pacemaker, who presented to the ED for evaluation of shortness of breath. Given the elevated BNP, patient was evaluated with a 2D echocardiogram which revealed ejection fraction of 45%. Patient was started on Lasix and Coreg. Patient was found to have St Ace pacemaker implant which was interrogated and showed normal function. Patient was treated for bacteremia, pneumonia, and CHF. Patient was eventually able to be weaned off of oxygen and remained stable on room air. Patient was medically stable for discharge on 11/02/2020 and was discharged home. Final diagnoses CHF exacerbation, EF 45% Please Clarify the Type of CHF: [] Systolic [] Diastolic [] Systolic & Diastolic (Combined) [] Other: Physician signature Date Please also document in your Progress Notes and/or Discharge Summary and indicate if the condition was present on admission. SELENA
== END 2020-11-02 21:50 | disposition home or self-care (01) | DRG 194 ==
LOC: EDBD 18:27 → EMR 18:46 → EDBEDREQ 19:58 → OBSVTOIN 20:00 → 2E 20:00 → EDBEDREQ 10-25 10:51
PROC: 30233N1 Transfusion of Nonautologous Red Blood Cells into Peripheral Vein, Percutaneous Approach (ICD-10-PCS; principal; 2020-11-02)
DX: I13.0 Hypertensive heart and chronic kidney disease with heart failure and stage 1 through stage 4 chronic kidney disease, or unspecified chronic kidney disease (principal); J96.91 Respiratory failure, unspecified with hypoxia; J18.9 Pneumonia, unspecified organism; N17.9 Acute kidney failure, unspecified; B86 Scabies; I50.9 Heart failure, unspecified; N18.9 Chronic kidney disease, unspecified; I25.10 Atherosclerotic heart disease of native coronary artery without angina pectoris; Z95.0 Presence of cardiac pacemaker; R47.01 Aphasia; D50.9 Iron deficiency anemia, unspecified; E78.00 Pure hypercholesterolemia, unspecified; E03.9 Hypothyroidism, unspecified; Z91.14 Patient's other noncompliance with medication regimen; I25.5 Ischemic cardiomyopathy
CPT/HCPCS: 36415; 70450; 71045; 80053; 80061; 80202; 81003; 82465; 82550; 82607; 82728; 82746; 82803; 82962; 82977; 83036; 83540; 83550; 83605; 83615; 83690; 83718; 83721; 83735; 83880; 84100; 84443; 84484; 84550; 85007; 85025; 85379; 85610; 85730; 86140; 86850; 86900; 86901; 86920; 87040; 87181; 93005; 93306; 93970; 96365; 96374; 96375; 99285; J1815; S5561